=== PATIENT | male | born 1960 | race Caucasian/White ===

== ENCOUNTER 2019-11-24 20:57 | Inpatient (IN) | payer BC, SELFPAY ==
[2019-11-24] VITALS (22 sets, daily range): BP systolic 72–141; BP diastolic 48–93; PULSE 40–114; RESP 13–21; TEMP 36.6; O2SAT 79–97
--- NOTE | 2019-11-24 21:10 | ED.GENADUL_ITS ---
Discharge Plan Discharge Details Chief Complaint: GenMedical Primary Care Provider: Esvin Alan ED Provider: Lexis Finch Home Meds and New Rx's Prescriptions: No Action simvastatin 20 MG tablet 40 mg PO DAILY RF: 0 metformin [Glucophage] 1,000 MG tablet 1,000 mg PO BID RF: 0 gabapentin 300 MG capsule 600 mg PO QHS RF: 0 budesonide-formoterol [Symbicort] 10.2 GM HFA aerosol inhaler 2 puff Inhalation BID RF: 0 Glyburide 2.5 MG Tablet 5 mg PO DAILY RF: 0 metolazone 2.5 mg Tablet 2.5 mg PO DAILY RF: 0 torsemide 20 mg Tablet 20 mg PO DAILY RF: 0 acetaminophen [Tylenol 8 Hour] 650 mg Tablet Extended Release 650 mg PO Q4H PRN PRNRF: 0 levofloxacin [Levaquin] 750 mg Tablet 750 mg PO DAILY RF: 0 potassium chloride 10 mEq Tablet,Er Particles/Crystals 10 meq PO DAILY RF: 0 alfuzosin 10 mg Tablet Extended Release 24 Hr 10 mg PO DAILY RF: 0 metoprolol tartrate 25 mg Tablet 25 mg PO BID RF: 0 duloxetine 60 mg Capsule,Delayed Release(Dr/Ec) 60 mg PO BID RF: 0 Eliquis 5 mg Tablet 5 mg PO BID RF: 0 magnesium oxide 400 mg magnesium Tablet 400 mg PO BID RF: 0 Medical Decision Making Is a 58-year-old patient who presents to the emergency room this evening for 2 falls which occurred today. Patient reports the first fall occurred while he was carrying a laundry basket and his legs buckled underneath him. Patient reports second fall occurred when he was transferring from his chair he stood for approximately 30 seconds and tried to walk in place, which has been recommended to him by his aids prior to transferring, then began walking over towards the kitchen and reports he had a syncopal episode. Patient reports he does not recall the events of the fall. Patient reports he awoke on the floor. Denies striking his head. Patient reports this occurred prior to arrival. Patient denies any headache or dizziness at this time. Patient denies chest pain no difficulty breathing shortness of breath or wheezing. Patient denies any cough or recent fever. Patient denies abdominal complaints. Patient does report he is currently on Levaquin for urinary tract infection previously prescribed at [facility]. Patient reports he was admitted to [facility] for approximately 1 week again after subsequent falls. Patient reports prior to his admission to [facility] he was admitted to [facility] for several weeks after having noted acute kidney injury as well as hypotension. Patient denies any focal complaints at this time. Patient denies biting his tongue this evening. On physical exam patient is obese, somewhat unkempt. Intact neurologic exam. Breath sounds are somewhat diminished likely due to body habitus but otherwise clear. Patient has benign abdominal exam. Patient has distal edema present in his lower legs bilaterally left greater than right with chronic vascular changes noted peripherally. Patient has no obvious evidence of trauma resulting from falls today. Patient does have a bandage in place on his right anterior plascencia. We will plan to recheck patient's labs and obtain his previous discharge reports from both [facility] and [facility]. We will plan to check CT of his head due to fall and syncopal episode. We will recheck urinalysis as patient recently was treated for UTI and is still currently taking Levaquin. EKG this evening reveals a heart rate of 91 possible A. fib and right bundle branch block. This was reviewed with Dr. Mcdowell. No evidence of ST segment changes. She did review previous EKG on November 052019 and she noted no significant change. Patient is discharged report from [facility] reveals active hospital problems including cellulitis, acute kidney injury, acute on chronic systolic heart failure as well as A. fib with RVR, venous insufficiency and type 2 diabetes as well as obstructive sleep apnea. Patient was ultimately initially evaluated at [facility] for concern of cellulitis of his lower legs and did report some shortness of breath only able to do approximately half of his normal activities before needing to sit and rest. Patient was noted to be in A. fib with RVR with a heart rate in the 120s, patient was treated with antibiotics for his lower leg cellulitis. Patient did undergo a DAPHNIE on and had an LVEF of 35%. Per patient's chart they did attempt to shock his heart into a normal rhythm however it was not effective. Patient was discharged on metoprolol 100 mg once daily patient was noted to have acute kidney injury and hypervolemic hyponatremia. Patient ultimately had some changes to his diuretic regimen, Lasix was discontinued and torsemide 40 mg was began once daily. After patient's discharge in the hospital he was home for approximately 1 week he had multiple subsequent falls, was evaluated at [facility] multiple times returned twice in 1 day for complaints of dizziness. On patient's subsequent visit he had labs evaluated and his systolic blood pressure was noted to be in the 80s which was somewhat symptomatic with dizziness and on review of his labs it was noted that his BUN was 96 when his previous BUN was 21 1 month ago. In the light of this acute kidney injury and significant hypotension he was made an acute level of patient and ultimately admitted to the hospital for 1 week. Patient was admitted to the hospital. Patient reports he was also noted to have a urinary tract infection during his admission. Was ultimately to the Levaquin for which he is still compliant but has been released from the hospital was feeling well for few days until today when he had the 2 previously described falls. Patient has no evidence of leukocytosis at this time. Patient's creatinine today is noted to be 1.76 and BUN noted to be 69. Patient's BNP is 2589, these seem somewhat improved compared to the notes from his previous hospital visits. Patient's urinalysis does not exhibit persistent infection and patient is currently taking Levaquin. Patient CT head does not reveal any acute intracranial findings or fracture. Patient's cervical spine has no acute fracture or subluxation. Given patient's subsequent improvement in his labs will attempt trial of ambulation. Patient was able to ambulate to approximately the door and slowly pivot turn he was feeling well with this degree of ambulation then became suddenly dizzy and lightheaded feeling he may syncopized, we seated him in a chair in the place he stood in the doorway ultimately checked his vital signs and was noted to be bradycardic at approximately 40 and have mild associated hypotension. Patient did not lose consciousness and ultimately was safely returned to his bed. After this episode I do not feel comfortable discharging this patient home at this time. Spoke with hospitalist for admission. After discussion with hospitalist suspect orthostatic hypotension. He will accept patient's admission at this time. Patient agrees with this plan of care, he feels much more comfortable being admitted to the hospital at this time given his recent falls. I also spoke with the sister with the patient's permission regarding medical findings tonight and plan of admission to the hospital. HPI General Date/Time Provider Initiated Documentation: 11/24/19 21:08 . HPI Narrative: This is a 4-year-old patient presenting to the emergency room this evening after 2 falls today. Patient lives at home alone and he reports this morning he was doing the laundry and his left leg buckled he fell to the ground but denies striking his head. Patient reports he was alert the entire time. Patient denies any subsequent injuries due to that fall. Patient reports he was eating and drinking without difficulty today. His sister came to visit him this evening after he did not answer the phone and this evening he was sitting in a chair in the living room and plans to transfer into the kitchen for dinner when he stood he stood with his walker for approximately 30 seconds as has been directed to him by his aids to prevent dizziness then he began walking into the kitchen with the use of his walker and he describes a syncopal episode. Patient does not recall the events of this episode. Patient reports his fall was witnessed by the sister. Patient denies obvious injury resulting from the fall. Denies any headache, or neck pain. Denies any vision change, nausea, vomiting. Denies any chest or back pain. No numbness, tingling or weakness in upper or lower extremities since fall. Denies any abdominal pain. Patient denies any obvious abdominal distention. Patient concerned due to frequency of falls and reported weakness when ambulating. Patient does report recent hospital admissions to both [facility] for approximately 1 week in [facility] prior to that for approximately 3 weeks. Patient does report he is currently on Levaquin for urinary tract infection which was noted at [facility]. Related Data Home Medications Medication Instructions Recorded Confirmed Glyburide 5 mg PO DAILY 03/10/18 03/10/18 budesonide-formoterol [Symbicort] 2 puff INHALATION BID 03/10/18 11/24/19 gabapentin 600 mg PO QHS 03/10/18 03/10/18 metformin [Glucophage] 1,000 mg PO BID 03/10/18 03/10/18 simvastatin 40 mg PO DAILY 03/10/18 11/24/19 acetaminophen [Tylenol 8 Hour] 650 mg PO Q4H PRN PRN 11/24/19 11/24/19 alfuzosin 10 mg PO DAILY 11/24/19 11/24/19 apixaban [Eliquis] 5 mg PO BID 11/24/19 11/24/19 duloxetine 60 mg PO BID 11/24/19 11/24/19 levofloxacin [Levaquin] 750 mg PO DAILY 11/24/19 11/24/19 magnesium oxide 400 mg PO BID 11/24/19 11/24/19 metolazone 2.5 mg PO DAILY 11/24/19 11/24/19 metoprolol tartrate 25 mg PO BID 11/24/19 11/24/19 potassium chloride 10 meq PO DAILY 11/24/19 11/24/19 torsemide 20 mg PO DAILY 11/24/19 11/24/19 Allergies Allergy/AdvReac Type Severity Reaction Status Date / Time No Known Allergies Allergy Unverified 11/24/19 21:16 General Stated Complaint: GenMedical ALICJA: 3 Review of Systems All systems reviewed & are unremarkable except as noted in HPI and below Constitutional Constitutional: Denies chills, Denies fever(s), Denies headache(s) and Reports weakness ENT Ears, Nose, Mouth, and Throat: Denies headache(s), Denies nasal congestion and Denies sore throat Cardiovascular Cardiovascular: Denies chest pain, Reports syncope, Denies rapid heart rate, Reports lightheadedness, Denies dyspnea, Denies dyspnea on exertion and Denies orthopnea Respiratory Respiratory: Denies cough, Denies dyspnea and Denies dyspnea on exertion Gastrointestinal Gastrointestinal: Denies abdominal pain, Reports constipation, Denies diarrhea, Denies nausea and Denies vomiting Genitourinary Genitourinary: Reports urinary incontinence (At baseline, wears diaper) Musculoskeletal Musculoskeletal: Denies numbness and Denies tingling Neurologic Neurologic: Reports syncope, Denies headache(s), Denies numbness, Denies tingling and Reports weakness [facility] Social History Smoking/Tobacco Use Status: Never Alcohol Intake: former Drug use: Never Do you feel safe at home: Yes Do you feel safe in your relationship?: Yes Exam Narrative Exam Narrative: CONST: Obese, in no acute distress. Alert and oriented. HENMT: Head nomocephalic, normal to inspection. Atraumatic. Hearing grossly normal. No pharyngeal erythema EYES: General normal appearance. Alignment normal. Eyelids normal. Conjunctiva normal. No nystagmus NECK: Normal visual inspection. FROM. Trachea midline. No Midline tenderness. CHEST: Normal insepection of the chest. RESP: Normal respiratory effort. Speaking full sentences. No cough. No audible wheezing. No retractions. Breath sounds somewhat diminished throughout all breath muniz but otherwise clear. No wheezing, rhonchi or rales. CARDIO: No JVD. Regular rate and rhythm. MUSCULOSKELETAL: Normal Gait. FROM of all extremities. Significant distal edema bilaterally left greater than right. Chronic vascular changes bilaterally, some erythema noted to the left lower leg which patient reports is improved. SKIN: Normal. Dry. No rashes. NEURO: Alert and awake. Speech clear. Alert and oriented x 3. Speech is clear. Cranial nerves intact as tested III - XI. Normal [id number] test. No Nystagmus. Strength intact in all extremities. Sensation intact in all extremities. PSYCH: Normal affect. Cooperative. Course Vital Signs Vital signs: Vital Signs Temperature 36.6 C 11/24/19 21:02 Pulse 80 11/24/19 21:02 Respiratory Rate 15 11/24/19 21:02 Blood Pressure 120/79 11/24/19 21:02 Pulse Oximetry 97 11/24/19 21:02 Temperature 36.6 C 11/24/19 21:02 Temperature Source Oral 11/24/19 21:02 Pulse 80 11/24/19 21:02 Respiratory Rate 15 11/24/19 21:02 Respiratory Effort 11/24/19 21:02 Blood Pressure 120/79 11/24/19 21:02 Pulse Oximetry 97 11/24/19 21:02 Oxygen Delivery Method Room Air 11/24/19 21:02 Oxygen Flow Rate 0 11/24/19 21:02 Pain Level 0 11/24/19 21:02
[2019-11-24 22:08] LABS: Abs Immature Grans 0.02 k/cumm (0.0-0.09); Absolute Basophil Count 0.02 k/cumm (0.0-0.2); Absolute Eosinophil Count 0.12 k/cumm (0.0-0.7); Absolute Lymphocyte Count 1.06 k/cumm (1.2-3.4); Absolute Monocyte Count 0.56 k/cumm (0.11-0.7); Basophils % 0.4; Eosinophils % 2.2; HCT 46.2 % (40.0-50.0); HGB 15.1 g/dL (13.5-17.5); Immature Grans % 0.4 %; Lymphocytes % 19.3; Mean Corp. HGB Concentration 32.7 g/dL (32.0-36.0); Mean Corpuscular Volume 85.7 fL (80-95); Mean Platelet Volume 10.1 fL (8.0-11.0); Monocytes % 10.2; Neutrophils % 67.5; Platelet Count 177 x1000/uL (130-400); RBC 5.39 m/cumm (4.50-6.00); RBC Distribution Width 15.9 % (11.8-14.1); White Blood Cell Count 5.48 k/cumm (4.4-10.8)
[2019-11-24 22:12] LABS: Bilirubin Negative (Negative); Blood Small (Negative); Clarity Clear (Clear); Glucose Negative (Negative); Ketones Negative (Negative); Leukocyte Esterase Negative (Negative); Nitrite Negative (Negative); Specific Gravity 1.015 (1.005-1.025); Urobilinogen 0.2 EU/dL (Up TO 0.2); pH 6.5 (5-8)
[2019-11-24 22:19] LABS: Bacteria Negative HPF (Negative); C & S Indicated? No; Casts Negative LPF (Negative); Crystals Negative HPF (Negative); Epithelial Cells Negative HPF (Negative); Mucus Negative (Negative); Other Cells Rare Renal (Negative); RBC 20-50 HPF (0-2); WBC 0-2 HPF (0-5)
[2019-11-24 22:23] LABS: ALT 30 U/L (16-63); AST 30 U/L (15-37); Albumin 3.6 g/dL (3.4-5.0); Alkaline Phosphatase 98 U/L (46-116); Anion Gap 7.3 mmol/L (3-11); BUN 69 mg/dL (7-18); Bilirubin, Total 1.1 mg/dL (0.2-1.0); CO2 35.7 mmol/L (21.0-32.0); CREATININE 1.76 mg/dL (0.70-1.30); Calcium 9.8 mg/dL (8.5-10.1); Chloride 93 mmol/L (98-107); Glucose 129 mg/dL (74-106); Sodium 136 mmol/L (136-145); Total Protein 8.6 g/dL (6.4-8.2)
[2019-11-24 22:26] LABS: Troponin I < 0.05 ng/Ml (<0.06)
[2019-11-24 22:27] LABS: NT-proBNP 2589 pg/mL (<300)
--- NOTE | 2019-11-24 22:45 | DI.CT_ITS ---
EXAM: CT HEAD CERVICAL SPINE WO CLINICAL HISTORY: fall. TECHNIQUE: Imaging Protocol: Axial computed tomography images with coronal and sagittal reformatted images were created and reviewed COMPARISON: No exams were available for comparison FINDINGS: Head CT Ventricles and Extra axial spaces: Normal in size and morphology for the patient's age. Hemorrhage: None. Cerebral parenchyma: Normal. Midline shift: None. Brainstem/Cerebellum: Normal. Calvarium: Normal. Visualized Paranasal sinuses/Mastoids: Clear. IMPRESSION: No acute abnormality. FINDINGS: Cervical Spine CT BONES: Vertebral body heights are maintained. Degenerative disc changes and facet degenerative change s are seen. Alignment is normal. There is no evidence of acute fracture. SOFT TISSUES: No paraspinal hematoma. The airway appears intact. The thorax is seen at the lung apices. No mass or adenopathy is identified. . IMPRESSION: Degenerative changes, no acute abnormality. RADIATION DOSE DELIVERED: DATA REPOSITORY: All CT scans at this facility are submitted to the National Radiology Data Registry (NRDR) Dose Index Registry (DIR) with the [employer] (A[employer]). RADIATION OPTIMIZATION: All CT scans at this facility use at least one of these dose optimization te chniques: automated exposure control; mA and/or kV adjustment per patient size (includes targeted exa ms where dose is matched to clinical indication); or iterative reconstruction.
--- NOTE | 2019-11-24 23:08 | DI.VRAD_ITS ---
PROCEDURE INFORMATION: Exam: CT Head Without Contrast Exam date and time: 11/24/2019 10:40 PM Age: 58 years old Clinical indication: Injury or trauma; Initial encounter; Sprain or strain, cervical ligaments; Patient HX: S/P fall TECHNIQUE: Imaging protocol: Computed tomography of the head without contrast. COMPARISON: No relevant prior studies available. FINDINGS: Brain: Normal. No hemorrhage. Unremarkable white matter. No mass effect. Ventricles: Normal. No ventriculomegaly. Bones/joints: Unremarkable. No acute fracture. Sinuses: Visualized sinuses are unremarkable. No fluid levels. Mastoid air cells: Visualized mastoid air cells are well aerated. Soft tissues: Unremarkable. IMPRESSION: 1. No acute intracranial findings. 2. No acute fracture. PROCEDURE INFORMATION: Exam: CT Cervical Spine Without Contrast Exam date and time: 11/24/2019 10:40 PM Age: 58 years old Clinical indication: Injury or trauma; Initial encounter; Sprain or strain, cervical ligaments; Patient HX: S/P fall TECHNIQUE: Imaging protocol: Computed tomography images of the cervical spine without contrast. Radiation optimization: All CT scans at this facility use at least one of these dose optimization techniques: automated exposure control; mA and/or kV adjustment per patient size (includes targeted exams where dose is matched to clinical indication); or iterative reconstruction. COMPARISON: No relevant prior studies available. FINDINGS: Vertebrae: No acute fracture. No subluxation. Discs/Spinal canal/Neural foramina: No disc herniations. No spinal canal stenosis. Multilevel mild neural foraminal narrowing. Soft tissues: Unremarkable. Lungs: Lung apices are normal. Vasculature: Carotid artery calcification. IMPRESSION: No acute fracture or subluxation. Dictated and Authenticated by: Edmond Bustos MD. Ordering:ADILSON Pires MD
--- NOTE | 2019-11-24 23:25 | NUR.NOTE ---
Nursing Note:2310 ambulate pt with walker and assist of 2. Pt got from bed 1B to door, c/o feeling dizzy. Was sat in chair until dizziness passed, then was able to ambulate back to bed with walker and assist of 2
--- NOTE | 2019-11-24 23:34 | W.PM.HP.N ---
Date of service: 11/24/19 Time of Service: 23:34 Assessment and Plan Assessment and plan (1) Orthostatic hypotension: Status: Acute Assessment and plan: Orthostatic hypotension, likely due to overdiuresis. Several other meds may be contributing as well, including beta kunal, afluzosin and gabapentin. Will hold diuretics, and consider other med adjustments as needed. Orthostasis: hold diuretics AF: on NOAC, consider replace lopressor wih digoxin if othrostasis persists BPH: consider hold Alfuzosin DM: follow sugars, hold meds for now until we see how he does on diet History of Present Illness History of Present Illness Chief Complaint: falling Narrative: 58 male with multiple problems, including morbid obesity and chronic edema. Here reporting several weeks of falling. In ER findings of note for orthostasis, azotemia and inability to ambulate. Admitted for further management. Review of Systems All systems reviewed & are unremarkable except as noted in HPI and below PFSH Social History Smoking/Tobacco Use Status: Never Alcohol Intake: former Drug use: Never Do you feel safe at home: Yes Do you feel safe in your relationship?: Yes Meds Home Medications and Allergies Home Medications Medication Instructions Recorded Confirmed Type Glyburide 5 mg PO DAILY 03/10/18 03/10/18 History budesonide-formoterol [Symbicort] 2 puff INHALATION BID 03/10/18 11/24/19 History gabapentin 600 mg PO QHS 03/10/18 03/10/18 History metformin [Glucophage] 1,000 mg PO BID 03/10/18 03/10/18 History simvastatin 40 mg PO DAILY 03/10/18 11/24/19 History acetaminophen [Tylenol 8 Hour] 650 mg PO Q4H PRN PRN 11/24/19 11/24/19 History alfuzosin 10 mg PO DAILY 11/24/19 11/24/19 History apixaban [Eliquis] 5 mg PO BID 11/24/19 11/24/19 History duloxetine 60 mg PO BID 11/24/19 11/24/19 History levofloxacin [Levaquin] 750 mg PO DAILY 11/24/19 11/24/19 History magnesium oxide 400 mg PO BID 11/24/19 11/24/19 History metolazone 2.5 mg PO DAILY 11/24/19 11/24/19 History metoprolol tartrate 25 mg PO BID 11/24/19 11/24/19 History potassium chloride 10 meq PO DAILY 11/24/19 11/24/19 History torsemide 20 mg PO DAILY 11/24/19 11/24/19 History Allergies Allergy/AdvReac Type Severity Reaction Status Date / Time No Known Allergies Allergy Unverified 11/24/19 21:16 Exam Narrative Exam Narrative: 123/87, 92 supine// 72/48, 106 standing, 20, 36.6. HEENT atraumatic; neck supple; lungs clear; heart RRR w/o mrg; abdomen soft and NT; extremities chronic lymphedema; neuro ox3 moves all 4s Results Labs Result diagrams: 11/24/19 21:40 11/24/19 21:40 Labs: Laboratory Results - last 24 hr 11/24/19 11/24/19 11/24/19 21:40 21:40 21:40 WBC 5.48 RBC 5.39 Hgb 15.1 Hct 46.2 MCV 85.7 MCH 28.0 MCHC 32.7 RDW 15.9 H Plt Count 177 MPV 10.1 Immature Gran % 0.4 Neutrophils % 67.5 Lymphocytes % 19.3 Monocytes % 10.2 Eosinophils % 2.2 Basophils % 0.4 Absolute Neutrophils 3.70 Absolute Lymphocytes 1.06 L Absolute Monocytes 0.56 Absolute Eosinophils 0.12 Absolute Basophils 0.02 Sodium 136 Potassium 4.0 Chloride 93 L Carbon Dioxide 35.7 H Anion Gap 7.3 BUN 69 H Creatinine 1.76 H Estimated GFR/1.73 m2 39.70 Glucose 129 H Calcium 9.8 Total Bilirubin 1.1 H AST 30 ALT 30 Alkaline Phosphatase 98 Troponin I < 0.05 NT-Pro-B Natriuret Pep Total Protein 8.6 H Albumin 3.6 Urine Color Yellow Urine Clarity Clear Urine pH 6.5 Ur Specific [place] 1.015 Urine Protein Negative Urine Ketones Negative Urine Blood Small H Urine Nitrite Negative Urine Bilirubin Negative Urine Urobilinogen 0.2 Ur Leukocyte Esterase Negative Urine RBC 20-50 H Urine WBC 0-2 Ur Epithelial Cells Negative Urine Crystals Negative Urine Bacteria Negative Urine Casts Negative Urine Mucus Negative Urine Other Rare renal Ur Culture Indicated? No Urine Glucose Negative 11/24/19 21:40 WBC RBC Hgb Hct MCV MCH MCHC RDW Plt Count MPV Immature Gran % Neutrophils % Lymphocytes % Monocytes % Eosinophils % Basophils % Absolute Neutrophils Absolute Lymphocytes Absolute Monocytes Absolute Eosinophils Absolute Basophils Sodium Potassium Chloride Carbon Dioxide Anion Gap BUN Creatinine Estimated GFR/1.73 m2 Glucose Calcium Total Bilirubin AST ALT Alkaline Phosphatase Troponin I NT-Pro-B Natriuret Pep 2589 H Total Protein Albumin Urine Color Urine Clarity Urine pH Ur Specific [place] Urine Protein Urine Ketones Urine Blood Urine Nitrite Urine Bilirubin Urine Urobilinogen Ur Leukocyte Esterase Urine RBC Urine WBC Ur Epithelial Cells Urine Crystals Urine Bacteria Urine Casts Urine Mucus Urine Other Ur Culture Indicated? Urine Glucose Last Vital Signs Temp 36.6 C 11/24/19 21:02 Pulse 40 L 11/24/19 23:15 Resp 20 11/24/19 23:15 BP 110/64 11/24/19 23:15 Pulse Ox 94 L 11/24/19 22:30 COVID-19 Screening Traveled to [place] from one of the affected countries or regions?: No Recent travel in the [place] within the last 8 weeks?: No Recent out of the country travel within the last 8 weeks?: No Exposure or possible exposure to illness during travel?: No Had IN PERSON contact w/suspected or confirmed C-19 person: No Have you had the following symptoms in the past few days?: No Symptoms noted since travel?: No Symptoms
[2019-11-25] VITALS (8 sets, daily range): BP systolic 80–130; BP diastolic 50–90; PULSE 52–102; RESP 17–20; TEMP 36.2–37.5; O2SAT 94–99
--- NOTE | 2019-11-25 | DI.US_ITS ---
EXAM: US EXTREMITY VENOUS BI CLINICAL HISTORY: edema BLE's, concern for DVT. TECHNIQUE: Bilateral lower extremity venous ultrasound performed using grayscale, color-flow, and sp ectral Doppler analysis. COMPARISON: No exams were available for comparison FINDINGS: Right lower extremity: The bilateral common femoral, femoral and popliteal veins demonstrate normal c ompressibility, augmentation, and color Doppler. The posterior tibial veins are patent. Left lower extremity: The common femoral vein and femoral vein are freely compressible. No thrombus is visible. The popliteal vein contains partially occlusive thrombus. The posterior tibial veins ap pear free of thrombus. The small saphenous vein also shows thrombus. The greater saphenous vein is free of thrombus. IMPRESSION: Right: Negative for DVT and superficial thrombophlebitis. Left: Partially occluding thrombosis in the popliteal vein. Superficial thrombophlebitis involving t he small saphenous vein. DATA REPOSITORY:
--- NOTE | 2019-11-25 00:02 | NUR.NOTE ---
Nursing Note: report to Moira Velazco RN
[2019-11-25] MEDS: Gabapentin 300 MG CAP 600 MG PO ×2 (01:41→21:34)
[2019-11-25 07:14] LABS: BUN 66 mg/dL (7-18); CREATININE 1.65 mg/dL (0.70-1.30); Calcium 9.3 mg/dL (8.5-10.1); Chloride 96 mmol/L (98-107); Estimated GFR 42.77 (mL/min/1.73m2); Glucose 103 mg/dL (74-106); Potassium 3.4 mmol/L (3.5-5.1); Sodium 137 mmol/L (136-145)
[2019-11-25] MEDS: Budesonide/Formoterol 80/4.5 6.9 GM 60 PUFF INH IH ×2 (08:57→20:33)
[2019-11-25] MEDS: DULoxetine 30 MG CAP 60 MG PO ×2 (09:02→20:27)
[2019-11-25] MEDS: M 750 MG PO (09:03)
[2019-11-25] MEDS: Apixaban 5 MG TAB PO (09:03)
[2019-11-25] MEDS: Magnesium Oxide 400 MG TAB PO ×2 (09:03→20:30)
[2019-11-25] MEDS: Metoprolol 25 MG TAB PO ×2 (09:03→20:27)
--- NOTE | 2019-11-25 10:51 | PHA.ADMREV ---
Pharmacy Clinical Review - Admission Clinical Review (Last Reviewed 11/24/19 @ 23:56 by AIDA Gilmore) Orthostatic hypotension (Acute) No Known Allergies Allergy (Unverified 11/24/19 21:16) Height 5 ft 8 in Weight 146.8 kg - Renal Dosing Renal Dosing: BUN 66 mg/dL (7-18) H 11/25/19 06:40 Creatinine 1.65 mg/dL (0.70-1.30) H 11/25/19 06:40 Medications needing adjustments: Reviewed (CRCL ~46ML/MIN) - Anticoagulation Anticoagulation: Hgb 15.1 g/dL (13.5-17.5) 11/24/19 21:40 Hct 46.2 % (40.0-50.0) 11/24/19 21:40 Plt Count 177 x1000/uL (130-400) 11/24/19 21:40 Creatinine 1.65 mg/dL (0.70-1.30) H 11/25/19 06:40 DVT Prohphylaxis: Reviewed Medications: Apixaban Therapeutic Anticoagulation: Reviewed Medications: Apixaban - Opiate Usage Evaluate Pain Scale/Pains Meds: N/A - Relevant Labs Sodium 137 mmol/L (136-145) 11/25/19 06:40 Potassium 3.4 mmol/L (3.5-5.1) L 11/25/19 06:40 Chloride 96 mmol/L (98-107) L 11/25/19 06:40 Electrolytes, C-Reactive P, ESR: Reviewed - Antimicrobial Stewardship Antibiotic appropriateness: N/A Surgical Abx d/c within 24 hr: N/A Culture review/Resistance: N/A - DM Control DM Control: Glucose 103 mg/dL (74-106) 11/25/19 06:40 Finger Stick Blood Glucose 102 Insulin Dosing: Reviewed (home meds not ordered yet) - Heart Failure/IN Heart Failure/IN: Troponin I < 0.05 ng/Ml (<0.06) 11/24/19 21:40 NT-Pro-B Natriuret Pep 2589 pg/mL (<300) H 11/24/19 21:40 EF%, KADIE's, B-Blockers, Diuretics: N/A - BP Control BP Control: Blood Pressure [Standing] 73/48 Blood Pressure [Supine] 123/87 Blood Pressure 117/74 Blood Pressure 128/90 Blood Pressure 108/81 Blood Pressure 94/71 Blood Pressure 72/48 Blood Pressure 123/87 Blood Pressure 92/60 Blood Pressure 110/64 Blood Pressure 117/91 Blood Pressure 141/77 If elevated: N/A - QTc Review If Elevated: Reviewed (561 levofloxacin(Known risk), alfuzosin(potential risk, pt own med ,no doses given yet)) - IV to PO Switch IV Medications: N/A (all PO) - Home Meds Home Med List reviewed: Reviewed - Current meds Current Medication Order Review: Reviewed (home meds not ordered: metformin, glyburide, torsemide)
--- NOTE | 2019-11-25 12:24 | W.NUTCONSULT ---
Date of service: 11/25/19 Time of Service: 12:24 Nutritional Consult ASSESSMENT: 58 year old male admitted with orthostatic hypotension. PMH: morbid obesity, chronic edema, HTN, DM2. Meds include glipizide. BMI indicates class 3 obesity. Following Diabetic Diet with 100% meal completion. Not at risk for nutritional decline at this time. MONITORING AND EVALUATION: weight, po intake, labs Time Spent in Nutritional Counseling and Treatment: 0 time spent face to face
--- NOTE | 2019-11-25 13:56 | W.PM.PROGNOT ---
Date of Service Date of service: 11/25/19 Time of Service: 13:56 Assessment and Plan Assessment and plan (1) Orthostatic hypotension: Status: Acute Assessment and plan: Differential diagnosis includes prerenal azotemia secondary to aggressive diuretics to control his CHF, pulmonary embolus, medications i.e. alpha-kunal and beta-kunal combination in addition to diuretics (2) Deep venous thrombosis of left popliteal vein: Status: Acute Assessment and plan: Patient denies prior history of DVT or PE. However he also denies a history of CHF even notes documented in his records from [facility]. He is a poor historian he knows he been on blood thinners for many years but did not know why he first went on the warfarin even though he has a history of atrial fibrillation. From the report is unable to determine whether this is acute or chronic DVT. It would appear that he is failed apixaban. I suspect because of his obesity and the lack of monitoring for its effectiveness that he is failed D.O.A.C.'s. At this point we will put him on Lovenox and then restart his warfarin. Qualifiers: Chronicity: acute Qualified Code(s): I82.432 - Acute embolism and thrombosis of left popliteal vein (3) Diabetic peripheral neuropathy associated with type 2 diabetes mellitus: Status: Acute Assessment and plan: In light of his CHF and acute kidney injury eminent withhold his metformin and his glyburide. Will monitor blood sugars before meals and at bedtime and cover with insulin sensitive sliding scale. (4) Obstructive sleep apnea: Status: Chronic Assessment and plan: Resume nocturnal CPAP. (5) Acute kidney injury (nontraumatic): Status: Acute Assessment and plan: Give him a fluid bolus of 500 cc over the next 2 hours to acutely treat his orthostasis. We will run IV fluids over the next 12 to 24 hours at a slow rate. (6) Prerenal azotemia: Status: Acute Assessment and plan: Withhold diuretics and monitor his BMP and urine output. Subjective Subjective Interval history since last seen: 4-year-old male non-smoker history of asthma hypertension and obstructive sleep apnea for which he wears a CPAP mask at home. He has chronic atrial fibrillation for which she is anticoagulated with apixaban. He denies a history of CHF or [place]. However the ER reports that patient was recently discharged from [facility] where he been treated for cellulitis and reportedly haS a history of chronic systolic heart failure. Was also treated for cellulitis of his legs during that admission. Most recently he was hospitalized at [facility] in [place] after being seen in the emergency room department twice. First 1 they treated him with IV fluids and sent him home but when he had a syncopal spell at home he returned to the emergency department was hospitalized at [facility] where he was diagnosed with an acute UTI. He is currently finishing up a course of Levaquin. Patient presented to the emergency department last night after having had 2 falls at home 1 of which was current with syncope. The other one occurred without dizziness which she said his legs just gave out from under him. He had recurrent orthostatic hypotension emergency department and had a near syncopal event. Of note he has acute prerenal azotemia with elevated BUN of 69 and creatinine 1.76. This is up from his baseline BUN of 21 from a month ago. Of note patient does have a history of heart failure with reduced ejection fraction. As of October 22, 2019 last echocardiogram demonstrated ejection fraction of 35% per DAPHNIE. Patient denies any fever or chills or cough or shortness of breath and denies any chest pain either last night or today. He remains in atrial fibrillation at a controlled ventricular rate with a bundle branch block pattern. As of the admission yesterday he was still on Levaquin for UTI. Repeat urinalysis last night showed some microscopic hematuria but no pyuria no bacteriuria. Urinalysis negative for nitrites or leukocyte Estrace. Patient has chronic bilateral leg edema probably secondary to his CHF and from [facility]. Venous duplex scan done earlier today demonstrated left popliteal vein thrombosis. Patient reports he has been taking his apixaban faithfully twice a day for the past 2 years prior to that he had been on warfarin. He is not sure why they discontinued the warfarin other than he required frequent monitoring. He does not recall he have any problems with the warfarin. I explained to him he is going to need to go on another anticoagulant. Because of his morbid obesity I do not think is a candidate for D.O.A.C. I will start him on Lovenox this afternoon and then convert him to warfarin. Is not clear as to whether or not he had a PE or not he had no symptoms of chest pain or shortness of breath no hypoxemia. Because of his acute renal insufficiency is not a candidate for CTA of his chest. Exam Narrative Exam Narrative: Morbidly obese male lying in bed in semi-an position no acute distress talking on his phone. He is alert and oriented person place time circumstance. Lungs are clear to auscultation anteriorly and posteriorly in upper and lower lung muniz bilaterally. Heart is irregular irregular rate controlled rate. No appreciable murmur rub or gallop. Abdomen obese soft and nontender. Lower extremities with 2+ edema with chronic excoriation secondary to venous stasis dermatitis. Objective Objective Clinical Data: Abnormal lab results 11/24/19 11/24/19 11/24/19 Range/Units 21:40 21:40 21:40 RDW 15.9 H (11.8-14.1) % Absolute Lymphocytes 1.06 L (1.2-3.4) k/cumm Potassium (3.5-5.1) mmol/L Chloride 93 L (98-107) mmol/L Carbon Dioxide 35.7 H (21.0-32.0) mmol/L BUN 69 H (7-18) mg/dL Creatinine 1.76 H (0.70-1.30) mg/dL Glucose 129 H (74-106) mg/dL Total Bilirubin 1.1 H (0.2-1.0) mg/dL NT-Pro-B Natriuret Pep (<300) pg/mL Total Protein 8.6 H (6.4-8.2) g/dL Urine Blood Small H (Negative) Urine RBC 20-50 H (0-2) HPF 11/24/19 11/25/19 Range/Units 21:40 06:40 RDW (11.8-14.1) % Absolute Lymphocytes (1.2-3.4) k/cumm Potassium 3.4 L (3.5-5.1) mmol/L Chloride 96 L (98-107) mmol/L Carbon Dioxide 35.0 H (21.0-32.0) mmol/L BUN 66 H (7-18) mg/dL Creatinine 1.65 H (0.70-1.30) mg/dL Glucose (74-106) mg/dL Total Bilirubin (0.2-1.0) mg/dL NT-Pro-B Natriuret Pep 2589 H (<300) pg/mL Total Protein (6.4-8.2) g/dL Urine Blood (Negative) Urine RBC (0-2) HPF Vital Signs Temperature 37.5 C 11/25/19 11:18 Temperature Source Tympanic 11/25/19 11:18 Pulse 100 H 11/25/19 13:28 Pulse Rhythm Irregular 11/25/19 01:07 Pulse 102 H 11/25/19 00:00 Respiratory Rate 17 11/25/19 11:18 Respiratory Effort Non-Labored 11/25/19 01:07 Respiratory Depth Normal 11/25/19 01:07 Respiratory Pattern Normal 11/25/19 01:07 Blood Pressure 94/68 L 11/25/19 13:28 Blood Pressure Mean 88 11/25/19 00:00 Pulse Oximetry 99 11/25/19 11:18 Oxygen Delivery Method Room Air 11/25/19 11:18 Oxygen Flow Rate 0 11/25/19 11:18 Pain Level 0 11/25/19 11:18 Intake & Output 11/24/19 11/25/19 11/25/19 23:59 11:59 23:59 Intake Total 240 / 490 250 / 490 Balance 240 / 490 250 / 490 Weight 148.325 kg 146.8 kg Intake: Oral 240 / 490 250 / 490 Other: Urine Color Yellow Urine Appearance Clear Comment after incident of incontinence pt was very incontinent Voiding Methods Diaper Incontinent Laboratory Results WBC 5.48 k/cumm (4.4-10.8) 11/24/19 21:40 RBC 5.39 m/cumm (4.50-6.00) 11/24/19 21:40 Hgb 15.1 g/dL (13.5-17.5) 11/24/19 21:40 Hct 46.2 % (40.0-50.0) 11/24/19 21:40 MCV 85.7 fL (80-95) 11/24/19 21:40 MCH 28.0 pg (27.0-33.0) 11/24/19 21:40 MCHC 32.7 g/dL (32.0-36.0) 11/24/19 21:40 RDW 15.9 % (11.8-14.1) H 11/24/19 21:40 Plt Count 177 x1000/uL (130-400) 11/24/19 21:40 MPV 10.1 fL (8.0-11.0) 11/24/19 21:40 Immature Gran % 0.4 % 11/24/19 21:40 Neutrophils % 67.5 11/24/19 21:40 Lymphocytes % 19.3 11/24/19 21:40 Monocytes % 10.2 11/24/19 21:40 Eosinophils % 2.2 11/24/19 21:40 Basophils % 0.4 11/24/19 21:40 Absolute Neutrophils 3.70 k/cumm (1.2-6.7) 11/24/19 21:40 Absolute Lymphocytes 1.06 k/cumm (1.2-3.4) L 11/24/19 21:40 Absolute Monocytes 0.56 k/cumm (0.11-0.7) 11/24/19 21:40 Absolute Eosinophils 0.12 k/cumm (0.0-0.7) 11/24/19 21:40 Absolute Basophils 0.02 k/cumm (0.0-0.2) 11/24/19 21:40 Sodium 137 mmol/L (136-145) 11/25/19 06:40 Potassium 3.4 mmol/L (3.5-5.1) L 11/25/19 06:40 Chloride 96 mmol/L (98-107) L 11/25/19 06:40 Carbon Dioxide 35.0 mmol/L (21.0-32.0) H 11/25/19 06:40 Anion Gap 6.0 mmol/L (3-11) 11/25/19 06:40 BUN 66 mg/dL (7-18) H 11/25/19 06:40 Creatinine 1.65 mg/dL (0.70-1.30) H 11/25/19 06:40 Estimated GFR/1.73 m2 42.77 (mL/min/1.73m2) 11/25/19 06:40 Glucose 103 mg/dL (74-106) 11/25/19 06:40 Calcium 9.3 mg/dL (8.5-10.1) 11/25/19 06:40 Total Bilirubin 1.1 mg/dL (0.2-1.0) H 11/24/19 21:40 AST 30 U/L (15-37) 11/24/19 21:40 ALT 30 U/L (16-63) 11/24/19 21:40 Alkaline Phosphatase 98 U/L (46-116) 11/24/19 21:40 Troponin I < 0.05 ng/Ml (<0.06) 11/24/19 21:40 NT-Pro-B Natriuret Pep 2589 pg/mL (<300) H 11/24/19 21:40 Total Protein 8.6 g/dL (6.4-8.2) H 11/24/19 21:40 Albumin 3.6 g/dL (3.4-5.0) 11/24/19 21:40 Urine Color Yellow (Yellow) 11/24/19 21:40 Urine Clarity Clear (Clear) 11/24/19 21:40 Urine pH 6.5 (5-8) 11/24/19 21:40 Ur Specific [place] 1.015 (1.005-1.025) 11/24/19 21:40 Urine Protein Negative mg/dL (Negative) 11/24/19 21:40 Urine Ketones Negative mg/dL (Negative) 11/24/19 21:40 Urine Blood Small (Negative) H 11/24/19 21:40 Urine Nitrite Negative (Negative) 11/24/19 21:40 Urine Bilirubin Negative (Negative) 11/24/19 21:40 Urine Urobilinogen 0.2 EU/dL (Up TO 0.2) 11/24/19 21:40 Ur Leukocyte Esterase Negative (Negative) 11/24/19 21:40 Urine RBC 20-50 HPF (0-2) H 11/24/19 21:40 Urine WBC 0-2 HPF (0-5) 11/24/19 21:40 Ur Epithelial Cells Negative HPF (Negative) 11/24/19 21:40 Urine Crystals Negative HPF (Negative) 11/24/19 21:40 Urine Bacteria Negative HPF (Negative) 11/24/19 21:40 Urine Casts Negative LPF (Negative) 11/24/19 21:40 Urine Mucus Negative (Negative) 11/24/19 21:40 Urine Other Rare renal (Negative) 11/24/19 21:40 Ur Culture Indicated? No 11/24/19 21:40 Urine Glucose Negative mg/dL (Negative) 11/24/19 21:40 Objective Narrative Objective Narrative: Focused [id number] echocardiogram was performed. Patient has enlarged LV and RV. LV has moderate systolic dysfunction. RV is dilated and moderately impaired as well. There is D-shaped deformity to the interventricular septum. This is consistent with right ventricular pressure overload. The RA is dilated as well.
[2019-11-25 14:21] LABS: Troponin I < 0.05 ng/Ml (<0.06)
--- NOTE | 2019-11-25 14:36 | INITIAL_ITS ---
- If Service Date Differs Date of service: 11/25/19 Time of Service: 14:36 Care Management Initial Assess REASON FOR HOSPITALIZATION:: Orthostatic Hypotension PAST MEDICAL HISTORY/PAST SURGICAL HISTORY:: unknown to [facility] at this time. PREVIOUS FUNCTIONAL STATUS/SOCIAL/FAMILY SUPPORTS:: Barrie lives in [place] alone. His sister, Tiffani, and his brother, Damian live close by. He also has a daughter, Ban, who lives in [place], [place]. 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 He is independent with his ADL's at baseline. CURRENT FUNCTIONAL STATUS:: Barrie was sitting up in bed when CM met with him. He reported that he was feeling better today, so far, but had not been up and walking. He stated that he is hoping to return home, but he would really like to find out why he keeps having syncopal episodes prior to leaving. Per report, medication changes are being considered as a possible cause. CM will continue to follow. ADVANCE DIRECTIVES:: On file at [facility], Ban listed as agent. Has patient been provided with information about the portal?: No Did the patient sign up for the portal?: No CODE STATUS:: Full Code INSURANCE COVERAGE / FINANCIAL ISSUES:: [employer] CURRENT HOME/COMMUNITY SERVICES/EQUIPMENT:: Barrie has a walker at home which he uses to ambulate. PRIMARY CARE PHYSICIAN:: Esvin Alan POTENTIAL DISCHARGE NEEDS:: Evaluations for further needs, follow up appointments PATIENT/FAMILY EDUCATION NEEDS:: Review discharge instructions regarding activity levels and medications, discussion of self care needs including ask me three ANTICIPATED BARRIERS TO DISCHARGE:: None identified at this time. TRANSPORTATION:: Anticipate Barrie will be transported via private vehicle by family vs RCT PLAN:: Anticipate Barrie will return home when medically cleared. Further evaluations needed to determine the need for additional services/support at home upon discharge. CM will continue to follow and support discharge planning considerations.
[2019-11-25] MEDS: Normal Saline 500 ML 250 ML IV (15:46)
[2019-11-25] MEDS: Insulin Aspart 300 UNITS/3 ML PEN SC (17:35)
[2019-11-25] MEDS: Simvastatin 20 MG TAB 40 MG PO (20:28)
[2019-11-26] VITALS (9 sets, daily range): BP systolic 93–134; BP diastolic 59–97; PULSE 44–87; RESP 18–20; TEMP 36.2–36.9; O2SAT 93–97
[2019-11-26 07:12] LABS: BUN 48 mg/dL (7-18); CREATININE 1.33 mg/dL (0.70-1.30); Calcium 9.3 mg/dL (8.5-10.1); Chloride 100 mmol/L (98-107); Estimated GFR 54.85 (mL/min/1.73m2); Glucose 132 mg/dL (74-106); Potassium 3.1 mmol/L (3.5-5.1); Sodium 140 mmol/L (136-145)
[2019-11-26] MEDS: Magnesium Oxide 400 MG TAB PO ×2 (07:42→20:13)
[2019-11-26] MEDS: DULoxetine 30 MG CAP 60 MG PO ×2 (07:42→20:13)
[2019-11-26] MEDS: Metoprolol 25 MG TAB PO (07:42)
[2019-11-26] MEDS: M 750 MG PO (07:42)
[2019-11-26 07:43] LABS: Hemoglobin A1C 8.7 % (3.8-5.6)
[2019-11-26] MEDS: Insulin Aspart 300 UNITS/3 ML PEN SC ×3 (08:20→16:56)
[2019-11-26] MEDS: Budesonide/Formoterol 80/4.5 6.9 GM 60 PUFF INH IH ×2 (08:51→20:11)
[2019-11-26 09:11] LABS: Magnesium 2.1 mg/dL (1.8-2.4)
[2019-11-26] MEDS: Potassium Chloride 20 MEQ TABCR 40 MEQ PO (09:48)
--- NOTE | 2019-11-26 11:29 | PGE_ITS ---
Date of Service Date of service: 11/26/19 Time of Service: 11:29 Assessment and Plan Assessment and plan (1) Orthostatic hypotension: Status: Acute Assessment and plan: blood pressure improved with gentle hydration overnight. continue daily orthostatics, fall precautions, continue to hold diuretics today. (2) Diabetic peripheral neuropathy associated with type 2 diabetes mellitus: Status: Acute Assessment and plan: continue diabetic diet, sliding scale coverage as needed. continue home medications. Hemoglobin A1C 8.7, diabetic consultation (3) Obstructive sleep apnea: Status: Chronic Assessment and plan: will use home cpap unit as directed. respiratory following (4) Acute kidney injury (nontraumatic): Status: Acute Assessment and plan: improved with IV hydration. continue to monitor and avoid nephrotoxic drugs. renal dose medications (5) Atrial fibrillation: Status: Chronic Assessment and plan: rate controlled. failed apixaban as he has a DVT. will continue lovenox and transition to warfarin for INR goal of 2-3. (6) Deep venous thrombosis of left popliteal vein: Status: Acute Assessment and plan: lovenox to bridge to coumadin for INR goal 2-3 Qualifiers: Chronicity: acute Qualified Code(s): I82.432 - Acute embolism and thrombosis of left popliteal vein Subjective Subjective Patient reports: no new complaints, feels better, tolerating a regular diet, flatus and no bowel movement Exam Const General: cooperative, comfortable, no acute distress, disheveled and ill appearing chronically Nutritional Appearance: obese morbidly obese Orientation: alert, awake and oriented x3 HENMT Head: normal to inspection, normocephalic and atraumatic Mouth: oral mucosae normal Resp Effort & Inspection: normal respiratory effort Auscultation: clear to auscultation bilaterally Cardio Rate: regular rate Rhythm: abnormal rhythm irregularly irregular GI Inspection: large pannus and obesity Skin Lesions: lesion noted (bilateral lower, mulitple areas, covered in mepiliex, see nurses notes) Rashes: other (chronic bilateral discoloration consistent with venous stasis changes) Neuro General: patient alert, patient awake and patient oriented x3 Cranial Nerves: CN's II-XI intact bilaterally Cognition: normal cognition Speech: speech normal Gait: gait assisted Extrem General: full ROM and pedal edema (generalized, lymphedema, ) bilaterally Psych Appearance: well kempt Speech and Movement: speech and movement normal Mood: congruent mood Affect: normal affect Attitude: cooperative Thought Process: normal Thought Content: normal Insight: fair Judgment: fair Objective Objective Clinical Data: Abnormal lab results 11/25/19 11/26/19 11/26/19 Range/Units 06:40 06:24 06:24 Potassium 3.4 L 3.1 L (3.5-5.1) mmol/L Chloride 96 L (98-107) mmol/L Carbon Dioxide 35.0 H 33.0 H (21.0-32.0) mmol/L BUN 66 H 48 H D (7-18) mg/dL Creatinine 1.65 H 1.33 H (0.70-1.30) mg/dL Glucose 132 H (74-106) mg/dL Hemoglobin A1c 8.7 H (3.8-5.6) % Vital Signs Temperature 36.2 C L 11/26/19 07:20 Temperature Source Tympanic 11/26/19 07:20 Pulse 55 L 11/26/19 07:20 Pulse Rhythm Irregular 11/26/19 07:40 Pulse 102 H 11/25/19 00:00 Respiratory Rate 19 11/26/19 07:20 Respiratory Effort Non-Labored 11/26/19 07:40 Respiratory Depth Normal 11/26/19 07:40 Respiratory Pattern Normal 11/26/19 07:40 Blood Pressure 102/79 11/26/19 07:20 Blood Pressure Mean 88 11/25/19 00:00 Pulse Oximetry 93 L 11/26/19 08:52 Oxygen Delivery Method Room Air 11/26/19 08:52 Oxygen Flow Rate 0 11/26/19 08:52 Fraction of Inspired Oxygen (FIO2) 12 11/26/19 11:15 Pain Level 0 11/26/19 07:20 Intake & Output 11/25/19 11/25/19 11/26/19 11:59 23:59 11:59 Intake Total 240 / 1030 790 / 1030 120 / 120 Balance 240 / 1030 790 / 1030 120 / 120 Weight 146.8 kg 146.4 kg Intake: Oral 240 / 1030 790 / 1030 120 / 120 Other: Urine Color Yellow Yellow Urine Appearance Clear Clear Clear Urine Odor Normal Comment after incident of incontinence pt was very incontinent incontinent Voiding Methods Diaper Diaper Incontinent Incontinent Laboratory Results WBC 5.48 k/cumm (4.4-10.8) 11/24/19 21:40 RBC 5.39 m/cumm (4.50-6.00) 11/24/19 21:40 Hgb 15.1 g/dL (13.5-17.5) 11/24/19 21:40 Hct 46.2 % (40.0-50.0) 11/24/19 21:40 MCV 85.7 fL (80-95) 11/24/19 21:40 MCH 28.0 pg (27.0-33.0) 11/24/19 21:40 MCHC 32.7 g/dL (32.0-36.0) 11/24/19 21:40 RDW 15.9 % (11.8-14.1) H 11/24/19 21:40 Plt Count 177 x1000/uL (130-400) 11/24/19 21:40 MPV 10.1 fL (8.0-11.0) 11/24/19 21:40 Immature Gran % 0.4 % 11/24/19 21:40 Neutrophils % 67.5 11/24/19 21:40 Lymphocytes % 19.3 11/24/19 21:40 Monocytes % 10.2 11/24/19 21:40 Eosinophils % 2.2 11/24/19 21:40 Basophils % 0.4 11/24/19 21:40 Absolute Neutrophils 3.70 k/cumm (1.2-6.7) 11/24/19 21:40 Absolute Lymphocytes 1.06 k/cumm (1.2-3.4) L 11/24/19 21:40 Absolute Monocytes 0.56 k/cumm (0.11-0.7) 11/24/19 21:40 Absolute Eosinophils 0.12 k/cumm (0.0-0.7) 11/24/19 21:40 Absolute Basophils 0.02 k/cumm (0.0-0.2) 11/24/19 21:40 Sodium 140 mmol/L (136-145) 11/26/19 06:24 Potassium 3.1 mmol/L (3.5-5.1) L 11/26/19 06:24 Chloride 100 mmol/L (98-107) 11/26/19 06:24 Carbon Dioxide 33.0 mmol/L (21.0-32.0) H 11/26/19 06:24 Anion Gap 7.0 mmol/L (3-11) 11/26/19 06:24 BUN 48 mg/dL (7-18) H D 11/26/19 06:24 Creatinine 1.33 mg/dL (0.70-1.30) H 11/26/19 06:24 Estimated GFR/1.73 m2 54.85 (mL/min/1.73m2) 11/26/19 06:24 Glucose 132 mg/dL (74-106) H 11/26/19 06:24 Hemoglobin A1c 8.7 % (3.8-5.6) H 11/26/19 06:24 Calcium 9.3 mg/dL (8.5-10.1) 11/26/19 06:24 Magnesium 2.1 mg/dL (1.8-2.4) 11/26/19 06:24 Total Bilirubin 1.1 mg/dL (0.2-1.0) H 11/24/19 21:40 AST 30 U/L (15-37) 11/24/19 21:40 ALT 30 U/L (16-63) 11/24/19 21:40 Alkaline Phosphatase 98 U/L (46-116) 11/24/19 21:40 Troponin I < 0.05 ng/Ml (<0.06) 11/25/19 06:40 NT-Pro-B Natriuret Pep 2589 pg/mL (<300) H 11/24/19 21:40 Total Protein 8.6 g/dL (6.4-8.2) H 11/24/19 21:40 Albumin 3.6 g/dL (3.4-5.0) 11/24/19 21:40 Urine Color Yellow (Yellow) 11/24/19 21:40 Urine Clarity Clear (Clear) 11/24/19 21:40 Urine pH 6.5 (5-8) 11/24/19 21:40 Ur Specific [place] 1.015 (1.005-1.025) 11/24/19 21:40 Urine Protein Negative mg/dL (Negative) 11/24/19 21:40 Urine Ketones Negative mg/dL (Negative) 11/24/19 21:40 Urine Blood Small (Negative) H 11/24/19 21:40 Urine Nitrite Negative (Negative) 11/24/19 21:40 Urine Bilirubin Negative (Negative) 11/24/19 21:40 Urine Urobilinogen 0.2 EU/dL (Up TO 0.2) 11/24/19 21:40 Ur Leukocyte Esterase Negative (Negative) 11/24/19 21:40 Urine RBC 20-50 HPF (0-2) H 11/24/19 21:40 Urine WBC 0-2 HPF (0-5) 11/24/19 21:40 Ur Epithelial Cells Negative HPF (Negative) 11/24/19 21:40 Urine Crystals Negative HPF (Negative) 11/24/19 21:40 Urine Bacteria Negative HPF (Negative) 11/24/19 21:40 Urine Casts Negative LPF (Negative) 11/24/19 21:40 Urine Mucus Negative (Negative) 11/24/19 21:40 Urine Other Rare renal (Negative) 11/24/19 21:40 Ur Culture Indicated? No 11/24/19 21:40 Urine Glucose Negative mg/dL (Negative) 11/24/19 21:40
[2019-11-26] MEDS: Polyethylene Glycol 3350 17 GM PACKET PO (11:40)
[2019-11-26] MEDS: Docusate Sodium 100 MG CAP PO ×2 (11:40→20:13)
--- NOTE | 2019-11-26 12:27 | PHA.ADMREV ---
Pharmacy Clinical Review - Admission Clinical Review (Last Updated 11/25/19 @ 15:27 by Avelino Lang) Prerenal azotemia (Acute) Acute kidney injury (nontraumatic) (Acute) Diabetic peripheral neuropathy associated with type 2 diabetes mellitus (Acute) Deep venous thrombosis of left popliteal vein (Acute) Orthostatic hypotension (Acute) No Known Allergies Allergy (Unverified 11/24/19 21:16) Height 5 ft 8 in Weight 146.4 kg - Renal Dosing Renal Dosing: BUN 48 mg/dL (7-18) H D 11/26/19 06:24 Creatinine 1.33 mg/dL (0.70-1.30) H 11/26/19 06:24 Medications needing adjustments: Reviewed (Crcl ~83.2 mL/min using adjusted body weight. Current meds okay.) - Anticoagulation Anticoagulation: Hgb 15.1 g/dL (13.5-17.5) 11/24/19 21:40 Hct 46.2 % (40.0-50.0) 11/24/19 21:40 Plt Count 177 x1000/uL (130-400) 11/24/19 21:40 Creatinine 1.33 mg/dL (0.70-1.30) H 11/26/19 06:24 DVT Prohphylaxis: N/A Therapeutic Anticoagulation: Reviewed (has both therapeutic doses of enoxaparin and warfarin ordered.) Medications: Enoxaparin - Relevant Labs Sodium 140 mmol/L (136-145) 11/26/19 06:24 Potassium 3.1 mmol/L (3.5-5.1) L 11/26/19 06:24 Chloride 100 mmol/L (98-107) 11/26/19 06:24 Magnesium 2.1 mg/dL (1.8-2.4) 11/26/19 06:24 - DM Control DM Control: Glucose 132 mg/dL (74-106) H 11/26/19 06:24 Hemoglobin A1c 8.7 % (3.8-5.6) H 11/26/19 06:24 Finger Stick Blood Glucose 200 Finger Stick Blood Glucose 200 Finger Stick Blood Glucose 150 Finger Stick Blood Glucose 150 - Heart Failure/MD Heart Failure/MD: Troponin I < 0.05 ng/Ml (<0.06) 11/25/19 06:40 NT-Pro-B Natriuret Pep 2589 pg/mL (<300) H 11/24/19 21:40 - BP Control BP Control: Blood Pressure 103/79 Blood Pressure 102/79 Blood Pressure 93/59
--- NOTE | 2019-11-26 12:53 | PDOC.CMPRO ---
- If Service Date Differs Date of service: 11/26/19 Time of Service: 12:53 Care Management Progress Note S/O: Barrie was sitting up in his chair when CM met with him. He stated that he would like CM to contact his sister, Jessica, regarding his plan of care. CM spoke with Jessica who requested that Barrie work with PT while at [facility]. CM assured her that a PT consult has been placed, and they should see him tomorrow. Jessica expressed concern regarding Barrie's de conditioning from being in a hospital setting for a long period of time. CM discussed the plan with the provider, who will add an OT consult for Barrie. Jessica also suggested Barrie having a short term rehab stay prior to returning home. Per report, Barrie did have a rehab stay at [facility] and was cleared for discharge. CM will discuss disposition recommendations with PT. CM will continue to follow. A: Barrie is a 58 year old male admitted to [facility] on 11/25/19 for orthostatic hypotension. P: Barrie will be evaluated by PT and OT tomorrow, which will help determine disposition. Once he is medically cleared he will return home vs SNF for short term rehab prior to returning home. CM will continue to follow and support Barrie with discharge planning considerations.
--- NOTE | 2019-11-26 14:12 | CHAPLAIN ---
Barrie was sitting up in a chair when I visited, and he explained that this was good progress for him as he's mostly been in bed lately with a few attempts to stand briefly by the edge of the bed. Barrie told me about his recent falls at home which led to hospitalizations at [facility] and [facility]. He lives in [place] and a sister lives nearby and checks on him. Barrie's cousin, José Lazaro, (who is cardiac rehab patient at [facility] and well known to some staff), calls Barrie almost daily. I will continue to visit.
[2019-11-26] MEDS: Simvastatin 20 MG TAB 40 MG PO (20:13)
[2019-11-26] MEDS: Potassium Chloride 20 MEQ TABCR PO (20:13)
[2019-11-26] MEDS: Warfarin 5 MG TAB 10 MG PO (20:14)
[2019-11-26] MEDS: Gabapentin 300 MG CAP 600 MG PO (21:07)
[2019-11-27] VITALS (10 sets, daily range): BP systolic 93–125; BP diastolic 59–89; PULSE 50–104; RESP 16–20; TEMP 36.1–37.2; O2SAT 93–97
[2019-11-27 06:57] LABS: Platelet Count 176 x1000/uL (130-400)
[2019-11-27 07:11] LABS: Anion Gap 6.4 mmol/L (3-11); BUN 40 mg/dL (7-18); CO2 31.6 mmol/L (21.0-32.0); CREATININE 1.13 mg/dL (0.70-1.30); Chloride 101 mmol/L (98-107); Glucose 130 mg/dL (74-106); INR 1.2 (0.9-1.1); Potassium 3.3 mmol/L (3.5-5.1); Prothrombin Time 12.2 sec (9.3-11.0); Sodium 139 mmol/L (136-145)
--- NOTE | 2019-11-27 07:38 | OTIE_ITS ---
Occupational Therapy Notes Inpatient Occupational Therapy Evaluation Date: 11/27/19 Referring Doctor:Sammi Gan NP OT Orders: Non-Urgent Precautions: Fall, Standard PATIENT PROFILE/ADMITTING DIAGNOSIS: Pt is a 58 year old male who presented to the ER on 11/24/19 after falling twice prior to arrival. The first fall he was carrying laundry up the stair and the second he was transferring from the chair and had an episode of syncope. Per pts EMR he was previous admitted to [facility] 1 week prior for cellulitis in lower legs. Pt was admitted to [facility] with the following dx orthostatic hypertension, deep venous thrombosis (L) popliteal vein, diabetic neuropathy, obstructive sleep apnea, acute kidney injury, prerenal azotemia. Past Medical History: Medical history: AFIB, asthma, diabetes, hyperlipidemia, hypertension Surgical history: non-contributory Social History/Home Situation: Pt lives alone in [place], [place] his brother and s isariel live nearby and he has daughter who lives in [place]. He utilizes a FWW at all times for functional mobility and performs driving/community mobility (I). His home is set up with five stairs to enter with (B) railings. He notes that he has 14 steps into his basement where his heating unit is and he would need to go up and down for that. He sleeps in a recliner chair. His nephew and children stay i n his home with him every other weekend. He is (I) in the kitchen for cooking and meal preparation, he has a tub shower with grab bars, non slip adhesive on bottom, removable shower head. OT does recommend a shower seat that could fit into his shower due to syncope episodes. Pt is able to (I) don and doff shirt at baseline he requires (A) with socks which he states he has a sock aid for but has not been home long enough to utilize it. He states that he does not have issues getting up from the toilet and at nighttime he wears a depends due to being incontinent and does not attempt toileting during the night hours. He goes with his sister grocery shopping and his sister has managed his medications for years. His laundry room is located off his kitchen which he can easily access. Equipment owned/DME: FWW for ambulation. SUBJECTIVE: Pt was sitting in bed when OT arrived. He was agreeable to OT session and notes that he is feeling better. He is nervous about his syncope episodes and states that this limits him in what he can do at home. OBJECTIVE: General Observation: Pleasant, IV (R) UE dorsal hand Mental Status: A&Ox3 Pain: c/o pain in (L) hip as pt notes this is bone on bone ROM: RUE AROM WFL throughout L UE AROM WFL throughout STRENGTH: RUE Shoulder flexion 5/5, bicep 4/5, tricep 4/5, container finishing inspector is strong and symmetrical LUE Shoulder flexion 5/5, bicep 5/5, tricep 4+/5, container finishing inspector is strong and symmetrical SENSATION: Intact (B) UE FUNCTIONAL MOBILITY/ADLS: Transfers with FWW Supine-sit (S) with min vc Sit-supine (S) with mod vc BATHING sitting on side of the bed Bathing UE (I) face, (B) UE, underarms, abdomen with min (A), hair with min (A), back max (A) Bathing LE (I) to (B) knees, requires mod (A) below (B) knees. DRESSING Dressing UE Sitting on side of the bed pt required min (A) don and doffing [facility] gown. Dressing LE Sitting on side of bed with fair technique pt was able to don and doff (R) sock. He is unable to (L) and requires max (A). He reports that he does have a sock aid although has been unable to use this in home setting at this time as he has been in the hospital. GROOMING Sitting on side of the bed (I) with brushing hair. TOILETING NT pt is wearing a depends which he notes he is incontinent with toileting routine at night time. EATING sitting in bed pt had good technique for hand to mouth translation. He was able to demonstrate with ideal technique. Pt was able to open his own containers without good fine motor control. BALANCE: Static sitting Normal Dynamic Sitting Normal Static Standing NT Dynamic Standing NT SPECIAL TESTS: Daily Activity Limitations Standardized Measure [facility] AM -PAC ?6 clicks? Daily Activity Inpatient Short Form: Raw score: 21 Standardized score: 44.27 CMS score: 32.79% INFORMED CONSENT/EDUCATION: Pt instructed in purpose of OT Consult and plan of care. ASSESSMENT: Patient is a 58-year-old male referred to occupational therapy services with diagnosis of orthostatic hypertension, deep venous thrombosis (L) popliteal vein, diabetic neuropathy, obstructive sleep apnea, acute kidney injury, prerenal azotemia. Patient presents with clinical signs and symptoms consistent with dx, as demonstrated by the following impairment level findings: Pain in (R) hip, syncope episodes limiting his functional mobility, decreased functional activity tolerance, decreased bed mobility. Impairments are contributing to the following functional limitations: Pt has difficulty with (L) LE dressing, decreased (B) LE bathing, decreased functional activity tolerance, syncope episodes and multiple falls limiting his functional mobility required for performance of ADLs/IADLs routines. AMPAC score 21, CMS 32.79% Patient is assessed as a Moderate 96597 complexity based on the following: History: See Above Examination: See functional limitations as noted above Presentation: Evolving Decision Making: AMPAC score 21, CMS 32.79% GOALS Goals x1 week 1. Transfers with FWW (I) 2. Dressing in seated position pt will be (I) with don and doffing pants, (I) don and doffing shirt 3. Bathing standing at sink pt will be (I) with washing face and (B) UE, in seated position pt will be (I) (B) LE 4. Toileting on toilet (I) 5. Eating (I) 6. Grooming standing at sink with FWW (I) with brushing teeth. PLAN OF CARE/TREATMENT PLAN: 1x/day, 5 days/ week x 1week Initiate Occupational Therapy Services for bathing, dressing, grooming, toileting, eating, transfer training. DISCHARGE RECOMMENDATIONS: OT recommends that pt return home with HHOT for assessment of functional (I) in home setting when medically cleared per MD and when able to demonstrate (I) in standing ADLs/IADLs. OT recommends an in shower seat to increase pts safety during his bathing routine. Concern for pt's safety due to multiple falls and syncope episodes increases his risk to fall during his bathing routine. TREATMENT TIME/MINUTES/CODES 15712, [id number], 48 minutes (07:40) Serina Pradhan OTR/[facility]
[2019-11-27] MEDS: Budesonide/Formoterol 80/4.5 6.9 GM 60 PUFF INH IH ×2 (07:57→20:01)
[2019-11-27] MEDS: Magnesium Oxide 400 MG TAB PO ×2 (08:05→20:01)
[2019-11-27] MEDS: Metoprolol 25 MG TAB PO ×2 (08:06→20:00)
[2019-11-27] MEDS: Docusate Sodium 100 MG CAP PO ×2 (08:06→20:01)
[2019-11-27] MEDS: Potassium Chloride 20 MEQ TABCR PO (08:06)
[2019-11-27] MEDS: DULoxetine 30 MG CAP 60 MG PO ×2 (08:06→20:00)
--- NOTE | 2019-11-27 08:42 | PDOC.CMPRO ---
- If Service Date Differs Date of service: 11/27/19 Time of Service: 08:42 Care Management Progress Note S/O: Barrie was sitting up in a chair when CM met with him. He was pleasant and receptive to conversation. Barrie stated that he is feeling better but had had another episode this morning when he stood by the side of the bed and became a bit light headed. He stated that he believes that this is due to medication. The plan is for Barrie to go to short term rehab for wound care, PT for strengthening and ambulation and for medication stabilization. A referral has been sent by CM to [facility]. A: Barrie is a 58 year old male admitted to [facility] on 11/25/19 for orthostatic hypotension. P: Barrie has been evaluated by PT and OT . Both have recommended home health for PT and OT, however home services are extremely limited. The provider feels Barrie requires rehab for PT and OT as well as wound care and close medication monitoring until his orthostasis is controlled. Once he is medically cleared he will go to a SNF for short term rehab prior to returning home. CM will continue to follow and support Barrie with discharge planning considerations.
--- NOTE | 2019-11-27 08:50 | PT.INIE ---
Date of service: 11/27/19 Time of Service: 08:50 PT Notes Visit Reasons: ORTHOSTATIC HYPOTENSION Physical Therapy Inpatient Initial Evaluation Date: 11/27/2019 Referring Doctor: Sammi Gan NP PT Orders: PT CONSULT: Limited ability Precautions: Fall. Syncopal episode. Standard. Patient Profile/Admitting Diagnosis: Patient is a 58-year-old male who presented to the ED on 11/24/2019 with report of falls x 2 for the past week. Patient is diagnosed with orthostatic hypotension suspected to be a result of overdiuresis and beta-kunal/afluzosin/gabapentin use. Patient was recently hospitalized at [facility] due to cellulitis and was discharged home on 11/21/2019 but was readmitted to [facility] on 11/24/2019 due to complaints of dizziness resulting to frequent falling. PMHX: Diabetic peripheral neuropathy Type 2 diabetes mellitus Obstructive sleep apnea Chronic venous insufficiency Cellulitis Acute on chronic CHF Atrial fibrillation with RVR LAURENCE Social History/Home Situation: Patient lives alone in a private home with 5 steps to enter, rails on both sides. He has another set of 14 steps to the basement but patient reports that his brother will be able to manage the heating for him while he is recovering. Patient also has a sister who lives a mile from him who may be able to help as needed. Patient states that he has about 60 feet to 80 feet distance from his bedroom to the kitchen and the bathroom. He managed his own meals. He was independent with self-care tasks. He is independent with all mobility ADL performance using a front wheeled walker. Equipment Owned/DME: Front wheeled walker, recliner Subjective: Patient is agreeable to PT consult. He denies any dizziness, chest pain, and headache throughout PT session today. He did report some visual disturbance complaining that the floor 'became glossy' while standing up at bedside using a walker. He did say that he does not like it if he has visual changes while upright as it usually precedes a fainting episode. He also stated that the nurse had a difficult time yesterday taking his blood pressure in the standing position as this PT did for this consult. Objective: General Observation: Telemetry monitoring in place. Hemosiderin staining to bilateral lower extremities from CVI. IV access to the R UE open. Mental Status: Alert and oriented x4 Pain: No complaints of pain in the back and of the left lower extremity but did report 3/10 pain on the left hip at rest and with weightbearing. Vital Signs: Supine?107/77 mmHg, 88 bpm. Sitting?97/70 2 mmHg, 82 bpm. Standing?machine unable to take blood pressure measurement, 55 bpm. Will coordinate with charge nurse for for doing manual blood pressure measurement in the afternoon session. ROM: Right Upper Extremity: Shoulder Flexion WFL. Shoulder abduction WFL. Elbow flexion WFL. Wrist flexion WFL. Opening and closing of hand WFL. Left Upper Extremity: Shoulder Flexion WFL. Shoulder abduction WFL. Elbow flexion WFL. Wrist flexion WFL. Opening and closing of hand WFL. Right Lower Extremity: Hip flexion allows only up to 10 degrees beyond 90 while seated at edge of bed due to abdominal panniculus/morbid obesity. Hip abduction WFL. Knee flexion WFL. Ankle dorsiflexion WFL. Ankle plantarflexion WFL. Left Lower Extremity: Hip flexion only up to 10 degrees beyond 90 while seated at edge of bed due to abdominal panniculus/morbid obesity. Hip abduction WFL. Knee flexion WFL. Ankle dorsiflexion WFL. Ankle plantarflexion WFL. Strength: Right Upper Extremity: Shoulder flexors 4/5. Shoulder abductors 4/5. Elbow flexors 4/5. Elbow extensors 4/5. Vinyl Welder And Fabricator strong. Left Upper Extremity: Shoulder flexors 4/5. Shoulder abductors 4/5. Elbow flexors 4/5. Elbow extensors 4/5. Vinyl Welder And Fabricator strong. Right Lower Extremity: Hip flexors 3-/5. Hip abductors 4-/5. Knee flexors 4-/5. Knee extensors 4-/5. Ankle dorsiflexors 4-/5. Ankle plantarflexors 4/5. Left Lower Extremity:Hip flexors 3-/5. Hip abductors 3+/5. Knee flexors 3+/5. Knee extensors 3+/5. Ankle dorsiflexors 4-/5. Ankle plantarflexors 4/5. Sensation: Intact as to pain and pressure on bilateral lower extremities. Bed Mobility/Transfers: Rolling minimal assist Supine to sit minimal assist with HOB elevated to 30 degrees Sit to supine minimal assist with HOB elevated to 30 degrees Sit to stand CGA with BUE for support using FWW Stand to sit CGA with BUE for support using FWW Bed to chair CGA with BUE for support using FWW Chair to bed CGA with BUE for support using FWW Gait: Patient was able to tolerate 8 feet of short distance ambulation from bedside to bedside recliner using front wheeled walker with CGA of this PT without any report of dizziness or increase in pain on the left hip. Bedside recliner was placed close to the foot of the bed so that patient's right lower extremity leads during the transfer. Patient did not reiterate complaints of the floor getting glossy or any visual changes during the transfer activity. No SOB noted. Balance: Static Sitting: Normal Dynamic Sitting: Normal Static Standing: Fair Dynamic Standing: Fair Special Tests: Mobility Limitations Standardized Measure [facility] AM-PAC 6 clicks Basic Mobility Inpatient Short Form: Raw Score: 17 CMS Score: 51% deficit Informed Consent/Education: Patient instructed in purpose of PT consult and plan of care. Assessment: Decreased activity tolerance, unsteadiness on feet, difficulty with walking, high fall risk, due to orthostatic hypotension, and impaired ADL performance. Patient is a 58-year-old male who presented to the ED on 11/24/2019 with report of falls x 2 for the past week. Patient is diagnosed with orthostatic hypotension suspected to be a result of overdiuresis and beta-kunal/Afluzosin/Gabapentin use. Patient was recently hospitalized at [facility] due to cellulitis and was discharged home on 11/21/2019 but was readmitted to [facility] on 11/24/2019 due to complaints of dizziness resulting to frequent falling. Patient presents with clinical signs and symptoms consistent with current/admitting diagnoses that have resulted to mobility limitations, gait instability, generalized weakness, and impairment of motor control as demonstrated by the following impairment level findings: 1. Decreased strength to B LE major muscle groups 2. Impaired standing balance 3. Impaired activity tolerance Impairments are contributing to the following functional limitations: 1. Dependent bed mobility skills 2. Increased dependence with transfers 3. Inability to safely ambulate without assistive device and physical assistance 4. Increase completion time for mobility ADL performance 5. Increased fall risk 6. Inability to negotiate steps alone safely Patient is assessed as a 67179 moderate complexity based on the following: History: 58-year-old male with impairment level findings, functional limitations, and past medical history as indicated above Examination: Demonstrable impairment in strength, balance, and activity tolerance with underlying impairments and functional limitations as documented above Presentation: Evolving Decision Makin moderate complexity Goals: Goals X1 week 1. Supine-Sit independent 2. Sit-Supine independent 3. Sit-Stand independent 4. Stand-Sit independent 5. Bed-Chair independent 6. Chair-Bed independent 7. Independent gait on level surface with use of least restrictive device for at least 100 feet without report of pain nor dyspnea 8. Independent stair negotiation while holding onto bilateral rails for at least 15 steps without report of pain nor dyspnea 9. Independent with home exercise program 10. Good static and dynamic standing balance/tolerance Plan of Care/Treatment Plan: 1-2x/day, 7 days/week x 1 week. Plan of care has been reviewed with the SOLAR ELECTRIC PRACTITIONER providing the service under Physical Therapy direction. Initiate Physical Therapy intervention for strengthening, bed mobility, transfers, gait, stairs, balance training, use of assistive device. Intervention: PT session today consisted of performing initial evaluation followed by seated range of motion exercises consisting of ankle pumps, quadriceps setting, neutral setting and long arc quads with deep breathing exercises encouraged in between each activity. Patient was also assisted with bed mobility as well as transfer and ambulation task performance for this session with good response. DISCHARGE RECOMMENDATIONS: Patient may benefit from the use continued use of front wheeled walker for all indoor ambulation. The attachment of a walker tray may facilitate conducive performance of all meal preparation tasks at home while reducing fall risk. Patient will also benefit from the use of shower chair or a tub bench in order to reduce fall risk. Patient will benefit from home health PT services in order to progress mobility level using least restrictive assistive ambulatory device, assess home safety, identify additional equipment needs, and establish a functional maintenance program that will increase ability of patient to remain at home. TREATMENT CODE/TIME: 9716 2 x 30 minutes, 13244 x 15 minutes, and 15501 x 10 minutes beginning at 8:50 AM Thank you very much for this referral. Corinna Durán PT, DPT, CLT [facility] [place], [place]
[2019-11-27] MEDS: Potassium Chloride 20 MEQ TABCR 40 MEQ PO (10:33)
[2019-11-27 10:45] LABS: Magnesium 2.1 mg/dL (1.8-2.4)
[2019-11-27] MEDS: Insulin Aspart 300 UNITS/3 ML PEN SC ×3 (12:10→22:20)
--- NOTE | 2019-11-27 13:40 | PTTR_ITS ---
Date of service: 11/27/19 Time of Service: 13:40 PT Notes Visit Reasons: ORTHOSTATIC HYPOTENSION Inpatient Physical Therapy Treatment Note [facility] Date: 11/27/2019 PRECAUTIONS: Fall. Syncopal episode. Standard. Subjective: Patient is agreeable to a second PT session. He denies any dizziness, chest pain, and headache throughout PT session today. He did not report any visual changes in the afternoon session. He did complain of left leg pain after ambulation activity and bed level exercises. Objective: General Observation: Telemetry monitoring in place. Hemosiderin staining to bilateral lower extremities from CVI. IV access to the R UE open. Mental Status: Alert and oriented x4 Pain: 3-4 over 10 on left leg after ambulation activity in bed level exercises Bed Mobility/Transfers: Sit to supine minimal assist with HOB elevated to 30 degrees Sit to stand SBA using B UE. Right hand holding onto walker left hand pulling from horizontal grab bar adjacent to toilet seat Stand to sit SBA using BUE for support Bed to chair SBA using BUE for support Chair to bed SBA using BUE for support Gait: Patient was able to tolerate 80 feet of level surface ambulation with wheelchair follow of ICE [employer]AM SCOOPER and CGA of PT. Moderate S OB noted and report of 3-4 over 10 pain on left leg received. THERA EX: Patient was able to tolerate bed level exercises consisting of supine alternate [id number] x10, ankle ankle DF and PF x20 with deep breathing exercises done in between each activities. Assessment: Decreased activity tolerance, unsteadiness on feet, difficulty with walking, high fall risk, due to orthostatic hypotension, and impaired ADL performance. Patient is a 58-year-old male who presented to the ED on 11/24/2019 with report of falls x 2 for the past week. Patient is diagnosed with orthost atic hypotension suspected to be a result of overdiuresis and beta- kunal/Afluzosin/Gabapentin use. Patient was recently hospitalized at [facility] due to cellulitis and was discharged home on 11/21/2019 but was readmitted to [facility] on 11/24/2019 due to complaints of dizziness resulting to frequent falling. Plan of Care/Treatment Plan: 1-2x/day, 7 days/week x 1 week. Plan of care has been established. Initiate Physical Therapy intervention for strengthening, bed mobility, transfers, gait, stairs, balance training, use of assistive device. DISCHARGE RECOMMENDATIONS: Patient may benefit from the use continued use of front wheeled walker for all indoor ambulation. The attachment of a walker tray may facilitate conducive performance of all meal preparation tasks at home while reducing fall risk. Patient will also benefit from the use of shower chair or a tub bench in order to reduce fall risk. Patient will benefit from home health PT services in order to progress mobility level using least restrictive assistive ambulatory device, assess home safety, identify additional equipment needs, and establish a functional maintenance program that will increase ability of patient to remain at home. TREATMENT CODE/TIME: 40600 x 17 minutes and 16327 x 15 minutes beginning at 13:40 p.m..
--- NOTE | 2019-11-27 16:08 | W.PM.PROGNOT ---
Date of Service Date of service: 11/27/19 Time of Service: 16:08 Assessment and Plan Assessment and plan (1) Orthostatic hypotension: Status: Acute Assessment and plan: blood pressure remains improved off IV hydration. still holding diuretics, will need to resume a lower dose in a day or 2. continue to closely monitor vitals, fall precautions (2) Diabetic peripheral neuropathy associated with type 2 diabetes mellitus: Status: Acute Assessment and plan: continue diabetic diet, sliding scale coverage as needed. continue home medications. Hemoglobin A1C 8.7, diabetic consultation (3) Obstructive sleep apnea: Status: Chronic Assessment and plan: stable on home cpap unit as directed. respiratory following (4) Acute kidney injury (nontraumatic): Status: Acute Assessment and plan: improved with IV hydration. continue to monitor and avoid nephrotoxic drugs. renal dose medications (5) Atrial fibrillation: Status: Chronic Assessment and plan: rate controlled. failed apixaban as he has a DVT. will continue lovenox and transition to warfarin for INR goal of 2-3. (6) Deep venous thrombosis of left popliteal vein: Status: Acute Assessment and plan: lovenox to bridge to coumadin for INR goal 2-3 Qualifiers: Chronicity: acute Qualified Code(s): I82.432 - Acute embolism and thrombosis of left popliteal vein Subjective Subjective Patient reports: no new complaints Interval history since last seen: had some minimal dizziness when first standing this morning but overall feeling better, he moved his bowels after receiving prn medication after having constipation. he reports voiding well. he is getting up out of bed, he is eating and drinking without difficulty. Exam Narrative Exam Narrative: General: cooperative, comfortable, no acute distress, disheveled and ill appearing chronically Nutritional Appearance: obese morbidly obese Orientation: alert, awake and oriented x3 [facility] Head: normal to inspection, normocephalic and atraumatic Mouth: oral mucosae normal Resp Effort & Inspection: normal respiratory effort Auscultation: clear to auscultation bilaterally Cardio Rate: regular rate Rhythm: abnormal rhythm irregularly irregular GI Inspection: large pannus and obesity Skin Lesions: lesion noted (bilateral lower, mulitple areas, covered in mepiliex, see nurses notes) Rashes: other (chronic bilateral discoloration consistent with venous stasis changes) Neuro General: patient alert, patient awake and patient oriented x3 Cranial Nerves: CN's II-XI intact bilaterally Cognition: normal cognition Speech: speech normal Gait: gait assisted Extrem General: full ROM and pedal edema (generalized, lymphedema, ) bilaterally Psych Appearance: well kempt Speech and Movement: speech and movement normal Mood: congruent mood Affect: normal affect Attitude: cooperative Thought Process: normal Thought Content: normal Insight: fair Judgment: fair Objective Objective Clinical Data: Abnormal lab results 11/27/19 11/27/19 Range/Units 06:35 06:35 PT 12.2 H (9.3-11.0) sec INR 1.2 H (0.9-1.1) Potassium 3.3 L (3.5-5.1) mmol/L BUN 40 H (7-18) mg/dL Glucose 130 H (74-106) mg/dL Vital Signs Temperature 37.2 C 11/27/19 15:20 Temperature Source Tympanic 11/27/19 15:20 Pulse 104 H 11/27/19 15:20 Pulse Rhythm Irregular 11/27/19 08:10 Pulse 102 H 11/25/19 00:00 Respiratory Rate 20 11/27/19 15:20 Respiratory Effort Non-Labored 11/27/19 08:10 Respiratory Depth Normal 11/27/19 08:10 Respiratory Pattern Normal 11/27/19 08:10 Blood Pressure 114/89 11/27/19 15:20 Blood Pressure Mean 88 11/25/19 00:00 Pulse Oximetry 96 11/27/19 15:20 Oxygen Delivery Method Room Air 11/27/19 15:20 Oxygen Flow Rate 0 11/27/19 15:20 Fraction of Inspired Oxygen (FIO2) 21 11/27/19 07:57 Pain Level 3 11/27/19 15:20 Comment 11/26/19 20:30 Intake & Output 11/26/19 11/27/19 11/27/19 23:59 11:59 23:59 Intake Total 1080 / 1200 240 / 480 240 / 480 Balance 1080 / 1200 240 / 480 240 / 480 Weight 146.5 kg Intake: Oral 1080 / 1200 240 / 480 240 / 480 Other: Urine Color Yellow Yellow Urine Appearance Clear Clear Urine Odor None Comment incontinent , wears brief. Stool Size Large Moderate Stool Characteristics Brown Hard Brown Bloody Voiding Methods Diaper Diaper Toilet Incontinent Laboratory Results WBC 5.48 k/cumm (4.4-10.8) 11/24/19 21:40 RBC 5.39 m/cumm (4.50-6.00) 11/24/19 21:40 Hgb 15.1 g/dL (13.5-17.5) 11/24/19 21:40 Hct 46.2 % (40.0-50.0) 11/24/19 21:40 MCV 85.7 fL (80-95) 11/24/19 21:40 MCH 28.0 pg (27.0-33.0) 11/24/19 21:40 MCHC 32.7 g/dL (32.0-36.0) 11/24/19 21:40 RDW 15.9 % (11.8-14.1) H 11/24/19 21:40 Plt Count 176 x1000/uL (130-400) 11/27/19 06:35 MPV 10.1 fL (8.0-11.0) 11/24/19 21:40 Immature Gran % 0.4 % 11/24/19 21:40 Neutrophils % 67.5 11/24/19 21:40 Lymphocytes % 19.3 11/24/19 21:40 Monocytes % 10.2 11/24/19 21:40 Eosinophils % 2.2 11/24/19 21:40 Basophils % 0.4 11/24/19 21:40 Absolute Neutrophils 3.70 k/cumm (1.2-6.7) 11/24/19 21:40 Absolute Lymphocytes 1.06 k/cumm (1.2-3.4) L 11/24/19 21:40 Absolute Monocytes 0.56 k/cumm (0.11-0.7) 11/24/19 21:40 Absolute Eosinophils 0.12 k/cumm (0.0-0.7) 11/24/19 21:40 Absolute Basophils 0.02 k/cumm (0.0-0.2) 11/24/19 21:40 PT 12.2 sec (9.3-11.0) H 11/27/19 06:35 INR 1.2 (0.9-1.1) H 11/27/19 06:35 Sodium 139 mmol/L (136-145) 11/27/19 06:35 Potassium 3.3 mmol/L (3.5-5.1) L 11/27/19 06:35 Chloride 101 mmol/L (98-107) 11/27/19 06:35 Carbon Dioxide 31.6 mmol/L (21.0-32.0) 11/27/19 06:35 Anion Gap 6.4 mmol/L (3-11) 11/27/19 06:35 BUN 40 mg/dL (7-18) H 11/27/19 06:35 Creatinine 1.13 mg/dL (0.70-1.30) 11/27/19 06:35 Estimated GFR/1.73 m2 >= 60.00 (mL/min/1.73m2) 11/27/19 06:35 Glucose 130 mg/dL (74-106) H 11/27/19 06:35 Hemoglobin A1c 8.7 % (3.8-5.6) H 11/26/19 06:24 Calcium 9.0 mg/dL (8.5-10.1) 11/27/19 06:35 Magnesium 2.1 mg/dL (1.8-2.4) 11/27/19 06:35 Total Bilirubin 1.1 mg/dL (0.2-1.0) H 11/24/19 21:40 AST 30 U/L (15-37) 11/24/19 21:40 ALT 30 U/L (16-63) 11/24/19 21:40 Alkaline Phosphatase 98 U/L (46-116) 11/24/19 21:40 Troponin I < 0.05 ng/Ml (<0.06) 11/25/19 06:40 NT-Pro-B Natriuret Pep 2589 pg/mL (<300) H 11/24/19 21:40 Total Protein 8.6 g/dL (6.4-8.2) H 11/24/19 21:40 Albumin 3.6 g/dL (3.4-5.0) 11/24/19 21:40 Urine Color Yellow (Yellow) 11/24/19 21:40 Urine Clarity Clear (Clear) 11/24/19 21:40 Urine pH 6.5 (5-8) 11/24/19 21:40 Ur Specific [place] 1.015 (1.005-1.025) 11/24/19 21:40 Urine Protein Negative mg/dL (Negative) 11/24/19 21:40 Urine Ketones Negative mg/dL (Negative) 11/24/19 21:40 Urine Blood Small (Negative) H 11/24/19 21:40 Urine Nitrite Negative (Negative) 11/24/19 21:40 Urine Bilirubin Negative (Negative) 11/24/19 21:40 Urine Urobilinogen 0.2 EU/dL (Up TO 0.2) 11/24/19 21:40 Ur Leukocyte Esterase Negative (Negative) 11/24/19 21:40 Urine RBC 20-50 HPF (0-2) H 11/24/19 21:40 Urine WBC 0-2 HPF (0-5) 11/24/19 21:40 Ur Epithelial Cells Negative HPF (Negative) 11/24/19 21:40 Urine Crystals Negative HPF (Negative) 11/24/19 21:40 Urine Bacteria Negative HPF (Negative) 11/24/19 21:40 Urine Casts Negative LPF (Negative) 11/24/19 21:40 Urine Mucus Negative (Negative) 11/24/19 21:40 Urine Other Rare renal (Negative) 11/24/19 21:40 Ur Culture Indicated? No 11/24/19 21:40 Urine Glucose Negative mg/dL (Negative) 11/24/19 21:40
--- NOTE | 2019-11-27 16:45 | CHAPLAIN ---
I had a short visit with Barrie today. He was up and walking around today, but not as far as he would have liked, he said. I will visit again tomorrow.
[2019-11-27] MEDS: Simvastatin 20 MG TAB 40 MG PO (20:00)
[2019-11-27] MEDS: Warfarin 5 MG TAB 10 MG PO (20:00)
[2019-11-27] MEDS: Gabapentin 300 MG CAP 600 MG PO (22:20)
[2019-11-28] VITALS (8 sets, daily range): BP systolic 98–132; BP diastolic 64–85; PULSE 52–97; RESP 17–20; TEMP 36–36.8; O2SAT 95–97
[2019-11-28 06:58] LABS: INR 1.3 (0.9-1.1); Prothrombin Time 12.9 sec (9.3-11.0)
[2019-11-28 07:01] LABS: Anion Gap 6.3 mmol/L (3-11); BUN 36 mg/dL (7-18); CO2 29.7 mmol/L (21.0-32.0); CREATININE 1.08 mg/dL (0.70-1.30); Calcium 9.1 mg/dL (8.5-10.1); Chloride 102 mmol/L (98-107); Glucose 134 mg/dL (74-106); Potassium 3.9 mmol/L (3.5-5.1); Sodium 138 mmol/L (136-145)
[2019-11-28] MEDS: Budesonide/Formoterol 80/4.5 6.9 GM 60 PUFF INH IH ×2 (07:47→20:58)
[2019-11-28] MEDS: Docusate Sodium 100 MG CAP PO ×2 (08:20→20:24)
[2019-11-28] MEDS: DULoxetine 30 MG CAP 60 MG PO ×2 (08:20→20:24)
[2019-11-28] MEDS: Magnesium Oxide 400 MG TAB PO ×2 (08:20→20:24)
--- NOTE | 2019-11-28 08:20 | OTTR_ITS ---
Date of service: 11/28/19 Time of Service: 07:45 Occupational Therapy Notes Occupational Therapy Inpatient Treatment Note Date: 11/28/19 PRECAUTIONS: Fall, Standard SUBJECTIVE: Pt was sitting in bed when OT arrived. He was agreeable to OT session and notes that he would like to get washed up and ready for his day. Pt states that he thinks that he will be going to SNF today but is still waiting to hear. OBJECTIVE: PAIN: no c/o pain FUNCTIONAL MOBILITY Rolling L/R: (S) Supine-sit: (S) Sit-stand: SBA Stand-sit: SBA Bed-Chair: SBA, FWw Chair-bed: SBA, FWW BATHING: Standing at sink with FWW with min vc Upper Body: Pt was (I) with face, (B) UE, abdomen Lower Body: (I) with biju area, (B) LE to knees, Max (A) below (B) knees DRESSING: Upper Extremity: Min (A) don and doffing hospital gown Lower Extremity: Mod (A) don and doffing underwear. GROOMING: Sitting in chair (I) with brushing hair TOILETING: NT ASSESSMENT/PLAN: Pt was able to demonstrate fair-good standing bathing routine with min vc and use of FWW for functional mobility and static balance. Pt was able to demonstrate good standing tolerance with no LOB or dizziness. Pt was an active participant in todays session. He reported multiple times throughout session that he felt well. He required (A) with LE dressing including don and doffing disposable underwear. OT will continue progress pt towards goals established at initial evaluation. TREATMENT CODES/TIME: [id number], 32 minutes (07:45) Serina Pradhan OTR/[facility]
[2019-11-28] MEDS: Metoprolol 25 MG TAB PO ×2 (08:50→20:24)
[2019-11-28] MEDS: Insulin Aspart 300 UNITS/3 ML PEN SC ×2 (12:03→22:04)
--- NOTE | 2019-11-28 14:20 | PT.INTREAT ---
Date of service: 11/28/19 Time of Service: 14:20 PT Notes Visit Reasons: ORTHOSTATIC HYPOTENSION Inpatient Physical Therapy Treatment Note [facility] Date: 11/28/2019 PRECAUTIONS: Fall. Syncopal episode. Standard. Activity as tolerated. Subjective: Patient is agreeable to a PT session for both morning and afternoon. He denies any dizziness, chest pain, and headache throughout PT sessions today. He did not report any visual changes in the for both sessions. No complaints of left leg pain after ambulation after exercises are received. Patient feels good about discovering how much better he has been doing compared to when he first came in. Objective: General Observation: Telemetry monitoring in place. Hemosiderin staining to bilateral lower extremities from CVI. IV access to the R UE open. Mental Status: Alert and oriented x4 Pain: None reported Bed Mobility/Transfers: Sit to stand supervision with B UE pushing from armrests Stand to sit supervision with B UE controlling descent onto chair Bed to chair supervision, FWW needed Chair to bed supervision, FWW needed Gait: Patient was able to tolerate 100 feet +80 feet in the morning with wheelchair follow of [employer] Pam and 200 feet of level surface ambulation with wheelchair follow and CGA of PT in the afternoon. No SOB observed. No complaints of dizziness nor pain throughout activity. Increased susi noted. THERA EX: Patient was able to tolerate bed level exercises consisting of seated [id number] x10, LAQs x10 with deep breathing exercises done in between each activities with good response. Assessment: Patient is gradually demonstrating increasing activity tolerance, improving mobility level, and increasing ambulation distance with no complaints of dizziness nor pain in the left LE. Will plan on initiating stair negotiation in the next session in order to facilitate safe discharge. DISCHARGE RECOMMENDATIONS: Patient may benefit from the continued use of front-wheeled walker for all indoor ambulation. The attachment of a walker tray may facilitate conducive performance of all meal preparation tasks at home while reducing fall risk. Patient will also benefit from the use of shower chair or a tub bench in order to reduce fall risk. Patient will benefit from home health PT services in order to progress mobility level using least restrictive assistive ambulatory device, assess home safety, identify additional equipment needs, and establish a functional maintenance program that will increase ability of patient to remain at home. TREATMENT CODE/TIME: Session 1?9 [id number] x 30 minutes, [id number] x 10 minutes beginning at 9 AM. Session 2?[id number] x 15 minutes, 54930 x 12 minutes beginning at 14:20 p.m..
--- NOTE | 2019-11-28 15:11 | CMPROGNOTE_ITS ---
- If Service Date Differs Date of service: 11/28/19 Time of Service: 15:11 Care Management Progress Note S/O: Barrie was sitting up in his chair when CM met with him. He reported that he was agreeable to going to a short term rehab prior to returning home, and CM discussed options, providing a list of post acute rehab facilities in [place]. CM sent a referral to [facility] yesterday, and followed up today several times. Due to extra screening and Covid-19 precautions, the referral process has slowed down considerably. CM spoke to Johanna from [facility] ([phone]) who stated that if a bed offer is made, [facility] would streamline the prior auth process to ensure placement in a timely manner. CM will continue to follow. A: Barrie is a 58 year old male admitted to [facility] on 11/25/19 for orthostatic hypotension. P: Barrie has been evaluated by PT and OT . Both have recommended home health for PT and OT, however home services are extremely limited. The provider feels Barrie requires rehab for PT and OT as well as wound care and close medication monitoring until his orthostasis is controlled. Once he is medically cleared he will go to a SNF for short term rehab prior to returning home. CM will continue to follow and support Brarie with discharge planning considerations.
--- NOTE | 2019-11-28 15:29 | CHAPLAIN ---
Barrie was sitting in his chair when I visited. He said he's been up walking but didn't go as far as he would have liked to, but he said he is trusting the physical therapist. Barrie said he is likely being discharged soon and waiting to hear if he has been accepted at [facility] or [facility]. Barrie told some stories about his life on the [employer] and growing up in [id number]. 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 Barrie said he went to a shrink recently and the conversation was helpful in giving him some ideas about interacting with his brother. Barrie's cousin is José Bernstein and he calls Barrie frequently to keep in touch. Barrie said he continues to be optimistic, because there is no sense in being mad. I know that doctors are trying to do what's best for me.
--- NOTE | 2019-11-28 16:31 | PGE_ITS ---
Date of Service Date of service: 11/28/19 Time of Service: 16:31 Assessment and Plan Assessment and plan (1) Orthostatic hypotension: Status: Acute Assessment and plan: resolved with IV fluids and off diuretics (2) Acute kidney injury (nontraumatic): Status: Acute Assessment and plan: resolved with creatinine at baseline. avoid nephrotoxic drugs and monitor periodically, especially when diuretics started back up (3) Atrial fibrillation: Status: Chronic Assessment and plan: rate controlled. will continue closely monitor vitals. adjust as needed. apixaban discontinued and will continue with warfarin, bridging with lovenox until INR 2-3. (4) Obstructive sleep apnea: Status: Chronic Assessment and plan: continue home cpap (5) Diabetic peripheral neuropathy associated with type 2 diabetes mellitus: Status: Acute Assessment and plan: blood sugars have been well controlled. diabetes meds have been on hold since admission. continue diabetic diet, sliding scale if needed. will need to restart on discharge. (6) Deep venous thrombosis of left popliteal vein: Status: Acute Assessment and plan: lovenox to bridge coumadin for INR goal of 2-3, taking 10 mg, today 3 rd dose, continue daily INR, no adjustment today, consider increasing dose tomorrow if not responding. Qualifiers: Chronicity: acute Qualified Code(s): I82.432 - Acute embolism and thrombosis of left popliteal vein (7) Congestive heart failure: Status: Chronic Assessment and plan: recent admission to [facility] for exacerbation, was discharged home on torsemide 40 mg daily and metalozone 5 mg daily, [place] [facility] [place], hypotension and falls. he was given IV fluids and improved, discharged on torsemide 20 mg daily and metalozone 2.5 mg daily and has presented here in [place] and hypotension again. will need to further decrease diuretics at discharge again. no signs of fluid overload at this time. consider discontinue metalozone and decreased torsemide to 10 mg daily, Subjective Subjective Patient reports: no new complaints and feels better Interval history since last seen: no further dizziness or hypotension. bowels moving well now, no issues voiding, eating and drinking well. working with physical therapy. Exam Narrative Exam Narrative: General: cooperative, comfortable, no acute distress, disheveled and ill appearing chronically Nutritional Appearance: obese morbidly obese Orientation: alert, awake and oriented x3 [facility] Head: normal to inspection, normocephalic and atraumatic Mouth: oral mucosae normal Resp Effort & Inspection: normal respiratory effort Auscultation: clear to auscultation bilaterally Cardio Rate: regular rate Rhythm: abnormal rhythm irregularly irregular GI Inspection: large pannus and obesity Skin Lesions: lesion noted (bilateral lower, mulitple areas, covered in mepiliex, see nurses notes) Rashes: other (chronic bilateral discoloration consistent with venous stasis changes) Neuro General: patient alert, patient awake and patient oriented x3 Cranial Nerves: CN's II-XI intact bilaterally Cognition: normal cognition Speech: speech normal Gait: gait assisted Extrem General: full ROM and pedal edema (generalized, lymphedema, ) bilaterally Psych Appearance: well kempt Speech and Movement: speech and movement normal Mood: congruent mood Affect: normal affect Attitude: cooperative Thought Process: normal Thought Content: normal Insight: fair Objective Objective Clinical Data: Abnormal lab results 11/28/19 11/28/19 Range/Units 06:30 06:30 PT 12.9 H (9.3-11.0) sec INR 1.3 H (0.9-1.1) BUN 36 H (7-18) mg/dL Glucose 134 H (74-106) mg/dL Vital Signs Temperature 36.8 C 11/28/19 15:29 Temperature Source Tympanic 11/28/19 15:29 Pulse 78 11/28/19 15:29 Pulse Rhythm Irregular 11/28/19 08:15 Pulse 102 H 11/25/19 00:00 Respiratory Rate 20 11/28/19 15:29 Respiratory Effort Non-Labored 11/28/19 08:15 Respiratory Depth Normal 11/28/19 08:15 Respiratory Pattern Normal 11/28/19 08:15 Blood Pressure 132/85 11/28/19 15:29 Blood Pressure Mean 88 11/25/19 00:00 Pulse Oximetry 97 11/28/19 15:29 Oxygen Delivery Method Room Air 11/28/19 15:29 Oxygen Flow Rate 0 11/28/19 15:29 Fraction of Inspired Oxygen (FIO2) 21 11/28/19 02:07 Pain Level 0 11/28/19 15:29 Comment 11/27/19 09:30 Intake & Output 11/27/19 11/28/19 11/28/19 23:59 11:59 23:59 Intake Total 480 / 720 240 / 480 240 / 480 Balance 480 / 720 240 / 480 240 / 480 Weight 147.8 kg Intake: Oral 480 / 720 240 / 480 240 / 480 Other: Urine Color Yellow Yellow Urine Appearance Clear Clear Urine Odor Normal None Comment grossily incontinent Stool Occult Blood Negative Stool Size Moderate Moderate Stool Characteristics Formed Formed Hard Voiding Methods Incontinent Toilet Diaper Laboratory Results WBC 5.48 k/cumm (4.4-10.8) 11/24/19 21:40 RBC 5.39 m/cumm (4.50-6.00) 11/24/19 21:40 Hgb 15.1 g/dL (13.5-17.5) 11/24/19 21:40 Hct 46.2 % (40.0-50.0) 11/24/19 21:40 MCV 85.7 fL (80-95) 11/24/19 21:40 MCH 28.0 pg (27.0-33.0) 11/24/19 21:40 MCHC 32.7 g/dL (32.0-36.0) 11/24/19 21:40 RDW 15.9 % (11.8-14.1) H 11/24/19 21:40 Plt Count 176 x1000/uL (130-400) 11/27/19 06:35 MPV 10.1 fL (8.0-11.0) 11/24/19 21:40 Immature Gran % 0.4 % 11/24/19 21:40 Neutrophils % 67.5 11/24/19 21:40 Lymphocytes % 19.3 11/24/19 21:40 Monocytes % 10.2 11/24/19 21:40 Eosinophils % 2.2 11/24/19 21:40 Basophils % 0.4 11/24/19 21:40 Absolute Neutrophils 3.70 k/cumm (1.2-6.7) 11/24/19 21:40 Absolute Lymphocytes 1.06 k/cumm (1.2-3.4) L 11/24/19 21:40 Absolute Monocytes 0.56 k/cumm (0.11-0.7) 11/24/19 21:40 Absolute Eosinophils 0.12 k/cumm (0.0-0.7) 11/24/19 21:40 Absolute Basophils 0.02 k/cumm (0.0-0.2) 11/24/19 21:40 PT 12.9 sec (9.3-11.0) H 11/28/19 06:30 INR 1.3 (0.9-1.1) H 11/28/19 06:30 Sodium 138 mmol/L (136-145) 11/28/19 06:30 Potassium 3.9 mmol/L (3.5-5.1) 11/28/19 06:30 Chloride 102 mmol/L (98-107) 11/28/19 06:30 Carbon Dioxide 29.7 mmol/L (21.0-32.0) 11/28/19 06:30 Anion Gap 6.3 mmol/L (3-11) 11/28/19 06:30 BUN 36 mg/dL (7-18) H 11/28/19 06:30 Creatinine 1.08 mg/dL (0.70-1.30) 11/28/19 06:30 Estimated GFR/1.73 m2 >= 60.00 (mL/min/1.73m2) 11/28/19 06:30 Glucose 134 mg/dL (74-106) H 11/28/19 06:30 Hemoglobin A1c 8.7 % (3.8-5.6) H 11/26/19 06:24 Calcium 9.1 mg/dL (8.5-10.1) 11/28/19 06:30 Magnesium 2.1 mg/dL (1.8-2.4) 11/27/19 06:35 Total Bilirubin 1.1 mg/dL (0.2-1.0) H 11/24/19 21:40 AST 30 U/L (15-37) 11/24/19 21:40 ALT 30 U/L (16-63) 11/24/19 21:40 Alkaline Phosphatase 98 U/L (46-116) 11/24/19 21:40 Troponin I < 0.05 ng/Ml (<0.06) 11/25/19 06:40 NT-Pro-B Natriuret Pep 2589 pg/mL (<300) H 11/24/19 21:40 Total Protein 8.6 g/dL (6.4-8.2) H 11/24/19 21:40 Albumin 3.6 g/dL (3.4-5.0) 11/24/19 21:40 Urine Color Yellow (Yellow) 11/24/19 21:40 Urine Clarity Clear (Clear) 11/24/19 21:40 Urine pH 6.5 (5-8) 11/24/19 21:40 Ur Specific [place] 1.015 (1.005-1.025) 11/24/19 21:40 Urine Protein Negative mg/dL (Negative) 11/24/19 21:40 Urine Ketones Negative mg/dL (Negative) 11/24/19 21:40 Urine Blood Small (Negative) H 11/24/19 21:40 Urine Nitrite Negative (Negative) 11/24/19 21:40 Urine Bilirubin Negative (Negative) 11/24/19 21:40 Urine Urobilinogen 0.2 EU/dL (Up TO 0.2) 11/24/19 21:40 Ur Leukocyte Esterase Negative (Negative) 11/24/19 21:40 Urine RBC 20-50 HPF (0-2) H 11/24/19 21:40 Urine WBC 0-2 HPF (0-5) 11/24/19 21:40 Ur Epithelial Cells Negative HPF (Negative) 11/24/19 21:40 Urine Crystals Negative HPF (Negative) 11/24/19 21:40 Urine Bacteria Negative HPF (Negative) 11/24/19 21:40 Urine Casts Negative LPF (Negative) 11/24/19 21:40 Urine Mucus Negative (Negative) 11/24/19 21:40 Urine Other Rare renal (Negative) 11/24/19 21:40 Ur Culture Indicated? No 11/24/19 21:40 Urine Glucose Negative mg/dL (Negative) 11/24/19 21:40
[2019-11-28] MEDS: Warfarin 5 MG TAB 10 MG PO (20:23)
[2019-11-28] MEDS: Simvastatin 20 MG TAB 40 MG PO (20:24)
[2019-11-28] MEDS: Gabapentin 300 MG CAP 600 MG PO (22:04)
[2019-11-28] MEDS: Normal Saline Flush 10 ML SYR (23:15)
[2019-11-29] VITALS (7 sets, daily range): BP systolic 104–115; BP diastolic 68–81; PULSE 56–86; RESP 18–20; TEMP 36.4–36.9; O2SAT 94–97
[2019-11-29 07:26] LABS: INR 1.7 (0.9-1.1); Prothrombin Time 17.3 sec (9.3-11.0)
[2019-11-29 07:28] LABS: Anion Gap 8.7 mmol/L (3-11); BUN 35 mg/dL (7-18); CO2 29.3 mmol/L (21.0-32.0); CREATININE 1.11 mg/dL (0.70-1.30); Chloride 101 mmol/L (98-107); Glucose 133 mg/dL (74-106); Sodium 139 mmol/L (136-145)
[2019-11-29] MEDS: Budesonide/Formoterol 80/4.5 6.9 GM 60 PUFF INH IH ×2 (07:57→19:44)
[2019-11-29] MEDS: DULoxetine 30 MG CAP 60 MG PO ×2 (08:52→19:42)
[2019-11-29] MEDS: Magnesium Oxide 400 MG TAB PO ×2 (08:52→19:42)
[2019-11-29] MEDS: Metoprolol 25 MG TAB PO ×2 (08:52→19:43)
[2019-11-29] MEDS: Docusate Sodium 100 MG CAP PO ×2 (08:52→19:41)
--- NOTE | 2019-11-29 11:55 | PGE_ITS ---
Date of Service Date of service: 11/29/19 Time of Service: 11:55 Assessment and Plan Assessment and plan (1) Orthostatic hypotension: Status: Acute Assessment and plan: Resolved. IV fluids have been discontinued. Appears to be related to aggressive diuretic regimen. Diuretics currently on hold. No signs of fluid overload at this time. Will need resumption of less aggressive diuretic regimen when indicated. (2) Congestive heart failure: Status: Chronic Assessment and plan: Recent admission to [facility] for exacerbation, he was discharged home on torsemide 40 mg daily and metalozone 5 mg daily, was read[place] [facility] [place], hypotension and falls. He was given IV fluids and improved, discharged on torsemide 20 mg daily and metalozone 2.5 mg daily and has presented here in [place] and hypotension again. Will need to further decrease diuretics at discharge again. Diuretics remain on hold. No signs of fluid overload at this time. Consider discontinue metalozone and decreased torsemide to 10 mg daily when indicated. (3) Deep venous thrombosis of left popliteal vein: Status: Acute Assessment and plan: With history of PE and atrial fibrillation on ap ixiban. Likely failed apixiban due to obesity. Currently on coumadin with lovenox bridge. INR 1.7 today. Continue Lovenox with coumadin until INR 2-3. Repeat INR tomorrow. Check CBC tomorrow also. Qualifiers: Chronicity: acute Qualified Code(s): I82.432 - Acute embolism and thrombosis of left popliteal vein (4) Acute kidney injury (nontraumatic): Status: Acute Assessment and plan: Resolved. Creatinine normal at 1.11, BUN improved to 35. Continue to follow renal function. (5) Atrial fibrillation: Status: Chronic Assessment and plan: Failed apixiban as above. Currently on coumadin with lovenox bridge. HR controlled with Metoprolol. Continue current regimen. Con tinue to monitor HR and INR. (6) Obstructive sleep apnea: Status: Chronic Assessment and plan: Continue home CPAP. (7) Diabetic peripheral neuropathy associated with type 2 diabetes mellitus: Status: Acute Assessment and plan: Blood glucose well controlled on diabetic diet with insulin per sliding scale. Oral diabetic regimen on hold while hospitalized, will need to be restarted at time of discharge. (8) Discharge planning issues: Status: Acute Assessment and plan: He is a FULL code. Has bed offer at [facility] for [facility]. Plan for discharge to SNF Sunday. This case was discussed with Dr. Lang who is in agreement. Subjective Subjective Interval history since last seen: Mr. Peacock denies dizziness or feeling lightheaded. No further hypotension. He denies chest pain or edema. He has wounds to his lower extremities that are dressed, no new skin lesions or rashes. He denies SOB, coughing or wheezing. He is eating and drinking and tolerating his diet with no abdominal pain, nausea or vomiting. His bowels are functioning normally. He denies any pain. His only complaint is that he is bored, he would like to ambulate in the halls but cannot due to the coronavirus pandemic. Exam Narrative Exam Narrative: General: very pleasant 58 year old man, appears older than stated age, appears chronically ill and obese. Sitting up in chair with legs dependent. Alert and oriented, answers questions appropriately. HEENT: normocephalic, atraumatic, pupils equal and round, EOMI, mucous membranes moist. Neck: supple, thick with liao. Cardiovascular: irregularly irregular rhythm, nontachycardic, no murmur appreciated. Respiratory: respirations appear even and unlabored, lung sounds clear bilaterally. GI: large pannus, +BS, soft, no tenderness on palpation. Extremities: multiple wounds to lower extremities with mepilex dressings and wrapped, see nursing notes for details on wounds. Bilateral discoloration to knees consistent with venous stasis changes. Pedal edema bilaterally, LLE with wrinkled skin where edema has improved. Moves all 4 extremities freely. Objective Objective Clinical Data: Abnormal lab results 11/29/19 11/29/19 Range/Units 06:35 06:35 PT 17.3 H (9.3-11.0) sec INR 1.7 H (0.9-1.1) BUN 35 H (7-18) mg/dL Glucose 133 H (74-106) mg/dL Vital Signs Temperature 36.4 C L 11/29/19 07:10 Temperature Source Temporal Artery Scan 11/29/19 07:10 Pulse 56 L 11/29/19 07:10 Pulse Rhythm Irregular 11/28/19 20:00 Pulse 102 H 11/25/19 00:00 Respiratory Rate 18 11/29/19 07:10 Respiratory Effort Non-Labored 11/28/19 20:00 Respiratory Depth Normal 11/28/19 20:00 Respiratory Pattern Normal 11/28/19 20:00 Blood Pressure 113/78 11/29/19 07:10 Blood Pressure Mean 88 11/25/19 00:00 Pulse Oximetry 96 11/29/19 07:58 Oxygen Delivery Method Room Air 11/29/19 07:58 Oxygen Flow Rate 0 11/29/19 07:58 Fraction of Inspired Oxygen (FIO2) 21 11/29/19 07:58 Pain Level 0 11/29/19 07:10 Comment 11/27/19 09:30 Intake & Output 11/28/19 11/28/19 11/29/19 11:59 23:59 11:59 Intake Total 240 / 720 480 / 720 Balance 240 / 720 480 / 720 Weight 147.8 kg 147.7 kg Intake: Oral 240 / 720 480 / 720 Other: Urine Color Yellow Yellow Urine Appearance Clear Clear Urine Odor None Comment grossily incontinent Stool Size Moderate Stool Characteristics Formed Voiding Methods Toilet Incontinent Diaper Diaper Incontinent Laboratory Results WBC 5.48 k/cumm (4.4-10.8) 11/24/19 21:40 RBC 5.39 m/cumm (4.50-6.00) 11/24/19 21:40 Hgb 15.1 g/dL (13.5-17.5) 11/24/19 21:40 Hct 46.2 % (40.0-50.0) 11/24/19 21:40 MCV 85.7 fL (80-95) 11/24/19 21:40 MCH 28.0 pg (27.0-33.0) 11/24/19 21:40 MCHC 32.7 g/dL (32.0-36.0) 11/24/19 21:40 RDW 15.9 % (11.8-14.1) H 11/24/19 21:40 Plt Count 176 x1000/uL (130-400) 11/27/19 06:35 MPV 10.1 fL (8.0-11.0) 11/24/19 21:40 Immature Gran % 0.4 % 11/24/19 21:40 Neutrophils % 67.5 11/24/19 21:40 Lymphocytes % 19.3 11/24/19 21:40 Monocytes % 10.2 11/24/19 21:40 Eosinophils % 2.2 11/24/19 21:40 Basophils % 0.4 11/24/19 21:40 Absolute Neutrophils 3.70 k/cumm (1.2-6.7) 11/24/19 21:40 Absolute Lymphocytes 1.06 k/cumm (1.2-3.4) L 11/24/19 21:40 Absolute Monocytes 0.56 k/cumm (0.11-0.7) 11/24/19 21:40 Absolute Eosinophils 0.12 k/cumm (0.0-0.7) 11/24/19 21:40 Absolute Basophils 0.02 k/cumm (0.0-0.2) 11/24/19 21:40 PT 17.3 sec (9.3-11.0) H 11/29/19 06:35 INR 1.7 (0.9-1.1) H 11/29/19 06:35 Sodium 139 mmol/L (136-145) 11/29/19 06:35 Potassium 4.0 mmol/L (3.5-5.1) 11/29/19 06:35 Chloride 101 mmol/L (98-107) 11/29/19 06:35 Carbon Dioxide 29.3 mmol/L (21.0-32.0) 11/29/19 06:35 Anion Gap 8.7 mmol/L (3-11) 11/29/19 06:35 BUN 35 mg/dL (7-18) H 11/29/19 06:35 Creatinine 1.11 mg/dL (0.70-1.30) 11/29/19 06:35 Estimated GFR/1.73 m2 >= 60.00 (mL/min/1.73m2) 11/29/19 06:35 Glucose 133 mg/dL (74-106) H 11/29/19 06:35 Hemoglobin A1c 8.7 % (3.8-5.6) H 11/26/19 06:24 Calcium 9.0 mg/dL (8.5-10.1) 11/29/19 06:35 Magnesium 2.1 mg/dL (1.8-2.4) 11/27/19 06:35 Total Bilirubin 1.1 mg/dL (0.2-1.0) H 11/24/19 21:40 AST 30 U/L (15-37) 11/24/19 21:40 ALT 30 U/L (16-63) 11/24/19 21:40 Alkaline Phosphatase 98 U/L (46-116) 11/24/19 21:40 Troponin I < 0.05 ng/Ml (<0.06) 11/25/19 06:40 NT-Pro-B Natriuret Pep 2589 pg/mL (<300) H 11/24/19 21:40 Total Protein 8.6 g/dL (6.4-8.2) H 11/24/19 21:40 Albumin 3.6 g/dL (3.4-5.0) 11/24/19 21:40 Urine Color Yellow (Yellow) 11/24/19 21:40 Urine Clarity Clear (Clear) 11/24/19 21:40 Urine pH 6.5 (5-8) 11/24/19 21:40 Ur Specific [place] 1.015 (1.005-1.025) 11/24/19 21:40 Urine Protein Negative mg/dL (Negative) 11/24/19 21:40 Urine Ketones Negative mg/dL (Negative) 11/24/19 21:40 Urine Blood Small (Negative) H 11/24/19 21:40 Urine Nitrite Negative (Negative) 11/24/19 21:40 Urine Bilirubin Negative (Negative) 11/24/19 21:40 Urine Urobilinogen 0.2 EU/dL (Up TO 0.2) 11/24/19 21:40 Ur Leukocyte Esterase Negative (Negative) 11/24/19 21:40 Urine RBC 20-50 HPF (0-2) H 11/24/19 21:40 Urine WBC 0-2 HPF (0-5) 11/24/19 21:40 Ur Epithelial Cells Negative HPF (Negative) 11/24/19 21:40 Urine Crystals Negative HPF (Negative) 11/24/19 21:40 Urine Bacteria Negative HPF (Negative) 11/24/19 21:40 Urine Casts Negative LPF (Negative) 11/24/19 21:40 Urine Mucus Negative (Negative) 11/24/19 21:40 Urine Other Rare renal (Negative) 11/24/19 21:40 Ur Culture Indicated? No 11/24/19 21:40 Urine Glucose Negative mg/dL (Negative) 11/24/19 21:40
[2019-11-29] MEDS: Insulin Aspart 300 UNITS/3 ML PEN SC ×3 (12:14→20:57)
--- NOTE | 2019-11-29 12:21 | PDOC.CMPRO ---
- If Service Date Differs Date of service: 11/29/19 Time of Service: 12:21 Care Management Progress Note S/O: Barrie was sitting up in his chair when CM met with him. He reported that he is feeling better today. CM asked if he would like any additional items from the cart for his boredom, which he declined. He is still working on the [address] book that CM gave him earlier in the week. CM discussed the plan for Barrie to go to [facility], as they have offered him a bed for Sunday. He is agreeable with the plan. CM explained that transportation will be arranged, unless his family would prefer to transport him. CM will continue to follow. A: Barrie is a 58 year old male admitted to [facility] on 11/25/19 for orthostatic hypotension. P: Barrie has been evaluated by PT and OT . Both have recommended home health for PT and OT, however home services are extremely limited. The provider feels Barrie requires rehab for PT and OT as well as wound care and close medication monitoring until his orthostasis is controlled. Once he is medically cleared he will go to a SNF for short term rehab prior to returning home. CM will continue to follow and support Barrie with discharge planning considerations.
--- NOTE | 2019-11-29 13:25 | PTTR_ITS ---
Date of service: 11/29/19 Time of Service: 13:56 PT Notes Visit Reasons: ORTHOSTATIC HYPOTENSION Inpatient Physical Therapy Treatment Note [facility] Date: 11/29/2019 PRECAUTIONS: Fall. Syncopal episode. Standard. Activity as tolerated. Subjective: Patient continues to deny dizziness, LE pain, and chest pain for both morning and afternoon sessions today. He states that going to a residential facility will help him regain more strength as he prepares to go home alone. He says that he is planned on transitioning to the health and rehab on Sunday if everything goes well. Objective: General Observation: Telemetry monitoring in place. Hemosiderin staining to bilateral lower extremities from CVI. IV access to the R UE open. Mental Status: Alert and oriented x4 Pain: None reported Bed Mobility/Transfers: Sit to stand supervision with B UE pushing from armrests Stand to sit supervision with B UE controlling descent onto chair Bed to chair supervision, FWW needed Chair to bed supervision, FWW needed Gait: Patient was able to tolerate 100 feet +100 feet in the morning and 200 feet in the afternoon with without wheelchair follow. Standby assist provided. Mild SOB that subsided with rest noted. Yolanda improved. Patient did report some mild discomfort on the right foot with ambulation activity this morning, none in the afternoon. STAIRS: Patient also tolerated up-and-down six 4 inch steps and four 6 inch steps while holding onto bilateral rails with out any difficulty with SBA provided. THERA EX: Patient was able to tolerate standing level exercises consisting of heel raises x10, partial knee bends x10 with deep breathing exercises done in between each activities with good response. In the afternoon patient also tolerated a third exercise pushing from the armrest of the chair x10 without any pain or discomfort. THERA ACT: Training to increase independence with toileting and perineal care, static standing, and safely performing incontinence device donning was also done. Assessment: Patient continues to demonstrate increasing activity tolerance, improving mobility level, and increasing ambulation distance with no complaints of dizziness nor pain in the left LE. He tolerated a stair negotiation technique without much difficulty using step to gait pattern. DISCHARGE RECOMMENDATIONS: Front wheeled walker with tray. SNF for mobility progression to maximize independence as patient home lives home alone. TREATMENT CODE/TIME: Session 1?24496 x 38 minutes beginning at 9:51 AM. Session 2?92600 x 15 minutes, 27154 x 12 minutes beginning at 13:25 PM.
[2019-11-29] MEDS: Warfarin 5 MG TAB 10 MG PO (19:42)
[2019-11-29] MEDS: Simvastatin 20 MG TAB 40 MG PO (19:43)
[2019-11-29] MEDS: Gabapentin 300 MG CAP 600 MG PO (20:57)
[2019-11-30] VITALS (10 sets, daily range): BP systolic 78–113; BP diastolic 58–82; PULSE 52–88; RESP 16–21; TEMP 35.8–36.6; O2SAT 93–97
[2019-11-30 07:29] LABS: HCT 41.4 % (40.0-50.0); HGB 13.2 g/dL (13.5-17.5); Mean Corp. HGB Concentration 31.9 g/dL (32.0-36.0); Mean Corpuscular Hemoglobin 27.9 pg (27.0-33.0); Mean Corpuscular Volume 87.5 fL (80-95); Platelet Count 164 x1000/uL (130-400); RBC 4.73 m/cumm (4.50-6.00); RBC Distribution Width 16.7 % (11.8-14.1); White Blood Cell Count 4.51 k/cumm (4.4-10.8)
[2019-11-30] MEDS: Budesonide/Formoterol 80/4.5 6.9 GM 60 PUFF INH IH ×2 (07:42→21:14)
[2019-11-30 07:44] LABS: Anion Gap 7.3 mmol/L (3-11); BUN 34 mg/dL (7-18); CO2 29.7 mmol/L (21.0-32.0); CREATININE 1.07 mg/dL (0.70-1.30); Calcium 8.9 mg/dL (8.5-10.1); Chloride 102 mmol/L (98-107); Glucose 131 mg/dL (74-106); Potassium 4.1 mmol/L (3.5-5.1); Sodium 139 mmol/L (136-145)
[2019-11-30] MEDS: Metoprolol 25 MG TAB PO (07:58)
[2019-11-30] MEDS: DULoxetine 30 MG CAP 60 MG PO (07:59)
[2019-11-30] MEDS: Magnesium Oxide 400 MG TAB PO ×2 (07:59→21:09)
[2019-11-30] MEDS: Docusate Sodium 100 MG CAP PO ×2 (08:00→21:09)
[2019-11-30 09:07] LABS: INR 2.7 (0.9-1.1); Prothrombin Time 26.8 sec (9.3-11.0)
[2019-11-30] MEDS: Insulin Aspart 300 UNITS/3 ML PEN SC (11:57)
--- NOTE | 2019-11-30 12:42 | PGE_ITS ---
Date of Service Date of service: 11/30/19 Time of Service: 12:42 Assessment and Plan Assessment and plan (1) Orthostatic hypotension: Start date: 11/30/19 Start time: 12:48 Status: Acute Assessment and plan: Am orthostatic vs revealing hypotention. 78/62, 82/58, 88/64. Asymptomatic. Question of cymbalta or Alfuzosin causing hypotension. Diuretics held for five days, cymbalta with serious reaction of hypotension, will hold alfuzosin at this time and cymbalta halved. Will monitor. BP up to 110/93 after 20 mins without intervention. Continue to monitor. (2) Congestive heart failure: Start date: 11/30/19 Start time: 12:53 Status: Chronic Assessment and plan: Not exacerbated at this time. Will need to further decrease diuretics at discharge again. Diuretics remain on hold. No signs of fluid overload at this time. Consider discontinue metalozone and decreased torsemide to 10 mg daily when indicated. (3) Deep venous thrombosis of left popliteal vein: Start date: 11/30/19 Start time: 12:54 Status: Acute Assessment and plan: INR 2.7 today. D/C enoxparin. Coumadin 5 mg tonight, check INR in am. INR 2-3 goal. Qualifiers: Chronicity: acute Qualified Code(s): I82.432 - Acute embolism and thrombosis of left popliteal vein (4) Acute kidney injury (nontraumatic): Start date: 11/30/19 Start time: 12:55 Status: Resolved Assessment and plan: Resolved. Continue to monitor BMP (5) Atrial fibrillation: Start date: 11/30/19 Start time: 12:56 Status: Chronic Assessment and plan: Failed apixiban as above. Currently on coumadin with INR 2.7. HR controlled with Metoprolol. Continue current regimen. Continue to monitor HR and INR. (6) Obstructive sleep apnea: Start date: 11/30/19 Start time: 12:57 Status: Chronic Assessment and plan: Continue home CPAP. (7) Diabetic peripheral neuropathy associated with type 2 diabetes mellitus: Start date: 11/30/19 Start time: 13:00 Status: Acute Assessment and plan: Blood glucose well controlled on diabetic diet with insulin per sliding scale. Oral diabetic regimen on hold while hospitalized, will need to be restarted at time of discharge. (8) Discharge planning issues: Start date: 11/30/19 Start time: 13:00 Status: Acute Assessment and plan: He is a FULL code. Has bed offer at [facility] for 12/01/2019. Plan for discharge to SNF Sunday. This case was discussed with Dr. Lang who is in agreement. Subjective Subjective Patient reports: other Interval history since last seen: BP this am revealing orthostatsis, as ymptomatic. After 20 mins bp was 110/93 with auscultation. After revieing medication, cymbalta has rear side effect of orthostatic hypotension and potentiates bb. Will titrate down cymbalta, also on Alfuzosin which can contribute to OHTN, d/c med. monitor bp, denies CP, SOB, N/V/D. Will monitor. possible d/c to rehab tomorrow. Exam Narrative Exam Narrative: General: very pleasant 58 year old man, appears older than stated age, appears chronically ill and obese. Sitting up in chair with legs de pendent. Alert and oriented, answers questions appropriately. HEENT: normocephalic, atraumatic, pupils equal and round, EOMI, mucous membranes moist. Neck: supple, thick with liao. Cardiovascular: irregularly irregular rhythm, nontachycardic, no murmur appreciated. Respiratory: respirations appear even and unlabored, lung sounds clear bilaterally. GI: large pannus, +BS, soft, no tenderness on palpation. Extremities: multiple wounds to lower extremities with mepilex dressings and wrapped, see nursing notes for details on wounds. Bilateral discoloration to knees consistent with venous stasis changes. Pedal edema bilaterally, LLE with wrinkled skin where edema has improved. Moves all 4 extremities freely. Objective Objective Clinical Data: Abnormal lab results 11/30/19 11/30/19 11/30/19 Range/Units 06:20 06:20 06:20 Hgb 13.2 L (13.5-17.5) g/dL MCHC 31.9 L (32.0-36.0) g/dL RDW 16.7 H (11.8-14.1) % PT 26.8 H D (9.3-11.0) sec INR 2.7 H D (0.9-1.1) BUN 34 H (7-18) mg/dL Glucose 131 H (74-106) mg/dL Vital Signs Temperature 36.1 C L 11/30/19 07:39 Temperature Source Temporal Artery Scan 11/30/19 07:39 Pulse 73 11/30/19 07:39 Pulse Rhythm Irregular 11/30/19 01:19 Pulse 102 H 11/25/19 00:00 Respiratory Rate 18 11/30/19 07:39 Respiratory Effort Non-Labored 11/30/19 01:19 Respiratory Depth Normal 11/30/19 01:19 Respiratory Pattern Normal 11/30/19 01:19 Blood Pressure 78/62 L 11/30/19 10:15 Blood Pressure Mean 88 11/25/19 00:00 Pulse Oximetry 97 11/30/19 08:35 Oxygen Delivery Method Room Air 11/30/19 08:35 Oxygen Flow Rate 0 11/30/19 08:35 Fraction of Inspired Oxygen (FIO2) 21 11/30/19 07:43 Pain Level 0 11/30/19 07:39 Comment 11/27/19 09:30 Intake & Output 11/29/19 11/30/19 11/30/19 23:59 11:59 23:59 Intake Total 960 / 960 240 / 240 Balance 960 / 960 240 / 240 Intake: Oral 960 / 960 240 / 240 Other: Urine Appearance Clear Clear Voiding Methods Diaper Incontinent Laboratory Results WBC 4.51 k/cumm (4.4-10.8) 11/30/19 06:20 RBC 4.73 m/cumm (4.50-6.00) 11/30/19 06:20 Hgb 13.2 g/dL (13.5-17.5) L 11/30/19 06:20 Hct 41.4 % (40.0-50.0) 11/30/19 06:20 MCV 87.5 fL (80-95) 11/30/19 06:20 MCH 27.9 pg (27.0-33.0) 11/30/19 06:20 MCHC 31.9 g/dL (32.0-36.0) L 11/30/19 06:20 RDW 16.7 % (11.8-14.1) H 11/30/19 06:20 Plt Count 164 x1000/uL (130-400) 11/30/19 06:20 MPV 10.0 fL (8.0-11.0) 11/30/19 06:20 Immature Gran % 0.4 % 11/24/19 21:40 Neutrophils % 67.5 11/24/19 21:40 Lymphocytes % 19.3 11/24/19 21:40 Monocytes % 10.2 11/24/19 21:40 Eosinophils % 2.2 11/24/19 21:40 Basophils % 0.4 11/24/19 21:40 Absolute Neutrophils 3.70 k/cumm (1.2-6.7) 11/24/19 21:40 Absolute Lymphocytes 1.06 k/cumm (1.2-3.4) L 11/24/19 21:40 Absolute Monocytes 0.56 k/cumm (0.11-0.7) 11/24/19 21:40 Absolute Eosinophils 0.12 k/cumm (0.0-0.7) 11/24/19 21:40 Absolute Basophils 0.02 k/cumm (0.0-0.2) 11/24/19 21:40 PT 26.8 sec (9.3-11.0) H D 11/30/19 06:20 INR 2.7 (0.9-1.1) H D 11/30/19 06:20 Sodium 139 mmol/L (136-145) 11/30/19 06:20 Potassium 4.1 mmol/L (3.5-5.1) 11/30/19 06:20 Chloride 102 mmol/L (98-107) 11/30/19 06:20 Carbon Dioxide 29.7 mmol/L (21.0-32.0) 11/30/19 06:20 Anion Gap 7.3 mmol/L (3-11) 11/30/19 06:20 BUN 34 mg/dL (7-18) H 11/30/19 06:20 Creatinine 1.07 mg/dL (0.70-1.30) 11/30/19 06:20 Estimated GFR/1.73 m2 >= 60.00 (mL/min/1.73m2) 11/30/19 06:20 Glucose 131 mg/dL (74-106) H 11/30/19 06:20 Hemoglobin A1c 8.7 % (3.8-5.6) H 11/26/19 06:24 Calcium 8.9 mg/dL (8.5-10.1) 11/30/19 06:20 Magnesium 2.1 mg/dL (1.8-2.4) 11/27/19 06:35 Total Bilirubin 1.1 mg/dL (0.2-1.0) H 11/24/19 21:40 AST 30 U/L (15-37) 11/24/19 21:40 ALT 30 U/L (16-63) 11/24/19 21:40 Alkaline Phosphatase 98 U/L (46-116) 11/24/19 21:40 Troponin I < 0.05 ng/Ml (<0.06) 11/25/19 06:40 NT-Pro-B Natriuret Pep 2589 pg/mL (<300) H 11/24/19 21:40 Total Protein 8.6 g/dL (6.4-8.2) H 11/24/19 21:40 Albumin 3.6 g/dL (3.4-5.0) 11/24/19 21:40 Urine Color Yellow (Yellow) 11/24/19 21:40 Urine Clarity Clear (Clear) 11/24/19 21:40 Urine pH 6.5 (5-8) 11/24/19 21:40 Ur Specific [place] 1.015 (1.005-1.025) 11/24/19 21:40 Urine Protein Negative mg/dL (Negative) 11/24/19 21:40 Urine Ketones Negative mg/dL (Negative) 11/24/19 21:40 Urine Blood Small (Negative) H 11/24/19 21:40 Urine Nitrite Negative (Negative) 11/24/19 21:40 Urine Bilirubin Negative (Negative) 11/24/19 21:40 Urine Urobilinogen 0.2 EU/dL (Up TO 0.2) 11/24/19 21:40 Ur Leukocyte Esterase Negative (Negative) 11/24/19 21:40 Urine RBC 20-50 HPF (0-2) H 11/24/19 21:40 Urine WBC 0-2 HPF (0-5) 11/24/19 21:40 Ur Epithelial Cells Negative HPF (Negative) 11/24/19 21:40 Urine Crystals Negative HPF (Negative) 11/24/19 21:40 Urine Bacteria Negative HPF (Negative) 11/24/19 21:40 Urine Casts Negative LPF (Negative) 11/24/19 21:40 Urine Mucus Negative (Negative) 11/24/19 21:40 Urine Other Rare renal (Negative) 11/24/19 21:40 Ur Culture Indicated? No 11/24/19 21:40 Urine Glucose Negative mg/dL (Negative) 11/24/19 21:40
--- NOTE | 2019-11-30 13:32 | PDOC.CMPRO ---
- If Service Date Differs Date of service: 11/30/19 Time of Service: 13:32 Care Management Progress Note S/O: Barrie was sitting up in his chair when CM met with him. He reported that he worked with PT, which is going well. He stated that he is agreeable to the plan, which has not changed. [facility] will be [facility], as he has a bed offer for 12/01/19. CM will continue to follow. A: Barrie is a 58 year old male admitted to [facility] on 11/25/19 for orthostatic hypotension. P: Barrie has been evaluated by PT and OT . Both have recommended home health for PT and OT, however home services are extremely limited. The provider feels Barrie requires rehab for PT and OT as well as wound care and close medication monitoring until his orthostasis is controlled. Once he is medically cleared he will go to a SNF for short term rehab prior to returning home. He has been [facility]. CM will continue to follow and support Barrie with discharge planning considerations.
--- NOTE | 2019-11-30 13:35 | PTTR_ITS ---
Date of service: 11/30/19 Time of Service: 13:35 PT Notes Visit Reasons: ORTHOSTATIC HYPOTENSION Inpatient Physical Therapy Treatment Note [facility] Date: 11/30/2019 PRECAUTIONS: Fall. Syncopal episode due to orthostatic hypotension, take all BP manually. Standard. Activity as tolerated. Subjective: Although his morning blood pressure measurements showed to be below normal limits, patient continues to deny dizziness and headache throughout both morning and afternoon sessions today. Patient also denies LE pain, headache, and and chest pain. Objective: General Observation: Telemetry monitoring in place. Hemosiderin staining to b ilateral lower extremities from CVI. IV access to the R UE open. Mental Status: Alert and oriented x4 Pain: None reported Bed Mobility/Transfers: Supine to sit: Supervision Sit to stand supervision with B UE pushing from armrests Stand to sit supervision with B UE controlling descent onto chair Bed to chair supervision, FWW needed Chair to bed supervision, FWW needed Gait: Patient was able to tolerate 100 feet + 25 feet +100 feet +25 feet in the morning and 110 feet +25 feet +110 feet +25 feet in the afternoon with wheelchair follow only in the afternoon due to persistent low blood pressure measurements per nurse Jazlyn. Standby assist provided. Yolanda improved. In the afternoon session, blood pressure taken at rest (manually) was 96/72 mmHg. After ambulation activity, patient's blood pressure was 112/86 mmHg. THERA EX: Patient was able to tolerate resistance exercises using 3 pound ankle weights consisting of long arc quads x20, seated hip flexion x10, and hip abduction/ abduction x10 with good response. Patient also managed to perform shoulder flexion and extension x10 and shoulder flexion extension in the scapular plane x10, and shoulder horizontal abduction adduction. In the afternoon patient also tolerated standing level balance exercises consisting of hip abduction x10 and standing marching in place x10 with good response. Assessment: Increasing independence with bed mobility, transfer, and ambulation task performance. Was planning on making patient independent in the room today but recommendation was held off due to blood pressure fluctuations. Will await for blood pressure stabilization prior to reconsidering upgrading patient to modified independent inside the room with front-wheeled walker. DISCHARGE RECOMMENDATIONS: Front wheeled walker with tray. SNF for mobility progression to maximize independence as patient home lives home alone. TREATMENT CODE/TIME: Session 1?38091 x 30 minutes, 33029 x17 minutes beginning at 9:49 AM. Session 2?43013 x 24 minutes beginning at 13:35 PM.
[2019-11-30] MEDS: Normal Saline 500 ML IV (14:30)
[2019-11-30] MEDS: Simvastatin 20 MG TAB 40 MG PO (21:09)
[2019-11-30] MEDS: Metoprolol 12.5 MG TAB PO (21:09)
[2019-11-30] MEDS: DULoxetine 30 MG CAP PO (21:10)
[2019-11-30] MEDS: Warfarin 5 MG TAB PO (21:11)
[2019-11-30] MEDS: Gabapentin 300 MG CAP 600 MG PO (21:11)
[2019-12-01] VITALS (7 sets, daily range): BP systolic 109–121; BP diastolic 60–82; PULSE 57–90; RESP 18–21; TEMP 35.6–37.5; O2SAT 95–100
[2019-12-01 06:41] LABS: INR 2.8 (0.9-1.1); Prothrombin Time 27.6 sec (9.3-11.0)
--- NOTE | 2019-12-01 07:00 | HOME_ITS ---
Home Ventilator Equipment Home care company [employer] Reason: Obstructive Sleep Apnea Make: Respironics Model: Dreamstation Mask type: Face mask Mask size: Medium Mode: CPAP Settings: Auto min 12/ max 16 on RA Oxygen bleed in (lpm): Condition: Good Date last checked: 12/01/19 Year of last sleep study: Compliance Daily Comments:
[2019-12-01 08:12] LABS: Anion Gap 8.4 mmol/L (3-11); BUN 30 mg/dL (7-18); CO2 26.6 mmol/L (21.0-32.0); CREATININE 0.97 mg/dL (0.70-1.30); Calcium 8.4 mg/dL (8.5-10.1); Chloride 103 mmol/L (98-107); Glucose 131 mg/dL (74-106); Potassium 4.3 mmol/L (3.5-5.1); Sodium 138 mmol/L (136-145)
[2019-12-01] MEDS: Budesonide/Formoterol 80/4.5 6.9 GM 60 PUFF INH IH ×2 (08:35→19:53)
--- NOTE | 2019-12-01 08:42 | W.PM.DS.N ---
Date of service: 12/01/19 Time of Service: 08:42 DS: Diagnosis Discharge Diagnosis (1) Orthostatic hypotension: Start date: 12/01/19 Start time: 08:43 Status: Resolved Asessment and Plan: Thought to be due to overdiuresis, also consider medications such as cymbalta and BB. On admission diuretics held, will resume on discharge, d/c metolazone and decrease torsemide to 10 mg daily. Third hospitalization in weeks due to hypotension. Cymbalta decreased to 30 mg BID and BB decreased to 12.5 BID. Several episodes of bradycardia as well. Cymbalta can potentiate the effect of BB which could be contributing to hypotension. Follow up by PCP in 1 week as patient does have afib, rate controlled by BB. (2) Congestive heart failure: Start date: 12/01/19 Start time: 09:10 Status: Chronic Asessment and Plan: see plan above. continue low dose torsemide and increase dose as needed. (3) Deep venous thrombosis of left popliteal vein: Start date: 12/01/19 Start time: 09:11 Status: Acute Asessment and Plan: Unable to determine if chronic or acute. Was on apixaban on admission, however it appears he has failed apixaban likely due to his weight. Started on enoxaparin with bridge to coumadin which is wt appropriate, with INR goal 2-3. INR on coumadin 2.7 today 2.8 yesterday will continue on 5 mg dose, avoiding green leafy diet. Continue to check INR and adjust as needed. (4) Acute kidney injury (nontraumatic): Start date: 12/01/19 Start time: 09:13 Status: Resolved Asessment and Plan: Likely from overdiuresis on admission. All nephrotoxic medications held and patient given IVF, resolved. Will resume diuretic upon discharge. (5) Atrial fibrillation: Start date: 12/01/19 Start time: 09:14 Status: Chronic Asessment and Plan: Controlled. Started on coumadin, see above. (6) Obstructive sleep apnea: Start date: 12/01/19 Start time: 09:14 Status: Chronic Asessment and Plan: continue using cpap for laurence (7) Diabetic peripheral neuropathy associated with type 2 diabetes mellitus: Start date: 12/01/19 Start time: 09:19 Status: Acute Asessment and Plan: on gabapentin, continue medication. Discharge Plan Disposition Patient Disposition: SNF (LEVEL 1) [facility] Condition: Improving Discharge Details Chief Complaint: GenMedical Reason For Visit: ORTHOSTATIC HYPOTENSION Admit Date/Time: 11/25/19 15:24 Admit Provider: Hugh Ward Attending Provider: Hugh Ward Primary Care Provider: Esvin Alan ED Provider: Lexis Finch Hospital Course Hospital Course: 58 y.o male with PMH afib, CHF, LAURENCE, DM, presenting to [facility] ed with orthostatic hypotension and prerenal azotemia. On admission patient presented with falls at home. However the ER reports that patient was recently discharged from [facility] where he been treated for cellulitis and reportedly has a history of chronic systolic heart failure last echo Oct 22 with EF 35%. Was also treated for cellulitis of his legs during that admission. Most recently he was hospitalized at [facility] after being seen in the emergency department twice. First they treated him with IV fluids and sent him home but when he had a syncopal spell at home he returned to the emergency department was hospitalized at [facility] where he was diagnosed with an acute UTI. In the emergency room here he was found to have KELLY with BUN 69 and creatinine 1.76, EKG revealing afib with controlled rate and bbb. He was also found to have orthostatic hypotension, likely contributing to syncopal episode. He was admitted to /s for further management. Hospital course: Orthostatic hypotension: Assessment and Plan: Thought to be due to overdiuresis, also consider medications such as cymbalta and BB. On admission diuretics held, will resume on discharge, d/c metolazone and decrease torsemide to 10 mg daily. Third hospitalization in weeks due to hypotension. Cymbalta decreased to 30 mg BID and BB decreased to 12.5 BID. Several episodes of bradycardia as well. Cymbalta can potentiate the effect of BB which could be contributing to hypotension. Follow up by PCP in 1 week as patient does have afib, rate controlled by BB. (2) Congestive heart failure: Status: Chronic Asessment and Plan: see plan above. continue low dose torsemide and increase dose as needed. (3) Deep venous thrombosis of left popliteal vein: Status: Acute Asessment and Plan: Unable to determine if chronic or acute. Was on apixaban on admission, however it appears he has failed apixaban likely due to his weight. Started on enoxaparin with bridge to coumadin which is wt appropriate, with INR goal 2-3. INR on coumadin 2.7 today 2.8 yesterday will continue on 5 mg dose, avoiding green leafy diet. Continue to check INR and adjust as needed. (4) Acute kidney injury (nontraumatic): Status: Resolved Asessment and Plan: Likely from overdiuresis on admission. All nephrotoxic medications held and patient given IVF, resolved. Will resume diuretic upon discharge. (5) Atrial fibrillation: Status: Chronic Asessment and Plan: Controlled. Started on coumadin, see above. (6) Obstructive sleep apnea: Status: Chronic Asessment and Plan: continue using cpap for laurence (7) Diabetic peripheral neuropathy associated with type 2 diabetes mellitus: Status: Acute Asessment and Plan: on gabapentin, continue medication. Home Meds and New Rx's Prescriptions: New warfarin [Coumadin] 5 mg Tablet 5 mg PO QPM Qty: 10 RF: 0 metoprolol tartrate 25 mg Tablet 12.5 mg PO BID Qty: 28 RF: 0 torsemide 10 mg tablet 10 mg PO DAILY Qty: 14 RF: 0 Continued simvastatin 20 MG tablet 40 mg PO DAILY RF: 0 metformin [Glucophage] 1,000 MG tablet 1,000 mg PO BID RF: 0 gabapentin 300 MG capsule 600 mg PO QHS RF: 0 budesonide-formoterol [Symbicort] 10.2 GM HFA aerosol inhaler 2 puff Inhalation BID RF: 0 Glyburide 2.5 MG Tablet 5 mg PO DAILY RF: 0 acetaminophen [Tylenol 8 Hour] 650 mg Tablet Extended Release 650 mg PO Q4H PRN PRNRF: 0 potassium chloride 10 mEq Tablet,Er Particles/Crystals 10 meq PO DAILY RF: 0 magnesium oxide 400 mg magnesium Tablet 400 mg PO BID RF: 0 Discontinued metolazone 2.5 mg Tablet 2.5 mg PO DAILY RF: 0 torsemide 20 mg Tablet 20 mg PO DAILY RF: 0 levofloxacin [Levaquin] 750 mg Tablet 750 mg PO DAILY RF: 0 alfuzosin 10 mg Tablet Extended Release 24 Hr 10 mg PO DAILY RF: 0 metoprolol tartrate 25 mg Tablet 25 mg PO BID RF: 0 duloxetine 60 mg Capsule,Delayed Release(Dr/Ec) 60 mg PO BID RF: 0 Eliquis 5 mg Tablet 5 mg PO BID RF: 0 Discharge Instructions Instructions: Warfarin (By mouth), Atrial Fibrillation (DC), Acute Kidney Injury (DC), Syncope (DC), Deep Venous Thrombosis (DC), Hypotension (DC) Additional Instructions: Follow up with your PCP in 1 week Following medications have been changed: Alfuszosin discontinued. Torsemide only take 10 mg. Stop taking metolazone. Coumadin 5 mg which can change according to your INR, which will need to be checked every couple of days stop taking apixaban. Lopressor is now 12. 5 twice a day cymbalta is now only 30 mg twice a day. Do NOT eat green leafy vegetables. Wear thigh high stockings. Wear CPAP at night Activity:: Activity as Tolerated Equipment/Supplies:: No Equipment Needed Diet:: Carb Counting Discharge Orders Discharge Orders: Discharge Order (Routine); Ordered 12/01/19 Ordered By: Wendy Allison DS: Summary Status at Discharge Functional status at discharge: uses cane/walker Overall status at discharge: patient is progressing back to baseline Mental Status: mental status grossly normal Speech and Movement: speech and movement normal Mood: congruent mood Affect: normal affect Exam Narrative Exam Narrative: General: very pleasant 58 year old man, appears older than stated age, appears chronically ill and obese. Sitting up in bed. Alert and oriented, answers questions appropriately. HEENT: normocephalic, atraumatic, pupils equal and round, EOMI, mucous membranes moist. Neck: supple, thick with liao. Cardiovascular: irregularly irregular rhythm, nontachycardic, no murmur appreciated. Respiratory: respirations appear even and unlabored, lung sounds clear bilaterally. GI: large pannus, +BS, soft, no tenderness on palpation. Extremities: multiple wounds to lower extremities with mepilex dressings and wrapped, see nursing notes for details on wounds. Bilateral discoloration to knees consistent with venous stasis changes. Pedal edema bilaterally, LLE with wrinkled skin where edema has improved. Moves all 4 extremities freely. Psych Mental Status: mental status grossly normal Speech and Movement: speech and movement normal Mood: congruent mood Affect: normal affect DS: Data Vitals/I&O Vitals and I&O: Vital Signs Temperature 35.6 C L 12/01/19 07:40 Temperature Source Tympanic 12/01/19 07:40 Pulse 90 12/01/19 07:40 Pulse Rhythm Irregular 11/30/19 23:30 Pulse 102 H 11/25/19 00:00 Respiratory Rate 20 12/01/19 07:40 Respiratory Effort 11/30/19 23:30 Respiratory Depth Normal 11/30/19 23:30 Respiratory Pattern Normal 11/30/19 23:30 Blood Pressure 120/60 12/01/19 07:40 Blood Pressure Mean 88 11/25/19 00:00 Pulse Oximetry 95 12/01/19 07:40 Oxygen Delivery Method Room Air 12/01/19 07:40 Oxygen Flow Rate 0 12/01/19 07:40 Fraction of Inspired Oxygen (FIO2) 21 12/01/19 08:39 Pain Level 0 12/01/19 07:40 Comment 11/27/19 09:30 Intake & Output 11/30/19 11/30/19 12/01/19 11:59 23:59 11:59 Intake Total 240 / 980 740 / 980 Balance 240 / 980 740 / 980 Weight 148.3 kg Intake: IV 500 / 500 Oral 240 / 480 240 / 480 Other: Urine Appearance Clear Clear Comment INCONTINENT CARE. PT CLEANSED AND MOISTURE BARRIER CREAM APPLIED. incontinent care provided. Voiding Methods Incontinent Incontinent Data Completed and Pending Completed studies during hospitalization [Text1]: Exam(s) a CT:CT head & cervical spine wo EXAM: CT HEAD CERVICAL SPINE WO CLINICAL HISTORY: fall. TECHNIQUE: Imaging Protocol: Axial computed tomography images with coronal and sagittal reformatted images were created and reviewed COMPARISON: No exams were available for comparison FINDINGS: Head CT Ventricles and Extra axial spaces: Normal in size and morphology for the patient's age. Hemorrhage: None. Cerebral parenchyma: Normal. Midline shift: None. Brainstem/Cerebellum: Normal. Calvarium: Normal. Visualized Paranasal sinuses/Mastoids: Clear. IMPRESSION: No acute abnormality. Exam(s) PROCEDURE INFORMATION: Exam: CT Head Without Contrast Exam date and time: 11/24/2019 10:40 PM Age: 58 years old Clinical indication: Injury or trauma; Initial encounter; Sprain or strain, cervical ligaments; Patient HX: S/P fall TECHNIQUE: Imaging protocol: Computed tomography of the head without contrast. COMPARISON: No relevant prior studies available. FINDINGS: Brain: Normal. No hemorrhage. Unremarkable white matter. No mass effect. Ventricles: Normal. No ventriculomegaly. Bones/joints: Unremarkable. No acute fracture. Sinuses: Visualized sinuses are unremarkable. No fluid levels. Mastoid air cells: Visualized mastoid air cells are well aerated. Soft tissues: Unremarkable. IMPRESSION: 1. No acute intracranial findings. 2. No acute fracture. Exam(s) a US:US extremity venous BI EXAM: US EXTREMITY VENOUS BI CLINICAL HISTORY: edema BLE's, concern for DVT. TECHNIQUE: Bilateral lower extremity venous ultrasound performed using grayscale, color-flow, and spectral Doppler analysis. COMPARISON: No exams were available for comparison FINDINGS: Right lower extremity: The bilateral common femoral, femoral and popliteal veins demonstrate normal compressibility, augmentation, and color Doppler. The posterior tibial veins are patent. Left lower extremity: The common femoral vein and femoral vein are freely compressible. No thrombus is visible. The popliteal vein contains partially occlusive thrombus. The posterior tibial veins appear free of thrombus. The small saphenous vein also shows thrombus. The greater saphenous vein is free of thrombus. IMPRESSION: Right: Negative for DVT and superficial thrombophlebitis. Left: Partially occluding thrombosis in the popliteal vein. Superficial thrombophlebitis involving the small saphenous vein. Labs on day of discharge: Labs from last 24 hours 12/01/19 12/01/19 11/30/19 06:15 06:15 06:20 PT 27.6 H 26.8 H D INR 2.8 H 2.7 H D Sodium 138 Potassium 4.3 Chloride 103 Carbon Dioxide 26.6 Anion Gap 8.4 BUN 30 H Creatinine 0.97 Estimated GFR/1.73 m2 >= 60.00 Glucose 131 H Calcium 8.4 L [facility] Medical History Atrial fibrillation (Chronic) Diabetic peripheral neuropathy associated with type 2 diabetes mellitus (Acute) Obstructive sleep apnea (Chronic) Social History Smoking/Tobacco Use Status: Never Alcohol Intake: former Drug use: Never Do you feel safe at home: Yes Do you feel safe in your relationship?: Yes
[2019-12-01] MEDS: Docusate Sodium 100 MG CAP PO ×2 (08:46→19:53)
[2019-12-01] MEDS: Magnesium Oxide 400 MG TAB PO ×2 (08:46→19:53)
[2019-12-01] MEDS: Metoprolol 12.5 MG TAB PO ×2 (08:46→19:53)
[2019-12-01] MEDS: DULoxetine 30 MG CAP PO ×2 (08:47→19:53)
[2019-12-01] MEDS: Insulin Aspart 300 UNITS/3 ML PEN SC ×3 (08:47→17:18)
--- NOTE | 2019-12-01 09:13 | INDS_ITS ---
Date of service: 12/01/19 Time of Service: 09:13 PT Notes Visit Reasons: ORTHOSTATIC HYPOTENSION Physical Therapy Inpatient Discharge Summary Date: 12/01/2019 Dates of service: 11/27/2019 through 12/01/2019 Referring Doctor: Sammi Gan NP PT Orders: PT CONSULT: Limited ability Precautions: Fall. Syncopal episode. Standard. Patient Profile/Admitting Diagnosis: Patient is a 58-year-old male who presented to the ED on 11/24/2019 with report of falls x 2 for the past week. Patient is diagnosed with orthostatic hypotension suspected to be a result of overdiuresis and beta-kunal/afluzosin/gabapentin use. Patient was recently hospitalized at [facility] due to cellulitis and was discharged home on 11/21/2019 but was readmitted to [facility] on 11/24/2019 due to complaints of dizziness resulting to frequent falling. PMHX: Diabetic peripheral neuropathy Type 2 diabetes mellitus Obstructive sleep apnea Chronic venous insufficiency Cellulitis Acute on chronic CHF Atrial fibrillation with RVR LAURENCE Social History/Home Situation: Patient lives alone in a private home with 5 steps to enter, rails on both sides. He has another set of 14 steps to the basement but patient reports that his brother will be able to manage the heating for him while he is recovering. Patient also has a sister who lives a mile from him who may be able to help as needed. Patient states that he has about 60 feet to 80 feet distance from his bedroom to the kitchen and the bathroom. He managed his own meals. He was independent with self-care tasks. He is independent with all mobility ADL performance using a front wheeled walker. Equipment Owned/DME: Front wheeled walker, recliner Subjective: Patient is having therapy services his his stay here. He is looking forward to transferring to the [facility] across the street in the afternoon today. He denies headache, dizziness, chest pain, throughout PT session. Objective: General Observation: Telemetry monitoring in place. Hemosiderin staining to bilateral lower extremities from CVI. IV access to the R UE open. Mental Status: Alert and oriented x4 Pain: 0/10 ROM: Right Upper Extremity: Shoulder Flexion WFL. Shoulder abduction WFL. Elbow flexion WFL. Wrist flexion WFL. Opening and closing of hand WFL. Left Upper Extremity: Shoulder Flexion WFL. Shoulder abduction WFL. Elbow flexion WFL. Wrist flexion WFL. Opening and closing of hand WFL. Right Lower Extremity: Hip flexion allows only up to 20 degrees beyond 90 while seated at edge of bed due to abdominal panniculus/morbid obesity. Hip abduction WFL. Knee flexion WFL. Ankle dorsiflexion WFL. Ankle plantarflexion WFL. Left Lower Extremity: Hip flexion only up to 20 degrees beyond 90 while seated at edge of bed due to abdominal panniculus/morbid obesity. Hip abduction WFL. Knee flexion WFL. Ankle dorsiflexion WFL. Ankle plantarflexion WFL. Strength: Right Upper Extremity: Shoulder flexors 4/5. Shoulder abductors 4/5. Elbow flexors 4/5. Elbow extensors 4/5. Diabetologist strong. Left Upper Extremity: Shoulder flexors 4/5. Shoulder abductors 4/5. Elbow flexors 4/5. Elbow extensors 4/5. Diabetologist strong. Right Lower Extremity: Hip flexors 3-/5. Hip abductors 4/5. Knee flexors 4/5. Knee extensors 4-/5. Ankle dorsiflexors 4-/5. Ankle plantarflexors 4/5. Left Lower Extremity:Hip flexors 3-/5. Hip abductors 4-/5. Knee flexors 4-/5. Knee extensors 4-/5. Ankle dorsiflexors 4-/5. Ankle plantarflexors 4/5. Sensation: Intact as to pain and pressure on bilateral lower extremities. Bed Mobility/Transfers: Rolling independent Supine to sit independent Sit to supine independent Sit to stand independent with BUE for support using FWW Stand to sit independent with BUE for support using FWW Bed to chair independent with BUE for support using FWW Chair to bed independent with BUE for support using FWW Gait: Patient was able to tolerate 300 feet +25 feet +100 feet +25 feet of level surface ambulation using front wheeled walker with supervision. No pain reported. No complaints of dizziness. No SOB noted. Yolanda improved. Balance: Static Sitting: Normal Dynamic Sitting: Normal Static Standing: Fair Dynamic Standing: Fair Special Tests: Mobility Limitations Standardized Measure [facility]-PAC 6 clicks Basic Mobility Inpatient Short Form: Raw Score: 23 CMS Score: 11% deficit Assessment: Patient has demonstrated significant improvement in terms of strength, activity tolerance, mobility level, and balance skills during this episode of care. He will continue to benefit from senior care facility placement in order to achieve independence with all aspects of ADLs and achieve goals indicated below in anticipation of return home alone with recommended assistive ambulatory device. Patient on initial evaluation demonstrated decreased activity tolerance, unsteadiness on feet, difficulty with walking, high fall risk, due to orthostatic hypotension, and impaired ADL performance requiring skilled physical therapy services. Patient is a 58-year-old male who presented to the ED on 11/24/2019 with report of falls x 2 for the past week. Patient is diagnosed with orthostatic hypotension suspected to be a result of overdiuresis and beta-kunal/Afluzosin/Gabapentin use. Patient was recently hospitalized at [facility] due to cellulitis and was discharged home on 11/21/2019 but was readmitted to [facility] on 11/24/2019 due to complaints of dizziness resulting to frequent falling. Patient continues to present with clinical signs and symptoms consistent with current/admitting diagnoses that have resulted to mobility limitations, gait instability, generalized weakness, and impairment of motor control as demonstrated by the following impairment level findings: 1. Decreased strength to B LE major muscle groups 2. Impaired standing balance Impairments continue to contribute to the following functional limitations: 1. Inability to safely ambulate without assistive device and physical assistance 2. Increase completion time for mobility ADL performance 3. Increased fall risk 4. Inability to negotiate steps alone safely Goals: Goals X1 week 1. Supine-Sit independent MET 2. Sit-Supine independent MET 3. Sit-Stand independent MET 4. Stand-Sit independent MET 5. Bed-Chair independent MET 6. Chair-Bed independent MET 7. Independent gait on level surface with use of least restrictive device for at least 100 feet without report of pain nor dyspnea NOT MET 8. Independent stair negotiation while holding onto bilateral rails for at least 15 steps without report of pain nor dyspnea NOT MET 9. Independent with home exercise program PARTIALLY MET 10. Good static and dynamic standing balance/tolerance NOT MET DISCHARGE RECOMMENDATIONS: SNF placement. Patient will benefit from the use of a walker tray at home to maximize independence and reduce fall risk. TREATMENT CODE/TIME: 50919 x 23 minutes beginning at 9:13 AM. Thank you very much for this referral. Corinna Durán PT, DPT, CLT [facility] [place], [place]
--- NOTE | 2019-12-01 10:04 | OT.INTREAT ---
Date of service: 12/01/19 Time of Service: 09:35 Occupational Therapy Notes Occupational Therapy Inpatient Treatment Note Date: 12/01/19 PRECAUTIONS: Fall, Standard SUBJECTIVE: Pt states that he is leaving to go to [facility] today. He notes that he is unsure of the time but feels that it will be early afternoon. OBJECTIVE: PAIN: no c/o pain FUNCTIONAL MOBILITY Sit-stand: (S) FWW Stand-sit: (S) FWW Chair-sink: (S) FWW BATHING: Standing at sink with FWW Upper Body: Pt was (I) with face, (B) UE, abdomen, (I) washing hair Lower Body: (I) with biju area, (B) LE to knees DRESSING: Upper Extremity: (I) [facility] gown GROOMING: Sitting in chair (I) with brushing hair PLAN: Pt is being discharged to [facility] later this afternoon. TREATMENT CODES/TIME: 45667u7, 30 minutes (09:35) Serina Pradhan OTR/[facility]
--- NOTE | 2019-12-01 15:38 | CMPROGNOTE_ITS ---
- If Service Date Differs Date of service: 12/01/19 Time of Service: 15:38 Care Management Progress Note S/O: Barrie was sitting up in his chair when CM met with him. His plan changed today as [facility] cannot accept him at this time, although he has a bed offer. They are ruling out a patient for COVID 19, and are closed to admissions until they have a negative test result. CM discussed this with Barrie, and offered to send referrals to other facilities. Barrie asked for a referral to be sent to [facility] in [place], [place] ([phone]), which CM sent and is currently awaiting a response. CM will continue to follow. A: Barrie is a 58 year old male admitted to [facility] on 11/25/19 for orthostatic hypotension. P: Barrie has been evaluated by PT and OT . Both have recommended home health for PT and OT, however home services are extremely limited. The provider feels Barrie requires rehab for PT and OT as well as wound care and close medication monitoring until his orthostasis is controlled. Once he is medically cleared he will go to a SNF for short term rehab prior to returning home. He has been accepted at [facility] for admission, but they are currently closed for admissions. ANTOINE sent a referral to [facility] and is awaiting a response. CM will continue to follow and support Barrie with discharge planning considerations.
--- NOTE | 2019-12-01 15:59 | CHAPLAIN ---
This morning when I visited with Barrie, he was waiting to be discharged to [facility], sometime between 11 a.m. and 1 p.m. Those plans changed later in the afternoon, as H & R became closed to new patients. Barrie was looking forward to the move so he could concentrate on walking more, and making progress to getting home.
--- NOTE | 2019-12-01 18:20 | PGE_ITS ---
Date of Service Date of service: 12/01/19 Time of Service: 18:20 Subjective Subjective Patient reports: other Interval history since last seen: H/R not accepting patient at this time due to COVID, CM has looked in to other facilities awaiting results. If patient has not had bed acceptance by tomorrow, consider SB [facility] for rehab. Objective Objective Clinical Data: Abnormal lab results 12/01/19 12/01/19 Range/Units 06:15 06:15 PT 27.6 H (9.3-11.0) sec INR 2.8 H (0.9-1.1) BUN 30 H (7-18) mg/dL Glucose 131 H (74-106) mg/dL Calcium 8.4 L (8.5-10.1) mg/dL Vital Signs Temperature 37.1 C 12/01/19 15:15 Temperature Source Tympanic 12/01/19 15:15 Pulse 73 12/01/19 15:15 Pulse Rhythm Irregular 12/01/19 15:00 Pulse 102 H 11/25/19 00:00 Respiratory Rate 19 12/01/19 15:15 Respiratory Effort 12/01/19 15:00 Respiratory Depth Normal 12/01/19 15:00 Respiratory Pattern Normal 12/01/19 15:00 Blood Pressure 109/66 12/01/19 15:15 Blood Pressure Mean 88 11/25/19 00:00 Pulse Oximetry 97 12/01/19 15:15 Oxygen Delivery Method Room Air 12/01/19 15:15 Oxygen Flow Rate 0 12/01/19 15:15 Fraction of Inspired Oxygen (FIO2) 21 12/01/19 08:39 Pain Level 0 12/01/19 15:15 Comment 11/27/19 09:30 Intake & Output 11/30/19 12/01/19 12/01/19 23:59 11:59 23:59 Intake Total 740 / 980 240 / 360 120 / 360 Balance 740 / 980 240 / 360 120 / 360 Weight 148.3 kg Intake: IV 500 / 500 Oral 240 / 480 240 / 360 120 / 360 Other: Urine Appearance Clear Comment INCONTINENT CARE. PT CLEANSED AND MOISTURE BARRIER CREAM APPLIED. incontinent care provided. Stool Size Moderate Stool Characteristics Formed Brown Voiding Methods Incontinent Incontinent Laboratory Results WBC 4.51 k/cumm (4.4-10.8) 11/30/19 06:20 RBC 4.73 m/cumm (4.50-6.00) 11/30/19 06:20 Hgb 13.2 g/dL (13.5-17.5) L 11/30/19 06:20 Hct 41.4 % (40.0-50.0) 11/30/19 06:20 MCV 87.5 fL (80-95) 11/30/19 06:20 MCH 27.9 pg (27.0-33.0) 11/30/19 06:20 MCHC 31.9 g/dL (32.0-36.0) L 11/30/19 06:20 RDW 16.7 % (11.8-14.1) H 11/30/19 06:20 Plt Count 164 x1000/uL (130-400) 11/30/19 06:20 MPV 10.0 fL (8.0-11.0) 11/30/19 06:20 Immature Gran % 0.4 % 11/24/19 21:40 Neutrophils % 67.5 11/24/19 21:40 Lymphocytes % 19.3 11/24/19 21:40 Monocytes % 10.2 11/24/19 21:40 Eosinophils % 2.2 11/24/19 21:40 Basophils % 0.4 11/24/19 21:40 Absolute Neutrophils 3.70 k/cumm (1.2-6.7) 11/24/19 21:40 Absolute Lymphocytes 1.06 k/cumm (1.2-3.4) L 11/24/19 21:40 Absolute Monocytes 0.56 k/cumm (0.11-0.7) 11/24/19 21:40 Absolute Eosinophils 0.12 k/cumm (0.0-0.7) 11/24/19 21:40 Absolute Basophils 0.02 k/cumm (0.0-0.2) 11/24/19 21:40 PT 27.6 sec (9.3-11.0) H 12/01/19 06:15 INR 2.8 (0.9-1.1) H 12/01/19 06:15 Sodium 138 mmol/L (136-145) 12/01/19 06:15 Potassium 4.3 mmol/L (3.5-5.1) 12/01/19 06:15 Chloride 103 mmol/L (98-107) 12/01/19 06:15 Carbon Dioxide 26.6 mmol/L (21.0-32.0) 12/01/19 06:15 Anion Gap 8.4 mmol/L (3-11) 12/01/19 06:15 BUN 30 mg/dL (7-18) H 12/01/19 06:15 Creatinine 0.97 mg/dL (0.70-1.30) 12/01/19 06:15 Estimated GFR/1.73 m2 >= 60.00 (mL/min/1.73m2) 12/01/19 06:15 Glucose 131 mg/dL (74-106) H 12/01/19 06:15 Hemoglobin A1c 8.7 % (3.8-5.6) H 11/26/19 06:24 Calcium 8.4 mg/dL (8.5-10.1) L 12/01/19 06:15 Magnesium 2.1 mg/dL (1.8-2.4) 11/27/19 06:35 Total Bilirubin 1.1 mg/dL (0.2-1.0) H 11/24/19 21:40 AST 30 U/L (15-37) 11/24/19 21:40 ALT 30 U/L (16-63) 11/24/19 21:40 Alkaline Phosphatase 98 U/L (46-116) 11/24/19 21:40 Troponin I < 0.05 ng/Ml (<0.06) 11/25/19 06:40 NT-Pro-B Natriuret Pep 2589 pg/mL (<300) H 11/24/19 21:40 Total Protein 8.6 g/dL (6.4-8.2) H 11/24/19 21:40 Albumin 3.6 g/dL (3.4-5.0) 11/24/19 21:40 Urine Color Yellow (Yellow) 11/24/19 21:40 Urine Clarity Clear (Clear) 11/24/19 21:40 Urine pH 6.5 (5-8) 11/24/19 21:40 Ur Specific [place] 1.015 (1.005-1.025) 11/24/19 21:40 Urine Protein Negative mg/dL (Negative) 11/24/19 21:40 Urine Ketones Negative mg/dL (Negative) 11/24/19 21:40 Urine Blood Small (Negative) H 11/24/19 21:40 Urine Nitrite Negative (Negative) 11/24/19 21:40 Urine Bilirubin Negative (Negative) 11/24/19 21:40 Urine Urobilinogen 0.2 EU/dL (Up TO 0.2) 11/24/19 21:40 Ur Leukocyte Esterase Negative (Negative) 11/24/19 21:40 Urine RBC 20-50 HPF (0-2) H 11/24/19 21:40 Urine WBC 0-2 HPF (0-5) 11/24/19 21:40 Ur Epithelial Cells Negative HPF (Negative) 11/24/19 21:40 Urine Crystals Negative HPF (Negative) 11/24/19 21:40 Urine Bacteria Negative HPF (Negative) 11/24/19 21:40 Urine Casts Negative LPF (Negative) 11/24/19 21:40 Urine Mucus Negative (Negative) 11/24/19 21:40 Urine Other Rare renal (Negative) 11/24/19 21:40 Ur Culture Indicated? No 11/24/19 21:40 Urine Glucose Negative mg/dL (Negative) 11/24/19 21:40
[2019-12-01] MEDS: Warfarin 5 MG TAB PO (19:53)
[2019-12-01] MEDS: Simvastatin 20 MG TAB 40 MG PO (19:53)
[2019-12-01] MEDS: Gabapentin 300 MG CAP 600 MG PO (22:15)
[2019-12-02 04:29] VITALS: BP 130/77; PULSE 74; RESP 18; TEMP 36.3; O2SAT 97
[2019-12-02 07:18] LABS: INR 2.1 (0.9-1.1); Prothrombin Time 20.9 sec (9.3-11.0)
--- NOTE | 2019-12-02 07:31 | OT.INDS ---
Date of service: 12/02/19 Time of Service: 07:31 Occupational Therapy Notes Occupational Therapy Inpatient Discharge Summary Date: 12/02/19 Dates of Service: 11/27/19-12/02/19 Referring Doctor:Sammi Gan NP OT Orders: Non-Urgent Precautions: Fall, Standard PATIENT PROFILE/ADMITTING DIAGNOSIS: Pt is a 58 year old male who presented to the ER on 11/24/19 after falling twice prior to arrival. The first fall he was carrying laundry up the stair and the second he was transferring from the chair and had an episode of syncope. Per pts EMR he was previous admitted to [facility] 1 week prior for cellulitis in lower legs. Pt was admitted to [facility] with the following dx orthostatic hypertension, deep venous thrombosis (L) popliteal vein, diabetic neuropathy, obstructive sleep apnea, acute kidney injury, prerenal azotemia. Past Medical History: Medical history: AFIB, asthma, diabetes, hyperlipidemia, hypertension Surgical history: non-contributory Social History/Home Situation: Pt lives alone in [place], [place] his brother and sister live nearby and he has daughter who lives in [place]. He utilizes a FWW at all times for functional mobility and performs driving/community mobility (I). His home is set up with five stairs to enter with (B) railings. He notes that he has 14 steps into his basement where his heating unit is and he would need to go up and down for that. He sleeps in a recliner chair. His nephew and children stay in his home with him every other weekend. He is (I) in the kitchen for cooking and meal preparation, he has a tub shower with grab bars, non slip adhesive on bottom, removable shower head. OT does recommend a shower seat that could fit into his shower due to syncope episodes. Pt is able to (I) don and doff shirt at baseline he requires (A) with socks which he states he has a sock aid for but has not been home long enough to utilize it. He states that he does not have issues getting up from the toilet and at nighttime he wears a depends due to being incontinent and does not attempt toileting during the night hours. He goes with his sister grocery shopping and his sister has managed his medications for years. His laundry room is located off his kitchen which he can easily access. Equipment owned/DME: FWW for ambulation. SUBJECTIVE: NT OBJECTIVE: *This document serves as a summary of care, no skilled OT services was provided for this documentation. Mental Status: A&Ox3 Pain: No daily c/o pain, with occasional c/o pain in (L) hip as pt notes this is bone on bone ROM: RUE AROM WFL throughout L UE AROM WFL throughout STRENGTH: RUE Shoulder flexion 5/5, bicep 4/5, tricep 4/5, gamer is strong and symmetrical LUE Shoulder flexion 5/5, bicep 5/5, tricep 4+/5, gamer is strong and symmetrical SENSATION: Intact (B) UE FUNCTIONAL MOBILITY/ADLS: Transfers with FWW Supine-sit (S) Sit-supine (S) Chair-sink (S) Sink-chair (S) BATHING: Standing at sink with FWW Upper Body: Pt was (I) with face, (B) UE, abdomen, (I) washing hair Lower Body: (I) with biju area, (B) LE to knees, in sitting is able to wash (B) LE and uses a long handled sponge at home/baseline for this. DRESSING: Upper Extremity: (I) [facility] gown Lower Extremity: Pt has a sock aid at home. GROOMING: Sitting in chair (I) with brushing hair, standing at sink with FWW (I) with brushing teeth with ideal technique. Toileting: N/A with OT however pt reports that he is (I) with this and does not require (A) at this time. BALANCE: Static sitting Normal Dynamic Sitting Normal Static Standing Normal Dynamic Standing Normal SPECIAL TESTS: Daily Activity Limitations Standardized Measure [facility] AM -PAC ?6 clicks? Daily Activity Inpatient Short Form: Raw score: 23 Standardized score: 51.12 CMS score: 15.86% INFORMED CONSENT/EDUCATION: Pt instructed in purpose of OT Consult and plan of care. ASSESSMENT: Patient is a 58-year-old male referred to occupational therapy services with diagnosis of orthostatic hypertension, deep venous thrombosis (L) popliteal vein, diabetic neuropathy, obstructive sleep apnea, acute kidney injury, prerenal azotemia. Patient has made significant gains in terms of his ADLs/IADLs. He has been seen for 3 skilled OT sessions and is able to perform his ADLs in the standing/sitting position with good technique. He does require some (A) with his LE dressing and bathing due to his hip. This is pt's baseline level of function. OT provided pt with adaptive equipment as needed which he reports that he has most of this at home. For pt to return home OT would only recommend HHOT for assessment of pts ADLs/IADLs in the home setting due to pts home set up described by pt to see if there is any modifications that could be made to increase pt's safety during ADLs/IADLs. is limited in offering services at this time due to Covid-19 and pt is planned to go to SNF. Pt has met all of the OT goals established at initial evaluation. He is able to perform his ADLs/IADLs at this time at his baseline level of function. OT will formally discharge pt from skilled OT services at this time. GOALS 1. Transfers with FWW (I)- Met, he requires (S) only for syncope episodes, but does not require (A). 2. Dressing in seated position pt will be (I) with don and doffing pants, (I) don and doffing shirt- Met with increased performance time due to pain in hip which is pt's baseline. 3. Bathing standing at sink pt will be (I) with washing face and (B) UE, in seated position pt will be (I) (B) LE- Met 4. Toileting on toilet (I)-Met per pt report. 5. Eating (I)-Met 6. Grooming standing at sink with FWW (I) with brushing teeth.- Met PLAN OF CARE/TREATMENT PLAN: Discharge from skilled OT services. DISCHARGE RECOMMENDATIONS: OT recommends that pt return home with HHOT for assessment of functional (I) in home setting when medically cleared per MD. Plan per care management notes in pt's EMR is for pt to go to SNF when medically cleared per MD. OT recommends an in shower seat to increase pts safety during his bathing routine. Concern for pt's safety due to multiple falls and syncope episodes increases his risk to fall during his bathing routine. TREATMENT TIME/MINUTES/CODES N/A Serina Pradhan OTR/L [facility]
[2019-12-02 07:36] VITALS: BP 130/85; PULSE 90; RESP 18; TEMP 36.5; O2SAT 95
[2019-12-02] MEDS: DULoxetine 30 MG CAP PO ×2 (08:05→20:14)
[2019-12-02] MEDS: Magnesium Oxide 400 MG TAB PO ×2 (08:05→20:14)
[2019-12-02] MEDS: Metoprolol 12.5 MG TAB PO ×2 (08:05→20:14)
[2019-12-02] MEDS: Docusate Sodium 100 MG CAP PO ×2 (08:05→20:14)
[2019-12-02] MEDS: Budesonide/Formoterol 80/4.5 6.9 GM 60 PUFF INH IH ×2 (08:47→20:15)
--- NOTE | 2019-12-02 08:51 | CMPROGNOTE_ITS ---
Care Management Progress Note S/O: Barrie was sitting up in his chair, he was pleasant in interaction and reported being content with his care and pleased with the [facility] staff thus far. Barrie has been [facility] at [facility] though the facility remains closed to admissions at this time. [facility] in [place], [place] ([phone]) reports due to staffing shortage they are unable to admit at this time. [facility] reports no male bed availability before possibly 12/08/19. CM left messages at [facility] and [facility] inquiring about bed availability. Linh of [facility] called and reported being hopeful that Barrie could be accepted tomorrow. ANTOINE spoke with Barrie's sister, Jessica who reported her and Barrie were agreeable to SNF referrals being sent to facilities in a more extended area. CM continues to follow. A: Barrie is a 58 year old male admitted to [facility] on 11/25/19 for orthostatic hypotension. P: Provider recommending SNF for PT, OT, wound care and medication monitoring orthostasis controlled, therefore, once medically cleared anticipate he will transfer to SNF for short term rehab prior to returning home. He has been accepted at [facility] for admission, but they are currently closed to admissions. Awaiting response from [facility] SNF. CM will continue to follow and support Barrie with discharge planning considerations. [facility]: awaiting admission clearance. [facility]: no male bed availability currently. [facility]: staff shortage [facility]: pending review [facility]: pending review ( left 12/02/19@1020) [facility]: pending review
--- NOTE | 2019-12-02 08:51 | PDOC.CMPRO ---
Care Management Progress Note S/O: Barrie was sitting up in his chair, he was pleasant in interaction and reported being content with his care and pleased with the [facility] staff thus far. Barrie has been [facility] though the facility remains closed to admissions at this time. [facility] in [place], [place] ([phone]) reports due to staffing shortage they are unable to admit at this time. [facility] reports no male bed availability before possibly 12/08/19. CM left messages at [facility] and [facility] inquiring about bed availability. Linh of [facility] called and reported being hopeful that Barrie could be accepted tomorrow. ANTOINE spoke with Barrie's sister, Jessica who reported her and Barrie were agreeable to SNF referrals being sent to facilities in a more extended area. CM continues to follow. A: Barrie is a 58 year old male admitted to [facility] on 11/25/19 for orthostatic hypotension. P: Provider recommending SNF for PT, OT, wound care and medication monitoring orthostasis controlled, therefore, once medically cleared anticipate he will transfer to SNF for short term rehab prior to returning home. He has been accepted at [facility] for admission, but they are currently closed to admissions. Awaiting response from [facility] SNF. CM will continue to follow and support Barrie with discharge planning considerations. [facility]: awaiting admission clearance. [facility]: no male bed availability currently. [facility]: staff shortage [facility]: pending review [facility]: pending review ( left 12/02/19@1020) [facility]: pending review
--- NOTE | 2019-12-02 11:01 | PGE_ITS ---
Date of Service Date of service: 12/02/19 Time of Service: 11:03 Assessment and Plan Assessment and plan (1) Diabetic peripheral neuropathy associated with type 2 diabetes mellitus: Status: Acute (2) Obstructive sleep apnea: Status: Chronic Assessment and plan: stable on home cpap unit. (3) Atrial fibrillation: Status: Chronic Assessment and plan: rate controlled, continue coumadin for INR goal of 2- 3 (4) Congestive heart failure: Status: Chronic Assessment and plan: has had a weight gain of 5 pounds. will restart toresmide at 10 mg daily, which is 1/2 previous dose. monitor kidney functions closely (5) Discharge planning issues: Status: Acute Assessment and plan: case management following, referrals placed. awaiting bed acceptance anticipate for tomorrow. (6) Deep venous thrombosis of left popliteal vein: Status: Acute Assessment and plan: on coumadin Qualifiers: Chronicity: acute Qualified Code(s): I82.432 - Acute embolism and thrombosis of left popliteal vein Subjective Subjective Patient reports: no new complaints, feels better, tolerating a regular diet, voiding w/o difficulty and bowel movement Exam Narrative Exam Narrative: pink warm dry and in no acute distress. appears older than stated age, appears chronically ill and obese. Sitting up in chair with legs dependent. Alert and oriented, answers questions appropriately. HEENT: normocephalic, atraumatic, pupils equal and round, EOMI, mucous membranes moist. Neck: supple, thick with liao. Cardiovascular: irregularly irregular rhythm, nontachycardic, no murmur appreciated. Respiratory: respirations appear even and unlabored, lung sounds clear bilaterally. GI: large pannus, +BS, soft, no tenderness on palpation. Extremities: multiple wounds to lower extremities with mepilex dressings and wrapped, see nursing notes for details on wounds. Bilateral discoloration to knees consistent with venous stasis changes. Pedal edema bilaterally, LLE with wrinkled skin where edema has improved. Moves all 4 extremities Objective Objective Clinical Data: Abnormal lab results 12/02/19 Range/Units 06:34 PT 20.9 H D (9.3-11.0) sec INR 2.1 H D (0.9-1.1) Vital Signs Temperature 36.5 C 12/02/19 07:36 Temperature Source Temporal Artery Scan 12/02/19 07:36 Pulse 90 12/02/19 07:36 Pulse Rhythm Irregular 12/02/19 08:26 Pulse 102 H 11/25/19 00:00 Respiratory Rate 18 12/02/19 07:36 Respiratory Effort Non-Labored 12/02/19 08:26 Respiratory Depth Normal 12/02/19 08:26 Respiratory Pattern Normal 12/02/19 08:26 Blood Pressure 130/85 12/02/19 07:36 Blood Pressure Mean 88 11/25/19 00:00 Pulse Oximetry 95 12/02/19 07:36 Oxygen Delivery Method Room Air 12/02/19 07:36 Oxygen Flow Rate 0 12/02/19 07:36 Fraction of Inspired Oxygen (FIO2) 21 12/02/19 09:10 Pain Level 0 12/02/19 07:36 Comment 11/27/19 09:30 Intake & Output 12/01/19 12/01/19 12/02/19 11:59 23:59 11:59 Intake Total 240 / 600 360 / 600 240 / 240 Output Total 0 / 0 Balance 240 / 600 360 / 600 240 / 240 Weight 148.3 kg 149.1 kg Intake: Oral 240 / 600 360 / 600 240 / 240 Output: Urine 0 / 0 Other: Urine Color Yellow Urine Appearance Clear Urine Odor None Comment incontinent care provided. incontinent moderately incontinent Stool Size Moderate Moderate Stool Characteristics Formed Soft Brown Formed Voiding Methods Incontinent Diaper Incontinent Incontinent Laboratory Results WBC 4.51 k/cumm (4.4-10.8) 11/30/19 06:20 RBC 4.73 m/cumm (4.50-6.00) 11/30/19 06:20 Hgb 13.2 g/dL (13.5-17.5) L 11/30/19 06:20 Hct 41.4 % (40.0-50.0) 11/30/19 06:20 MCV 87.5 fL (80-95) 11/30/19 06:20 MCH 27.9 pg (27.0-33.0) 11/30/19 06:20 MCHC 31.9 g/dL (32.0-36.0) L 11/30/19 06:20 RDW 16.7 % (11.8-14.1) H 11/30/19 06:20 Plt Count 164 x1000/uL (130-400) 11/30/19 06:20 MPV 10.0 fL (8.0-11.0) 11/30/19 06:20 Immature Gran % 0.4 % 11/24/19 21:40 Neutrophils % 67.5 11/24/19 21:40 Lymphocytes % 19.3 11/24/19 21:40 Monocytes % 10.2 11/24/19 21:40 Eosinophils % 2.2 11/24/19 21:40 Basophils % 0.4 11/24/19 21:40 Absolute Neutrophils 3.70 k/cumm (1.2-6.7) 11/24/19 21:40 Absolute Lymphocytes 1.06 k/cumm (1.2-3.4) L 11/24/19 21:40 Absolute Monocytes 0.56 k/cumm (0.11-0.7) 11/24/19 21:40 Absolute Eosinophils 0.12 k/cumm (0.0-0.7) 11/24/19 21:40 Absolute Basophils 0.02 k/cumm (0.0-0.2) 11/24/19 21:40 PT 20.9 sec (9.3-11.0) H D 12/02/19 06:34 INR 2.1 (0.9-1.1) H D 12/02/19 06:34 Sodium 138 mmol/L (136-145) 12/01/19 06:15 Potassium 4.3 mmol/L (3.5-5.1) 12/01/19 06:15 Chloride 103 mmol/L (98-107) 12/01/19 06:15 Carbon Dioxide 26.6 mmol/L (21.0-32.0) 12/01/19 06:15 Anion Gap 8.4 mmol/L (3-11) 12/01/19 06:15 BUN 30 mg/dL (7-18) H 12/01/19 06:15 Creatinine 0.97 mg/dL (0.70-1.30) 12/01/19 06:15 Estimated GFR/1.73 m2 >= 60.00 (mL/min/1.73m2) 12/01/19 06:15 Glucose 131 mg/dL (74-106) H 12/01/19 06:15 Hemoglobin A1c 8.7 % (3.8-5.6) H 11/26/19 06:24 Calcium 8.4 mg/dL (8.5-10.1) L 12/01/19 06:15 Magnesium 2.1 mg/dL (1.8-2.4) 11/27/19 06:35 Total Bilirubin 1.1 mg/dL (0.2-1.0) H 11/24/19 21:40 AST 30 U/L (15-37) 11/24/19 21:40 ALT 30 U/L (16-63) 11/24/19 21:40 Alkaline Phosphatase 98 U/L (46-116) 11/24/19 21:40 Troponin I < 0.05 ng/Ml (<0.06) 11/25/19 06:40 NT-Pro-B Natriuret Pep 2589 pg/mL (<300) H 11/24/19 21:40 Total Protein 8.6 g/dL (6.4-8.2) H 11/24/19 21:40 Albumin 3.6 g/dL (3.4-5.0) 11/24/19 21:40 Urine Color Yellow (Yellow) 11/24/19 21:40 Urine Clarity Clear (Clear) 11/24/19 21:40 Urine pH 6.5 (5-8) 11/24/19 21:40 Ur Specific [place] 1.015 (1.005-1.025) 11/24/19 21:40 Urine Protein Negative mg/dL (Negative) 11/24/19 21:40 Urine Ketones Negative mg/dL (Negative) 11/24/19 21:40 Urine Blood Small (Negative) H 11/24/19 21:40 Urine Nitrite Negative (Negative) 11/24/19 21:40 Urine Bilirubin Negative (Negative) 11/24/19 21:40 Urine Urobilinogen 0.2 EU/dL (Up TO 0.2) 11/24/19 21:40 Ur Leukocyte Esterase Negative (Negative) 11/24/19 21:40 Urine RBC 20-50 HPF (0-2) H 11/24/19 21:40 Urine WBC 0-2 HPF (0-5) 11/24/19 21:40 Ur Epithelial Cells Negative HPF (Negative) 11/24/19 21:40 Urine Crystals Negative HPF (Negative) 11/24/19 21:40 Urine Bacteria Negative HPF (Negative) 11/24/19 21:40 Urine Casts Negative LPF (Negative) 11/24/19 21:40 Urine Mucus Negative (Negative) 11/24/19 21:40 Urine Other Rare renal (Negative) 11/24/19 21:40 Ur Culture Indicated? No 11/24/19 21:40 Urine Glucose Negative mg/dL (Negative) 11/24/19 21:40
--- NOTE | 2019-12-02 11:23 | W.NUTRFU ---
Date of service: 12/02/19 Time of Service: 11:24 Nutritional Follow up NOTE: Met with Barrie today to discuss blood sugar managment, salt intake and weight management. He declined education and stated he likes to eat what he eats. Reviewed with him the risks of obesity and poorly controlled diabetes in view of existing comorbidities. Provided written education- Type 2 Diabetes Nutrition Therapy from the Nutrition Care Manual. Will continue to follow and encourage optimal meal selections. Time Spent in Nutritional Counseling and Treatment: 15 min spent face to face
[2019-12-02 11:40] VITALS: BP 121/83; PULSE 82; RESP 18; TEMP 36.5; O2SAT 97
[2019-12-02] MEDS: Insulin Aspart 300 UNITS/3 ML PEN SC ×2 (11:44→21:49)
[2019-12-02] MEDS: Torsemide 20 MG TAB 10 MG PO (12:35)
[2019-12-02 16:00] VITALS: BP 126/78; PULSE 78; RESP 17; TEMP 36.6; O2SAT 96
[2019-12-02 19:35] VITALS: BP 118/87; PULSE 59; RESP 20; TEMP 37; O2SAT 97
[2019-12-02] MEDS: Simvastatin 20 MG TAB 40 MG PO (20:13)
[2019-12-02] MEDS: Warfarin 5 MG TAB PO (20:14)
[2019-12-02] MEDS: Gabapentin 300 MG CAP 600 MG PO (21:49)
[2019-12-02 23:10] VITALS: BP 109/84; PULSE 84; RESP 20; TEMP 37; O2SAT 95
[2019-12-03 03:30] VITALS: BP 133/90; PULSE 77; RESP 18; TEMP 36.6; O2SAT 94
[2019-12-03 07:04] LABS: Prothrombin Time 19.9 sec (9.3-11.0)
[2019-12-03 07:30] VITALS: BP 125/78; PULSE 62; RESP 22; TEMP 35.8; O2SAT 96
[2019-12-03] MEDS: Magnesium Oxide 400 MG TAB PO ×2 (07:58→20:17)
[2019-12-03] MEDS: DULoxetine 30 MG CAP PO ×2 (07:59→20:17)
[2019-12-03] MEDS: Metoprolol 12.5 MG TAB PO ×2 (07:59→20:17)
[2019-12-03] MEDS: Torsemide 20 MG TAB 10 MG PO (07:59)
[2019-12-03] MEDS: Normal Saline Flush 10 ML SYR (08:00)
[2019-12-03] MEDS: Docusate Sodium 100 MG CAP PO ×2 (08:00→20:17)
[2019-12-03] MEDS: Insulin Aspart 300 UNITS/3 ML PEN SC ×3 (08:00→20:24)
[2019-12-03] MEDS: Budesonide/Formoterol 80/4.5 6.9 GM 60 PUFF INH IH ×2 (08:22→20:22)
[2019-12-03 11:15] VITALS: BP 104/74; PULSE 91; RESP 20; TEMP 36.5; O2SAT 96
[2019-12-03 15:30] VITALS: BP 106/74; BP 122/96; BP 130/94
--- NOTE | 2019-12-03 16:10 | PDOC.CMPRO ---
Care Management Progress Note S/O: Holding pattern remains, awaiting admission clearance from [facility]. CM requested resumption of PT (discharged from PT due to anticipated discharge from [facility]), TARAN Chapa reported order would be continued. CM spoke to Linh at [facility] who reported she would be in touch as soon as possible. CM continues to follow. A: Barrie is a 58 year old male admitted to [facility] on 11/25/19 for orthostatic hypotension. P: Provider recommending SNF for PT, OT, wound care and medication monitoring orthostasis controlled, therefore, once medically cleared anticipate he will transfer to SNF for short term rehab prior to returning home. He has been accepted at [facility] for admission, but they are currently closed to admissions. CM will continue to follow and support Barrie with discharge planning considerations. [facility]: awaiting admission clearance. [facility]: no male bed availability currently. [place]: staff shortage [facility]: pending review [place]: no bed availability [facility]: pending review [place]: pending review
--- NOTE | 2019-12-03 16:22 | W.PM.PROGNOT ---
Date of Service Date of service: 12/03/19 Time of Service: 16:22 Assessment and Plan Assessment and plan (1) Congestive heart failure: Status: Chronic Assessment and plan: was started back up on toresmide at 10 mg daily yesterday, weight down 1 pound today. respiratory status stable. continue daily weights. monitor kidney functions and electrolytes weekly to avoid overdiuresis again. (2) Atrial fibrillation: Status: Chronic Assessment and plan: rate has been controlled. INR drifting down on 5 mg coumadin. will increase to 7.5mg daily and follow INR, adjust coumadin as needed for goal of 2-3 (3) Obstructive sleep apnea: Status: Chronic Assessment and plan: stable, continue home cpap unit at night (4) Diabetic peripheral neuropathy associated with type 2 diabetes mellitus: Status: Acute Assessment and plan: continue diabetic diet, sliding scale coverage as needed. (5) Deep venous thrombosis of left popliteal vein: Status: Acute Assessment and plan: anticoagulated on coumadin. Qualifiers: Chronicity: acute Qualified Code(s): I82.432 - Acute embolism and thrombosis of left popliteal vein (6) Discharge planning issues: Status: Acute Assessment and plan: plan to discharge to SNF bed tomorrow. Subjective Subjective Patient reports: no new complaints, feels better, tolerating a regular diet and afebrile; denies shortness of breath Interval history since last seen: reports diuresing well with torsemide. weight is down 1 pound overnight (had been up 5 pounds since admission), no cough or shortness of breath. Exam Narrative Exam Narrative: pink warm dry and in no acute distress. appears older than stated age, appears chronically ill and obese. Sitting up in chair with legs dependent. Alert and oriented, answers questions appropriately. HEENT: normocephalic, atraumatic, pupils equal and round, EOMI, mucous membranes moist. Neck: supple, thick with liao. Cardiovascular: irregularly irregular rhythm, nontachycardic, no murmur appreciated. Respiratory: respirations appear even and unlabored, lung sounds clear bilaterally. GI: large pannus, +BS, soft, no tenderness on palpation. Extremities: multiple wounds to lower extremities with mepilex dressings and wrapped, see nursing notes for details on wounds. Bilateral discoloration to knees consistent with venous stasis changes. Pedal edema bilaterally, LLE with wrinkled skin where edema has improved. Moves all 4 extremities Objective Objective Clinical Data: Abnormal lab results 12/03/19 Range/Units 06: PT 19.9 H (9.3-11.0) sec INR 2.0 H (0.9-1.1) Vital Signs Temperature 36.5 C 12/03/19 11:15 Temperature Source Tympanic 12/03/19 11:15 Pulse 91 H 12/03/19 11:15 Pulse Rhythm Irregular 12/03/19 08:40 Pulse 102 H 11/25/19 00:00 Respiratory Rate 20 12/03/19 11:15 Respiratory Effort 12/03/19 08:40 Respiratory Depth Normal 12/03/19 08:40 Respiratory Pattern Normal 12/03/19 08:40 Blood Pressure 104/74 12/03/19 11:15 Blood Pressure Mean 88 11/25/19 00:00 Pulse Oximetry 96 12/03/19 11:15 Oxygen Delivery Method Room Air 12/03/19 11:15 Oxygen Flow Rate 0 12/03/19 11:15 Fraction of Inspired Oxygen (FIO2) 21 12/02/19 23:45 Pain Level 0 12/03/19 11:15 Comment 11/27/19 09:30 Intake & Output 12/02/19 12/03/19 12/03/19 23:59 11:59 23:59 Intake Total 980 / 1220 240 / 250 10 / 250 Balance 980 / 1220 240 / 250 10 250 Weight 149.8 kg Intake: IV Oral 980 / 1220 240 / 240 Other: Urine Color Yellow Yellow Urine Appearance Clear Urine Odor Normal Voiding Methods Diaper Diaper Incontinent Incontinent Laboratory Results WBC 4.51 k/cumm (4.4-10.8) 11/30/19 06:20 RBC 4.73 m/cumm (4.50-6.00) 11/30/19 06:20 Hgb 13.2 g/dL (13.5-17.5) L 11/30/19 06:20 Hct 41.4 % (40.0-50.0) 11/30/19 06:20 MCV 87.5 fL (80-95) 11/30/19 06:20 MCH 27.9 pg (27.0-33.0) 11/30/19 06:20 MCHC 31.9 g/dL (32.0-36.0) L 11/30/19 06:20 RDW 16.7 % (11.8-14.1) H 11/30/19 06:20 Plt Count 164 x1000/uL (130-400) 11/30/19 06:20 MPV 10.0 fL (8.0-11.0) 11/30/19 06:20 Immature Gran % 0.4 % 11/24/19 21:40 Neutrophils % 67.5 11/24/19 21:40 Lymphocytes % 19.3 11/24/19 21:40 Monocytes % 10.2 11/24/19 21:40 Eosinophils % 2.2 11/24/19 21:40 Basophils % 0.4 11/24/19 21:40 Absolute Neutrophils 3.70 k/cumm (1.2-6.7) 11/24/19 21:40 Absolute Lymphocytes 1.06 k/cumm (1.2-3.4) L 11/24/19 21:40 Absolute Monocytes 0.56 k/cumm (0.11-0.7) 11/24/19 21:40 Absolute Eosinophils 0.12 k/cumm (0.0-0.7) 11/24/19 21:40 Absolute Basophils 0.02 k/cumm (0.0-0.2) 11/24/19 21:40 PT 19.9 sec (9.3-11.0) H 12/03/19 06:20 INR 2.0 (0.9-1.1) H 12/03/19 06:20 Sodium 138 mmol/L (136-145) 12/01/19 06:15 Potassium 4.3 mmol/L (3.5-5.1) 12/01/19 06:15 Chloride 103 mmol/L (98-107) 12/01/19 06:15 Carbon Dioxide 26.6 mmol/L (21.0-32.0) 12/01/19 06:15 Anion Gap 8.4 mmol/L (3-11) 12/01/19 06:15 BUN 30 mg/dL (7-18) H 12/01/19 06:15 Creatinine 0.97 mg/dL (0.70-1.30) 12/01/19 06:15 Estimated GFR/1.73 m2 >= 60.00 (mL/min/1.73m2) 12/01/19 06:15 Glucose 131 mg/dL (74-106) H 12/01/19 06:15 Hemoglobin A1c 8.7 % (3.8-5.6) H 11/26/19 06:24 Calcium 8.4 mg/dL (8.5-10.1) L 12/01/19 06:15 Magnesium 2.1 mg/dL (1.8-2.4) 11/27/19 06:35 Total Bilirubin 1.1 mg/dL (0.2-1.0) H 11/24/19 21:40 AST 30 U/L (15-37) 11/24/19 21:40 ALT 30 U/L (16-63) 11/24/19 21:40 Alkaline Phosphatase 98 U/L (46-116) 11/24/19 21:40 Troponin I < 0.05 ng/Ml (<0.06) 11/25/19 06:40 NT-Pro-B Natriuret Pep 2589 pg/mL (<300) H 11/24/19 21:40 Total Protein 8.6 g/dL (6.4-8.2) H 11/24/19 21:40 Albumin 3.6 g/dL (3.4-5.0) 11/24/19 21:40 Urine Color Yellow (Yellow) 11/24/19 21:40 Urine Clarity Clear (Clear) 11/24/19 21:40 Urine pH 6.5 (5-8) 11/24/19 21:40 Ur Specific [place] 1.015 (1.005-1.025) 11/24/19 21:40 Urine Protein Negative mg/dL (Negative) 11/24/19 21:40 Urine Ketones Negative mg/dL (Negative) 11/24/19 21:40 Urine Blood Small (Negative) H 11/24/19 21:40 Urine Nitrite Negative (Negative) 11/24/19 21:40 Urine Bilirubin Negative (Negative) 11/24/19 21:40 Urine Urobilinogen 0.2 EU/dL (Up TO 0.2) 11/24/19 21:40 Ur Leukocyte Esterase Negative (Negative) 11/24/19 21:40 Urine RBC 20-50 HPF (0-2) H 11/24/19 21:40 Urine WBC 0-2 HPF (0-5) 11/24/19 21:40 Ur Epithelial Cells Negative HPF (Negative) 11/24/19 21:40 Urine Crystals Negative HPF (Negative) 11/24/19 21:40 Urine Bacteria Negative HPF (Negative) 11/24/19 21:40 Urine Casts Negative LPF (Negative) 11/24/19 21:40 Urine Mucus Negative (Negative) 11/24/19 21:40 Urine Other Rare renal (Negative) 11/24/19 21:40 Ur Culture Indicated? No 11/24/19 21:40 Urine Glucose Negative mg/dL (Negative) 11/24/19 21:40
[2019-12-03] MEDS: Simvastatin 20 MG TAB 40 MG PO (20:15)
[2019-12-03] MEDS: Gabapentin 300 MG CAP 600 MG PO (20:16)
[2019-12-03] MEDS: Warfarin 5 MG TAB 7.5 MG PO (20:18)
[2019-12-04 07:16] LABS: INR 2.3 (0.9-1.1); Prothrombin Time 22.5 sec (9.3-11.0)
[2019-12-04 07:56] VITALS: BP 117/83; PULSE 62; RESP 18; TEMP 36.6; O2SAT 95
[2019-12-04] MEDS: Budesonide/Formoterol 80/4.5 6.9 GM 60 PUFF INH IH (09:10)
[2019-12-04] MEDS: Magnesium Oxide 400 MG TAB PO (09:14)
[2019-12-04] MEDS: Metoprolol 12.5 MG TAB PO (09:14)
[2019-12-04] MEDS: Docusate Sodium 100 MG CAP PO (09:15)
[2019-12-04] MEDS: Torsemide 20 MG TAB 10 MG PO (09:15)
[2019-12-04] MEDS: DULoxetine 30 MG CAP PO (09:16)
--- NOTE | 2019-12-04 10:45 | PT.INIE ---
Date of service: 12/04/19 Time of Service: 10:45 PT Notes Visit Reasons: ORTHOSTATIC HYPOTENSION Physical Therapy Inpatient Initial Evaluation Date: 12/04/2019 Referring Doctor: Sammi Gan NP PT Orders: PT CONSULT: Limited ability Precautions: Fall. Syncopal episode. Standard. Patient Profile/Admitting Diagnosis: Patient was discharged on 12/01/2019 as he was scheduled to be transferred to [facility] that afternoon. However, due to stricter admission requirements, patient's discharge got delayed unitl today. This PT consulted with care manger regarding contuing PT services while awaiting SNF placement. TARAN Chapa sent in another referral for PT re-evalaution today. Patient is a 58-year-old male who presented to the ED on 11/24/2019 with report of falls x 2 for the past week. Patient is diagnosed with orthostatic hypotension suspected to be a result of overdiuresis and beta-kunal/afluzosin/gabapentin use. Patient was recently hospitalized at [facility] due to cellulitis and was discharged home on 11/21/2019 but was readmitted to [facility] on 11/24/2019 due to complaints of dizziness resulting to frequent falling. PMHX: Diabetic peripheral neuropathy Type 2 diabetes mellitus Obstructive sleep apnea Chronic venous insufficiency Cellulitis Acute on chronic CHF Atrial fibrillation with RVR LAURENCE Social History/Home Situation: Patient lives alone in a private home with 5 steps to enter, rails on both sides. He has another set of 14 steps to the basement but patient reports that his brother will be able to manage the heating for him while he is recovering. Patient also has a sister who lives a mile from him who may be able to help as needed. Patient states that he has about 60 feet to 80 feet distance from his bedroom to the kitchen and the bathroom. He managed his own meals. He was independent with self-care tasks. He is independent with all mobility ADL performance using a front wheeled walker. Equipment Owned/DME: Front wheeled walker, SPC, recliner Subjective: Patient is agreeable to PT consult. He denies any dizziness, visual disturbance, chest pain, and headache throughout PT consult. He stated that he has not had any issues with his blood pressure since Sunday. Objective: General Observation: TEDS on L leg. KADIE wraps over Mepilex dressings to R leg. Hematoma on left lower abdominal area seen. Hemosiderin staining to bilateral lower extremities from CVI. Mental Status: Alert and oriented x4 Pain: Mikhail reported ROM: Right Upper Extremity: Shoulder Flexion WFL. Shoulder abduction WFL. Elbow flexion WFL. Wrist flexion WFL. Opening and closing of hand WFL. Left Upper Extremity: Shoulder Flexion WFL. Shoulder abduction WFL. Elbow flexion WFL. Wrist flexion WFL. Opening and closing of hand WFL. Right Lower Extremity: Hip flexion allows only up to 10 degrees beyond 90 while seated at edge of bed due to abdominal panniculus/morbid obesity. Hip abduction WFL. Knee flexion WFL. Ankle dorsiflexion WFL. Ankle plantarflexion WFL. Left Lower Extremity: Hip flexion only up to 10 degrees beyond 90 while seated at edge of bed due to abdominal panniculus/morbid obesity. Hip abduction WFL. Knee flexion WFL. Ankle dorsiflexion WFL. Ankle plantarflexion WFL. Strength: Right Upper Extremity: Shoulder flexors 4/5. Shoulder abductors 4/5. Elbow flexors 4/5. Elbow extensors 4/5. [employer] Monitor strong. Left Upper Extremity: Shoulder flexors 4/5. Shoulder abductors 4/5. Elbow flexors 4/5. Elbow extensors 4/5. [employer]ellite Project Site Monitor strong. Right Lower Extremity: Hip flexors 3+/5. Hip abductors 4/5. Knee flexors 4/5. Knee extensors 4/5. Ankle dorsiflexors 4/5. Ankle plantarflexors 4/5. Left Lower Extremity:Hip flexors 3+/5. Hip abductors 4/5. Knee flexors 4/5. Knee extensors 4/5. Ankle dorsiflexors 4/5. Ankle plantarflexors 4/5. Sensation: Intact as to pain and pressure on bilateral lower extremities. Bed Mobility/Transfers: Rolling independent Supine to sit independent Sit to supine independent Sit to stand independent with BUE for support using FWW Stand to sit independent with BUE for support using FWW Bed to chair independent with BUE for support using FWW Chair to bed independent with BUE for support using FWW Gait: Patient was able to tolerate 400 of level surface ambulation using front wheeled walker with supervision without any report of dizziness, chest pain, headache, and BLE pain. Reciprocal gait pattern. Yolanda improved. Balance: Static Sitting: Normal Dynamic Sitting: Normal Static Standing: Fair Dynamic Standing: Fair Special Tests: Mobility Limitations Standardized Measure [facility] AM-PAC 6 clicks Basic Mobility Inpatient Short Form: Raw Score: 23 CMS Score: 11% deficit 4 stage balance test: Patient was able to maintain feet together, semi-tandem, and full tandem positions for 10 seconds without any difficulty. He was however unable to tolerate 1 legged stance due to body habitus and fear of falling. Informed Consent/Education: Patient instructed in purpose of PT consult and plan of care. Assessment: On initial evaluation last week, patient demonstrated decreased activity tolerance, unsteadiness on feet, difficulty with walking, high fall risk, due to orthostatic hypotension, and impaired ADL performance. Patient is a 58-year-old male who presented to the ED on 11/24/2019 with report of falls x 2 for the past week. Patient is diagnosed with orthostatic hypotension suspected to be a result of overdiuresis and beta-kunal/Afluzosin/Gabapentin use. Hypotensive episodes were resolved with cessation of diuretic use. Prior to [facility] admission, patient was recently hospitalized at [facility] due to cellulitis and was discharged home on 11/21/2019 but was admitted to [facility] on 11/24/2019 due to complaints of dizziness resulting to frequent falling. Patient is re-evaluated today as there was no definite discharge date yet to the SNF. He will continue to require skilled for physical therapy services in order to achieve modified independence with all mobility ADL performance using a single-point cane as per prior level of function. He will also require same services for progression of strength, balance, and activity tolerance in anticipation of discharge to home alone once safe to do so. Patient presented with clinical signs and symptoms consistent with current/admitting diagnoses that have resulted to mobility limitations, gait instability, generalized weakness, and impairment of motor control as demonstrated by the following impairment level findings: 1. Decreased strength to B LE major muscle groups 2. Impaired standing balance 3. Impaired activity tolerance Impairments continue to contribute to the following functional limitations: 1. Inability to safely ambulate without assistive device and physical assistance 2. Increase completion time for mobility ADL performance 3. Increased fall risk 4. Inability to negotiate steps alone safely Patient is assessed as a [id number] moderate complexity based on the following: History: 58-year-old male with impairment level findings, functional limitations, and past medical history as indicated above Examination: Demonstrable impairment in strength, balance, and activity tolerance with underlying impairments and functional limitations as documented above Presentation: Stable Decision Makin moderate complexity Goals: Patient is evaluation only today with plan to transfer to the SNF this afternoon. He will continue to benefit from skilled PT services for recommended goals listed below: 1. Supine-Sit independent MET 2. Sit-Supine independent MET 3. Sit-Stand independent MET 4. Stand-Sit independent MET 5. Bed-Chair independent MET 6. Chair-Bed independent MET 7. Independent gait on level surface with use of single-point cane 100 feet without report of pain nor dyspnea NOT MET. Continue with goal at SNF. 8. Independent stair negotiation while holding onto bilateral rails for at least 15 steps without report of pain nor dyspnea NOT MET. Continue with goal at SNF. 9. Independent with home exercise program MET. Needs to be progressed at the SNF. 10. Good static and dynamic standing balance/tolerance NOT MET. Continue with goal at [facility]. DISCHARGE RECOMMENDATIONS: Patient transfers to the [facility] this afternoon. TREATMENT CODE/TIME: 26059 x 25 minutes beginning at 10:45 AM. Thank you very much for this referral. Corinna Durán PT, DPT, CLT [facility] [place], [place]
--- NOTE | 2019-12-04 10:47 | W.PM.DS.N ---
Date of service: 12/04/19 Time of Service: 10:47 DS: Diagnosis Discharge Diagnosis (1) Congestive heart failure: Status: Chronic (2) Atrial fibrillation: Status: Chronic (3) Obstructive sleep apnea: Status: Chronic (4) Diabetic peripheral neuropathy associated with type 2 diabetes mellitus: Status: Acute (5) Deep venous thrombosis of left popliteal vein: Status: Acute Discharge Plan Disposition Patient Disposition: SNF (LEVEL 1) [facility] Condition: Improving Discharge Details Chief Complaint: GenMedical Reason For Visit: ORTHOSTATIC HYPOTENSION Admit Date/Time: 11/25/19 15:24 Admit Provider: Hugh Ward Attending Provider: Hugh Ward Primary Care Provider: Esvin Alan ED Provider: Lexis Finch Hospital Course Hospital Course: 58 y.o male with PMH afib, CHF, LAURENCE, DM, presenting to [facility] ed with orthostatic hypotension and prerenal azotemia. On admission patient presented with falls at home. However the ER reports that patient was recently discharged from [facility] where he been treated for cellulitis and reportedly has a history of chronic systolic heart failure last echo Oct 22 with EF 35%. Was also treated for cellulitis of his legs during that admission. Most recently he was hospitalized at [facility] in [facility] after being seen in the emergency department twice. First they treated him with IV fluids and sent him home but when he had a syncopal spell at home he returned to the emergency department was hospitalized at [facility] where he was diagnosed with an acute UTI. In the emergency room here he was found to have KELLY with BUN 69 and creatinine 1.76, EKG revealing afib with controlled rate and bbb. He was also found to have orthostatic hypotension, likely contributing to syncopal episode. He was admitted to /s for further management. Hospital course: Orthostatic hypotension: Assessment and Plan: Thought to be due to overdiuresis, also consider medications such as cymbalta and BB. On admission diuretics held, will resume on discharge, d/c metolazone and decrease torsemide to 10 mg daily. Third hospitalization in weeks due to hypotension. Cymbalta decreased to 30 mg BID and BB decreased to 12.5 BID. Several episodes of bradycardia as well. Cymbalta can potentiate the effect of BB which could be contributing to hypotension. Follow up by PCP in 1 week as patient does have afib, rate controlled by BB. (2) Congestive heart failure: Status: Chronic Asessment and Plan: see plan above. continue low dose torsemide and increase dose as needed. (3) Deep venous thrombosis of left popliteal vein: Status: Acute Assessment and Plan: Unable to determine if chronic or acute. Was on apixaban on admission, however it appears he has failed apixaban likely due to his weight. Started on enoxaparin with bridge to coumadin which is wt appropriate, with INR goal 2-3. INR on coumadin 2.7 today 2.8 yesterday will continue on 7.5 mg dose. Continue to check INR and adjust as needed. (4) Acute kidney injury (nontraumatic): Status: Resolved Assessment and Plan: Likely from overdiuresis on admission. All nephrotoxic medications held and patient given IVF, resolved. Will resume diuretic upon discharge. (5) Atrial fibrillation: Status: Chronic Assessment and Plan: Controlled. Started on coumadin, see above. (6) Obstructive sleep apnea: Status: Chronic Assessment and Plan: continue using cpap for laurence (7) Diabetic peripheral neuropathy associated with type 2 diabetes mellitus: Status: Acute Assessment and Plan: on gabapentin, continue medication. Home Meds and New Rx's Prescriptions: New warfarin [Coumadin] 5 mg Tablet 5 mg PO QPM Qty: 10 RF: 0 metoprolol tartrate 25 mg Tablet 12.5 mg PO BID Qty: 28 RF: 0 torsemide 10 mg tablet 10 mg PO DAILY Qty: 14 RF: 0 warfarin [Coumadin] 5 mg Tablet 7.5 mg PO QPM Qty: 30 RF: 0 Continued simvastatin 20 MG tablet 40 mg PO DAILY RF: 0 metformin [Glucophage] 1,000 MG tablet 1,000 mg PO BID RF: 0 gabapentin 300 MG capsule 600 mg PO QHS RF: 0 budesonide-formoterol [Symbicort] 10.2 GM HFA aerosol inhaler 2 puff Inhalation BID RF: 0 Glyburide 2.5 MG Tablet 5 mg PO DAILY RF: 0 acetaminophen [Tylenol 8 Hour] 650 mg Tablet Extended Release 650 mg PO Q4H PRN PRNRF: 0 potassium chloride 10 mEq Tablet,Er Particles/Crystals 10 meq PO DAILY RF: 0 magnesium oxide 400 mg magnesium Tablet 400 mg PO BID RF: 0 Discontinued metolazone 2.5 mg Tablet 2.5 mg PO DAILY RF: 0 torsemide 20 mg Tablet 20 mg PO DAILY RF: 0 levofloxacin [Levaquin] 750 mg Tablet 750 mg PO DAILY RF: 0 alfuzosin 10 mg Tablet Extended Release 24 Hr 10 mg PO DAILY RF: 0 metoprolol tartrate 25 mg Tablet 25 mg PO BID RF: 0 duloxetine 60 mg Capsule,Delayed Release(Dr/Ec) 60 mg PO BID RF: 0 Eliquis 5 mg Tablet 5 mg PO BID RF: 0 Discharge Instructions Instructions: Warfarin (By mouth), Atrial Fibrillation (DC), Acute Kidney Injury (DC), Syncope (DC), Deep Venous Thrombosis (DC), Hypotension (DC) Additional Instructions: Follow up with your PCP in 1 week Following medications have been changed: Alfuszosin discontinued. Torsemide only take 10 mg. Stop taking metolazone. Coumadin 7.5 mg which can change according to your INR, which will need to be checked every couple of days. stop taking apixaban. Lopressor is now 12. 5 twice a day cymbalta is now only 30 mg twice a day. Wear thigh high stockings. Wear CPAP at night Stand Alone Forms: Nursing Discharge Form Activity:: Activity as Tolerated Equipment/Supplies:: No Equipment Needed Diet:: Carb Counting Discharge Orders Discharge Orders: Discharge Order (Routine); Ordered 12/04/19 Ordered By: Sammi Gan DS: Summary Status at Discharge Functional status at discharge: uses cane/walker Overall status at discharge: patient is progressing back to baseline Mental Status: mental status grossly normal Speech and Movement: speech and movement normal Mood: congruent mood Affect: normal affect Exam Narrative Exam Narrative: pink warm dry and in no acute distress. appears older than stated age, appears chronically ill and obese. Sitting up in chair with legs dependent. Alert and oriented, answers questions appropriately. HEENT: normocephalic, atraumatic, pupils equal and round, EOMI, mucous membranes moist. Neck: supple, thick with liao. Cardiovascular: irregularly irregular rhythm, nontachycardic, no murmur appreciated. Respiratory: respirations appear even and unlabored, lung sounds clear bilaterally. GI: large pannus, +BS, soft, no tenderness on palpation. Extremities: multiple wounds to lower extremities with mepilex dressings and wrapped, see nursing notes for details on wounds. Bilateral discoloration to knees consistent with venous stasis changes. Pedal edema bilaterally, LLE with wrinkled skin where edema has improved. Moves all 4 extremities Psych Mental Status: mental status grossly normal Speech and Movement: speech and movement normal Mood: congruent mood Affect: normal affect DS: Data Vitals/I&O Vitals and I&O: Vital Signs Temperature 36.6 C 12/04/19 07:56 Temperature Source Tympanic 12/04/19 07:56 Pulse 62 12/04/19 07:56 Pulse Rhythm Irregular 12/04/19 00:05 Pulse 102 H 11/25/19 00:00 Respiratory Rate 18 12/04/19 07:56 Respiratory Effort 12/04/19 00:05 Respiratory Depth Normal 12/04/19 00:05 Respiratory Pattern Normal 12/04/19 00:05 Blood Pressure 117/83 12/04/19 07:56 Blood Pressure Mean 88 11/25/19 00:00 Pulse Oximetry 95 12/04/19 07:56 Oxygen Delivery Method Room Air 12/04/19 07:56 Oxygen Flow Rate 0 12/04/19 07:56 Fraction of Inspired Oxygen (FIO2) 21 12/02/19 23:45 Pain Level 0 12/04/19 07:56 Comment 11/27/19 09:30 Intake & Output 12/03/19 12/03/19 12/04/19 11:59 23:59 11:59 Intake Total 240 / 490 250 / 490 150 / 150 Balance 240 / 490 250 / 490 150 / 150 Weight 149.8 kg 150.4 kg Intake: IV 10 / 10 Oral 240 / 480 240 / 480 150 / 150 Other: Urine Color Yellow Yellow Urine Appearance Clear Clear Urine Odor Normal Comment INCONTINENT VOID. Lg inct Voiding Methods Diaper Incontinent Incontinent Incontinent Data Completed and Pending Labs on day of discharge: Labs from last 24 hours 12/04/19 06:30 PT 22.5 H INR 2.3 H PFS Medical History (Updated 12/02/19 @ 11:11 by Sammi Gan NP) Acute kidney injury (nontraumatic) (Resolved) Atrial fibrillation (Chronic) Diabetic peripheral neuropathy associated with type 2 diabetes mellitus (Acute) Obstructive sleep apnea (Chronic) Orthostatic hypotension (Resolved) Social History Smoking/Tobacco Use Status: Never Alcohol Intake: former Drug use: Never Do you feel safe at home: Yes Do you feel safe in your relationship?: Yes
[2019-12-04] MEDS: Insulin Aspart 300 UNITS/3 ML PEN SC (12:03)
--- NOTE | 2019-12-04 15:22 | CHAPLAIN ---
When I visited Barrie this morning, he wasn't sure if he'd [facility] or not, but he left later in the afternoon. Yesterday, his cousin José Lazaro, was out in the parking lot called Barrie so they could wave to each other through the window. Barrie shared some stories of adventures to [place] [place] and other trips he's taken, and working at [employer]. He said it's not likely he'll be able to do those kind of things again because of his difficulty walking. His goal is to get home after getting stronger and doing more walking at [facility].
--- NOTE | 2019-12-04 16:06 | PDOC.CMDIS ---
LACE Index Scoring Tool - Questions: Length of Stay (in days): 7 - 13 Acuity (Admit via E.D.?): Yes Comorbidities: Diabetes w/o Complication E.D. Visits: 1 - Answers: Total Score: 10 Risk of Readmission: High Risk Care Management Discharge Reason for Hospitalization: Orthostatic Hypotension Discharge Plan: Barrie will discharge to [facility] for S/T rehab prior to returning home. He will transport via W/C van, provided by the facility. Patient/Family Education Needs: Review discharge instructions, discuss Ask Me Three. Services Needed at Discharge: Nursing Home Facility ([facility] ), Transportation (W/C Van )
== END 2019-12-04 14:21 | disposition skilled nursing facility (03) | DRG 312 ==
LOC: ER 11-25 00:51 → MS 11-25 00:56
PROVIDERS: Internal Medicine; Nurse Practitioner; Nurse Practitioner Acute Care; Admitting Provider General Practice; Emergency Provider Physician Assistant; PCP Family Medicine; Visit Provider Family Medicine
DX: I95.1 Orthostatic hypotension (principal); I82.432 Acute embolism and thrombosis of left popliteal vein; N17.9 Acute kidney failure, unspecified; I50.22 Chronic systolic (congestive) heart failure; I48.20 Chronic atrial fibrillation, unspecified; Z68.43 Body mass index [BMI] 50.0-59.9, adult; T50.2X5A Adverse effect of carbonic-anhydrase inhibitors, benzothiadiazides and other diuretics, initial encounter; R39.2 Extrarenal uremia; G47.33 Obstructive sleep apnea (adult) (pediatric); E11.42 Type 2 diabetes mellitus with diabetic polyneuropathy; Z91.81 History of falling; Z79.84 Long term (current) use of oral hypoglycemic drugs; Z79.01 Long term (current) use of anticoagulants; E66.01 Morbid (severe) obesity due to excess calories; Z86.711 Personal history of pulmonary embolism
CPT/HCPCS: 36415; 80048; 80053; 85027; 93005; 94640; 97110; 97162; 97166; 97530; 99222; 99232; 99233; 99239; 99285; NC; 70450; 72125; 81003; 81015; 83036; 83735; 83880; 84484; 85025; 85049; 85610; 93010; 93970; 99218; G0378; J1650; J3490

== ENCOUNTER 2019-12-08 16:38 | Outpatient (REF) | payer BC, SELFPAY ==
[2019-12-08 18:54] LABS: Anion Gap 11.6 mmol/L (3-11); BUN 27 mg/dL (7-18); CO2 26.4 mmol/L (21.0-32.0); CREATININE 1.13 mg/dL (0.70-1.30); Calcium 8.6 mg/dL (8.5-10.1); Chloride 101 mmol/L (98-107); Glucose 91 mg/dL (74-106); Potassium 4.2 mmol/L (3.5-5.1); Sodium 139 mmol/L (136-145)
[2019-12-08 18:55] LABS: Abs Immature Grans 0.01 k/cumm (0.0-0.09); Absolute Basophil Count 0.01 k/cumm (0.0-0.2); Absolute Eosinophil Count 0.22 k/cumm (0.0-0.7); Absolute Lymphocyte Count 1.64 k/cumm (1.2-3.4); Absolute Monocyte Count 0.47 k/cumm (0.11-0.7); Absolute Neutrophil Count 3.84 k/cumm (1.2-6.7); Basophils % 0.2; Eosinophils % 3.6; HCT 44.7 % (40.0-50.0); Immature Grans % 0.2 %; Lymphocytes % 26.5; Mean Corp. HGB Concentration 31.3 g/dL (32.0-36.0); Mean Corpuscular Hemoglobin 27.8 pg (27.0-33.0); Mean Corpuscular Volume 88.7 fL (80-95); Mean Platelet Volume 9.7 fL (8.0-11.0); Monocytes % 7.6; Neutrophils % 61.9; Platelet Count 277 x1000/uL (130-400); RBC 5.04 m/cumm (4.50-6.00); RBC Distribution Width 18.3 % (11.8-14.1); White Blood Cell Count 6.19 k/cumm (4.4-10.8)
== END 2019-12-08 16:58 ==
LOC: LBN 16:38
PROVIDERS: PCP Family Medicine; Visit Provider Nurse Practitioner Adult Health
DX: I82.432 Acute embolism and thrombosis of left popliteal vein (principal); I95.1 Orthostatic hypotension; E11.40 Type 2 diabetes mellitus with diabetic neuropathy, unspecified
CPT/HCPCS: 80048; 85025

== ENCOUNTER 2019-12-22 08:48 | Outpatient (REF) | payer BC, SELFPAY ==
[2019-12-22 09:23] LABS: INR 1.7 (0.9-1.1); Prothrombin Time 16.6 sec (9.3-11.0)
[2019-12-22 15:25] LABS: Anion Gap 9.7 mmol/L (3-11); BUN 29 mg/dL (7-18); CO2 28.3 mmol/L (21.0-32.0); CREATININE 1.08 mg/dL (0.70-1.30); Calcium 8.9 mg/dL (8.5-10.1); Chloride 102 mmol/L (98-107); Glucose 124 mg/dL (74-106); Sodium 140 mmol/L (136-145)
== END 2019-12-22 09:08 ==
LOC: LBN 08:48
PROVIDERS: PCP Family Medicine; Visit Provider Family Medicine
DX: I50.22 Chronic systolic (congestive) heart failure (principal); E11.40 Type 2 diabetes mellitus with diabetic neuropathy, unspecified; I48.91 Unspecified atrial fibrillation; Z79.01 Long term (current) use of anticoagulants; R60.0 Localized edema
CPT/HCPCS: 80048; 85610

== ENCOUNTER 2020-02-11 15:08 | Outpatient (REF) | payer BC, SELFPAY ==
[2020-02-11 15:36] LABS: INR 1.8 (0.9-1.1)
[2020-02-11 15:48] LABS: Prothrombin Time 17.9 sec (9.3-11.0)
== END 2020-02-11 15:28 ==
LOC: LBN 15:08
PROVIDERS: PCP Family Medicine; Referring Provider Nurse Practitioner Family; Visit Provider Nurse Practitioner Family
DX: I48.91 Unspecified atrial fibrillation (principal); Z79.01 Long term (current) use of anticoagulants
CPT/HCPCS: 85610

== ENCOUNTER 2020-02-16 18:14 | Outpatient (REF) | payer BC, SELFPAY ==
[2020-02-16 19:14] LABS: Anion Gap 9.6 mmol/L (3-11); BUN 26 mg/dL (7-18); CO2 29.4 mmol/L (21.0-32.0); Calcium 8.5 mg/dL (8.5-10.1); Chloride 99 mmol/L (98-107); Glucose 103 mg/dL (74-106); Sodium 138 mmol/L (136-145)
== END 2020-02-16 18:34 ==
LOC: LBN 18:14
PROVIDERS: PCP Family Medicine; Visit Provider Nurse Practitioner Family
DX: I11.0 Hypertensive heart disease with heart failure (principal); I50.21 Acute systolic (congestive) heart failure
CPT/HCPCS: 80048

== ENCOUNTER 2020-04-02 12:29 | Outpatient (REF) | payer BC, SELFPAY ==
[2020-04-02 13:29] LABS: Anion Gap 11.2 mmol/L (3-11); BUN 49 mg/dL (7-18); CO2 30.8 mmol/L (21.0-32.0); CREATININE 1.71 mg/dL (0.70-1.30); Calcium 8.7 mg/dL (8.5-10.1); Chloride 97 mmol/L (98-107); Glucose 122 mg/dL (74-106); Potassium 3.5 mmol/L (3.5-5.1); Sodium 139 mmol/L (136-145)
== END 2020-04-02 12:49 ==
LOC: LBN 12:29
PROVIDERS: PCP Family Medicine; Visit Provider Nurse Practitioner Adult Health
DX: I50.21 Acute systolic (congestive) heart failure (principal)
CPT/HCPCS: 80048

== ENCOUNTER 2020-04-16 14:18 | Inpatient (IN) | payer BC, SELFPAY ==
[2020-04-16] VITALS (58 sets, daily range): BP systolic 95–127; BP diastolic 65–97; PULSE 58–130; RESP 18–30; TEMP 36.3–36.6; O2SAT 94–97
--- NOTE | 2020-04-16 15:00 | RT.EKG_ITS ---
APPROVED REPORT Exam: Resting ECG Patient Location: E HR:97 bpm ECG Measurements Heart Rate 97 AXIS SD [id number] P [id number] QRSd 188 QRS -92 QT 455 T 27 QTc 579 Conclusion Atrial fibrillation...? atrial activity Ventricular premature complex...V complex w/ short R-R interval Right bundle branch block...QRSd>120, terminal axis(90,270) Inferior infarct, old...Q >35mS, II III aVF
--- NOTE | 2020-04-16 15:52 | ED.GENADUL_ITS ---
Discharge Plan Disposition Patient Disposition: [facility] INPATIENT Condition: Serious Discharge Details Chief Complaint: GenMedical Clinical Impression: Acute kidney injury, Supratherapeutic INR Primary Care Provider: Laura Martinez ED Provider: Haider Rosen Home Meds and New Rx's Prescriptions: No Action simvastatin 20 MG tablet 40 mg PO DAILY RF: 0 metformin [Glucophage] 1,000 MG tablet 1,000 mg PO BID RF: 0 gabapentin 300 MG capsule 600 mg PO QHS RF: 0 budesonide-formoterol [Symbicort] 10.2 GM HFA aerosol inhaler 2 puff Inhalation BID RF: 0 Glyburide 2.5 MG Tablet 5 mg PO DAILY RF: 0 acetaminophen [Tylenol 8 Hour] 650 mg Tablet Extended Release 650 mg PO Q4H PRN PRNRF: 0 potassium chloride 10 mEq Tablet,Er Particles/Crystals 10 meq PO DAILY RF: 0 magnesium oxide 400 mg magnesium Tablet 400 mg PO BID RF: 0 warfarin [Coumadin] 5 mg Tablet 5 mg PO QPM Qty: 10 RF: 0 metoprolol tartrate 25 mg Tablet 12.5 mg PO BID Qty: 28 RF: 0 torsemide 20 mg tablet 100 mg PO BID RF: 0 metolazone 5 mg tablet 5 mg PO Q OTHER DAY RF: 0 cephalexin 500 mg capsule 500 mg PO TID RF: 0 Medical Decision Making -- 59-year-old male with history of diabetes, CHF, A. fib, here with elevated creatinine after recent increase torsemide about 2 weeks ago. Torsemide was increased from 40 mg daily to 100 mg twice daily for persistent swelling per the patient. He had outpatient labs that show elevated creatinine and was told to come to the emergency department for evaluation. Patient is tachycardic with low normal blood pressure with systolic of around 100. Patient is saturating well on room air with no respiratory distress. He does have trace wheeze. Patient has generalized weakness and difficulty ambulating. Patient also with cellulitis of left lower extremity that is improving with cephalexin treatment. --I called and spoke with the patient's PCP who noted that patient's creatinine was significant elevated from baseline 1-1.3 at now 2.12 and concern for overdiuresis. She notes patient has been generally weak and having difficulty ambulating. 18:00 -- Labs reviewed: elevated Cr and BUN. I suspect patient has been over diuresed. BNP is elevated. I will give him a gentle bolus of 250 at this time. I have called [facility] cardiology for consultation and awaiting callback. Plan to admit patient for further care. I do not see a echocardiogram in his record. Will attempt to obtain outside hospital records. -- Additional labs reviewed and PT is significantly elevated at 5.4. Hospitalist to be notified. 0??outside hospital records were obtained and reviewed: Echocardiogram from October 2019 interpreted by cardiology: Left ventricular systolic function is severely reduced. Right ventricular global systolic function is severely reduced. -- I spoke with storeroom clerk at [facility] who recommend hold toresmide and monitor dry weight, call back with additional concerns. Notes EF 35%. HPI General Mode of arrival: ambulatory . Date/Time Provider Initiated Documentation: 04/16/20 15:16 . Limitations to Documentation: no limitations . Information obtained by: patient . HPI Narrative: 59-year-old male with history of CHF, A. fib,, here with concern for increased creatinine. Patient notes that he recently had his torsemide dose increased. He had labs performed outpatient and creatinine is elevated. He was instructed to come to the hospital for evaluation and treatment. Patient notes that he has chronic leg swelling. Patient denies chest pain or shortness of breath. He does state that he has an ongoing cellulitis of left lower extremity is been treated with Keflex now day 4 and is improving. Patient denies fever. Patient notes no known [place] exposure, no fever, no cough. No recent travel. Patient notes associated generalized weakness. Related Data Home Medications Medication Instructions Recorded Confirmed Glyburide 5 mg PO DAILY 03/10/18 04/16/20 budesonide-formoterol [Symbicort] 2 puff INHALATION BID 03/10/18 04/16/20 gabapentin 600 mg PO QHS 03/10/18 04/16/20 metformin [Glucophage] 1,000 mg PO BID 03/10/18 04/16/20 simvastatin 40 mg PO DAILY 03/10/18 04/16/20 acetaminophen [Tylenol 8 Hour] 650 mg PO Q4H PRN PRN 11/24/19 04/16/20 magnesium oxide 400 mg PO BID 11/24/19 04/16/20 potassium chloride 10 meq PO DAILY 11/24/19 04/16/20 metoprolol tartrate 12.5 mg PO BID #28 tab 12/01/19 04/16/20 warfarin [Coumadin] 5 mg PO QPM #10 tab 12/01/19 04/16/20 cephalexin 500 mg PO TID 04/16/20 04/16/20 metolazone 5 mg PO Q OTHER DAY 04/16/20 04/16/20 torsemide 100 mg PO BID 04/16/20 04/16/20 Previous Rx's Medication Instructions Recorded metoprolol tartrate 12.5 mg PO BID #28 tab 12/01/19 warfarin [Coumadin] 5 mg PO QPM #10 tab 12/01/19 Allergies Allergy/AdvReac Type Severity Reaction Status Date / Time diltiazem Allergy Anaphylaxsi Unverified 04/16/20 18:28 s shellfish derived Allergy Other (See Unverified 04/16/20 18:28 Comment) sulfamethoxazole Allergy Other (See Unverified 04/16/20 18:28 [From Bactrim] Comment) trimethoprim [From Bactrim] Allergy Other (See Unverified 04/16/20 18:28 Comment) adhesive tape AdvReac Skin Rash Unverified 04/16/20 18:28 General Stated Complaint: GenMedical ALICJA: 2 Review of Systems All systems reviewed & are unremarkable except as noted in HPI and below Constitutional Constitutional: Denies fever(s) and Reports weakness (Generalized) Cardiovascular Cardiovascular: Denies chest pain and Denies dyspnea Respiratory Respiratory: Denies dyspnea Neurologic Neurologic: Reports weakness (Generalized) [facility] Medical History Acute kidney injury (nontraumatic) (Resolved) Atrial fibrillation (Chronic) Diabetic peripheral neuropathy associated with type 2 diabetes mellitus (Acute) Obstructive sleep apnea (Chronic) Orthostatic hypotension (Resolved) Social History Smoking/Tobacco Use Status: Never Alcohol Intake: former Drug use: Never Details: no alcohol for 10 yrs Do you feel safe at home: Yes Do you feel safe in your relationship?: Yes Exam Const General: cooperative and no acute distress HENMT Mouth: moist mucous membranes Eyes Conjunctivae: normal conjunctivae Sclera: normal sclerae Neck Neck: trachea midline and supple Resp Auscultation: no rales, no rhonchi and wheezes (Trace basis bilateral) Cardio Jugular venous pressure: no JVD Rhythm: regular rhythm GI Palpation: soft, not firm, no guarding, no masses, not rigid and nontender Skin General skin exam: no rashes or lesions noted Neuro General: patient alert, patient awake and tone normal Extrem General: edema Laterality: bilateral (Pitting edema) and other Right lower extremity: lower leg Details: pitting edema Left lower extremity: lower leg Details: erythema and pitting edema Psych Appearance: grossly normal Mental Status: mental status grossly normal Course Vital Signs Vital signs: Vital Signs Temperature 36.6 C 04/16/20 14:24 Pulse 104 H 04/16/20 14:24 Respiratory Rate 04/16/20 14:24 Blood Pressure 98/84 L 04/16/20 14:24 Pulse Oximetry 96 04/16/20 14:24 Temperature 36.6 C 04/16/20 14:24 Temperature Source Skin 04/16/20 14:24 Pulse 104 H 04/16/20 14:24 Respiratory Rate 20 04/16/20 14:24 Respiratory Effort 04/16/20 15:12 Blood Pressure 98/84 L 04/16/20 14:24 Pulse Oximetry 96 04/16/20 14:24 Oxygen Delivery Method Room Air 04/16/20 14:24 Oxygen Flow Rate 0 04/16/20 14:24 Pain Level 3 04/16/20 14:24 Comment 04/16/20 14:24
[2020-04-16 17:16] LABS: Abs Immature Grans 0.01 10^3/uL (0.0-0.06); Absolute Basophil Count 0.02 10^3/uL (0.0-0.2); Absolute Eosinophil Count 0.09 10^3/uL (0.0-0.7); Absolute Lymphocyte Count 0.86 10^3/uL (1.2-3.4); Absolute Monocyte Count 0.46 10^3/uL (0.1-0.8); Absolute Neutrophil Count 4.45 10^3/uL (1.2-6.7); Basophils % 0.3; Eosinophils % 1.5; HCT 38.7 % (40.0-50.0); HGB 12.1 g/dL (13.5-17.5); Immature Grans % 0.2; Lymphocytes % 14.6; MCH 27.6 pg (27.0-33.0); MCHC 31.3 % (32.0-36.0); MCV 88.2 fL (80-95); MPV 9.3 fL (8.0-11.0); Monocytes % 7.8; Neutrophils % 75.6; Nucleated RBC 0 %; Platelet Count 219 10^3/uL (130-400); RBC 4.39 10^6/uL (4.36-5.78); RDW 15.9 % (11.8-14.1); RDW-SD 51.6 fL; WBC 5.89 10^3/uL (4.4-10.8)
[2020-04-16 17:36] LABS: ALT 13 U/L (16-63); AST 25 U/L (15-37); Albumin 3.2 g/dL (3.4-5.0); Alkaline Phosphatase 85 U/L (46-116); Anion Gap 9.6 mmol/L (3-11); CO2 33.4 mmol/L (21.0-32.0); CREATININE 2.14 mg/dL (0.70-1.30); Chloride 93 mmol/L (98-107); Estimated GFR 31.57 (mL/min/1.73m2); Glucose 69 mg/dL (74-106); Magnesium 1.8 mg/dL (1.8-2.4); NT-proBNP 7306 pg/mL (<300); Potassium 3.7 mmol/L (3.5-5.1); Sodium 136 mmol/L (136-145); Total Protein 7.4 g/dL (6.4-8.2)
[2020-04-16 17:37] LABS: Troponin I < 0.05 ng/mL (<0.06)
[2020-04-16 17:38] LABS: BUN 112 mg/dL (7-18)
[2020-04-16] MEDS: Lactated Ringers 250 ML 1000 ML IV (18:18)
[2020-04-16] MEDS: Normal Saline Flush 10 ML SYR IVP (18:19)
[2020-04-16 18:21] LABS: Prothrombin Time 52.3 sec (9.3-11.0)
--- NOTE | 2020-04-16 18:30 | NUR.NOTE ---
pt provided with meal tray Nursing Note:
[2020-04-16 18:40] LABS: INR 5.4 (0.9-1.1)
--- NOTE | 2020-04-16 20:58 | W.PM.HP.N ---
Date of service: 04/16/20 Time of Service: 20:58 Assessment and Plan Assessment and plan (1) Acute kidney injury: Status: Acute Assessment and plan: Prerenal azotemia secondary to overdiuresis. For tonight we will withhold his diuretics. Patient was given a fluid bolus of 250 mL's of saline. (2) Dehydration: Status: Acute (3) Cellulitis and abscess of lower extremity: Status: Acute Assessment and plan: Patient was started on a seven-day course of Keflex beginning April 13, 2020. We will continue current regimen. Will request wound care nurse consult in the morning to address his venous ulcers. Copy of his wound care office visit from April 13, 2020 will be made available for the wound care nurse to review current treatment regimen (4) Nonischemic cardiomyopathy: Status: Acute Assessment and plan: Continue his metoprolol however will withhold his metolazone as torsemide for tonight. If his blood pressure could tolerate he would benefit from a vasodilator such as hydralazine however given his orthostatic hypotension now would not be the time to titrate his anti-CHF meds. (5) Obstructive sleep apnea: Status: Chronic Assessment and plan: Continue CPAP and monitor oxygen saturation overnight. (6) Supratherapeutic INR: Status: Acute Assessment and plan: Withhold his Coumadin and recheck his INR in the morning. (7) Venous stasis ulcers of both lower extremities: Status: Acute Assessment and plan: consult wound care nurse to evaluate and treat his wounds. Per [facility] wound care clinic they instructed him to wash his wounds daily w/ dermal wound cleanser and to apply mepilex transfer and optilock over broken skin areas, extending the dressing onto intact periwound skin by approx. 1 cm. He was to apply protective skin ointment over intact skin. Profore wraps were to be applied in spiral fashion starting at the base of the toes and continuing in a spiral fashion up the legs to the knees w/ 50% overlap. See [facility] wound care clinic notes from 04/13/2020. (8) Diabetic peripheral neuropathy associated with type 2 diabetes mellitus: Status: Acute Assessment and plan: in light of his KELLY, I am witholding his metformin and glyburide and will treat w/ insulin sensitive sliding scale w/ adjustments daily based upon his response. He may need CHO coverage w/ additional Novolog and/or basal insulin however he is not usually on insulin and in light of his KELLY I will start on the lower corrective novolog scale. (9) DVT prophylaxis: Status: Acute Assessment and plan: He is currently supratherapeutic on his INR and therefore does not require coverage at this time and with his cellulitis and venous stasis ulcers, I am not ordering SCD or TEDS. History of Present Illness History of Present Illness Chief Complaint: Sent in by PCP d/t abnormal labs, generalized weakness Narrative: 59-year-old male with history of severe nonischemic cardiomyopathy (LVEF 35% per transthoracic echocardiogram October 2019), chronic atrial fibrillation on anticoagulation with warfarin, obstructive sleep apnea for which he wears CPAP mask, diabetes mellitus with peripheral neuropathy, left popliteal vein DVT diagnosed 11/24/2019, chronic venous stasis with chronic bilateral lower extremity venous ulcers which had a history of hospitalization at [facility] from November 25, 2019 through December 04, 2019 because of orthostatic hypotension and prerenal azotemia associated with overdiuresis. He has had previous hospitalizations for dehydration and acute UTI for which he has been hospitalized at [facility] with [facility] back in September and hospitalized at [facility] from October 21 through November 07, 2023 atrial fibrillation with rapid ventricular response. Most recently he was seen in the wound care center at [facility] on April 13, 2020 and was noted to have had a 10 pound weight gain since his discharge from [facility] on November 06. He was also noted to have worsening bilateral lower extremity venous skin ulcerations and have a cellulitis of his left lower leg for which she was placed on a 7-day course of Keflex. They washed and debrided his skin ulcerations and placed a Mepilex and OPTi lock over the broken areas and applied a protective ointment to intact skin and applied Profore wraps over his legs. Since that time he had follow-up lab work that was performed through his PCP office and he was called today and told to present to the emergency department because he had acute kidney injury. 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 His PCP sent him into the emergency department because of complaints of dizziness and lightheadedness as well as evidence of prerenal azotemia. Upon evaluation emergency department today was found to have a BUN of 112 and a creatinine of 2.14 but surprisingly normal potassium level of 3.7 and normal magnesium of 1.8. LFTs were within normal limits and troponin I level was less than 0.05. His proBNP is elevated at 7300. (Last proBNP here at [facility] was 2500 on November 24, 2019). EKG taken today demonstrates atrial fibrillation at a rate 97 bpm with right bundle branch block pattern. He has evidence of an old inferior wall infarct. No acute ST segment elevation or depression although there is concordant ST-T wave changes in the right-sided precordial leads secondary to his right bundle branch block. Patient has no chest pain and no dyspnea but does complain of dizziness and lightheadedness and generalized weakness. There is been no vomiting and no diarrhea. In the emergency department patient was given a saline bolus of 250 mL of normal saline which brought his systolic blood pressure from 98 up to 122. His pulse had been 104 bpm on arrival to the emergency department but peaked at 130 and after the fluid boluses back down to 103 bpm patient is being admitted to the hospital for gentle IV fluid hydration and withholding of his diuretics while we monitor his blood pressure and heart rate. He will be admitted as an observation on medical/surgical floor on telemetry. Serial troponins will be obtained repeat BMP will be obtained in the morning. Because of his severe cardiomyopathy IV fluids will be used judiciously if at all. Review of Systems Constitutional Constitutional: Reports as per HPI Cardiovascular Cardiovascular: Denies chest pain, Denies chest pain at rest, Reports leg edema, Denies lightheadedness, Denies radiating jaw, neck or arm pain, Denies palpitations and Denies dyspnea Respiratory Respiratory: Denies chest congestion and Denies dyspnea Gastrointestinal Gastrointestinal: Reports system reviewed and no additional complaints, except as documented Genitourinary Genitourinary: Reports system reviewed and no additional complaints, except as documented Integumentary/Breasts Skin/Breast: Reports erythema, Reports skin ulcer and Reports sores Neurologic Neurologic: Reports paresthesias Endocrine Endocrine: Denies palpitations [facility] Medical History (Updated 04/16/20 @ 21:42 by Avelino Lang) Acute kidney injury (nontraumatic) (Resolved) Associated with dehydration secondary to overdiuresis for treatment of his CHF Atrial fibrillation (Chronic) Cellulitis and abscess of lower extremity (Acute) Chronic venous insufficiency of lower extremity (Acute) Coronary artery disease (Chronic) Non-hemodynamic diffuse disease per cardiac catheterization from [facility] October 28, [address] Heladio Harkins Diabetic peripheral neuropathy associated with type 2 diabetes mellitus (Acute) Morbid obesity with BMI of 50.0-59.9, adult (Acute) Nonischemic cardiomyopathy (Acute) LVEF 35% with diffuse hypokinesis and septal wall motion abnormality due to bundle branch block, moderately dilated and moderately reduced RV systolic function, mild mitral regurgitation, mild tricuspid regurgitation, mild dilatation aortic root and moderate dilatation of ascending aorta per transthoracic echocardiogram from [facility] October 22, 2019. Obstructive sleep apnea (Chronic) Wear CPAP mask Orthostatic hypotension (Resolved) Venous stasis ulcers of both lower extremities (Acute) Surgical History (Updated 04/16/20 @ 21:40 by Avelino Lang) H/O cardiac catheterization (Chronic 10/28/19) Cardiac catheterization per Dr. Heladio Harkins at [facility], 10/28/2019, mild diffuse nonobstructive coronary artery disease with right coronary dominance and elevated left ventricular end-diastolic pressures, less than 25% narrowing of the left main coronary artery, less than 25% stenosis of the LAD, less than 25% stenosis of left circumflex, less than 25% stenosis of RCA. Family History (Updated 04/17/20 @ 11:53 by Avelino Lang) Other Diabetes Heart disease Hyperlipidemia Hypertension Social History Smoking/Tobacco Use Status: Never Alcohol Intake: former Drug use: Never Details: no alcohol for 10 yrs Do you feel safe at home: Yes Do you feel safe in your relationship?: Yes Meds Home Medications and Allergies Home Medications Medication Instructions Recorded Confirmed Type Glyburide 5 mg PO DAILY 03/10/18 04/16/20 History budesonide-formoterol [Symbicort] 2 puff INHALATION BID 03/10/18 04/16/20 History gabapentin 600 mg PO QHS 03/10/18 04/16/20 History metformin [Glucophage] 1,000 mg PO BID 03/10/18 04/16/20 History simvastatin 40 mg PO DAILY 03/10/18 04/16/20 History acetaminophen [Tylenol 8 Hour] 650 mg PO Q4H PRN PRN 11/24/19 04/16/20 History magnesium oxide 400 mg PO BID 11/24/19 04/16/20 History potassium chloride 10 meq PO DAILY 11/24/19 04/16/20 History metoprolol tartrate 12.5 mg PO BID #28 tab 12/01/19 04/16/20 Rx warfarin [Coumadin] 5 mg PO QPM #10 tab 12/01/19 04/16/20 Rx cephalexin 500 mg PO TID 04/16/20 04/16/20 History metolazone 5 mg PO Q OTHER DAY 04/16/20 04/16/20 History torsemide 100 mg PO BID 04/16/20 04/16/20 History Allergies Allergy/AdvReac Type Severity Reaction Status Date / Time diltiazem Allergy Anaphylaxsi Unverified 04/16/20 18:28 s shellfish derived Allergy Other (See Unverified 04/16/20 18:28 Comment) sulfamethoxazole Allergy Other (See Unverified 04/16/20 18:28 [From Bactrim] Comment) trimethoprim [From Bactrim] Allergy Other (See Unverified 04/16/20 18:28 Comment) adhesive tape AdvReac Skin Rash Unverified 04/16/20 18:28 Exam Narrative Exam Narrative: Morbidly obese male lying in bed supine in no respiratory distress. He is alert and oriented person place time circumstance. Neck is supple nontender difficult to discern JVD due to his severe obesity. Chest is barrel chested with clear lung sounds anteriorly posteriorly has some fine bibasilar rales no rhonchi or wheezes. Heart is irregular regular at a controlled rate unable to appreciate murmur Abdomen is obese soft and nontender. Lower extremities 1-2+ pitting bilateral edema with erythema and induration of the left pretibial surface with erythema down to his ankle but according the patient this is improved. He has a chronic granular pebble-like surface to his skin from chronic venous stasis. Right leg and left leg have a superficial venous stasis ulcers. Results Imaging EKG: image reviewed Labs Result diagrams: 04/16/20 17:10 04/17/20 07:10 Labs: Laboratory Results - last 24 hr 04/16/20 04/16/20 04/16/20 17:10 17:10 18:07 WBC 5.89 RBC 4.39 Hgb 12.1 L Hct 38.7 L MCV 88.2 MCH 27.6 MCHC 31.3 L RDW 15.9 H Plt Count 219 MPV 9.3 Immature Gran % 0.2 Neutrophils % 75.6 Lymphocytes % 14.6 Monocytes % 7.8 Eosinophils % 1.5 Basophils % 0.3 Nucleated RBC % 0 Absolute Neutrophils 4.45 Absolute Lymphocytes 0.86 L Absolute Monocytes 0.46 Absolute Eosinophils 0.09 Absolute Basophils 0.02 PT 52.3 H INR 5.4 H* Sodium 136 Potassium 3.7 Chloride 93 L Carbon Dioxide 33.4 H Anion Gap 9.6 BUN 112 H* Creatinine 2.14 H Estimated GFR/1.73 m2 31.57 Glucose 69 L Calcium 9.0 Magnesium 1.8 Total Bilirubin 1.0 AST 25 ALT 13 L Alkaline Phosphatase 85 Troponin I < 0.05 NT-Pro-B Natriuret Pep 7306 H Total Protein 7.4 Albumin 3.2 L Last Vital Signs Temp 36.3 C L 04/16/20 20:47 Pulse 103 H 04/16/20 20:47 Resp 24 04/16/20 20:47 BP 108/82 04/16/20 20:47 Pulse Ox 96 04/16/20 20:47 COVID-19 Screening Have you,or household,traveled outside [place] in last 14 days?: Yes Had IN PERSON contact w/suspected or confirmed C-19 person: No
[2020-04-16 21:33] LABS: Troponin I < 0.05 ng/mL (<0.06)
[2020-04-16] MEDS: Metoprolol 25 MG TAB 12.5 MG PO (23:17)
[2020-04-16] MEDS: Gabapentin 300 MG CAP 600 MG PO (23:17)
[2020-04-16] MEDS: Cephalexin 500 MG CAP PO (23:17)
[2020-04-16] MEDS: Insulin Aspart 300 UNITS/3 ML PEN SC (23:18)
[2020-04-17 01:58] VITALS: BP 113/88; PULSE 58; RESP 18; TEMP 36.2; O2SAT 93
[2020-04-17 03:34] VITALS: BP 106/76; PULSE 96; RESP 19; TEMP 36.7; O2SAT 94
[2020-04-17] MEDS: Normal Saline 250 ML 50 ML IV (03:52)
[2020-04-17] MEDS: Normal Saline Flush 10 ML SYR IVP (03:53)
[2020-04-17 07:30] VITALS: BP 113/82; PULSE 74; RESP 18; TEMP 36.5; O2SAT 96
[2020-04-17 08:10] LABS: Prothrombin Time 43.2 sec (9.3-11.0)
[2020-04-17 08:13] LABS: Anion Gap 10.7 mmol/L (3-11); CO2 31.3 mmol/L (21.0-32.0); CREATININE 1.97 mg/dL (0.70-1.30); Calcium 8.8 mg/dL (8.5-10.1); Chloride 92 mmol/L (98-107); Estimated GFR 34.74 (mL/min/1.73m2); Glucose 143 mg/dL (74-106); Potassium 3.4 mmol/L (3.5-5.1); Sodium 134 mmol/L (136-145)
[2020-04-17 08:32] LABS: BUN 111 mg/dL (7-18)
[2020-04-17 08:34] LABS: INR 4.5 (0.9-1.1)
[2020-04-17] MEDS: Metoprolol 25 MG TAB 12.5 MG PO ×2 (08:36→19:45)
[2020-04-17] MEDS: Simvastatin 20 MG TAB 40 MG PO (08:38)
[2020-04-17] MEDS: Cephalexin 500 MG CAP PO ×3 (08:38→19:41)
[2020-04-17 11:09] VITALS: BP 120/83; PULSE 103; RESP 19; TEMP 36.4; O2SAT 96
[2020-04-17] MEDS: Insulin Aspart 300 UNITS/3 ML PEN SC ×3 (11:56→21:20)
[2020-04-17] MEDS: Potassium Chloride 20 MEQ TABCR PO (11:56)
--- NOTE | 2020-04-17 12:02 | W.PM.PROGNOT ---
Date of Service Date of service: 04/17/20 Time of Service: 12:02 Assessment and Plan Assessment and plan (1) Acute kidney injury: Status: Acute Assessment and plan: Prerenal azotemia secondary to over diuretic use. Continue to withhold his diuretics. No further IV fluids are indicated at this time. We will allow his renal function to stabilized with oral hydration alone. (2) Dehydration: Status: Acute Assessment and plan: Improving. At this point no further IV fluids will be given however his oral diuretics will be kept on hold. (3) Cellulitis and abscess of lower extremity: Status: Acute Assessment and plan: Currently on day 5 of a 7-day course of Keflex. We will treat him for a full 10 days. Continue local wound care per wound care nurse. (4) Nonischemic cardiomyopathy: Status: Acute Assessment and plan: Continue his metoprolol. Continue to hold his metolazone and his torsemide. Consideration should be given towards use of a vasodilator such as hydralazine or combination hydralazine and Imdur to treat his cardiomyopathy. (5) Obstructive sleep apnea: Status: Chronic Assessment and plan: Continue CPAP and monitor oxygen saturation overnight. (6) Supratherapeutic INR: Status: Acute Assessment and plan: Withhold his Coumadin and recheck his INR in the morning. (7) Venous stasis ulcers of both lower extremities: Status: Acute Assessment and plan: consult wound care nurse to evaluate and treat his wounds. Per [facility] [place] care [place] they instructed him to wash his wounds daily w/ dermal wound cleanser and to apply mepilex transfer and optilock over broken skin areas, extending the dressing onto intact periwound skin by approx. 1 cm. He was to apply protective skin ointment over intact skin. Profore wraps were to be applied in spiral fashion starting at the base of the toes and continuing in a spiral fashion up the legs to the knees w/ 50% overlap. See [facility] wound care clinic notes from 04/13/2020. (8) Diabetic peripheral neuropathy associated with type 2 diabetes mellitus: Status: Acute Assessment and plan: in light of his KELLY, I am witholding his metformin and glyburide and will treat w/ insulin sensitive sliding scale w/ adjustments daily based upon his response. He may need CHO coverage w/ additional Novolog and/or basal insulin however he is not usually on insulin and in light of his KELLY I will start on the lower corrective novolog scale. (9) DVT prophylaxis: Status: Acute Assessment and plan: He is currently supratherapeutic on his INR and therefore does not require coverage at this time and with his cellulitis and venous stasis ulcers, I am not ordering SCD or TEDS. Subjective Subjective Interval history since last seen: Patient has no new complaints. He denies any further dizziness or lightheadedness. No nausea or vomiting no abdominal pain. No dyspnea or chest pain. BUN/creatinine remain elevated at 111 and 1.97 respectively but are slightly improving. At this point I think he has had enough IV fluids and we will continue to withhold his diuretics while his renal function normalizes. His blood pressure is stabilized. He remains mildly tachycardic and in atrial fibrillation. His INR remains elevated at 4.5 and his warfarin remains on hold until his INR comes below 3. I told him that we can keep him overnight and encourage him to drink plenty of fluids. He will continue his Keflex for his cellulitis. Exam Narrative Exam Narrative: Morbidly obese male sitting up in his chair in no respiratory distress. He is alert and oriented person place time circumstance. Able to talk in complete paragraphs without any dyspnea. Neck is obese difficult to discern a JVD but no obvious distention. Lungs are clear to auscultation anteriorly and posteriorly. Heart irregular irregular with no appreciable murmur rub. Abdomen is obese soft and nontender. Skin reveals excoriation in the inguinal folds with what appears to be yeast and red rash. Lower extremities with 1+ bilateral pitting edema. His venous stasis skin ulcers have been dressed with bandages and I did not take them down to look at them today. Objective Objective Clinical Data: Abnormal lab results 04/16/20 04/16/20 04/16/20 Range/Units 17:10 17:10 18:07 Hgb 12.1 L (13.5-17.5) g/dL Hct 38.7 L (40.0-50.0) % MCHC 31.3 L (32.0-36.0) % RDW 15.9 H (11.8-14.1) % Absolute Lymphocytes 0.86 L (1.2-3.4) 10^3/uL PT 52.3 H (9.3-11.0) sec INR 5.4 H* (0.9-1.1) Sodium (136-145) mmol/L Potassium (3.5-5.1) mmol/L Chloride 93 L (98-107) mmol/L Carbon Dioxide 33.4 H (21.0-32.0) mmol/L BUN 112 H* (7-18) mg/dL Creatinine 2.14 H (0.70-1.30) mg/dL Glucose 69 L (74-106) mg/dL ALT 13 L (16-63) U/L NT-Pro-B Natriuret Pep 7306 H (<300) pg/mL Albumin 3.2 L (3.4-5.0) g/dL 04/17/20 04/17/20 Range/Units 07:10 07:10 Hgb (13.5-17.5) g/dL Hct (40.0-50.0) % MCHC (32.0-36.0) % RDW (11.8-14.1) % Absolute Lymphocytes (1.2-3.4) 10^3/uL PT 43.2 H (9.3-11.0) sec INR 4.5 H* D (0.9-1.1) Sodium 134 L (136-145) mmol/L Potassium 3.4 L (3.5-5.1) mmol/L Chloride 92 L (98-107) mmol/L Carbon Dioxide (21.0-32.0) mmol/L BUN 111 H* (7-18) mg/dL Creatinine 1.97 H (0.70-1.30) mg/dL Glucose 143 H (74-106) mg/dL ALT (16-63) U/L NT-Pro-B Natriuret Pep (<300) pg/mL Albumin (3.4-5.0) g/dL Vital Signs Temperature 36.4 C L 04/17/20 11:09 Temperature Source Temporal Artery Scan 04/17/20 11:09 Pulse 103 H 04/17/20 11:09 Pulse Rhythm Regular 04/16/20 23:25 Pulse 106 H 04/16/20 20:40 Respiratory Rate 19 04/17/20 11:09 Respiratory Effort 04/16/20 23:25 Respiratory Depth Normal 04/16/20 23:25 Respiratory Pattern Normal 04/16/20 23:25 Blood Pressure 120/83 04/17/20 11:09 Blood Pressure Mean 72 04/16/20 20:31 Pulse Oximetry 96 04/17/20 11:09 Oxygen Delivery Method Room Air 04/17/20 11:09 Oxygen Flow Rate 0 04/17/20 11:09 Pain Level 2 04/17/20 11:09 Comment 04/16/20 14:24 Intake & Output 04/16/20 04/17/20 04/17/20 23:59 11:59 23:59 Weight 157.759 kg Other: Urine Color Yellow Urine Appearance Clear Stool Size Moderate Stool Characteristics Formed Voiding Methods Toilet Laboratory Results WBC 5.89 10^3/uL (4.4-10.8) 04/16/20 17:10 RBC 4.39 10^6/uL (4.36-5.78) 04/16/20 17:10 Hgb 12.1 g/dL (13.5-17.5) L 04/16/20 17:10 Hct 38.7 % (40.0-50.0) L 04/16/20 17:10 MCV 88.2 fL (80-95) 04/16/20 17:10 MCH 27.6 pg (27.0-33.0) 04/16/20 17:10 MCHC 31.3 % (32.0-36.0) L 04/16/20 17:10 RDW 15.9 % (11.8-14.1) H 04/16/20 17:10 Plt Count 219 10^3/uL (130-400) 04/16/20 17:10 MPV 9.3 fL (8.0-11.0) 04/16/20 17:10 Immature Gran % 0.2 04/16/20 17:10 Neutrophils % 75.6 04/16/20 17:10 Lymphocytes % 14.6 04/16/20 17:10 Monocytes % 7.8 04/16/20 17:10 Eosinophils % 1.5 04/16/20 17:10 Basophils % 0.3 04/16/20 17:10 Nucleated RBC % 0 % 04/16/20 17:10 Absolute Neutrophils 4.45 10^3/uL (1.2-6.7) 04/16/20 17:10 Absolute Lymphocytes 0.86 10^3/uL (1.2-3.4) L 04/16/20 17:10 Absolute Monocytes 0.46 10^3/uL (0.1-0.8) 04/16/20 17:10 Absolute Eosinophils 0.09 10^3/uL (0.0-0.7) 04/16/20 17:10 Absolute Basophils 0.02 10^3/uL (0.0-0.2) 04/16/20 17:10 PT 43.2 sec (9.3-11.0) H 04/17/20 07:10 INR 4.5 (0.9-1.1) H* D 04/17/20 07:10 Sodium 134 mmol/L (136-145) L 04/17/20 07:10 Potassium 3.4 mmol/L (3.5-5.1) L 04/17/20 07:10 Chloride 92 mmol/L (98-107) L 04/17/20 07:10 Carbon Dioxide 31.3 mmol/L (21.0-32.0) 04/17/20 07:10 Anion Gap 10.7 mmol/L (3-11) 04/17/20 07:10 BUN 111 mg/dL (7-18) H* 04/17/20 07:10 Creatinine 1.97 mg/dL (0.70-1.30) H 04/17/20 07:10 Estimated GFR/1.73 m2 34.74 (mL/min/1.73m2) 04/17/20 07:10 Glucose 143 mg/dL (74-106) H 04/17/20 07:10 Calcium 8.8 mg/dL (8.5-10.1) 04/17/20 07:10 Magnesium 1.8 mg/dL (1.8-2.4) 04/16/20 17:10 Total Bilirubin 1.0 mg/dL (0.2-1.0) 04/16/20 17:10 AST 25 U/L (15-37) 04/16/20 17:10 ALT 13 U/L (16-63) L 04/16/20 17:10 Alkaline Phosphatase 85 U/L (46-116) 04/16/20 17:10 Troponin I < 0.05 ng/mL (<0.06) 04/16/20 21:06 NT-Pro-B Natriuret Pep 7306 pg/mL (<300) H 04/16/20 17:10 Total Protein 7.4 g/dL (6.4-8.2) 04/16/20 17:10 Albumin 3.2 g/dL (3.4-5.0) L 04/16/20 17:10
[2020-04-17 15:32] VITALS: BP 108/94; PULSE 102; RESP 18; TEMP 36.8; O2SAT 94
[2020-04-17 19:47] VITALS: BP 110/86; PULSE 117; RESP 16; TEMP 37.4; O2SAT 95
--- NOTE | 2020-04-17 19:58 | WOUNDCONS ---
- If Service Date Differs Date of service: 04/17/20 Time of Service: 18:00 Wound Initial Evaluation Narrative: Patient is a 59 yom who is being seen here fro prerenal azotemia and dehydration, Patient is being followed by [facility] wound clinic on Tuesdays weekly, and is seen at home by home health nursing on and Sunday. Patients H&P, Allergies, labs and other pertinent clinical data were reviewed. - Wound Left Anterior Tib/Fib(lower leg) Wound Type: Statis Ulcer Wound General Appearance: Draining, Denuded Wound Bed Greatest Portion: Dusky Red Wound Bed Lesser Portion: Blanched/Dull Wound Surrounding Tissue Appearance: Dark Red, Edematous, Edematous-pitting Percent of Wound Bed Granulated/Red: 0 Percent of Wound Bed Slough/Yellow: 0 Percent of Wound Bed Eschar/Black: 0 Wound Length: 5 cm Wound Width: 0.9 cm Wound Depth: 0.6 cm Wound Drainage Amount: Large Wound Drainage Odor: Strong Wound Drainage Description: Serous Wound Topical Solution/Irrigant: Antibiotic Irrigant Wound Debridement Method: Mechanical Wound Debridement Result: Healthy Tissue Revealed ( dark red tissue remained throughout) Wound Debridement Amount of Tissue Removed: Minimal Left Posterior Tib/Fib(lower leg) Wound Type: Statis Ulcer Wound General Appearance: Reddened, Draining, Denuded Wound Bed Greatest Portion: Dusky Red Wound Bed Lesser Portion: Blanched/Dull Wound Surrounding Tissue Appearance: Dark Red, Edematous, Edematous-pitting Percent of Wound Bed Granulated/Red: 0 Percent of Wound Bed Slough/Yellow: 0 Percent of Wound Bed Eschar/Black: 0 Wound Length: 5 cm Wound Width: 8 cm Wound Depth: 0.1 cm Wound Drainage Amount: Large Wound Drainage Odor: Strong Wound Drainage Description: Serous Wound Topical Solution/Irrigant: Antibiotic Irrigant Wound Debridement Method: Mechanical Wound Debridement Result: Healthy Tissue Revealed Wound Debridement Amount of Tissue Removed: Minimal Right Posterior Tib/Fib(lower leg) Wound Type: Statis Ulcer Wound General Appearance: Reddened, Draining, Denuded Wound Bed Greatest Portion: Dusky Red Wound Bed Lesser Portion: Blanched/Dull Wound Surrounding Tissue Appearance: Dark Red, Blanched/Dull, Edematous, Edematous-pitting Percent of Wound Bed Granulated/Red: 0 Percent of Wound Bed Slough/Yellow: 0 Percent of Wound Bed Eschar/Black: 0 Wound Length: 7 cm Wound Width: 13 cm Wound Depth: 0.1 cm Wound Drainage Amount: Large Wound Drainage Odor: Strong Wound Drainage Description: Serous Wound Topical Solution/Irrigant: Antibiotic Irrigant Wound Debridement Method: Mechanical Wound Debridement Result: Healthy Tissue Revealed Wound Debridement Amount of Tissue Removed: Minimal (minimal tissue removed) - Circulation, Sensation, Motion Edema Degree: 3+ Peripheral Pulse Strength: Weak Capillary Refill: Greater than 3 seconds Sensation Description: Pain Skin Temperature: Cool Skin Color: Dusky - Pain Pain Level: 5 Pain Scale Used: Adult Pain Description: Sharp Pain Duration/Frequency: With Movement (with the dressing change) Patient with draining statis ulcers on both legs, followed by [facility] wound clinic and with additional wound dressings changed by home health nursing. Will attempt to follow their treatment plan as close as we are able as per home health nursing treatment has been helping. No compression to the left leg secondary to the cellulitis - Treatment/Dressing Change Topicals/Ointments: None Cleanse With: Anasept Dressing Types: Foam, Pressure Dressing, Opti-Lock - Recomendation Recomendation:: anterior and posterior left leg. Cleanse with Anasept spray and Debrisoft sponge, pat dry. Apply Optiloc, cover with Mepilex foam dressing, wrap with conform, and secure with tubigrip. Change every 3 days or prn if soiled and dislodged. Posterior Right leg Cleanse with Anasept spray, and Debrisoft sponge, pat dry. Apply Optiloc dressing, cover with Mepilex foam Dressing and secure with Coflex 2 layer compression system. Change every 3 days or prn if soiled or dislodged. Physcian/Nurse Practioner Notified: Yes (Dr. Lang) Treatment Time - Time Total Time Spent with Patient: 40 minutes - Patient Will be Seen Weekly Treatment: 3x/wk - For: For:: 2 weeks (or until he can follow up with [facility] wound clinic)
--- NOTE | 2020-04-17 20:56 | INITIAL_ITS ---
- If Service Date Differs Date of service: 04/17/20 Time of Service: 20:56 Care Management Initial Assess REASON FOR HOSPITALIZATION:: Dehydrated, LINSEY PAST MEDICAL HISTORY/PAST SURGICAL HISTORY:: Medical History (Updated 04/16/20 @ 21:42 by Avelino Lang). Acute kidney injury (nontraumatic) (Resolved). Associated with dehydration secondary to overdiuresis for treatment of his CHF. Atrial fibrillation (Chronic). Cellulitis and abscess of lower extremity (Acute). Chronic venous insufficiency of lower extremity (Acute). Coronary artery disease (Chronic). Non-hemodynamic diffuse disease per cardiac catheterization from [facility] October 28, [address] Heladio Harkins. Diabetic peripheral neuropathy associated with type 2 diabetes mellitus (Acute). Morbid obesity with BMI of 50.0-59.9, adult (Acute). Nonischemic cardiomyopathy (Acute). LVEF 35% with diffuse hypokinesis and septal wall motion abnormality due to bundle branch block, moderately dilated and moderately reduced RV systolic function, mild mitral regurgitation, mild tricuspid regurgitation, mild dilatation aortic root and moderate dilatation of ascending aorta per transthoracic echocardiogram from [facility] October 22, 2019. Obstructive sleep apnea (Chronic). Wear CPAP mask. Orthostatic hypotension (Resolved). Venous stasis ulcers of both lower extremities (Acute). Surgical History (Updated 04/16/20 @ 21:40 by Avelino Lang). H/O cardiac ca theterization (Chronic 10/28/19). Cardiac catheterization per Dr. Heladio Harkins at [facility], 10/28/2019, mild diffuse nonobstructive coronary artery disease with right coronary dominance and elevated left ventricular end-diastolic pressures, less than 25% narrowing of the left main coronary artery, less than 25% stenosis of the LAD, less than 25% stenosis of left circumflex, less than 25% stenosis of RCA. PREVIOUS FUNCTIONAL STATUS/SOCIAL/FAMILY SUPPORTS:: Barrie lives in [place], alone. He has friends and family that live closeby and check in on him regularly. He is disabled, but independent with his ADL's. CURRENT FUNCTIONAL STATUS:: Barrie was lying in bed when CM met with him. He stated that CM could speak with him, but he was very tired and would remain lying on his side. He stated that he may be ready to discharge tomorrow, per provider. CM will continue to follow. ADVANCE DIRECTIVES:: On file, Ban Peacock (daughter) listed as agent. Has patient been provided with info about the portal/API?: No Did the patient sign up for the portal?: No CODE STATUS:: Full Code INSURANCE COVERAGE / FINANCIAL ISSUES:: JESSICA LIZARRAGA CURRENT HOME/COMMUNITY SERVICES/EQUIPMENT:: Barrie is currently receiving HH Rn. PRIMARY CARE PHYSICIAN:: Laura Martinez POTENTIAL DISCHARGE NEEDS:: Evaluations for further needs, follow up appointme nts PATIENT/FAMILY EDUCATION NEEDS:: Review discharge instructions, discuss ask me three ANTICIPATED BARRIERS TO DISCHARGE:: None identified at this time. TRANSPORTATION:: Via private vehicle by family. PLAN:: Anticipate Barrie will return home with a resumption of HH RN when medically cleared. He will be driven home via private vehicle when ready. He will follow up with his PCP and discharge plan of care. CM will continue to follow.
[2020-04-17 21:01] LABS: COVID-19 RT-PCR UVMMC Result Negative (Negative)
[2020-04-17] MEDS: Gabapentin 300 MG CAP 600 MG PO (21:20)
[2020-04-18 04:10] VITALS: BP 113/71; PULSE 52; RESP 19; TEMP 36.6; O2SAT 95
[2020-04-18 07:51] LABS: INR 2.6 (0.9-1.1); Prothrombin Time 25.5 sec (9.3-11.0)
[2020-04-18 07:53] LABS: Anion Gap 10.6 mmol/L (3-11); CO2 30.4 mmol/L (21.0-32.0); CREATININE 1.92 mg/dL (0.70-1.30); Chloride 92 mmol/L (98-107); Estimated GFR 35.78 (mL/min/1.73m2); Glucose 131 mg/dL (74-106); Sodium 133 mmol/L (136-145)
[2020-04-18 08:02] LABS: BUN 115 mg/dL (7-18)
[2020-04-18] MEDS: Cephalexin 500 MG CAP PO ×3 (08:11→20:09)
[2020-04-18] MEDS: Metoprolol 25 MG TAB 12.5 MG PO ×2 (08:11→20:08)
[2020-04-18] MEDS: Simvastatin 20 MG TAB 40 MG PO (08:11)
[2020-04-18 08:34] VITALS: BP 115/85; PULSE 81; RESP 18; TEMP 36; O2SAT 97
[2020-04-18] MEDS: Potassium Chloride 20 MEQ TABCR 40 MEQ PO (11:30)
[2020-04-18] MEDS: Normal Saline 250 ML 50 ML IV (11:31)
[2020-04-18 11:57] VITALS: BP 132/65; PULSE 60; RESP 19; TEMP 36; O2SAT 99
[2020-04-18] MEDS: Insulin Aspart 300 UNITS/3 ML PEN SC ×3 (12:10→21:39)
[2020-04-18 12:21] LABS: Magnesium 1.9 mg/dL (1.8-2.4)
--- NOTE | 2020-04-18 13:28 | W.PM.PROGNOT ---
Date of Service Date of service: 04/18/20 Time of Service: 13:28 Assessment and Plan Assessment and plan (1) Acute kidney injury: Status: Acute Assessment and plan: Prerenal azotemia secondary to over diuretic use. Continue to withhold his diuretics. Renal function is not returning as quickly as at home. May give another fluid challenge of 250 mL over 5 hours. (2) Dehydration: Status: Acute Assessment and plan: Improving. Continue holding his diuretics. (3) Cellulitis and abscess of lower extremity: Status: Acute Assessment and plan: Currently on day 6 of a 7-day course of Keflex originally prescribed by his wound care nurse at [facility]. We will treat him for a full 10 days. Continue local wound care per wound care nurse. (4) Nonischemic cardiomyopathy: Status: Acute Assessment and plan: Continue his metoprolol. Continue to hold his metolazone and his torsemide. Consideration should be given towards use of a vasodilator such as hydralazine or combination hydralazine and Imdur to treat his cardiomyopathy. (5) Obstructive sleep apnea: Status: Chronic Assessment and plan: Continue CPAP and monitor oxygen saturation overnight. (6) Supratherapeutic INR: Status: Acute Assessment and plan: Resume warfarin 5 mg nightly. Continue daily monitoring of his INR. (7) Venous stasis ulcers of both lower extremities: Status: Acute Assessment and plan: Patient had a wound care consult yesterday. See nurses recommendations for wound care. (8) Diabetic peripheral neuropathy associated with type 2 diabetes mellitus: Status: Acute Assessment and plan: in light of his KELLY, I am witholding his metformin and glyburide and will treat w/ insulin sensitive sliding scale w/ adjustments daily based upon his response. He may need CHO coverage w/ additional Novolog and/or basal insulin however he is not usually on insulin and in light of his KELLY I will start on the lower corrective novolog scale. (9) DVT prophylaxis: Status: Acute Assessment and plan: Resume warfarin 5 mg nightly with daily monitoring INR. (10) Right knee pain: Status: Acute Assessment and plan: Patient has known osteoarthritis is not a candidate for NSAIDs. We will check an x-ray of the right knee and consider orthopedic consult while he is here at the hospital for possible corticosteroid injection or injection hyaluronic acid derivative. Subjective Subjective Interval history since last seen: Patient's renal function and hyperkalemia still have not resolved despite continued withholding of his diuretics. BUN remains elevated at 115 and his creatinine remains elevated at 1.92 and his potassium is down to 3.0. Magnesium is now normal at 1.9. As far as a cellulitis of his left leg that seems to be improving there is no burning or tingling. His nurse had redressed the wound and I did not take down the dressing today to examine it. I will asked nursing to notify me during the dressing changes tomorrow so I can review how his cellulitis and his venous stasis ulcers are doing. New complaint involves right knee pain. I examined it appears to be swollen and is tender and feels slightly warm compared to the left knee. He normally sees an orthopedic surgeon down in [place] Dr. Alford who is done hip injections. Patient is not a candidate for any surgical procedure because of his severe cardiomyopathy however I will get an x-ray of the right knee will consult with orthopedic surgery to see if he might benefit from an injection of the knee with hyaluronic acid derivative. Patient denies any nausea or vomiting. No chest pain and no dyspnea. His INR is back down to therapeutic range at 2.6. I will resume his warfarin tonight. Exam Narrative Exam Narrative: Obese male alert and oriented person place time circumstance. Lungs are clear to auscultation. Heart is irregularly irregular Abdomen is obese soft and nontender. Lower extremities both lower legs are bandaged and I could not examine the venous stasis ulcers or cellulitis of his left leg. Examination of his knees reveals osteoarthritic changes and there is some swelling and tenderness of the right knee which feels slightly warmer compared to the left. Objective Objective Clinical Data: Abnormal lab results 04/18/20 04/18/20 Range/Units 07:09 07:09 PT 25.5 H D (9.3-11.0) sec INR 2.6 H D (0.9-1.1) Sodium 133 L (136-145) mmol/L Potassium 3.0 L (3.5-5.1) mmol/L Chloride 92 L (98-107) mmol/L BUN 115 H* (7-18) mg/dL Creatinine 1.92 H (0.70-1.30) mg/dL Glucose 131 H (74-106) mg/dL Vital Signs Temperature 36 C L 04/18/20 11:57 Temperature Source Tympanic 04/18/20 11:57 Pulse 60 04/18/20 11:57 Pulse Rhythm Irregular 04/18/20 10:52 Pulse 106 H 04/16/20 20:40 Respiratory Rate 19 04/18/20 11:57 Respiratory Effort 04/18/20 10:52 Respiratory Depth Normal 04/18/20 10:52 Respiratory Pattern Normal 04/18/20 10:52 Blood Pressure 132/65 04/18/20 11:57 Blood Pressure Mean 72 04/16/20 20:31 Pulse Oximetry 99 04/18/20 11:57 Oxygen Delivery Method Room Air 04/18/20 11:57 Oxygen Flow Rate 0 04/18/20 11:57 Pain Level 1 04/18/20 11:57 Comment 04/16/20 14:24 Intake & Output 04/17/20 04/18/20 04/18/20 23:59 11:59 23:59 Intake Total 740 / 980 Balance 740 / 980 Intake: IV 250 / 250 Oral 490 / 730 Other: Urine Color Yellow Urine Appearance Clear Clear Urine Odor Foul Comment amount unknown pT urinated in toilet. pt was very incontinet Stool Size Smear Stool Characteristics Brown Voiding Methods Toilet Laboratory Results WBC 5.89 10^3/uL (4.4-10.8) 04/16/20 17:10 RBC 4.39 10^6/uL (4.36-5.78) 04/16/20 17:10 Hgb 12.1 g/dL (13.5-17.5) L 04/16/20 17:10 Hct 38.7 % (40.0-50.0) L 04/16/20 17:10 MCV 88.2 fL (80-95) 04/16/20 17:10 MCH 27.6 pg (27.0-33.0) 04/16/20 17:10 MCHC 31.3 % (32.0-36.0) L 04/16/20 17:10 RDW 15.9 % (11.8-14.1) H 04/16/20 17:10 Plt Count 219 10^3/uL (130-400) 04/16/20 17:10 MPV 9.3 fL (8.0-11.0) 04/16/20 17:10 Immature Gran % 0.2 04/16/20 17:10 Neutrophils % 75.6 04/16/20 17:10 Lymphocytes % 14.6 04/16/20 17:10 Monocytes % 7.8 04/16/20 17:10 Eosinophils % 1.5 04/16/20 17:10 Basophils % 0.3 04/16/20 17:10 Nucleated RBC % 0 % 04/16/20 17:10 Absolute Neutrophils 4.45 10^3/uL (1.2-6.7) 04/16/20 17:10 Absolute Lymphocytes 0.86 10^3/uL (1.2-3.4) L 04/16/20 17:10 Absolute Monocytes 0.46 10^3/uL (0.1-0.8) 04/16/20 17:10 Absolute Eosinophils 0.09 10^3/uL (0.0-0.7) 04/16/20 17:10 Absolute Basophils 0.02 10^3/uL (0.0-0.2) 04/16/20 17:10 PT 25.5 sec (9.3-11.0) H D 04/18/20 07:09 INR 2.6 (0.9-1.1) H D 04/18/20 07:09 Sodium 133 mmol/L (136-145) L 04/18/20 07:09 Potassium 3.0 mmol/L (3.5-5.1) L 04/18/20 07:09 Chloride 92 mmol/L (98-107) L 04/18/20 07:09 Carbon Dioxide 30.4 mmol/L (21.0-32.0) 04/18/20 07:09 Anion Gap 10.6 mmol/L (3-11) 04/18/20 07:09 BUN 115 mg/dL (7-18) H* 04/18/20 07:09 Creatinine 1.92 mg/dL (0.70-1.30) H 04/18/20 07:09 Estimated GFR/1.73 m2 35.78 (mL/min/1.73m2) 04/18/20 07:09 Glucose 131 mg/dL (74-106) H 04/18/20 07:09 Calcium 9.0 mg/dL (8.5-10.1) 04/18/20 07:09 Magnesium 1.9 mg/dL (1.8-2.4) 04/18/20 07:09 Total Bilirubin 1.0 mg/dL (0.2-1.0) 04/16/20 17:10 AST 25 U/L (15-37) 04/16/20 17:10 ALT 13 U/L (16-63) L 04/16/20 17:10 Alkaline Phosphatase 85 U/L (46-116) 04/16/20 17:10 Troponin I < 0.05 ng/mL (<0.06) 04/16/20 21:06 NT-Pro-B Natriuret Pep 7306 pg/mL (<300) H 04/16/20 17:10 Total Protein 7.4 g/dL (6.4-8.2) 04/16/20 17:10 Albumin 3.2 g/dL (3.4-5.0) L 04/16/20 17:10 COVID-19 PCR Negative (Negative) 04/16/20 21:16 Nasopharyn COVID-19 PCR Not Applicable 04/16/20 21:16 Ref Test [facility]form [facility] 04/16/20 21:16
[2020-04-18] MEDS: Acetaminophen 325 MG TAB PO (13:46)
[2020-04-18] MEDS: Potassium Chloride 20 MEQ TABCR PO ×2 (13:47→20:09)
--- NOTE | 2020-04-18 14:25 | DI.RAD_ITS ---
EXAM: XR KNEE RT 2V AP,LAT CLINICAL HISTORY: Right knee pain and swelling TECHNIQUE: COMPARISON: No exams were available for comparison FINDINGS: Two views were obtained. There appear to be mild degenerative changes of the joints of the knee. No other bony or soft tissue abnormality seen. IMPRESSION: RADIATION DOSE DELIVERED: Total DLP
[2020-04-18 15:50] VITALS: BP 115/83; PULSE 79; RESP 21; TEMP 36.8; O2SAT 95
--- NOTE | 2020-04-18 17:48 | CMPROGNOTE_ITS ---
- If Service Date Differs Date of service: 04/18/20 Time of Service: 17:48 Care Management Progress Note S/O: Per report, Barrie's renal function and hyperkalemia still have not resolved. He is now complaining of knee pain, which the provider ordered an xray for. Provider may consult Ortho regarding the management of this pain. CM will continue to follow. A: Barrie is a 59 year old male admitted to [facility] on 04/16/20 for KELLY. P: Anticipate Barrie will return home with a resumption of RN when medically cleared. He will be driven home via private vehicle when ready. He will follow up with his PCP and discharge plan of care. CM will continue to follow.
[2020-04-18] MEDS: Warfarin 5 MG TAB PO (20:09)
[2020-04-18] MEDS: Normal Saline Flush 10 ML SYR IVP (20:09)
[2020-04-18 20:11] VITALS: BP 118/78; PULSE 105; RESP 20; TEMP 36.6; O2SAT 97
[2020-04-18] MEDS: Gabapentin 300 MG CAP 600 MG PO (21:40)
[2020-04-19 00:18] VITALS: BP 113/81; PULSE 68; RESP 22; TEMP 36.8; O2SAT 97
[2020-04-19] MEDS: Acetaminophen 325 MG TAB PO (01:04)
[2020-04-19 07:10] VITALS: BP 129/87; PULSE 80; RESP 19; TEMP 36.6; O2SAT 95
[2020-04-19 08:10] LABS: Anion Gap 9.3 mmol/L (3-11); C-Reactive Protein 5.44 mg/dL (0.0-0.3); CO2 28.7 mmol/L (21.0-32.0); CREATININE 1.77 mg/dL (0.70-1.30); Calcium 9.2 mg/dL (8.5-10.1); Chloride 93 mmol/L (98-107); Estimated GFR 39.31 (mL/min/1.73m2); Glucose 144 mg/dL (74-106); Sodium 131 mmol/L (136-145)
[2020-04-19 08:11] LABS: INR 1.8 (0.9-1.1); Prothrombin Time 18.2 sec (9.3-11.0)
[2020-04-19 08:15] LABS: BUN 112 mg/dL (7-18)
[2020-04-19] MEDS: Cephalexin 500 MG CAP PO ×2 (10:04→15:07)
[2020-04-19] MEDS: Metoprolol 25 MG TAB 12.5 MG PO (10:04)
[2020-04-19] MEDS: Simvastatin 20 MG TAB 40 MG PO (10:04)
[2020-04-19] MEDS: Potassium Chloride 20 MEQ TABCR PO ×2 (10:05→15:06)
--- NOTE | 2020-04-19 11:13 | PDOC.CMPRO ---
Care Management Progress Note S/O: Barrie continues to be closely monitored. Wound care continues to be followed per recommendations by wound care nurse at [facility] for 10 days total; per MD. CM continues to follow. A: Barrie is a 59 year old male admitted to [facility] on 04/16/20 for KELLY. P: Anticipate Barrie will return home with a resumption of RN when medically cleared. He will be driven home via private vehicle when ready. He will follow up with his PCP and discharge plan of care. CM will continue to follow.
[2020-04-19 11:18] VITALS: BP 125/86; PULSE 90; RESP 18; TEMP 36.6; O2SAT 97
[2020-04-19] MEDS: Insulin Aspart 300 UNITS/3 ML PEN SC (12:11)
--- NOTE | 2020-04-19 14:12 | PDOC.CMDIS ---
LACE Index Scoring Tool - Questions: Length of Stay (in days): 3 Acuity (Admit via E.D.?): Yes Comorbidities: Diabetes w/o Complication, Liver or Renal Disease E.D. Visits: 3 - Answers: Total Score: 14 Risk of Readmission: High Risk Care Management Discharge Reason for Hospitalization: Dehydrated, LINSEY Discharge Plan: Barrie will return home with a resumption of HH RN when medically cleared. He will be driven home via private vehicle when ready. He will follow up with his PCP and discharge plan of care. CM will continue to follow. Patient/Family Education Needs: Review discharge instructions, discuss Ask Me Three. Services Needed at Discharge: Home Health Care Services (Resume RN )
--- NOTE | 2020-04-19 14:26 | W.PM.DS.N ---
Date of service: 04/19/20 Time of Service: 14:26 DS: Diagnosis Discharge Diagnosis (1) Acute kidney injury: Status: Acute Asessment and Plan: Patient's acute renal dysfunction improved with gentle IV fluid hydration and cessation of his diuretics. His admission BUN was 112 and his creatinine was 2.14 and at the time of discharge his BUN remained elevated at 112 but his creatinine is down to 1.77. He has hypokalemia resolved with supplementation with a final potassium level 4.0. Patient's metolazone was discontinued and his torsemide dose was reduced to 40 mg once a day. Diuretics were withheld throughout his hospital stay but he should resume his torsemide starting tomorrow with a follow-up BMP in 3 days. He should continue to monitor his daily weight and report any weight gain of 3 pounds or more. (2) Dehydration: Status: Resolved Asessment and Plan: As above (3) Cellulitis and abscess of lower extremity: Status: Acute Asessment and Plan: Patient has a left lower extremity cellulitis which appear to be improving. He had no fevers throughout his hospital stay and his admission CBC demonstrated normal white cell count of 5800. Wound care nurse saw the patient and dressed his wounds. Patient is to continue his current dose of Keflex 5 mg p.o. 3 times daily until finished. He is to follow-up with the wound care clinic at [facility] tomorrow. (4) Nonischemic cardiomyopathy: Status: Chronic Asessment and Plan: Patient had serial troponins checked and they came back negative at less than 0.05. proBNP was elevated on admission at 7300 however clinically he did not appear to be in acute congestive failure although he has chronic bilateral leg edema. He had no dyspnea and no chest pain. Patient was kept on his home dose of Lopressor 12.5 mg p.o. twice daily however his torsemide and his metolazone were withheld while he received IV fluid hydration. His electrolytes were corrected with supplemental potassium. His warfarin had to be withheld because of a high INR of 5.4 on admission. On the day prior to discharge his warfarin was resumed at 5 mg every afternoon with a resulting INR of 1.8 on the day of discharge. His warfarin dose has been decreased to 5 mg every Sunday and Sunday and 2.5 mg all other evenings. Follow-up INR is to be checked in 3 days. (5) Obstructive sleep apnea: Status: Chronic Asessment and Plan: Patient was kept on CPAP at night he is to continue his home CPAP unit upon discharge. (6) Supratherapeutic INR: Status: Acute Asessment and Plan: Patient presented with a high INR 5.4 and by withholding his warfarin for couple of days it came down to 2.6 at which point warfarin was resumed at 5 mg every afternoon. Final INR was 1.8 on day of discharge. He is instructed to decrease his daily dose to 5 mg every Sunday and Sunday and 2.5 mg every Sunday and Sunday. Repeat INR to be done in 3 days. (7) Venous stasis ulcers of both lower extremities: Status: Acute Asessment and Plan: Patient received wound care treatment by the in the hospital wound care nurse specialist. Patient is to follow-up as an outpatient with [facility] tomorrow in their wound care clinic. (8) Diabetic peripheral neuropathy associated with type 2 diabetes mellitus: Status: Chronic Asessment and Plan: Patient was treated with sliding scale NovoLog insulin throughout his hospital stay. Upon discharge he is to resume his home dose of glimepiride however because of his severe congestive heart failure as well as chronic kidney disease his metformin should be discontinued on a permanent basis. I would recommend close follow-up with his PCP to discuss basal bolus insulin therapy. (9) Right knee pain: Status: Chronic Asessment and Plan: Patient had complained of right knee pain. Apparently has longstanding osteoarthritis. An x-ray was obtained during his hospital stay and this demonstrated osteoarthritis of the right knee with no other bony or soft tissue abnormality seen. Patient is advised not to use nonsteroidal anti-inflammatory drugs however he may use Tylenol 325-650 mg p.o. 4 times daily as needed pain with a limit of 3 g/day. He is also allowed to use icy hot or capsaicin cream to sore joints as needed. He could also try using an ice pack. (10) Osteoarthritis, knee: Status: Chronic Asessment and Plan: Patient is to avoid use of nonsteroidal anti-inflammatory drugs in treatment of his osteoarthritis. He may use Tylenol to exceed 3 g/day. Recommend use IcyHot or other similar ointments to be applied to his joints as needed. Discharge Plan Disposition Patient Disposition: HOME W/HOME HEALTH SERVICE Condition: Improving Discharge Details Chief Complaint: GenMedical Clinical Impression: Acute kidney injury, Supratherapeutic INR Reason For Visit: DEHYDRATED, LINSEY Admit Date/Time: 04/18/20 09:55 Admit Provider: Avelino Lang Attending Provider: Avelino Lang Primary Care Provider: Laura Martinez ED Provider: Haider Rosen Hospital Course Hospital Course: 59-year-old male with a history of severe nonischemic cardiomyopathy with left ventricular ejection fraction 35% per his last DAPHNIE from October 2019, chronic atrial fibrillation on anticoagulation with warfarin, LAURENCE for which he wears CPAP mask, diabetes mellitus with peripheral neuropathy, history of left popliteal vein DVT diagnosed in November 24, 2019, chronic venous stasis ulcers chronic bilateral leg edema and recently diagnosed with cellulitis of his left leg by his wound care nurse. He comes into the hospital acutely dehydrated with acute kidney injury with a BUN of 112 and a creatinine of 2.14. Apparently because of his recent weight gain his care transition mgr has been adjusting his diuretic dose and increase his torsemide from 40 mg daily to 40 mg twice a day and then up to 80 mg twice a day and most recently 100 mg twice a day. He also takes metolazone every other day. He had a similar episode for which she was hospitalized at [facility] on November 24, 2019. 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 Troponin levels were checked and were negative. His proBNP was elevated at 7300 in spite of his prerenal azotemia. He was not short of breath not having any chest pain and no syncope or near syncope. His INR was also found to be elevated at 5.4. In the emergency room he was given normal saline 250 mL IV bolus and admitted to the hospital for rehydration and cessation of his diuretics. Upon admission he was given another 250 mL saline infusion slowly over a 5-hour. On the following morning his BUN had still been elevated at 111 but his creatinine is now down to 1.97. However his potassium dropped down to 3.4. Over the next couple days his diuretics were continued to be put on hold while we monitor his renal function. On April 18, 2020 his BUN was still elevated at 115 and creatinine 1.92 at which point another fluid challenge of 250 mL was given over a 5-hour period. His potassium continued to be low at 3.0 despite being given oral supplementation. Over the next 24 hours his potassium was corrected on the day of discharge his potassium was up to 4.0 and his creatinine was now down to 1.77. This appears to be about his baseline creatinine from earlier this summer we was checked in April 02 was 1.71. However of note his creatinine had been even better yet back in January when it was 1.0. At this point since the patient is eating and drinking adequately with no symptoms of dyspnea or nausea or vomiting and no evidence of diarrhea or other ongoing fluid losses it is felt he can be discharged home. We will hold his diuretics for another day and then tomorrow he will resume his torsemide at a reduced dose of 40 mg daily. As for his warfarin it was kept on hold until the day prior to discharge with his INR had finally come down to 2.6 as warfarin has been resumed at 5 mg nightly. On the day of discharge his INR was 1.8 and he should have a follow-up INR and BMP in 3 days. Patient has home health services which will be resumed including home visiting nurse which can draw his pro time and BMP this 3 days from now. Patient is advised to weigh himself daily and report to his PCP or visiting nurse any weight gain of 3 pounds or more. Patient is to keep his follow-up with wound care clinic at [facility] for tomorrow. Until then he is to continue following their directions regarding wound care and to finish out his current course of Keflex. Patient was kept on Keflex 500 mg p.o. 3 times daily throughout his hospital stay and wound care nurse did see the patient and provide dressing changes. Home Meds and New Rx's Prescriptions: New warfarin 5 mg tablet See Rx Instructions .ROUTE .COMPLEX Qty: 1 RF: 0 Continued simvastatin 20 MG tablet 40 mg PO DAILY RF: 0 gabapentin 300 MG capsule 600 mg PO QHS RF: 0 budesonide-formoterol [Symbicort] 10.2 GM HFA aerosol inhaler 2 puff Inhalation BID RF: 0 Glyburide 2.5 MG Tablet 5 mg PO DAILY RF: 0 acetaminophen [Tylenol 8 Hour] 650 mg Tablet Extended Release 650 mg PO Q4H PRN PRNRF: 0 magnesium oxide 400 mg magnesium Tablet 400 mg PO BID RF: 0 metoprolol tartrate 25 mg Tablet 12.5 mg PO BID Qty: 28 RF: 0 cephalexin 500 mg capsule 500 mg PO TID RF: 0 Changed torsemide 20 mg tablet 40 mg PO DAILY Qty: 0 RF: 0 potassium chloride 10 mEq Tablet,Er Particles/Crystals 20 meq PO DAILY Qty: 0 RF: 0 Discontinued metformin [Glucophage] 1,000 MG tablet 1,000 mg PO BID RF: 0 warfarin [Coumadin] 5 mg Tablet 5 mg PO QPM Qty: 10 RF: 0 metolazone 5 mg tablet 5 mg PO Q OTHER DAY RF: 0 Discharge Instructions Instructions: Heart Failure (DC), Dehydration (DC), Acute Kidney Injury (DC), Cellulitis (DC) Additional Instructions: Keep your appointment with the wound care clinic at [facility] for tomorrow. Try to keep your legs elevated higher than the level of your chest and to continue current wound care dressings as prescribed by the wound care clinic. Finish out your current course of Keflex. Make a follow-up with your primary care provider within the next week. Be sure the visiting nurse sees you for lab draw this to include a BMP and a prothrombin time the results which should go to your primary care provider. Stand Alone Forms: Nursing Discharge Form Referrals: Laura Martinez [Primary Care Provider] - 04/23/20 11:30 am Activity:: Activity as Tolerated Equipment/Supplies:: No Equipment Needed Diet:: Carb Counting Discharge Orders Discharge Orders: Discharge Order (Routine); Ordered 04/19/20 Ordered By: Avelino Fitzpatrick Ambulatory Orders: Basic Metabolic Panel (Routine) Timeframe: 3 Days Location: None Selected Ordered By: Avelino Lang Prothrombin Time (Routine) Timeframe: 3 Days Location: None Selected Ordered By: Avelino Lang DS: Summary Status at Discharge Functional status at discharge: uses cane/walker Overall status at discharge: patient is progressing back to baseline Mental Status: mental status grossly normal Speech and Movement: speech and movement normal Mood: congruent mood Affect: normal affect Time Spent with Patient providing and/or coordinating discharge services: Greater than 30 minutes Exam Narrative Exam Narrative: Obese male sitting up in his chair alert and oriented person place time circumstance. Lungs are clear to auscultation Heart is irregularly irregular at a controlled rate Abdomen is obese soft and nontender. Legs with 2+ edema, both lower legs were dressed with fresh dressings and an Boyd wrap which I did not take down to examine today Psych Mental Status: mental status grossly normal Speech and Movement: speech and movement normal Mood: congruent mood Affect: normal affect DS: Data Vitals/I&O Vitals and I&O: Vital Signs Temperature 36.6 C 04/19/20 11:18 Temperature Source Temporal Artery Scan 04/19/20 11:18 Pulse 90 04/19/20 11:18 Pulse Rhythm Irregular 04/19/20 01:05 Pulse 106 H 04/16/20 20:40 Respiratory Rate 18 04/19/20 11:18 Respiratory Effort 04/19/20 01:05 Respiratory Depth Normal 04/19/20 01:05 Respiratory Pattern Normal 04/19/20 01:05 Blood Pressure 125/86 04/19/20 11:18 Blood Pressure Mean 72 04/16/20 20:31 Pulse Oximetry 97 04/19/20 11:18 Oxygen Delivery Method Room Air 04/19/20 11:18 Oxygen Flow Rate 0 04/19/20 11:18 Pain Level 0 04/19/20 11:18 Comment 04/16/20 14:24 Intake & Output 04/18/20 04/19/20 04/19/20 23:59 11:59 23:59 Intake Total 750 / 750 390 / 630 240 / 630 Balance 750 / 750 390 / 630 240 / 630 Weight 159.8 kg Intake: IV 260 / 260 Oral 490 / 490 390 / 630 240 / 630 Other: Urine Color Yellow Pale Yellow Urine Appearance Clear Urine Odor Normal Normal Comment Pt is incontinent of urine today. His brief was full of urine. Stool Size Large Stool Characteristics Formed Voiding Methods Incontinent Incontinent Data Completed and Pending Labs on day of discharge: Labs from last 24 hours 04/19/20 04/19/20 07:25 07:25 PT 18.2 H D INR 1.8 H D Sodium 131 L Potassium 4.0 D Chloride 93 L Carbon Dioxide 28.7 Anion Gap 9.3 BUN 112 H* Creatinine 1.77 H Estimated GFR/1.73 m2 39.31 Glucose 144 H Calcium 9.2 C-Reactive Protein 5.44 H PFSH Medical History (Updated 04/19/20 @ 14:29 by Avelino Lang) Acute kidney injury (nontraumatic) (Resolved) Associated with dehydration secondary to overdiuresis for treatment of his CHF Atrial fibrillation (Chronic) Cellulitis and abscess of lower extremity (Acute) Chronic venous insufficiency of lower extremity (Acute) Coronary artery disease (Chronic) Non-hemodynamic diffuse disease per cardiac catheterization from [facility] October 28, [address] Heladio Harkins Diabetic peripheral neuropathy associated with type 2 diabetes mellitus (Chronic) Morbid obesity with BMI of 50.0-59.9, adult (Acute) Nonischemic cardiomyopathy (Chronic) LVEF 35% with diffuse hypokinesis and septal wall motion abnormality due to bundle branch block, moderately dilated and moderately reduced RV systolic function, mild mitral regurgitation, mild tricuspid regurgitation, mild dilatation aortic root and moderate dilatation of ascending aorta per transthoracic echocardiogram from [facility] October 22, 2019. Obstructive sleep apnea (Chronic) Wear CPAP mask Orthostatic hypotension (Resolved) Osteoarthritis, knee (Chronic) Venous stasis ulcers of both lower extremities (Acute) Surgical History (Updated 04/16/20 @ 21:40 by Avelino Lang) H/O cardiac catheterization (Chronic 10/28/19) Cardiac catheterization per Dr. Heladio Harkins at [facility], 10/28/2019, mild diffuse nonobstructive coronary artery disease with right coronary dominance and elevated left ventricular end-diastolic pressures, less than 25% narrowing of the left main coronary artery, less than 25% stenosis of the LAD, less than 25% stenosis of left circumflex, less than 25% stenosis of RCA. Family History (Updated 04/17/20 @ 11:53 by Avelino Lang) Other Diabetes Heart disease Hyperlipidemia Hypertension Social History Smoking/Tobacco Use Status: Never Alcohol Intake: former Drug use: Never Details: no alcohol for 10 yrs Do you feel safe at home: Yes Do you feel safe in your relationship?: Yes
== END 2020-04-19 15:55 | disposition home health service (06) | DRG 683 ==
LOC: ER 18:45 → MS 21:45
PROVIDERS: Admitting Provider Internal Medicine; Emergency Provider Student in an Organized Health Care Education/Training Program; PCP Nurse Practitioner Family; Visit Provider Internal Medicine
DX: N17.9 Acute kidney failure, unspecified (principal); L03.116 Cellulitis of left lower limb; I48.20 Chronic atrial fibrillation, unspecified; I42.8 Other cardiomyopathies; Z68.43 Body mass index [BMI] 50.0-59.9, adult; L97.821 Non-pressure chronic ulcer of other part of left lower leg limited to breakdown of skin; L97.811 Non-pressure chronic ulcer of other part of right lower leg limited to breakdown of skin; Z79.01 Long term (current) use of anticoagulants; Z79.84 Long term (current) use of oral hypoglycemic drugs; I50.9 Heart failure, unspecified; R00.0 Tachycardia, unspecified; R79.1 Abnormal coagulation profile; E11.42 Type 2 diabetes mellitus with diabetic polyneuropathy; G47.33 Obstructive sleep apnea (adult) (pediatric); E86.0 Dehydration; I87.2 Venous insufficiency (chronic) (peripheral); I45.10 Unspecified right bundle-branch block; I25.2 Old myocardial infarction; I25.10 Atherosclerotic heart disease of native coronary artery without angina pectoris; E66.01 Morbid (severe) obesity due to excess calories; M17.11 Unilateral primary osteoarthritis, right knee; E87.5 Hyperkalemia; E87.6 Hypokalemia
CPT/HCPCS: 36415; 80048; 80053; 93005; 94640; 96360; 96361; 99220; 99225; 99232; 99239; 99285; U0003; 73560; 83735; 83880; 84484; 85025; 85610; 86140; 93010; G0378

== ENCOUNTER 2020-04-22 16:07 | Outpatient (REF) | payer BC, SELFPAY ==
[2020-04-22 17:21] LABS: Anion Gap 9.6 mmol/L (3-11); CO2 32.4 mmol/L (21.0-32.0); CREATININE 1.38 mg/dL (0.70-1.30); Calcium 9.2 mg/dL (8.5-10.1); Chloride 93 mmol/L (98-107); Estimated GFR 52.38 (mL/min/1.73m2); Glucose 134 mg/dL (74-106); Potassium 3.8 mmol/L (3.5-5.1); Sodium 135 mmol/L (136-145)
[2020-04-22 17:30] LABS: BUN 98 mg/dL (7-18)
== END 2020-04-22 16:27 ==
LOC: LBN 16:07
PROVIDERS: PCP Nurse Practitioner Family; Visit Provider Internal Medicine
DX: N17.9 Acute kidney failure, unspecified (principal); E86.0 Dehydration; E11.622 Type 2 diabetes mellitus with other skin ulcer
CPT/HCPCS: 80048

== ENCOUNTER 2020-05-17 11:15 | Outpatient (REF) | payer BC, SELFPAY | END 2020-05-17 11:35 | LOC: LBN 11:15 | PROVIDERS: PCP Nurse Practitioner Family; Visit Provider Nurse Practitioner Family | DX: I50.9 Heart failure, unspecified (principal); N17.9 Acute kidney failure, unspecified; Z53.8 Procedure and treatment not carried out for other reasons | CPT/HCPCS: 80048 ==

== ENCOUNTER 2020-05-18 06:49 | Inpatient (IN) | payer BC, SELFPAY ==
[2020-05-18] VITALS (84 sets, daily range): BP systolic 77–129; BP diastolic 19–99; PULSE 52–201; RESP 10–38; TEMP 35.7–36.4; O2SAT 90–100
--- NOTE | 2020-05-18 | DI.US_ITS ---
APPROVED REPORT EXAM: Comprehensive 2D, Doppler, and color-flow Echocardiogram Patient Location: In-Patient Room/Bed: [id number] Maternal Fetal Physician: Betty Montes RDCS (AE) Indications: Cardiomegaly Other Information Technically limited study due to body habitus and inability to position patient.. Conclusion Normal ventricular wall thickness and chamber size. Estimated ejection fraction is 35 to 40% with gl obal hypokinesis Both atria are moderately dilated The right ventricle is moderately enlarged and moderately hypocontractile The aortic valve is sclerotic with trace regurgitation. No aortic stenosis Mitral annular calcification, thickened mitral leaflets, mild mitral regurgitation Moderate tricuspid regurgitation. Estimated right ventricular systolic pressure is approximately 32 mmHg Trace physiologic pulmonic regurgitation Study overall was technically difficult, due in part to the fact that the patient was in atrial fibri llation with a moderately rapid ventricular response of 1 20-1 30 throughout Wall motion Left Ventricle The left ventricle is normal size. Left ventricular systolic function is moderately decreased. There is normal left ventricular wall thickness. There is global hypokinesis of the left ventricle. There i s no ventricular septal defect visualized. LVEF is 35-40%. Right Ventricle Right ventricle is moderately dilated. Right ventricle is moderately hypokinetic. Atria Left atrium is moderately dilated. Right atrium is moderately dilated. The interatrial septum is inta ct with no evidence for an atrial septal defect. Aortic Valve Moderate aortic valve sclerosis. Number of aortic valve leaflets could not be assessed. No hemodynami iggy significant valvular aortic stenosis. Trace aortic regurgitation. Mitral Valve Moderate mitral annular calcification. No evidence of mitral valve stenosis. Mild mitral regurgitatio n. Tricuspid Valve The tricuspid valve is normal in structure. There is no tricuspid valve stenosis. Moderate tricuspid regurgitation. Pulmonic Valve The pulmonary valve is normal in structure. There is no pulmonic valvular stenosis. Trace pulmonic re gurgitation. Great Vessels The aortic root is normal in size. The ascending aorta is mildly dilated. Aortic arch is normal in ca liber. IVC is normal in size and collapses >50% with inspiration. Pericardium There is no pericardial effusion. 2D Dimensions IVSD d PLAX 1.16 cm M: 0.6-1.2 LVPW d PLAX 1.19 cm M: 0.6 - 1.2 LVID d PLAX 5.52 cm M: 4.2 - 5.8 LVDs 4.30 cm M: 2.5 - 4.0 Ao Root d 3.19 cm M: 3.1 - 3.7 Ao Asc Diam d 3.83 cm M: 2.6 - 3.4 LV EF Anamika 43.6 % FS 21.75 % M-Mode TAPSE 1.58 cm (M/F) >1.7 LV Diastology MV E' lateral 0.113 (>0.1 m/s) MV E Vmax 1.05 (0.4-1.3 m/s) LV E/e LAT 9.20 (<14) MV E/E' lateral 9.24 Aortic Valve LVOT Area 4.44 cm2 AoV Area Vmax 3.41 cm2 LVOT Vmax 1.12 m/s AoV Area/ BSA (Vmax) 1.32 cm2/m2 LVOT Mean Aravind. 0.75 m/s SHERI Mean Aravind. 2.94 cm2 LVOT Peak Grad 5.0 mmHg SHERI Mean Aravind. Index 1.13 cm2/m2 LVOT Mean Grad 2.6 mmHg AR DT 2005 msec LVOT VTI 0.131 m AR PHT 582 msec LVOT Diam s 2.35 cm AoV Vmax 1.46 m/s Velocity Ratio 0.76 AoV Mean Aravind. 1.13 m/s AoV Peak Grad 8.5 mmHg LVOT SV 58.32 mL AoV Mean Grad 5.5 mmHg AoV VTI 0.175 m AoV Area VTI 3.32 cm2 AoV Area/ BSA (VTI) 1.28 cm/m2 Mitral Valve MV DT 122 (160-240 msec) MR Vmax 3.89 m/s MV PHT 35 msec MR VTI 0.957 m MV Area PHT 6.22 cm2 MR Peak Grad 60.5 mmHg MV VTI 0.239 m MR Mean Grad 43.0 mmHg MV VTI Annulus 0.229 m MR PISA Radius 0.54 cm MV Area VTI 2.36 (4.0-6.0 cm2) MR EROA 0.15 cm2 MR Aliasing Velocity 0.33 m/s MR PISA 1.81 cm2 Pulmonary Valve PV Vmax 0.58 (0.5-1.5 m/s) RVOT Peak Gr. 0.84 mmHg PV Peak Grad 1.4 mmHg RVOT Mean Gr. 0.40 mmHg PV Mean Grad 0.7 mmHg RVOT VTI 0.048 m PV VTI 0.064 m RVOT Vmax 0.46 m/s Tricuspid Valve TR Peak Grad 19.8 mmHg TR Vmax 2.23 m/s RA Pressure 3.00 mmHg RVSP (TR) 22.8 mmHg
--- NOTE | 2020-05-18 06:45 | RT.EKG_ITS ---
APPROVED REPORT Exam: Resting ECG Patient Location: E HR:104 bpm ECG Measurements Heart Rate 104 AXIS MN 152 P -37 QRSd 170 QRS -89 QT 449 T 81 QTc 592 Conclusion Sinus tachycardia with irregular rate...V-rate 63-124, variation>10% Left atrial enlargement...P, P'>60mS, <-0.15mV V1 Inferior infarct, old...Q >35mS, II III aVF Abnrm T, probable ischemia, anterolateral lds...T <-0.50mV, I aVL V2-V6
--- NOTE | 2020-05-18 07:00 | DI.US_ITS ---
EXAM: US EXTREMITY VENOUS BI CLINICAL HISTORY: leg swelling, pain. TECHNIQUE: Bilateral lower extremity venous ultrasound performed using grayscale, color-flow, and sp ectral Doppler analysis. COMPARISON: US US EXTREMITY VENOUS BI from 11/25/2019 FINDINGS: The bilateral common femoral, femoral and popliteal veins demonstrate normal compressibility, augment ation, and color Doppler. The posterior tibial veins are patent. The saphenofemoral junctions are unr emarkable. There is no evidence of a Doan's cyst. Edema is seen in the soft tissues of both lower ex tremities. IMPRESSION: Right: Negative for DVT Left: Negative for DVT DATA REPOSITORY:
--- NOTE | 2020-05-18 07:02 | ED.GENADUL_ITS ---
Discharge Plan Disposition Patient Disposition: [facility] INPATIENT Condition: Serious Discharge Details Clinical Impression: Acute leg pain, Bilateral leg weakness, Chronic ulcer of left leg, Hyperkalemia, Dizziness, Supratherapeutic INR, Lactic acidosis Primary Care Provider: Laura Martinez ED Provider: Roseanna Mcdowell Home Meds and New Rx's Prescriptions: No Action simvastatin 20 MG tablet 40 mg PO DAILY RF: 0 gabapentin 300 MG capsule 600 mg PO QHS RF: 0 budesonide-formoterol [Symbicort] 10.2 GM HFA aerosol inhaler 2 puff Inhalation BID RF: 0 Glyburide 2.5 MG Tablet 5 mg PO DAILY RF: 0 acetaminophen [Tylenol 8 Hour] 650 mg Tablet Extended Release 650 mg PO Q4H PRN PRNRF: 0 magnesium oxide 400 mg magnesium Tablet 400 mg PO BID RF: 0 metoprolol tartrate 25 mg Tablet 12.5 mg PO BID Qty: 28 RF: 0 cephalexin 500 mg capsule 500 mg PO TID RF: 0 warfarin 5 mg tablet See Rx Instructions .ROUTE .COMPLEX Qty: 1 RF: 0 torsemide 20 mg tablet 40 mg PO DAILY Qty: 0 RF: 0 potassium chloride 10 mEq Tablet,Er Particles/Crystals 20 meq PO DAILY Qty: 0 RF: 0 Medical Decision Making <Marty Ramirez MD - Last Filed: 05/18/20 07:09> 59 yo male with multiple medical problems including dvt on coumadin, chronic venous stasis ulcers, afib, who was admitted at the end of march in setting of eugenio due to over diuresis and also cellulitis of the lower extremity who comes in feeling weak in both legs this morning and increased pain in both calves. He denies any fevers, chills, headache, neck pain, chest pain, dyspnea, cough, abdominal pain. Both legs are edematous and have multiple ulcers of the legs in both extremities and does have pain and tenderness of both legs. He is able to lift both legs off the bed but can only hold them off the bed for a few seconds before they hit the bed again. I suspect his weakness could be due to his chronic edema and venous stasis but given increased this morning will evaluate for eugenio, anemia, electrolyte disorders and also obtain u/s to evaluate for new dvt vs abscess in the calves where he has his pain. He has no significant warmth to either leg so unlikely new cellulitis but will reasess the legs after labs and u/s for any changes pt will be signed out to oncoming provider pending lab results and imaging results. Differential Diagnosis Differential Diagnosis: dvt, abscess, ECG Data Attestation: I personally reviewed and interpreted this ECG (s) as follows: Prior ECG tracings: available for review Interpretation: afib, rate of 104, pr 152, qtc 592, no significant changes from baseline <Roseanna Mcdowell DO - Last Filed: 05/18/20 10:17> 0800 --please see Dr. Ramirez's note for initial presentation, exam and plan. Case endorsed to follow-up on labs and imaging. Labs and imaging reviewed. INR supratherapeutic at 3.7. Sodium 119. Potassium 6.5. BMP at baseline at 7224. TSH high at 10.85, no previous to compare. Normal free T4. Doppler ultrasounds negative for DVT or obvious abscess. Chest x-ray negative. We will treat hyperkalemia with calcium, bicarb, insulin and albuterol. Patient was admitted here last month for acute kidney injury and treated for hypokalemia. Patient complaining of shortness of breath but oxygen saturation within normal limits and lungs clear. He appears nontoxic but is morbidly obese with acute on chronic leg weakness and pain with weeping ulcers noted to his left lower extremity. He is neurovascularly intact. Will admit patient for treatment of hyperkalemia and continued monitoring of electrolytes, and for physical therapy evaluation. Patient may ultimately need placement as he is morbidly obese and has multiple chronic comorbidities. 0945 -- Case discussed with hospitalist accepts patient for admission. Medical Records Medical records reviewed: Yes I reviewed the patient's medical records. Imaging Data Radiologic Study: Radiologist's impression: XR CHEST 2V PA LATERAL CLINICAL HISTORY: weakness, ?chf vs pna TECHNIQUE: 2D digital imaging was performed. COMPARISON: No exams were available for comparison FINDINGS: MEDIASTINUM: Normal. HEART: Mild cardiomegaly. PULMONARY VASCULATURE: Normal. LUNGS: Clear. PLEURAL SPACE: No pleural effusion or pneumothorax. BONE:Degenerative changes in the spine and shoulders bilaterally. OTHER FINDINGS:Normal. IMPRESSION: 1. Mild cardiomegaly. 2. No acute pulmonary process. US EXTREMITY VENOUS BI CLINICAL HISTORY: leg swelling, pain. TECHNIQUE: Bilateral lower extremity venous ultrasound performed using grayscale, color-flow, and spectral Doppler analysis. COMPARISON: US US EXTREMITY VENOUS BI from 11/25/2019 FINDINGS: The bilateral common femoral, femoral and popliteal veins demonstrate normal compressibility, augmentation, and color Doppler. The posterior tibial veins are patent. The saphenofemoral junctions are unremarkable. There is no evidence of a Doan's cyst. Edema is seen in the soft tissues of both lower extremities. IMPRESSION: Right: Negative for DVT Left: Negative for DVT Lab Data Lab results reviewed: Yes I reviewed the patient's lab results. Labs: 05/18/20 07:37 Blood Blood Culture - Pending 05/18/20 07:00 Blood Blood Culture - Pending Laboratory Tests Range/Units 05/18/20 05/18/20 05/18/20 07:00 07:00 07:00 WBC (4.4-10.8) 10^3/uL 7.53 RBC (4.36-5.78) 10^6/uL 4.30 L Hgb (13.5-17.5) g/dL 11.2 L Hct (40.0-50.0) % 35.9 L MCV (80-95) fL 83.5 MCH (27.0-33.0) pg 26.0 L MCHC (32.0-36.0) % 31.2 L RDW (11.8-14.1) % 17.6 H Plt Count (130-400) 10^3/uL 347 MPV (8.0-11.0) fL 9.1 Immature Gran % 1.2 Neutrophils % 74.6 Lymphocytes % 15.1 Monocytes % 7.7 Eosinophils % 0.9 Basophils % 0.5 Nucleated RBC % % 2 Absolute Neutrophils (1.2-6.7) 10^3/uL 5.61 Absolute Lymphocytes (1.2-3.4) 10^3/uL 1.14 L Absolute Monocytes (0.1-0.8) 10^3/uL 0.58 Absolute Eosinophils (0.0-0.7) 10^3/uL 0.07 Absolute Basophils (0.0-0.2) 10^3/uL 0.04 PT (9.3-11.0) sec 35.8 H D INR (0.9-1.1) 3.7 H D APTT (21.0-31.4) sec 35.6 H VBG pH (7.31-7.41) VBG pCO2 (41-51) mmHg VBG pO2 mmHg VBG HCO3 (23-28) mmol/L VBG Total CO2 (24-29) mmol/L VBG O2 Saturation % VBG Base Excess (-2-3) mmol/L VBG Lactate (0.6-1.4) mmol/L Sodium (136-145) mmol/L 119 L* Potassium (3.5-5.1) mmol/L 6.5 H* Chloride (98-107) mmol/L 87 L Carbon Dioxide (21.0-32.0) mmol/L 21.4 Anion Gap (3-11) mmol/L 10.6 BUN (7-18) mg/dL 70 H Creatinine (0.70-1.30) mg/dL 1.64 H Estimated GFR/1.73 m2 (mL/min/1.73m2) 42.92 Glucose (74-106) mg/dL 157 H Calcium (8.5-10.1) mg/dL 8.8 Magnesium (1.8-2.4) mg/dL 2.4 Total Bilirubin (0.2-1.0) mg/dL 1.7 H AST (15-37) U/L 39 H ALT (16-63) U/L 16 Alkaline Phosphatase (46-116) U/L 157 H Creatine Kinase (39-308) U/L 56 NT-Pro-B Natriuret Pep (<300) pg/mL 7224 H Total Protein (6.4-8.2) g/dL 7.8 Albumin (3.4-5.0) g/dL 3.0 L Procalcitonin ng/mL TSH (0.36-3.74) uIU/mL 10.85 H Free T4 (0.76-1.46) ng/dL 1.13 Patient ABO/Rh Range/Units 05/18/20 05/18/20 05/18/20 07:00 07:00 07:00 WBC (4.4-10.8) 10^3/uL RBC (4.36-5.78) 10^6/uL Hgb (13.5-17.5) g/dL Hct (40.0-50.0) % MCV (80-95) fL MCH (27.0-33.0) pg MCHC (32.0-36.0) % RDW (11.8-14.1) % Plt Count (130-400) 10^3/uL MPV (8.0-11.0) fL Immature Gran % Neutrophils % Lymphocytes % Monocytes % Eosinophils % Basophils % Nucleated RBC % % Absolute Neutrophils (1.2-6.7) 10^3/uL Absolute Lymphocytes (1.2-3.4) 10^3/uL Absolute Monocytes (0.1-0.8) 10^3/uL Absolute Eosinophils (0.0-0.7) 10^3/uL Absolute Basophils (0.0-0.2) 10^3/uL PT (9.3-11.0) sec INR (0.9-1.1) APTT (21.0-31.4) sec VBG pH (7.31-7.41) 7.31 VBG pCO2 (41-51) mmHg 41 VBG pO2 mmHg 23 VBG HCO3 (23-28) mmol/L 21 L VBG Total CO2 (24-29) mmol/L 20 L VBG O2 Saturation % 30 VBG Base Excess (-2-3) mmol/L -5 L VBG Lactate (0.6-1.4) mmol/L 4.4 H* Sodium (136-145) mmol/L Potassium (3.5-5.1) mmol/L Chloride (98-107) mmol/L Carbon Dioxide (21.0-32.0) mmol/L Anion Gap (3-11) mmol/L BUN (7-18) mg/dL Creatinine (0.70-1.30) mg/dL Estimated GFR/1.73 m2 (mL/min/1.73m2) Glucose (74-106) mg/dL Calcium (8.5-10.1) mg/dL Magnesium (1.8-2.4) mg/dL Total Bilirubin (0.2-1.0) mg/dL AST (15-37) U/L ALT (16-63) U/L Alkaline Phosphatase (46-116) U/L Creatine Kinase (39-308) U/L NT-Pro-B Natriuret Pep (<300) pg/mL Total Protein (6.4-8.2) g/dL Albumin (3.4-5.0) g/dL Procalcitonin ng/mL 0.6 TSH (0.36-3.74) uIU/mL Free T4 (0.76-1.46) ng/dL Patient ABO/Rh Cancelled ECG Data Attestation: I personally reviewed and interpreted this ECG (s) as follows: Interpretation: Rate of 104, A. fib. QRS 170. QTc 592. [place] 152. HPI <Marty Ramirez MD - Last Filed: 05/18/20 07:09> General Date/Time Provider Initiated Documentation: 05/18/20 06:51 . Related Data Home Medications Medication Instructions Recorded Confirmed Glyburide 5 mg PO DAILY 03/10/18 04/16/20 budesonide-formoterol [Symbicort] 2 puff INHALATION BID 03/10/18 04/16/20 gabapentin 600 mg PO QHS 03/10/18 04/16/20 simvastatin 40 mg PO DAILY 03/10/18 04/16/20 acetaminophen [Tylenol 8 Hour] 650 mg PO Q4H PRN PRN 11/24/19 04/16/20 magnesium oxide 400 mg PO BID 11/24/19 04/16/20 metoprolol tartrate 12.5 mg PO BID #28 tab 12/01/19 04/16/20 cephalexin 500 mg PO TID 04/16/20 04/16/20 potassium chloride 20 meq PO DAILY #0 tab 04/19/20 04/16/20 torsemide 40 mg PO DAILY #0 tab 04/19/20 04/16/20 warfarin See Rx Instructions .ROUTE 04/19/20 .COMPLEX #1 tab Previous Rx's Medication Instructions Recorded metoprolol tartrate 12.5 mg PO BID #28 tab 12/01/19 potassium chloride 20 meq PO DAILY #0 tab 04/19/20 torsemide 40 mg PO DAILY #0 tab 04/19/20 warfarin See Rx Instructions .ROUTE 04/19/20 .COMPLEX #1 tab Allergies Allergy/AdvReac Type Severity Reaction Status Date / Time diltiazem Allergy Anaphylaxsi Unverified 05/18/20 06:51 s shellfish derived Allergy Other (See Unverified 05/18/20 06:51 Comment) sulfamethoxazole Allergy Other (See Unverified 05/18/20 06:51 [From Bactrim] Comment) trimethoprim [From Bactrim] Allergy Other (See Unverified 05/18/20 06:51 Comment) adhesive tape AdvReac Skin Rash Unverified 05/18/20 06:51 General Stated Complaint: Dizzy/Sync ALICJA: 3 PFSH <Marty Ramirez MD - Last Filed: 05/18/20 07:09> Medical History (Updated 05/18/20 @ 10:13 by Roseanna Mcdowell DO) Acute kidney injury (nontraumatic) Associated with dehydration secondary to overdiuresis for treatment of his CHF Atrial fibrillation Cellulitis and abscess of lower extremity Chronic venous insufficiency of lower extremity Coronary artery disease Non-hemodynamic diffuse disease per cardiac catheterization from [facility] October 28, [address] Heladio Harkins Diabetic peripheral neuropathy associated with type 2 diabetes mellitus Morbid obesity with BMI of 50.0-59.9, adult Nonischemic cardiomyopathy LVEF 35% with diffuse hypokinesis and septal wall motion abnormality due to bundle branch block, moderately dilated and moderately reduced RV systolic function, mild mitral regurgitation, mild tricuspid regurgitation, mild dila tation aortic root and moderate dilatation of ascending aorta per transthoracic echocardiogram from [facility] October 22, 2019. Obstructive sleep apnea Wear CPAP mask Orthostatic hypotension Osteoarthritis, knee Venous stasis ulcers of both lower extremities Surgical History (Updated 04/16/20 @ 21:40 by Avelino Lang) H/O cardiac catheterization (10/28/19) Cardiac catheterization per Dr. Heladio Harkins at [facility], 10/28/2019, mild diffuse nonobstructive coronary artery disease with right coronary dominance and elevated left ventricular end-diastolic pressures, less than 25% narrowing of the left main coronary artery, less than 25% stenosis of the LAD, less than 25% stenosis of left circumflex, less than 25% stenosis of RCA. Family History (Updated 04/17/20 @ 11:53 by Avelino Lang) Other Diabetes Heart disease Hyperlipidemia Hypertension Social History Smoking/Tobacco Use Status: Never Alcohol Intake: former Drug use: Never Details: no alcohol for 10 yrs Do you feel safe at home: Yes Do you feel safe in your relationship?: Yes Course <Marty Ramirez MD - Last Filed: 05/18/20 07:09> Vital Signs Vital signs: Vital Signs Temperature 36.4 C L 05/18/20 06:46 Pulse 52 L 05/18/20 06:46 Respiratory Rate 18 05/18/20 06:46 Blood Pressure 126/69 05/18/20 06:46 Pulse Oximetry 100 05/18/20 06:46 Temperature 36.4 C L 05/18/20 06:46 Temperature Source Skin 05/18/20 06:46 Pulse 52 L 05/18/20 06:46 Respiratory Rate 18 05/18/20 06:46 Respiratory Effort Non-Labored 05/18/20 06:51 Blood Pressure 126/69 05/18/20 06:46 Pulse Oximetry 100 05/18/20 06:46 Oxygen Delivery Method Room Air 05/18/20 06:46 Oxygen Flow Rate 0 05/18/20 06:46 Lab/Test Results Lab/Test Results: 05/18/20 07:00 Blood Blood Culture - Pending 05/18/20 07:00 Blood Blood Culture - Pending Sign Out <Marty Ramirez MD - Last Filed: 05/18/20 07:09> Sign Out Data: Sign Out Comment: chronic venous stasis ulcers, recent admission end of march for cellulitis of lower extremities and overdiuresis causing eugenoi here today with increased weakness and pain in calves, labs and u/s, dispo Last updated by Marty Ramirez MD at 05/18/20 07:31
[2020-05-18 07:14] LABS: TCO2 (Venous) 20 mmol/L (24-29); pCO2 (Venous) 41 mmHg (41-51); pH (Venous) 7.31 (7.31-7.41); pO2 (Venous) 23 mmHg
[2020-05-18 07:15] LABS: BE (Venous) -5 mmol/L (-2-3); HCO3 (Venous) 21 mmol/L (23-28); O2 Sat (Venous) 30 %
[2020-05-18 07:16] LABS: Abs Immature Grans 0.09 10^3/uL (0.0-0.06); Absolute Basophil Count 0.04 10^3/uL (0.0-0.2); Absolute Eosinophil Count 0.07 10^3/uL (0.0-0.7); Absolute Lymphocyte Count 1.14 10^3/uL (1.2-3.4); Absolute Monocyte Count 0.58 10^3/uL (0.1-0.8); Absolute Neutrophil Count 5.61 10^3/uL (1.2-6.7); Basophils % 0.5; Eosinophils % 0.9; HCT 35.9 % (40.0-50.0); HGB 11.2 g/dL (13.5-17.5); Immature Grans % 1.2; Lymphocytes % 15.1; MCHC 31.2 % (32.0-36.0); MCV 83.5 fL (80-95); MPV 9.1 fL (8.0-11.0); Monocytes % 7.7; Neutrophils % 74.6; Nucleated RBC 2 %; Platelet Count 347 10^3/uL (130-400); RDW 17.6 % (11.8-14.1); RDW-SD 52.7 fL; WBC 7.53 10^3/uL (4.4-10.8)
[2020-05-18 07:19] LABS: Lactate 4.4 mmol/L (0.6-1.4)
[2020-05-18 07:44] LABS: INR 3.7 (0.9-1.1); PTT Activated 35.6 sec (21.0-31.4); Prothrombin Time 35.8 sec (9.3-11.0)
[2020-05-18 07:56] LABS: Procalcitonin 0.6 ng/mL
[2020-05-18] MEDS: Normal Saline 250 ML 500 ML IV (08:00)
[2020-05-18 08:07] LABS: ALT 16 U/L (16-63); AST 39 U/L (15-37); Alkaline Phosphatase 157 U/L (46-116); Anion Gap 10.6 mmol/L (3-11); BUN 70 mg/dL (7-18); Bilirubin, Total 1.7 mg/dL (0.2-1.0); CO2 21.4 mmol/L (21.0-32.0); CREATININE 1.64 mg/dL (0.70-1.30); Calcium 8.8 mg/dL (8.5-10.1); Chloride 87 mmol/L (98-107); Creatine Kinase 56 U/L (39-308); Estimated GFR 42.92 (mL/min/1.73m2); Glucose 157 mg/dL (74-106); Magnesium 2.4 mg/dL (1.8-2.4); NT-proBNP 7224 pg/mL (<300); TSH (W/Ref FT4) 10.85 uIU/mL (0.36-3.74); Total Protein 7.8 g/dL (6.4-8.2)
[2020-05-18 08:09] LABS: Potassium 6.5 mmol/L (3.5-5.1); Sodium 119 mmol/L (136-145)
[2020-05-18] MEDS: Normal Saline Flush 10 ML SYR IVP ×4 (08:16→17:01)
[2020-05-18 08:26] LABS: FREE T4 1.13 ng/dL (0.76-1.46)
--- NOTE | 2020-05-18 09:12 | DI.RAD_ITS ---
EXAM: XR CHEST 2V PA LATERAL CLINICAL HISTORY: weakness, ?chf vs pna TECHNIQUE: 2D digital imaging was performed. COMPARISON: No exams were available for comparison FINDINGS: MEDIASTINUM: Normal. HEART: Mild cardiomegaly. PULMONARY VASCULATURE: Normal. LUNGS: Clear. PLEURAL SPACE: No pleural effusion or pneumothorax. BONE:Degenerative changes in the spine and shoulders bilaterally. OTHER FINDINGS:Normal. IMPRESSION: 1. Mild cardiomegaly. 2. No acute pulmonary process. DATA REPOSITORY: RADIATION DOSE DELIVERED:
[2020-05-18] MEDS: Calcium Chloride 1000 MG/10 ML SYR IVP ×2 (09:18→19:59)
[2020-05-18] MEDS: Insulin REGULAR-Human 100 UNITS/ML UNIT IV (09:25)
[2020-05-18] MEDS: Normal Saline 50 ML 200 ML (09:26)
[2020-05-18] MEDS: Albuterol 2.5 MG/3 ML INH SOLN VIAL 5 MG UPD (09:29)
[2020-05-18] MEDS: Sodium Bicarbonate 50 MEQ/50 ML SYR IVP (09:41)
[2020-05-18 10:35] LABS: C-Reactive Protein 5.09 mg/dL (0.0-0.3)
[2020-05-18 10:42] LABS: Lactate 4.5 mmol/L (0.6-1.4)
[2020-05-18] MEDS: CEFEPIME 2 GM in Normal Saline 100 ML IVPB ×2 (11:06→18:30)
--- NOTE | 2020-05-18 12:12 | HPE_ITS ---
Date of service: 05/18/20 Time of Service: 12:17 Assessment and Plan Assessment and plan (1) Sepsis: Start date: 05/18/20 Start time: 13:11 Status: Acute Assessment and plan: Tachypneic at 31, HR tachy in 120's, lactate 4.5 after receiving IVF. Hypotensive, appears acutely ill, Blood cultures drawn pending. Likely source is cellulitis. Ct lower extremity r/o osteo. Received 500 cc in ED will give another 1000 cc with IVF 100 given CHF. Cefepime and vanco initiated. Repeat lactate and cmp at 1600 Monitor VS CRP 5 Procal 0.6 EKG with sinus tach, old inferior infarct, no acute ischemia, peaked Twaves. Critical time spent with patient 120 mins including, orders, evaluation and assessment. Qualifiers: Sepsis type: sepsis due to unspecified organism Sepsis acute organ dysfunction status: with acute organ dysfunction Severe sepsis acute organ dysfunction type: unspecified Severe sepsis shock status: with septic shock Qualified Code(s): A41.9 - Sepsis, unspecified organism; R65.21 - Severe sepsis with septic shock (2) Sepsis associated hypotension: Start date: 05/18/20 Start time: 13:16 Status: Acute Assessment and plan: Hypotension in setting of sepsis (3) Hyperkalemia: Start date: 05/18/20 Start time: 13:19 Status: Acute Assessment and plan: 6.5 on admission, given albuterol, calcium, sodium bicarb, insulin and veltassa, repeat potassium 6.1, dosed with veltassa again and awaiting repeat potassium (4) Cellulitis and abscess of lower extremity: Start date: 05/18/20 Start time: 13:18 Status: Acute Assessment and plan: Wound culture pending. Weeping, oozing as above (5) Chronic ulcer of left leg: Start date: 05/18/20 Start time: 13:18 Status: Chronic Assessment and plan: Goes to wound clinic at [facility] [place]. Chronic wounds and venious stasis, Consult wound care nurse for further wound care (6) Supratherapeutic INR: Start date: 05/18/20 Start time: 13:22 Status: Acute Assessment and plan: INR 3.7, takes coumadin for DVT, u/s in ED negative bilaterally for DVT. Hold coumadin, dose with po vitamin k. Repeat level in am. restart when therapu tic (7) Hyponatremia: Start date: 05/18/20 Start time: 13:24 Status: Acute Assessment and plan: Sodium level 119 in setting of sepsis. Will IVF recheck cmp this afternoon. (8) Lactic acidosis: Start date: 05/18/20 Start time: 13:23 Status: Acute Assessment and plan: In setting of sepsis. as above (9) Venous stasis ulcers of both lower extremities: Start date: 05/18/20 Start time: 13:23 Status: Chronic Assessment and plan: wound care to ulcers. (10) Nonischemic cardiomyopathy: Start date: 05/18/20 Start time: 13:24 Status: Chronic Assessment and plan: Last echo in feburary with EF 35%, will repeat echo Gentle IVF given EF in setting of sepsis, monitor for over diuresis. (11) Morbid obesity with BMI of 50.0-59.9, adult: Start date: 05/18/20 Start time: 13:26 Status: Acute Assessment and plan: Nutrition consult. Will also consult palliative in setting of chronic illness, poor nutrition. above case discussed with Dr. Avilez who is in agreement. History of Present Illness History of Present Illness Chief Complaint: Sepsis, cellulitis, hyperkalemia Narrative: This is a 59 y.o male with PMH of DVT on coumadin, chronic venous stasis ulcer, afib, who was admitted in March for KELLY in setting of over diuresis and cellulitis of lower extremity who comes in feeling weak onset this morning with c/o pain to bilateral calfs. Both legs edetamous, with multiple oozing ulcers. Pain and tenderness to both legs. Bilateral u/s in emergency department negative for DVT. CXR with mild cardiomegaly. Labs showed hyponatremia 119, hyperkalemia, Lactate of 4.4 with a respiratory rate of 31, soft bps as low as 77/36, appearing to be in sepsis. CRP 5.5, procal 0.6, his INR was also elevated at 3.7. In the ED he received sodium bicarb, glucose, albuterol, calcium to lower his potassium. He was also given a 500 cc bolus. he was asked to be admitted to ICU for further management. Upon arrival to the floor he is tachypenic, tachycardiac. Vanco and cefepime initiated, bc pending. Repeat lactate 4.5, will give another bolus of ns, and start gentle IVF. Echo ordered, last echo at [facility] [place] in Sep. CT of lower extremity ordered to r/o osteo, wound culture pending. Wound to left lower extremity weeping and oozing yellowish drainage. He is not febrile at this time, though he does look acutely ill on top of chronically ill. Veltessa given for potassium will recheck level with repeat EKG. His BNP is elevated, however in setting of sepsis, patient requiring fluids, will diuresis if necessary. Oral vitamin k for INR of 3.7. He states he is not SOB though he appears to be. He denies CP, n/v/d. Review of Systems All systems reviewed & are unremarkable except as noted in HPI and below PFSH Medical History Acute kidney injury (nontraumatic) Associated with dehydration secondary to overdiuresis for treatment of his CHF Atrial fibrillation Cellulitis and abscess of lower extremity Chronic venous insufficiency of lower extremity Coronary artery disease Non-hemodynamic diffuse disease per cardiac catheterization from [facility] October 28, [address] Heladio Harkins Diabetic peripheral neuropathy associated with type 2 diabetes mellitus Morbid obesity with BMI of 50.0-59.9, adult Nonischemic cardiomyopathy LVEF 35% with diffuse hypokinesis and septal wall motion abnormality due to bundle branch block, moderately dilated and moderately reduced RV systolic function, mild mitral regurgitation, mild tricuspid regurgitation, mild dilatation aortic root and moderate dilatation of ascending aorta per transthoracic echocardiogram from [facility] [place] October 22, 2019. Obstructive sleep apnea Wear CPAP mask Orthostatic hypotension Osteoarthritis, knee Venous stasis ulcers of both lower extremities Surgical History H/O cardiac catheterization (10/28/19) Cardiac catheterization per Dr. Heladio Harkins at [facility], 10/28/2019, mild diffuse nonobstructive coronary artery disease with right coronary dominance and elevated left ventricular end-diastolic pressures, less than 25% narrowing of the left main coronary artery, less than 25% stenosis of the LAD, less than 25% stenosis of left circumflex, less than 25% stenosis of RCA. Family History Other Diabetes Heart disease Hyperlipidemia Hypertension Social History Smoking/Tobacco Use Status: Never Alcohol Intake: former Drug use: Never Details: no alcohol for 10 yrs Do you feel safe at home: Yes Do you feel safe in your relationship?: Yes Meds Home Medications and Allergies Home Medications Medication Instructions Recorded Confirmed Type Glyburide 5 mg PO DAILY 03/10/18 05/18/20 History budesonide-formoterol [Symbicort] 2 puff INHALATION BID 03/10/18 05/18/20 History simvastatin 40 mg PO DAILY 03/10/18 05/18/20 History acetaminophen [Tylenol 8 Hour] 650 mg PO Q4H PRN PRN 11/24/19 05/18/20 History magnesium oxide 400 mg PO BID 11/24/19 05/18/20 History metoprolol tartrate 12.5 mg PO BID #28 tab 12/01/19 05/18/20 Rx potassium chloride 20 meq PO DAILY #0 tab 04/19/20 05/18/20 Rx torsemide 40 mg PO DAILY #0 tab 04/19/20 05/18/20 Rx warfarin See Rx Instructions .ROUTE 04/19/20 05/18/20 Rx .COMPLEX #1 tab duloxetine 30 mg PO BID 05/18/20 05/18/20 History gabapentin 1,200 mg PO QHS 05/18/20 05/18/20 History Allergies Allergy/AdvReac Type Severity Reaction Status Date / Time diltiazem Allergy Anaphylaxsi Unverified 05/18/20 10:21 s shellfish derived Allergy Other (See Unverified 05/18/20 10:21 Comment) sulfamethoxazole Allergy Other (See Unverified 05/18/20 10:21 [From Bactrim] Comment) trimethoprim [From Bactrim] Allergy Other (See Unverified 05/18/20 10:21 Comment) adhesive tape AdvReac Skin Rash Unverified 05/18/20 10:21 Exam Narrative Exam Narrative: This is an acutely ill on top of chronically ill appearing gentlemen who is morbidly obese. Lying in bed with HOB elevated, AAOx3 , cooperative, carrying conversation but does have to stop and catch his breath. He does not have any JVD, he does appear SOB though he states he is not, oxygen level 100 on RA with resp rate of 31, HR is tachy regular, with peaked t waves on ekg, no ectopic beats. Abdomen obese with large pannus, with hard skin at end of pannus. Lower extremities with bilateral edema +2, left with multiple ulcers at different stages on various parts with chronic venous stasis changes, plascencia ulcer draining yellowish colored fluid. Right leg with ulcers not oozing. Extremities cool to touch, pedals with dopples, LLE is cool to touch up to knee, right is warm. No clubbing, erythema to left foot. Results Labs Result diagrams: 05/18/20 07:00 05/18/20 07:00 Labs: Laboratory Results - last 24 hr 05/18/20 05/18/20 05/18/20 07:00 07:00 07:00 WBC 7.53 RBC 4.30 L Hgb 11.2 L Hct 35.9 L MCV 83.5 MCH 26.0 L MCHC 31.2 L RDW 17.6 H Plt Count 347 MPV 9.1 Immature Gran % 1.2 Neutrophils % 74.6 Lymphocytes % 15.1 Monocytes % 7.7 Eosinophils % 0.9 Basophils % 0.5 Nucleated RBC % 2 Absolute Neutrophils 5.61 Absolute Lymphocytes 1.14 L Absolute Monocytes 0.58 Absolute Eosinophils 0.07 Absolute Basophils 0.04 PT 35.8 H D INR 3.7 H D APTT 35.6 H VBG pH VBG pCO2 VBG pO2 VBG HCO3 VBG Total CO2 VBG O2 Saturation VBG Base Excess VBG Lactate Sodium 119 L* Potassium 6.5 H* Chloride 87 L Carbon Dioxide 21.4 Anion Gap 10.6 BUN 70 H Creatinine 1.64 H Estimated GFR/1.73 m2 42.92 Glucose 157 H Calcium 8.8 Magnesium 2.4 Total Bilirubin 1.7 H AST 39 H ALT 16 Alkaline Phosphatase 157 H Creatine Kinase 56 C-Reactive Protein NT-Pro-B Natriuret Pep 7224 H Total Protein 7.8 Albumin 3.0 L Procalcitonin TSH 10.85 H Free T4 1.13 Patient ABO/Rh 05/18/20 05/18/20 05/18/20 07:00 07:00 07:00 WBC RBC Hgb Hct MCV MCH MCHC RDW Plt Count MPV Immature Gran % Neutrophils % Lymphocytes % Monocytes % Eosinophils % Basophils % Nucleated RBC % Absolute Neutrophils Absolute Lymphocytes Absolute Monocytes Absolute Eosinophils Absolute Basophils PT INR APTT VBG pH 7.31 VBG pCO2 41 VBG pO2 23 VBG HCO3 21 L VBG Total CO2 20 L VBG O2 Saturation 30 VBG Base Excess -5 L VBG Lactate 4.4 H* Sodium Potassium Chloride Carbon Dioxide Anion Gap BUN Creatinine Estimated GFR/1.73 m2 Glucose Calcium Magnesium Total Bilirubin AST ALT Alkaline Phosphatase Creatine Kinase C-Reactive Protein NT-Pro-B Natriuret Pep Total Protein Albumin Procalcitonin 0.6 TSH Free T4 Patient ABO/Rh Cancelled 05/18/20 05/18/20 07:00 10:34 WBC RBC Hgb Hct MCV MCH MCHC RDW Plt Count MPV Immature Gran % Neutrophils % Lymphocytes % Monocytes % Eosinophils % Basophils % Nucleated RBC % Absolute Neutrophils Absolute Lymphocytes Absolute Monocytes Absolute Eosinophils Absolute Basophils PT INR APTT VBG pH VBG pCO2 VBG pO2 VBG HCO3 VBG Total CO2 VBG O2 Saturation VBG Base Excess VBG Lactate 4.5 H* Sodium Potassium Chloride Carbon Dioxide Anion Gap BUN Creatinine Estimated GFR/1.73 m2 Glucose Calcium Magnesium Total Bilirubin AST ALT Alkaline Phosphatase Creatine Kinase C-Reactive Protein 5.09 H NT-Pro-B Natriuret Pep Total Protein Albumin Procalcitonin TSH Free T4 Patient ABO/Rh Last Vital Signs Temp 36.4 C L 05/18/20 06:46 Pulse 117 H 05/18/20 10:25 Resp 31 H 05/18/20 10:26 BP 97/80 L 05/18/20 10:25 Pulse Ox 100 05/18/20 10:20 COVID-19 Screening Have you,or household,traveled outside [place] in last 14 days?: Yes Had IN PERSON contact w/suspected or confirmed C-19 person: No
--- NOTE | 2020-05-18 12:15 | RT.EKG_ITS ---
APPROVED REPORT Exam: Resting ECG Patient Location: I HR:113 bpm ECG Measurements Heart Rate 113 AXIS CO [id number] P [id number] QRSd 209 QRS -93 QT 424 T 71 QTc 582 Conclusion Atrial fibrillation...? atrial activity Right bundle branch block...QRSd>120, terminal axis(90,270) ST elevation secondary to IVCD...Multiple VCG criteria
[2020-05-18] MEDS: Normal Saline 1,000 ML 750 ML IV (12:30)
[2020-05-18] MEDS: VANCOMYCIN 2,000 MG in Normal Saline 500 ML 250 MG IV (12:33)
[2020-05-18 12:50] LABS: Potassium 6.1 mmol/L (3.5-5.1)
[2020-05-18] MEDS: Phytonadione 5 MG TABLET 10 MG PO (13:24)
[2020-05-18] MEDS: Insulin Aspart 300 UNITS/3 ML PEN SC ×3 (13:24→18:30)
[2020-05-18] MEDS: Nystatin POWDER 15 GM JAR TP ×2 (14:02→19:00)
[2020-05-18] MEDS: Normal Saline 1,000 ML 100 ML IV (14:13)
--- NOTE | 2020-05-18 15:33 | RESPIRATORY ---
RT spoke with [facility] and [facility]. They informed me that [facility] has a current order for a nocturnal oximetry study to be done while wearing his CPAP machine. This was ordered on 05/06/20 by Tia Carson. Currently, pt has no home O2 and pt's settings on his CPAP are Auto-titrate Min 12 cmH2O - Max 16 cmH2O on Room Air. Tia Carson believes he will need up to 2L O2 bled into his CPAP at night.
[2020-05-18 16:35] LABS: Lactate 5.2 mmol/L (0.6-1.4)
[2020-05-18 16:47] LABS: ALT 16 U/L (16-63); AST 36 U/L (15-37); Albumin 2.6 g/dL (3.4-5.0); Alkaline Phosphatase 137 U/L (46-116); Anion Gap 9.8 mmol/L (3-11); BUN 66 mg/dL (7-18); CO2 23.2 mmol/L (21.0-32.0); CREATININE 1.63 mg/dL (0.70-1.30); Calcium 9.1 mg/dL (8.5-10.1); Chloride 89 mmol/L (98-107); Estimated GFR 43.23 (mL/min/1.73m2); Glucose 184 mg/dL (74-106)
[2020-05-18] MEDS: Metoprolol 5 MG/5 ML VIAL 2.5 MG IVP (17:01)
[2020-05-18 17:06] LABS: Potassium 6.5 mmol/L (3.5-5.1); Sodium 122 mmol/L (136-145)
[2020-05-18] MEDS: Docusate Sodium 100 MG CAP PO (17:07)
[2020-05-18] MEDS: Albuterol 2.5 MG/3 ML INH SOLN VIAL UPD (18:31)
[2020-05-18] MEDS: Dextrose 50%-Water 25 GM/50 ML SYR IVP (18:32)
[2020-05-18] MEDS: Budesonide/Formoterol 80/4.5 10.2 GM 120 PUFF INH IH (18:51)
[2020-05-18] MEDS: Gabapentin 600 MG TAB 1200 MG PO (18:52)
[2020-05-18] MEDS: Metoprolol 25 MG TAB 12.5 MG PO (18:53)
[2020-05-18] MEDS: Lidocaine 2% Jelly 6 ML SYR (19:27)
[2020-05-18] MEDS: Insulin REGULAR-Human 100 UNITS/ML UNIT 10 UNITS IV (19:48)
--- NOTE | 2020-05-18 20:00 | PGE_ITS ---
Date of Service Date of service: 05/18/20 Time of Service: 20:00 Assessment and Plan Assessment and plan (1) Hyperkalemia: Status: Acute Assessment and plan: Potassium persistently elevated. At this point the etiology appears to be related to moderate renal dysfunction and associated cellular breakdown due to the severe cellulitis and skin breakdown in his lower extremities. He has not responded to 2 doses of Aravind Patricia and calcium chloride. Will give IV regular insulin 10 units and D50. Will give another dose of calcium chloride. We will recheck the potassium at 9 PM. The overall situation is concerning given the wide-complex rhythm, conduction abnormalities, and his overall condition. I did update his Sister Tiffani. (2) Sepsis associated hypotension: Status: Acute Assessment and plan: Blood pressures have been soft but seem to be responding to IV fluids. Placed a Shepherd catheter to monitor his urine output which has been minimal to this point. I am concerned that he could be going into anuric renal failure. Recheck BMP at 9 PM. (3) Hyponatremia: Status: Acute Assessment and plan: Sodium is low at 122. He is getting IV normal saline . Recheck his sodium at 9 PM. (4) Cellulitis and abscess of lower extremity: Status: Acute Assessment and plan: He is on both cefepime and vancomycin for presumed cellulitis of the lower extremities. Possible gram-negative. Possible staph species. Appears to be quite extensive and advanced lower extremity venous stasis disease with secondary infection. (5) Discharge planning issues: Status: Acute Assessment and plan: Patient is a full code. He has multiple comorbidities. He is quite severely ill. I updated his sister on his condition and will do so as needed throughout the evening. Subjective Subjective Interval history since last seen: Patient admitted earlier today through the emergency room because of likely sepsis related to left leg cellulitis/abscess. His potassium on admission was elevated at 6.5. He received oral Veltassa x2 doses. His potassium remains elevated this evening at 6.5. His EKG shows a wide complex atrial fibrillation. The patient is largely asymptomatic. He feels weak but is conversant and coherent. He is not having any respiratory difficulties. No chest pain. Exam Narrative Exam Narrative: Patient's blood pressure was low, 83/45. He has since responded to an IV fluid bolus. Current blood pressure 88/65 with an MEP of 71. The tracing shows a wide-complex atrial fibrillation. Sat is 99% on room air. He does not appear in any significant distress. Objective Last Vital Signs Temp 36.2 C L 05/18/20 15:03 Pulse 201 H 05/18/20 19:23 Resp 23 05/18/20 19:23 BP 93/75 L 05/18/20 19:23 Pulse Ox 95 05/18/20 19:23 Laboratory Results - last 24 hr 05/18/20 05/18/20 05/18/20 07:00 07:00 07:00 WBC 7.53 RBC 4.30 L Hgb 11.2 L Hct 35.9 L MCV 83.5 MCH 26.0 L MCHC 31.2 L RDW 17.6 H Plt Count 347 MPV 9.1 Immature Gran % 1.2 Neutrophils % 74.6 Lymphocytes % 15.1 Monocytes % 7.7 Eosinophils % 0.9 Basophils % 0.5 Nucleated RBC % 2 Absolute Neutrophils 5.61 Absolute Lymphocytes 1.14 L Absolute Monocytes 0.58 Absolute Eosinophils 0.07 Absolute Basophils 0.04 PT 35.8 H D INR 3.7 H D APTT 35.6 H VBG pH VBG pCO2 VBG pO2 VBG HCO3 VBG Total CO2 VBG O2 Saturation VBG Base Excess VBG Lactate Sodium 119 L* Potassium 6.5 H* Chloride 87 L Carbon Dioxide 21.4 Anion Gap 10.6 BUN 70 H Creatinine 1.64 H Estimated GFR/1.73 m2 42.92 Glucose 157 H Calcium 8.8 Magnesium 2.4 Total Bilirubin 1.7 H AST 39 H ALT 16 Alkaline Phosphatase 157 H Creatine Kinase 56 C-Reactive Protein NT-Pro-B Natriuret Pep 7224 H Total Protein 7.8 Albumin 3.0 L Procalcitonin TSH 10.85 H Free T4 1.13 Patient ABO/Rh 05/18/20 05/18/20 05/18/20 07:00 07:00 07:00 WBC RBC Hgb Hct MCV MCH MCHC RDW Plt Count MPV Immature Gran % Neutrophils % Lymphocytes % Monocytes % Eosinophils % Basophils % Nucleated RBC % Absolute Neutrophils Absolute Lymphocytes Absolute Monocytes Absolute Eosinophils Absolute Basophils PT INR APTT VBG pH 7.31 VBG pCO2 41 VBG pO2 23 VBG HCO3 21 L VBG Total CO2 20 L VBG O2 Saturation 30 VBG Base Excess -5 L VBG Lactate 4.4 H* Sodium Potassium Chloride Carbon Dioxide Anion Gap BUN Creatinine Estimated GFR/1.73 m2 Glucose Calcium Magnesium Total Bilirubin AST ALT Alkaline Phosphatase Creatine Kinase C-Reactive Protein NT-Pro-B Natriuret Pep Total Protein Albumin Procalcitonin 0.6 TSH Free T4 Patient ABO/Rh Cancelled 05/18/20 05/18/20 05/18/20 07:00 10:34 12:15 WBC RBC Hgb Hct MCV MCH MCHC RDW Plt Count MPV Immature Gran % Neutrophils % Lymphocytes % Monocytes % Eosinophils % Basophils % Nucleated RBC % Absolute Neutrophils Absolute Lymphocytes Absolute Monocytes Absolute Eosinophils Absolute Basophils PT INR APTT VBG pH VBG pCO2 VBG pO2 VBG HCO3 VBG Total CO2 VBG O2 Saturation VBG Base Excess VBG Lactate 4.5 H* Sodium Potassium 6.1 H* Chloride Carbon Dioxide Anion Gap BUN Creatinine Estimated GFR/1.73 m2 Glucose Calcium Magnesium Total Bilirubin AST ALT Alkaline Phosphatase Creatine Kinase C-Reactive Protein 5.09 H NT-Pro-B Natriuret Pep Total Protein Albumin Procalcitonin TSH Free T4 Patient ABO/Rh 05/18/20 05/18/20 05/18/20 16:05 16:05 20:00 WBC RBC Hgb Hct MCV MCH MCHC RDW Plt Count MPV Immature Gran % Neutrophils % Lymphocytes % Monocytes % Eosinophils % Basophils % Nucleated RBC % Absolute Neutrophils Absolute Lymphocytes Absolute Monocytes Absolute Eosinophils Absolute Basophils PT INR APTT VBG pH VBG pCO2 VBG pO2 VBG HCO3 VBG Total CO2 VBG O2 Saturation VBG Base Excess VBG Lactate 5.2 H* Sodium 122 L* Potassium 6.5 H* Cancelled Chloride 89 L Carbon Dioxide 23.2 Anion Gap 9.8 BUN 66 H Creatinine 1.63 H Estimated GFR/1.73 m2 43.23 Glucose 184 H Calcium 9.1 Magnesium Total Bilirubin 2.0 H AST 36 ALT 16 Alkaline Phosphatase 137 H Creatine Kinase C-Reactive Protein NT-Pro-B Natriuret Pep Total Protein 7.0 Albumin 2.6 L Procalcitonin TSH Free T4 Patient ABO/Rh
[2020-05-18 21:50] LABS: Anion Gap 10.6 mmol/L (3-11); BUN 67 mg/dL (7-18); CO2 19.4 mmol/L (21.0-32.0); CREATININE 1.64 mg/dL (0.70-1.30); Calcium 9.5 mg/dL (8.5-10.1); Chloride 90 mmol/L (98-107); Estimated GFR 42.92 (mL/min/1.73m2); Glucose 149 mg/dL (74-106)
[2020-05-18 21:54] LABS: Sodium 120 mmol/L (136-145)
[2020-05-18 21:55] LABS: Potassium 6.4 mmol/L (3.5-5.1)
[2020-05-18 22:30] LABS: COVID-19 RT-PCR UVMMC Result Negative (Negative)
[2020-05-18] MEDS: Normal Saline 1,000 ML 150 ML IV (23:20)
[2020-05-19] VITALS (115 sets, daily range): BP systolic 74–113; BP diastolic 26–87; PULSE 44–111; RESP 12–33; TEMP 35.7–37; O2SAT 91–98
[2020-05-19] MEDS: CEFEPIME 2 GM in Normal Saline 100 ML IVPB ×3 (04:08→19:24)
[2020-05-19 07:19] LABS: Abs Immature Grans 0.08 10^3/uL (0.0-0.06); Absolute Basophil Count 0.03 10^3/uL (0.0-0.2); Absolute Eosinophil Count 0.03 10^3/uL (0.0-0.7); Absolute Lymphocyte Count 1.07 10^3/uL (1.2-3.4); Absolute Monocyte Count 0.62 10^3/uL (0.1-0.8); Absolute Neutrophil Count 5.77 10^3/uL (1.2-6.7); Basophils % 0.4; Eosinophils % 0.4; HCT 33.7 % (40.0-50.0); HGB 10.5 g/dL (13.5-17.5); Immature Grans % 1.1; Lymphocytes % 14.1; MCH 25.6 pg (27.0-33.0); MCHC 31.2 % (32.0-36.0); MCV 82.2 fL (80-95); MPV 9.2 fL (8.0-11.0); Monocytes % 8.2; Neutrophils % 75.8; Nucleated RBC 1 %; Platelet Count 322 10^3/uL (130-400); RDW 17.7 % (11.8-14.1); RDW-SD 51.8 fL
[2020-05-19 07:31] LABS: Anion Gap 10.4 mmol/L (3-11); BUN 66 mg/dL (7-18); CO2 19.6 mmol/L (21.0-32.0); CREATININE 1.57 mg/dL (0.70-1.30); Calcium 9.5 mg/dL (8.5-10.1); Chloride 90 mmol/L (98-107); Estimated GFR 45.14 (mL/min/1.73m2); Glucose 95 mg/dL (74-106)
[2020-05-19 07:34] LABS: INR 3.5 (0.9-1.1); Prothrombin Time 34.1 sec (9.3-11.0)
[2020-05-19 07:41] LABS: Potassium 6.2 mmol/L (3.5-5.1)
[2020-05-19] MEDS: Budesonide/Formoterol 80/4.5 10.2 GM 120 PUFF INH IH ×2 (07:43→19:24)
[2020-05-19 07:44] LABS: Sodium 120 mmol/L (136-145)
[2020-05-19 08:01] LABS: Magnesium 2.1 mg/dL (1.8-2.4)
--- NOTE | 2020-05-19 08:10 | OT.INIE ---
Occupational Therapy Notes Inpatient Occupational Therapy Evaluation Date: 05/19/20 Referring Doctor:Wendy Allison NP OT Orders: Non-Urgent Precautions: Fall, Standard, Full PATIENT PROFILE/ADMITTING DIAGNOSIS: Pt is a 59 year old male who presented to the ER on 05/18/20 and admitted for a dx of hyponatremia, sepsis, (B) leg weakness, acute leg pain, chronic leg ulcer, hyperkalemia, dizziness, supratherapeutic INR, lactic acidosis, cellulitis/abscess LE, venous stasis ulcers (B) LE, chronic venous insufficiency. Past Medical History: Medical History (Updated 05/18/20 @ 10:13 by Roseanna Mcdowell DO) Acute kidney injury (nontraumatic) Associated with dehydration secondary to overdiuresis for treatment of his CHF Atrial fibrillation Cellulitis and abscess of lower extremity Chronic venous insufficiency of lower extremity Coronary artery disease Non-hemodynamic diffuse disease per cardiac catheterization from [facility] October 28, [address] Heladio Harkins Diabetic peripheral neuropathy associated with type 2 diabetes mellitus Morbid obesity with BMI of 50.0-59.9, adult Nonischemic cardiomyopathy LVEF 35% with diffuse hypokinesis and septal wall motion abnormality due to bundle branch block, moderately dilated and moderately reduced RV systolic function, mild mitral regurgitation, mild tricuspid regurgitation, mild dilatation aortic root and moderate dilatation of ascending aorta [place] [facility] [place]. Obstructive sleep apnea Wear CPAP mask Orthostatic hypotension Osteoarthritis, knee Venous stasis ulcers of both lower extremities Surgical History (Updated 04/16/20 @ 21:40 by Avelino Lang) H/O cardiac catheterization (10/28/19) Cardiac catheterization per Dr. Heladio Harkins at [facility], 10/28/2019, mild diffuse nonobstructive coronary artery disease with right coronary dominance and elevated left ventricular end-diastolic pressures, less than 25% narrowing of the left main coronary artery, less than 25% stenosis of the LAD, less than 25% stenosis of left circumflex, less than 25% stenosis of RCA. Social History/Home Situation: Pt lives alone in [place], [place] his brother and sister live nearby and he has daughter who lives in [place]. He utilizes a FWW at all times for functional mobility and performs driving/community mobility (I) which he states that he has stopped performing at this time. His home is set up with five stairs to enter with (B) railings. He notes that he has 14 steps into his basement where his heating unit is and he would need to go up and down for that but his brother is going to (A) with this at this time. He sleeps in a recliner chair. His nephew and children stay in his home with him every other weekend. He is (I) in the kitchen for cooking and meal preparation, he has a tub shower with grab bars and is getting remodeled, non slip adhesive on bottom, removable shower head. OT does recommend a shower seat that could fit into his shower due to syncope episodes. Pt is able to (I) don and doff shirt at baseline he requires (A) with socks which he states he has a sock aid but does not feel that it is helpful. He states that he does not have issues getting up from the toilet and at nighttime he wears a depends due to being incontinent and does not attempt toileting during the night hours. He goes with his sister grocery shopping and his sister has managed his medications for years. His laundry room is located off his kitchen which he can easily access. Equipment owned/DME: FWW, raised toilet seat, shower seat SUBJECTIVE: Pt was lying in bed when OT arrived. He was agreeable to OT session and states that he feels so weak and tired. OBJECTIVE: General Observation: Pleasant, IV (R) UE, boateng Mental Status: A&Ox4 Pain: c/o pain in (B) LE ROM: RUE AROM WFL throughout L UE AROM WFL throughout STRENGTH: RUE Shoulder flexion 5/5, bicep 5/5, tricep 5/5, methods engineer is strong and symmetrical LUE Shoulder flexion 5/5, bicep 5/5, tricep 4+/5, methods engineer is strong and symmetrical SENSATION: Intact (B) UE FUNCTIONAL MOBILITY/ADLS: Transfers with FWW BATHING pt denies that he is too tired at todays session. Willing to perform and assess this at next session. He does have functional ROM required for performance of bathing for (B) UE. DRESSING Dressing UE Sitting on side of the bed pt required min (A) don and doffing [facility] gown. Dressing LE Sitting on side of bed with fair technique pt is able to don and doff (R) sock with increased performance time. He is unable to (L) and requires max (A). He reports that he does have a sock aid he does not feel that this is useful at this time. GROOMING Sitting on side of the bed he demonstrates increased functional movements and ROM required for ADL performance. TOILETING NT pt is wearing a depends which he notes he is incontinent with toileting routine at night time. EATING sitting in bed pt reports that he was (I), he was awaiting breakfast. SPECIAL TESTS: Daily Activity Limitations Standardized Measure [facility] AM -PAC ?6 clicks? Daily Activity Inpatient Short Form: Raw score: 18 Standardized score: 38.66 CMS score: 46.65% INFORMED CONSENT/EDUCATION: Pt instructed in purpose of OT Consult and plan of care. ASSESSMENT: Patient is a 59-year-old male referred to occupational therapy services with diagnosis of hyponatremia, sepsis, (B) leg weakness, acute leg pain, chronic leg ulcer, hyperkalemia, dizziness, supratherapeutic INR, lactic acidosis, cellulitis/abscess LE, venous stasis ulcers (B) LE, chronic venous insufficiency. Patient presents with clinical signs and symptoms consistent with dx, as demonstrated by the following impairment level findings: Pain in (B) LE, decreased functional mobility, decreased functional activity tolerance, decreased bed mobility, decreased ability to perform his ADLs in the sitting position, weakness in (B) LE, infected wounds significantly related to pain. Impairments are contributing to the following functional limitations: Pt has difficulty with (L) LE dressing, decreased (B) LE bathing, decreased functional activity tolerance, multiple falls limiting his functional mobility required for performance of ADLs/IADLs routines, decreased functional performance of LE gross motor control required for ADL routines. AMPAC score 18, CMS 46.65% Patient is assessed as a Moderate 30402 complexity based on the following: History: See Above Examination: See functional limitations as noted above Presentation: Evolving Decision Making: AMPAC score 18, CMS 46.65% GOALS Goals x1 week 1. Transfers with FWW (I) 2. Dressing in seated position pt will be mod (I) with don and doffing pants, (I) don and doffing shirt 3. Bathing sitting on side of the bed pt will be (I) with washing face and (B) UE, in seated position pt will be (I) (B) LE 4. Toileting on toilet (I) 5. Eating (I) 6. Grooming standing at sink with FWW (I) with brushing teeth. PLAN OF CARE/TREATMENT PLAN: 1x/day, 5 days/ week x 1week Initiate Occupational Therapy Services for bathing, dressing, grooming, toileting, eating, transfer training. DISCHARGE RECOMMENDATIONS: OT recommends that pt go to SNF vs. return home with HHOT for assessment of functional (I) in home setting when medically cleared per MD and when able to demonstrate (I) in standing ADLs/IADLs. TREATMENT TIME/MINUTES/CODES 63039, 20 minutes (07:45) [facility]
--- NOTE | 2020-05-19 08:15 | RT.EKG_ITS ---
APPROVED REPORT Exam: Resting ECG Patient Location: I HR:103 bpm ECG Measurements Heart Rate 103 AXIS NH [id number] P [id number] QRSd 201 QRS -93 QT 442 T 72 QTc 579 Conclusion Atrial fibrillation..Right bundle branch block...QRSd>120, terminal axis(90,270) ST elevation secondary to IVCD...Multiple VCG criteria
[2020-05-19] MEDS: Metoprolol 25 MG TAB 12.5 MG PO ×2 (08:35→19:25)
[2020-05-19] MEDS: Polyethylene Glycol 3350 17 GM PACKET PO (08:36)
[2020-05-19] MEDS: Normal Saline Flush 10 ML SYR IVP (08:36)
[2020-05-19] MEDS: Docusate Sodium 100 MG CAP PO ×2 (08:36→16:11)
[2020-05-19] MEDS: Normal Saline 1,000 ML 150 ML IV ×2 (08:37→14:42)
[2020-05-19] MEDS: Nystatin POWDER 15 GM JAR TP ×2 (08:43→19:25)
--- NOTE | 2020-05-19 08:57 | IN_ITS ---
Date of service: 05/19/20 Time of Service: 08:57 PT Notes Visit Reasons: HYPERKALEMIA, CELLU Physical Therapy Inpatient Initial Evaluation Date: 05/19/2020 Referring Doctor: Wendy Allison NP PT Orders: PT CONSULT: Eval/treat Precautions: Fall. Standard. Activity as tolerated. Patient Profile/Admitting Diagnosis: Barrie is a 59-year-old male patient who presented to the Ed on 05/19/2020 with chief presentation of weak in B legs and increased pain in B calves. He is diagnosed with sepsis, hypotension related to sepsis, hyperkalemia, cellulitis and abscess of B LE, therapeutic INR, chronic ulcer of left leg, hyponatremia, lactic acidosis, and morbid obesity. PMHX: Medical History Acute kidney injury (nontraumatic) Associated with dehydration secondary to overdiuresis for treatment of his CHF Atrial fibrillation Cellulitis and abscess of lower extremity Chronic venous insufficiency of lower extremity Coronary artery disease Non-hemodynamic diffuse disease per cardiac catheterization from [facility] October 28, [address] Heladio Harkins Diabetic peripheral neuropathy associated with type 2 diabetes mellitus Morbid obesity with BMI of 50.0-59.9, adult Nonischemic cardiomyopathy LVEF 35% with diffuse hypokinesis and septal wall motion abnormality due to bundle branch block, moderately dilated and moderately reduced RV systolic function, mild mitral regurgitation, mild tricuspid regurgitation, mild dilatation aortic root and moderate dilatation of ascending aorta per transthoracic echocardiogram from [facility] [place], [place]. Obstructive sleep apnea Wear CPAP mask Orthostatic hypotension Osteoarthritis, knee Venous stasis ulcers of both lower extremities Surgical History H/O cardiac catheterization (10/28/19) Cardiac catheterization per Dr. Heladio Harkins at [facility], 10/28/2019, mild diffuse nonobstructive coronary artery disease with right coronary dominance and elevated left ventricular end-diastolic pressures, less than 25% narrowing of the left main coronary artery, less than 25% stenosis of the LAD, less than 25% stenosis of left circumflex, less than 25% stenosis of RCA. Social History/Home Situation: Patient lives alone in a private home with 5 steps to enter, rails on both sides. He has another set of 14 steps to the basement but patient reports that his brother will be able to manage the heating for him while he is recovering. Patient also has a sister who lives a mile from him who may be able to help as needed. Patient states that he has about 60 feet to 80 feet distance from his bedroom to the kitchen and the bathroom. He managed his own meals. He was independent with self-care tasks. He is independent with all mobility ADL performance using a front wheeled walker. Equipment Owned/DME: Front wheeled walker, SPC, recliner Subjective: Patient is agreeable to PT consult. He denies any dizziness, visual disturbance, chest pain, and headache throughout PT consult. Objective: General Observation: Kerlix gauze to bilateral legs. Mental Status: Alert and oriented x4 Pain: 3/10 in bilateral legs ROM: Right Upper Extremity: Shoulder Flexion WFL. Shoulder abduction WFL. Elbow flexion WFL. Wrist flexion WFL. Opening and closing of hand WFL. Left Upper Extremity: Shoulder Flexion WFL. Shoulder abduction WFL. Elbow flexion WFL. Wrist flexion WFL. Opening and closing of hand WFL. Right Lower Extremity: Hip flexion allows only up to 10 degrees beyond 90 while seated at edge of bed due to abdominal panniculus/morbid obesity. Hip abduction WFL. Knee flexion WFL. Ankle dorsiflexion WFL. Ankle plantarflexion WFL. Left Lower Extremity: Hip flexion only up to 10 degrees beyond 90 while seated at edge of bed due to abdominal panniculus/morbid obesity. Hip abduction WFL. Knee flexion WFL. Ankle dorsiflexion WFL. Ankle plantarflexion WFL. Strength: Right Upper Extremity: Shoulder flexors 4/5. Shoulder abductors 4/5. Elbow flexors 4/5. Elbow extensors 4/5. Repairer Recreational Vehicle strong. Left Upper Extremity: Shoulder flexors 4/5. Shoulder abductors 4/5. Elbow flexors 4/5. Elbow extensors 4/5. Repairer Recreational Vehicle strong. Right Lower Extremity: Hip flexors 3+/5. Hip abductors 4/5. Knee flexors 4/5. Knee extensors 4/5. Ankle dorsiflexors 4/5. Ankle plantarflexors 4/5. Left Lower Extremity:Hip flexors 3+/5. Hip abductors 4/5. Knee flexors 4/5. Knee extensors 4/5. Ankle dorsiflexors 4/5. Ankle plantarflexors 4/5. Sensation: Intact as to pain and pressure on bilateral lower extremities. Bed Mobility/Transfers: Supine to sit moderate assist with HOB at 30 degrees Sit to supine independent contact-guard assist Sit to stand contact-guard assist Stand to sit standby assist Bed to chair contact-guard assist Chair to bed standby assist Gait: Patient was able to tolerate 10 feet +10 feet of level surface ambulation using front wheeled walker with standby assist without any report of dizziness, chest pain, and headache. Reported some pain on bilateral calves. Reciprocal gait pattern. Yolanda decreased due to pain complaint. Balance: Static Sitting: Normal Dynamic Sitting: Normal Static Standing: Fair Dynamic Standing: Fair Special Tests: Mobility Limitations Standardized Measure [facility]-PAC 6 clicks Basic Mobility Inpatient Short Form: Raw Score: 19 CMS Score: 42% deficit Informed Consent/Education: Patient instructed in purpose of PT consult and plan of care. Assessment: All demonstrates functional mobility decline requiring the use of front wheel walker for all mobility ADL performance, impairment with balance, unsteadiness with gait, pain on bilateral legs, and generalized weakness resulting from admitting diagnoses. Patient presented with clinical signs and symptoms consistent with current/admitting diagnoses that have resulted to mobility limitations, gait instability, generalized weakness, and impairment of motor control as demonstrated by the following impairment level findings: 1. Decreased strength to B LE major muscle groups 2. Impaired standing balance 3. Impaired activity tolerance Impairments continue to contribute to the following functional limitations: 1. Inability to safely ambulate without assistive device and physical assistance 2. Increase completion time for mobility ADL performance 3. Increased fall risk 4. Inability to negotiate steps alone safely Patient is assessed as a 59229 moderate complexity based on the following: History: 58-year-old male with impairment level findings, functional limitations, and past medical history as indicated above Examination: Demonstrable impairment in strength, balance, and activity tolerance with underlying impairments and functional limitations as documented above Presentation: Evolving Decision Makin moderate complexity Goals: Goal x 3 days 1. Supine-Sit independent 2. Sit-Supine independent 3. Sit-Stand independent 4. Stand-Sit independent 5. Bed-Chair independent 6. Chair-Bed independent 7. Independent gait on level surface with use of single-point cane 100 feet without report of pain nor dyspnea 8. Independent stair negotiation while holding onto bilateral rails for at least 15 steps without report of pain nor dyspnea 9. Independent with home exercise program 10. Good static and dynamic standing balance/tolerance DISCHARGE RECOMMENDATIONS: PT services in order to maximize mobility gains using most appropriate assistive device. TREATMENT CODE/TIME: 91106 x 25 minutes, 87167 x 18 minutes beginning at 8:57 AM. Thank you very much for this referral. Corinna Durán PT, DPT, CLT [facility] [place], [place]
--- NOTE | 2020-05-19 09:42 | INITIAL_ITS ---
- If Service Date Differs Date of service: 05/19/20 Time of Service: 09:42 Care Management Initial Assess REASON FOR HOSPITALIZATION:: Sepsis PAST MEDICAL HISTORY/PAST SURGICAL HISTORY:: Medical History (Updated 04/16/20 @ 21:42 by Avelino Lang). Acute kidney injury (nontraumatic) (Resolved). Associated with dehydration secondary to overdiuresis for treatment of his CHF. Atrial fibrillation (Chronic). Cellulitis and abscess of lower extremity (Ac [place]). Chronic venous insufficiency of lower extremity (Acute). Coronary artery disease (Chronic). Non-hemodynamic diffuse disease per cardiac catheterization from [facility] October [facility], [address] Heladio Harkins. Diabetic peripheral neuropathy associated with type 2 diabetes mellitus (Acute). Morbid obesity with BMI of 50.0-59.9, adult (Acute). Nonischemic cardiomyopath y (Acute). LVEF 35% with diffuse hypokinesis and septal wall motion abnormality due to bundle branch block, moderately dilated and moderately reduced RV systolic function, mild mitral regurgitation, mild tricuspid regurgitation, mild dilatation aortic root and moderate dilatation of ascending aorta per transthoracic echocardiogram [place] [facility] [place] October 22, 2019. Obstructive sleep apnea (Chronic). Wear CPAP mask. Orthostatic hypotension (Resolved). Venous stasis ulcers of both lower extremities (Acute). Surgical History (Updated 04/16/20 @ 21:40 by Avelino Lang). H/O cardiac catheterization (Chronic 10/28/19). Cardiac catheterization per Dr. Heladio Harkins at [facility], 10/28/2019, mild diffuse nonobstructive coronary artery disease with right coronary dominance and elevated left ventricular end-diastolic pressures, less than 25% narrowing of the left main coronary artery, less than 25% stenosis of the LAD, less than 25% stenosis of left circumflex, less than 25% stenosis of RCA. PREVIOUS FUNCTIONAL STATUS/SOCIAL/FAMILY SUPPORTS:: Barrie lives in [place], alone. He has friends and family that live closeby and check in on him regularly. He is disabled, but independent with his ADL's. CURRENT FUNCTIONAL STATUS:: Barrie is in the ICU CM attempted to visit he was engaged in his care with nursing. CM did review careplan with [employer], they would like Barrie to have a hospital bed to assist with elevation due to his CHF. CM will coordinate this with provider. Barrie may need increase in services he currently has home health nursing. ADVANCE DIRECTIVES:: On file, Ban Peacock (daughter) listed as agent. Has patient been provided with info about the portal/API?: Yes Did the patient sign up for the portal?: No CODE STATUS:: Full Code INSURANCE COVERAGE / FINANCIAL ISSUES:: JESSICA LIZARRAGA CURRENT HOME/COMMUNITY SERVICES/EQUIPMENT:: Home Health [facility] PHYSICIAN:: Laura Martinez POTENTIAL DISCHARGE NEEDS:: Hospital bed, resumption of home health nursing and primary care appointment and follow up. PATIENT/FAMILY EDUCATION NEEDS:: Discharge education, limitations and follow up plan of care. ANTICIPATED BARRIERS TO DISCHARGE:: None identified TRANSPORTATION:: Via private car at time of discharge. PLAN:: Barrie is being treated for sepsis and hyperkalemia. He will be discharged home when medically ready. Barrie will need a hospital bed to assist with elevation r/t CHF. CM will contact [facility] with order. Resumption of home health nursing and increase in services if needed at time of discharge. CM to continue to assess for discharge needs and disposition coordination.
[2020-05-19] MEDS: Sodium Bicarbonate 50 MEQ/50 ML SYR IVP (09:45)
[2020-05-19] MEDS: Calcium Chloride 1000 MG/10 ML SYR IVP (09:45)
--- NOTE | 2020-05-19 10:46 | W.NUTCONSULT ---
Date of service: 05/19/20 Time of Service: 10:20 Nutritional Consult ASSESSMENT: 59 y/o male w/ hx BMI>50 and DM2 w/ peripheral neuropathy. Recent labs reveal hyponatremia r/t edema. He is on toursemide and may be at risk for potential fluid imbalance. BG 149/184 (H) on 05/18/20. Noted: Alb 2.6 (L) 05/18/20. He reports that he did not eat well yesterday but now was able to eat breakfast this am w/ intake>75%. Noted: Patient has shellfish allergy. Kitchen is aware, noted on meal ticket. Has bilateral wounds lower limbs r/t cellulitis. He was lethargic today at this encounter and was able to acknowledge some nutritional recommendations in the presence of ICU nurse. NUTRITIONAL DIAGNOSIS: Morbid Obesity as evidenced by hx BMI>50. INTERVENTION: Recommend: Active lx pro supplement 30ml BID with 30ml H20 to help with wound healing. Provided 30g/pro/day. Recommend: Vit C and Zn per MD. approval to help with wound healing MONITORING AND EVALUATION: Monitor PO intake, weights, labs Time Spent in Nutritional Counseling and Treatment: 10 minutes
[2020-05-19] MEDS: Sodium Zirconium Cyclosilicate 10 GM PKT PO (11:00)
[2020-05-19] MEDS: Insulin Aspart 300 UNITS/3 ML PEN SC (12:17)
--- NOTE | 2020-05-19 12:22 | PGE_ITS ---
Date of Service Date of service: 05/19/20 Time of Service: 12:25 Assessment and Plan Assessment and plan (1) Sepsis associated hypotension: Status: Acute Assessment and plan: BP has improved. No longer with tachypnea or tachycardia Received IV fluids in ED and in ICU. Lactic acid pending. Blood cx NGTD On Cefepime and Vanc. (2) Cellulitis of lower extremity: Status: Acute Assessment and plan: Wound gram stain with rate gram neg rods. Cx pending. Cont Cefepime and Vancomycin. No elevation of WBC count. (3) Venous stasis ulcers of both lower extremities: Status: Chronic Assessment and plan: Long standing venous stasis. Wound care consulted Elevate BLE if tolerates. (4) Supratherapeutic INR: Status: Acute Assessment and plan: INR 3.7 > 3.5 Holding coumadin and monitoring (5) Nonischemic cardiomyopathy: Status: Chronic Assessment and plan: Echocardiogram with moderately decreased left ventricular systolic function. LVEF of 35-40%. He is on Torsemide 40mg po daily at home. Has been held d/t sepsis and need for fluid resuscitation. Renal function within his baseline range. CXR on admission without any acute findings; no pulmonary edema. Will continue to monitor and renew diuretic when appropriate. (6) Hyponatremia: Status: Acute Assessment and plan: Na 119 on admission. Now 120. Would benefit from volume reduction and will add diuretic judiciously when appropriate. Monitor (7) Hyperkalemia: Status: Acute Assessment and plan: K+ continues to be elevated: 6.5 > 6.4 > 6.2> pending, though slowly trending downward. Elevated despite administration of Veltassa x 3, glucose and insulin x 3, Na Bicard. Also has received IV Calcium x 3 d/t wide QRS complex. This am gave a dose of Lokalma. Has yet to have a BM despite the K+ lowering meds and Miralax. Creatinine only mildly elevated at 1.57. Subjective Subjective Patient reports: no new complaints, tolerating a regular diet, no bowel movement and afebrile Interval history since last seen: Pt c/o being very tired. Slept very little overnight No palpitations, CP, SOA. No chills. Exam Const General: cooperative and no acute distress Nutritional Appearance: obese Orientation: alert and oriented x3 Resp Effort & Inspection: normal respiratory effort Auscultation: clear to auscultation bilaterally and diminished lung sounds Cardio Rate: regular rate Rhythm: regular rhythm Heart Sounds: S1 normal and S2 normal GI Inspection: obesity Palpation: soft Auscultation: normal bowel sounds Extrem General: pedal edema (Bandage wraps at each lower ext in place; mid-calf through feet.) bilaterally Objective Last Vital Signs Temp 35.7 C L 05/19/20 12:19 Pulse 67 05/19/20 12:02 Resp 19 05/19/20 12:19 BP 104/71 05/19/20 12:19 Pulse Ox 98 05/19/20 12:10 Laboratory Results - last 24 hr 05/18/20 05/18/20 05/18/20 10:19 12:15 16:05 WBC RBC Hgb Hct MCV MCH MCHC RDW Plt Count MPV Immature Gran % Neutrophils % Lymphocytes % Monocytes % Eosinophils % Basophils % Nucleated RBC % Absolute Neutrophils Absolute Lymphocytes Absolute Monocytes Absolute Eosinophils Absolute Basophils PT INR VBG Lactate 5.2 H* Sodium Potassium 6.1 H* Chloride Carbon Dioxide Anion Gap BUN Creatinine Estimated GFR/1.73 m2 Glucose Calcium Magnesium Total Bilirubin AST ALT Alkaline Phosphatase Total Protein Albumin COVID-19 PCR Negative Nasopharyn COVID-19 PCR Not Applicable Ref Test Perform Site [facility] 05/18/20 05/18/20 05/18/20 16:05 20:00 21:25 WBC RBC Hgb Hct MCV MCH MCHC RDW Plt Count MPV Immature Gran % Neutrophils % Lymphocytes % Monocytes % Eosinophils % Basophils % Nucleated RBC % Absolute Neutrophils Absolute Lymphocytes Absolute Monocytes Absolute Eosinophils Absolute Basophils PT INR VBG Lactate Sodium 122 L* 120 L* Potassium 6.5 H* Cancelled 6.4 H* Chloride 89 L 90 L Carbon Dioxide 23.2 19.4 L Anion Gap 9.8 10.6 BUN 66 H 67 H Creatinine 1.63 H 1.64 H Estimated GFR/1.73 m2 43.23 42.92 Glucose 184 H 149 H Calcium 9.1 9.5 Magnesium Total Bilirubin 2.0 H AST 36 ALT 16 Alkaline Phosphatase 137 H Total Protein 7.0 Albumin 2.6 L COVID-19 PCR Nasopharyn COVID-19 PCR Ref Test Perform Site 05/19/20 05/19/20 05/19/20 06:14 06:14 06:14 WBC 7.60 RBC 4.10 L Hgb 10.5 L Hct 33.7 L MCV 82.2 MCH 25.6 L MCHC 31.2 L RDW 17.7 H Plt Count 322 MPV 9.2 Immature Gran % 1.1 Neutrophils % 75.8 Lymphocytes % 14.1 Monocytes % 8.2 Eosinophils % 0.4 Basophils % 0.4 Nucleated RBC % 1 Absolute Neutrophils 5.77 Absolute Lymphocytes 1.07 L Absolute Monocytes 0.62 Absolute Eosinophils 0.03 Absolute Basophils 0.03 PT 34.1 H INR 3.5 H VBG Lactate Sodium 120 L* Potassium 6.2 H* Chloride 90 L Carbon Dioxide 19.6 L Anion Gap 10.4 BUN 66 H Creatinine 1.57 H Estimated GFR/1.73 m2 45.14 Glucose 95 D Calcium 9.5 Magnesium Total Bilirubin AST ALT Alkaline Phosphatase Total Protein Albumin COVID-19 PCR Nasopharyn COVID-19 PCR Ref Test Perform Site 05/19/20 06:14 WBC RBC Hgb Hct MCV MCH MCHC RDW Plt Count MPV Immature Gran % Neutrophils % Lymphocytes % Monocytes % Eosinophils % Basophils % Nucleated RBC % Absolute Neutrophils Absolute Lymphocytes Absolute Monocytes Absolute Eosinophils Absolute Basophils PT INR VBG Lactate Sodium Potassium Chloride Carbon Dioxide Anion Gap BUN Creatinine Estimated GFR/1.73 m2 Glucose Calcium Magnesium 2.1 Total Bilirubin AST ALT Alkaline Phosphatase Total Protein Albumin COVID-19 PCR Nasopharyn COVID-19 PCR Ref Test Perform Site
--- NOTE | 2020-05-19 13:26 | PHACLINREV_ITS ---
Pharmacy Admission Review - Admission Clinical Review (Last Reviewed 05/18/20 @ 12:39 by Wendy Allison NP) Cellulitis of lower extremity (Acute) Hyponatremia (Acute) Sepsis associated hypotension (Acute) Sepsis (Acute) Bilateral leg weakness (Acute) Acute leg pain (Acute) Hyperkalemia (Acute) Dizziness (Acute) Supratherapeutic INR (Acute) Lactic acidosis (Acute) Cellulitis and abscess of lower extremity (Acute) Chronic venous insufficiency of lower extremity (Acute) Morbid obesity with BMI of 50.0-59.9, adult (Acute) Supratherapeutic INR (Acute) Discharge planning issues (Acute) diltiazem Allergy (Unverified 05/18/20 10:21) Anaphylaxsis shellfish derived Allergy (Unverified 05/18/20 10:21) Other (See Comment) sulfamethoxazole [From Bactrim] Allergy (Unverified 05/18/20 10:21) Other (See Comment) trimethoprim [From Bactrim] Allergy (Unverified 05/18/20 10:21) Other (See Comment) adhesive tape Adverse Reaction (Unverified 05/18/20 10:21) Skin Rash Height 5 ft 8 in Weight 152.4 kg - Renal Dosing Renal Dosing: BUN 66 mg/dL (7-18) H 05/19/20 06:14 Creatinine 1.57 mg/dL (0.70-1.30) H 05/19/20 06:14 Medications needing adjustments: Reviewed (CrCl ~70ml/min based on abw) - Anticoagulation Anticoagulation: Hgb 10.5 g/dL (13.5-17.5) L 05/19/20 06:14 Hct 33.7 % (40.0-50.0) L 05/19/20 06:14 Plt Count 322 10^3/uL (130-400) 05/19/20 06:14 INR 3.5 (0.9-1.1) H 05/19/20 06:14 Creatinine 1.57 mg/dL (0.70-1.30) H 05/19/20 06:14 DVT Prohphylaxis: N/A Therapeutic Anticoagulation: N/A Medications: Warfarin (ON HOLD due to supratherapeutic INR (3.5)) - Opiate Usage Evaluate Pain Scale/Pains Meds: N/A Scheduled Bowel Reg ordered if on Opiates?: Yes (prn miralax) - Relevant Labs Sodium 120 mmol/L (136-145) L* 05/19/20 06:14 Potassium 6.2 mmol/L (3.5-5.1) H* 05/19/20 06:14 Chloride 90 mmol/L (98-107) L 05/19/20 06:14 Magnesium 2.1 mg/dL (1.8-2.4) 05/19/20 06:14 C-Reactive Protein 5.09 mg/dL (0.0-0.3) H 05/18/20 07:00 Electrolytes, C-Reactive P, ESR: Reviewed (Multiple doses of Veltassa, Calcium Chloride, Na Bicarb, Insulin for hyperkalmia -- K level is still 6.2 but has been trending down, 1 dose of Lokelma given this AM) - DM Control DM Control: Glucose 95 mg/dL (74-106) D 05/19/20 06:14 Finger Stick Blood Glucose 140 Finger Stick Blood Glucose 90 Finger Stick Blood Glucose 90 Insulin Dosing: Reviewed (Aspart per SS) - Heart Failure/LA Heart Failure/LA: NT-Pro-B Natriuret Pep 7224 pg/mL (<300) H 05/18/20 07:00 EF%, KADIE's, B-Blockers, Diuretics: Reviewed (Metoprolol (was previously on a much higher dose earlier this year), torsemide (home med), and was on an ACEI earlier this year but no longer seems to be active (does have DMII)) - BP Control BP Control: Blood Pressure [Left Arm] 104/71 Blood Pressure [Left Arm] 104/71 Blood Pressure 106/75 Blood Pressure 96/72 Blood Pressure 92/69 Blood Pressure 105/65 Blood Pressure 81/70 Blood Pressure 96/26 Blood Pressure 86/70 Blood Pressure 86/62 If elevated: Reviewed - Qtc Review If Elevated: Reviewed List meds needing interventions: QTc 592 - IV to PO Switch IV Medications: Reviewed - Home Meds Home Med List reviewed: Reviewed Relevent Home Meds Not ordered & why?: Duloxetine BUT last will was 12/30/19 for a 15 day supply so probably not taking anymore, torsemide (septic), glyburide (has aspart per SS ordered), potassium (hyperkalemic), warfarin (INR is suprat herapeutic) - Current meds Current Medication Order Review: Reviewed - Comments Comments/Follow Ups: Does not appear to be on an ACEI or an ARB
[2020-05-19 13:59] LABS: Lactate 3.2 mmol/L (0.6-1.4)
[2020-05-19 14:20] LABS: Potassium 5.5 mmol/L (3.5-5.1)
--- NOTE | 2020-05-19 15:36 | PT.INTREAT ---
Date of service: 05/19/20 Time of Service: 15:36 PT Notes Visit Reasons: HYPERKALEMIA, CELLU Inpatient Physical Therapy Treatment Note [facility] Date: 05/20/2020 PRECAUTIONS: Fall SUBJECTIVE: Barrie is pleasant and agreeable to participate in PT. He states I will not go to a rehab. He also reports that he does not sleep in a bed at home, but rather a chair. OBJECTIVE: PAIN: No c/o pain BED MOBILITY/TRANSFERS Supine-sit: SBA with HOB at 40 degrees Sit-supine: Min A of B LE with HOB flat Sit-stand: SBA Stand-sit: SBA Bed-chair: SBA Chair-bed: SBA GAIT Assistive Device: FWW Weight bearing: Full Assist: SBA Distance: 20' Deviation: Decreased susi and step height THEREX: Patient was instructed in a LE strengthening program, in a supine, as per flow sheet. He requires verbal cueing for proper exercise performance. ASSESSMENT: Patient tolerated a progression in gait distance with FWW support and SBA, demonstrating slow susi and short step height. He requires minimal assist with B LE with sit-supine transfer. He would benefit from continued gait training with improved mobility and continued progression toward baseline level of function. PLAN: Continue with gait training and global strengthening for improved mobility TREATMENT CODE/TIME: 45 minutes; 71140 x2
--- NOTE | 2020-05-19 16:00 | RT.EKG_ITS ---
APPROVED REPORT Exam: Resting ECG Patient Location: I HR:101 bpm ECG Measurements Heart Rate 101 AXIS MT [id number] P [id number] QRSd 188 QRS -94 QT 412 T 75 QTc 535 Conclusion Atrial fibrillation...V-rate 76-121, irreg A-activity Right bundle branch block...QRSd>120, terminal axis(90,270) ST elevation secondary to IVCD...Multiple VCG criteria I have reviewed and I agree with the emergency room physician???s ECG interpretation.
[2020-05-19] MEDS: Acetaminophen 325 MG TAB PO ×2 (16:11→22:16)
--- NOTE | 2020-05-19 17:07 | WOUNDCONS ---
- If Service Date Differs Date of service: 05/19/20 Time of Service: 15:00 Wound Initial Evaluation Narrative: patient is a 59 yom, who is admitted here for sepsis, cellulitis, hyponatremia, and hyperkalemia. Patient is followed by the wound team at [facility]. H&P, labs , allergies, and other pertinent information were reviewed. Patient signed consents, and was interviewed by myself and Melissa Leigh RN, [facility]. We discussed [facility] wound teams current POC with the patient. - Circulation, Sensation, Motion Capillary Refill: Greater than 3 seconds
--- NOTE | 2020-05-19 17:43 | WOUNDCONS ---
Wound Initial Evaluation Narrative:
--- NOTE | 2020-05-19 17:46 | WOUNDCONS_ITS ---
- If Service Date Differs Date of service: 05/19/20 Time of Service: 15:00 Wound Initial Evaluation Narrative: Patient is a 59 yom, who is admitted here for sepsis,hyponatremia and hyperkalemia. Patient is seen by the wound team at [facility]. Melissa Leigh RN, [facility] and myself interviewed patient as to what the current poc was being performed. H&P, labs, allergies, and other pertinent data were reviewed. Patient agreed to the consult and what the poc would be. - Wound Left Lower Anterior Tib/Fib(lower leg) Wound Type: Statis Ulcer Pressure Ulcer Stage: II Wound General Appearance: Asymptomatic, Draining, Unapproximated Wound Bed Greatest Portion: Pale [place] Wound Surrounding Tissue Appearance: Dark Red Percent of Wound Bed Granulated/Red: 0 Percent of Wound Bed Slough/Yellow: 0 Percent of Wound Bed Eschar/Black: 0 Wound Length: 2 cm Wound Width: 1.3 cm Wound Depth: 0.3 cm Wound Drainage Amount: Moderate Wound Drainage Odor: None/Absent Wound Drainage Description: Serous Wound Topical Solution/Irrigant: Antibiotic Irrigant Wound Debridement Method: Mechanical Wound Debridement Result: Healthy Tissue Revealed Wound Debridement Amount of Tissue Removed: Minimal Right Posterior Tib/Fib(lower leg) Wound Type: Statis Ulcer Wound General Appearance: Unapproximated Wound Bed Greatest Portion: Pale [place] Wound Bed Lesser Portion: Pale [place] Wound Surrounding Tissue Appearance: Dark Red Percent of Wound Bed Granulated/Red: 0 Percent of Wound Bed Slough/Yellow: 0 Percent of Wound Bed Eschar/Black: 0 Wound Length: 8.9 cm Wound Width: 5.8 cm Wound Depth: 0.1 cm Wound Drainage Amount: Moderate Wound Drainage Odor: None/Absent Wound Drainage Description: Serous Wound Topical Solution/Irrigant: Antibiotic Irrigant Wound Debridement Method: Mechanical Wound Debridement Result: Healthy Tissue Revealed Wound Debridement Amount of Tissue Removed: Minimal Left Anterior Tib/Fib(lower leg) Wound Type: Statis Ulcer Wound General Appearance: Reddened, Draining Wound Bed Greatest Portion: Pale [place] Wound Bed Lesser Portion: Pale [place] Wound Surrounding Tissue Appearance: Dark Red Percent of Wound Bed Granulated/Red: 0 Percent of Wound Bed Slough/Yellow: 0 Percent of Wound Bed Eschar/Black: 0 Wound Length: 1.5 cm Wound Width: 0.9 cm Wound Depth: 0.2 cm Wound Drainage Amount: Moderate Wound Drainage Odor: None/Absent Wound Drainage Description: Serous Wound Topical Solution/Irrigant: Antibiotic Irrigant Wound Debridement Method: Mechanical Wound Debridement Result: Healthy Tissue Revealed Wound Debridement Amount of Tissue Removed: Minimal Left Medial Ankle Wound Type: Statis Ulcer Wound General Appearance: Reddened, Necrotic Wound Bed Greatest Portion: Yellow (Slough) Wound Bed Lesser Portion: Pale [place] Wound Surrounding Tissue Appearance: Dark Red Percent of Wound Bed Granulated/Red: 0 Percent of Wound Bed Slough/Yellow: 85 Percent of Wound Bed Eschar/Black: 0 Wound Length: 1.5 cm Wound Width: 1.8 cm Wound Depth: 0.3 cm Wound Drainage Amount: Minimal Wound Drainage Odor: None/Absent Wound Drainage Description: Brown Wound Topical Solution/Irrigant: Antibiotic Irrigant Wound Debridement Method: Mechanical Wound Debridement Result: Yellow Sloughing Remains Wound Debridement Amount of Tissue Removed: Minimal Left Posterior Calf Wound Type: Statis Ulcer Wound General Appearance: Draining, Unapproximated Wound Bed Greatest Portion: Pale [place] Wound Bed Lesser Portion: Pale [place] Wound Surrounding Tissue Appearance: Dark Red Percent of Wound Bed Granulated/Red: 0 Percent of Wound Bed Slough/Yellow: 0 Percent of Wound Bed Eschar/Black: 0 Wound Length: 7.9 cm Wound Width: 2.4 cm Wound Depth: 0.2 cm Wound Drainage Amount: Moderate Wound Drainage Odor: None/Absent Wound Drainage Description: Serous Wound Topical Solution/Irrigant: Antibiotic Irrigant Wound Debridement Method: Mechanical Wound Debridement Result: Pt Unable to Tolerate Wound Debridement Amount of Tissue Removed: None - Circulation, Sensation, Motion Edema Degree: 3+ Peripheral Pulse Strength: Normal Capillary Refill: Less than 3 seconds Sensation Description: Pain Skin Temperature: Warm Skin Color: Tom, Dusky - Pain Pain Level: 8 (with debridement) Pain Description: Sharp Pain Duration (Hours): 0 (with debridement) Patient who has statis ulcers on both legs.Wounds are Draining a moderate amount of serous fluid. Goal should be to control drainage and remove slough from the ankle wound - Treatment/Dressing Change Topicals/Ointments: Santyl Cleanse With: Anasept Dressing Types: Telfa, Opti-Lock - Recomendation Recomendation:: Left posterior calf. Cleanse with debrisoft and anasept cleanser, pat dry Apply optiloc, dressing. Secure with Kerlix. Change daily or prn. Left anterior tib/fib Cleanse with debrisoft and anasept cleanser, pat dry Apply optiloc, dressing. Secure with Kerlix. Change daily or prn. Right posterior lower leg. Cleanse with debrisoft and anasept cleanser, pat dry Apply optiloc, dressing. Secure with Kerlix. Change daily or prn. Right anterior lower leg. Cleanse with debrisoft and anasept cleanser, pat dry Apply optiloc, dressing. Secure with Kerlix. Change daily or prn. Left medial ankle. cleanse with Debrisoft and Anasept,pat dry. Apply a nickel thickness of Santyl to the wound bed. Cover with Telfa pad. Secure with Kerlix. Change daily or prn Physcian/Nurse Practioner Notified: Yes (Dr. Avilez) Treatment Time - Time Total Time Spent with Patient: 1 hour - Patient Will be Seen Weekly Treatment: daily - For: For:: 1 week
[2020-05-19] MEDS: Collagenase 30 GM TUBE TP (19:26)
[2020-05-19] MEDS: Gabapentin 600 MG TAB 1200 MG PO (19:28)
[2020-05-19] MEDS: Melatonin 3 MG TAB 6 MG PO (19:29)
[2020-05-19] MEDS: HYDROcodone 5/Acetaminophen 325 TAB PO (19:29)
[2020-05-19] MEDS: Zolpidem 5 MG TAB PO (22:16)
[2020-05-20] VITALS (25 sets, daily range): BP systolic 70–108; BP diastolic 35–83; PULSE 55–162; RESP 9–27; TEMP 35.1–36.6; O2SAT 96–99
[2020-05-20] MEDS: CEFEPIME 2 GM in Normal Saline 100 ML IVPB ×3 (01:21→17:26)
[2020-05-20] MEDS: HYDROcodone 5/Acetaminophen 325 TAB PO ×2 (01:28→20:41)
[2020-05-20] MEDS: Acetaminophen 325 MG TAB PO ×2 (04:44→11:15)
--- NOTE | 2020-05-20 06:00 | NUR.NOTE ---
Addendum entered by Petar Menjivar 05/20/20 06:15: Phleb at bedside to draw AM labs. Original Note: Nursing Note:
[2020-05-20 07:09] LABS: Absolute Basophil Count 0.03 10^3/uL (0.0-0.2); Absolute Eosinophil Count 0.11 10^3/uL (0.0-0.7); Absolute Lymphocyte Count 1.02 10^3/uL (1.2-3.4); Absolute Monocyte Count 0.66 10^3/uL (0.1-0.8); Absolute Neutrophil Count 4.57 10^3/uL (1.2-6.7); Basophils % 0.5; Eosinophils % 1.7; HCT 32.2 % (40.0-50.0); Immature Grans % 1.5; Lymphocytes % 15.7; MCH 25.9 pg (27.0-33.0); MCHC 31.1 % (32.0-36.0); MCV 83.4 fL (80-95); MPV 9.3 fL (8.0-11.0); Monocytes % 10.2; Neutrophils % 70.4; Nucleated RBC 1 %; Platelet Count 288 10^3/uL (130-400); RBC 3.86 10^6/uL (4.36-5.78); RDW 17.7 % (11.8-14.1); RDW-SD 52.5 fL; WBC 6.49 10^3/uL (4.4-10.8)
[2020-05-20 07:16] LABS: Anion Gap 7.8 mmol/L (3-11); BUN 64 mg/dL (7-18); CO2 22.2 mmol/L (21.0-32.0); Calcium 8.9 mg/dL (8.5-10.1); Chloride 95 mmol/L (98-107); Estimated GFR 44.16 (mL/min/1.73m2); Glucose 124 mg/dL (74-106); Sodium 125 mmol/L (136-145)
[2020-05-20 07:21] LABS: INR 2.1 (0.9-1.1); Prothrombin Time 20.8 sec (9.3-11.0)
[2020-05-20] MEDS: Simvastatin 20 MG TAB 40 MG PO (08:18)
[2020-05-20] MEDS: Metoprolol 25 MG TAB 12.5 MG PO (08:24)
[2020-05-20] MEDS: Nystatin POWDER 15 GM JAR TP ×2 (09:00→20:50)
--- NOTE | 2020-05-20 09:05 | NT_ITS ---
Date of service: 05/20/20 Time of Service: 07:12 Occupational Therapy Notes 05/20/20 OT attempted to see pt who is confused this morning. Per RN orders, they would like to hold on OT services at this time. Serina Pradhan OTR/[facility]
[2020-05-20] MEDS: Budesonide/Formoterol 80/4.5 10.2 GM 120 PUFF INH IH ×2 (09:09→20:41)
--- NOTE | 2020-05-20 09:15 | CMPROGNOTE_ITS ---
- If Service Date Differs Date of service: 05/20/20 Time of Service: 09:15 Care Management Progress Note S/O:Barrie is alert and engaged at this time he does report he is tired and had a bad reaction to Ambien last night. His sister is present in the room and request more information regarding moderate needs and home making services. Barrie is not interested in services at this time he feels that he can care for his own home, however his sister is concerned that he needs more help. CM reviewed resource such as insurance counsel on aging and offered referral for options to discuss resources in the community which he may benefit from. Barrie is willing to consider. A:Barrie is a 59 year old male admitted for Sepsis, with a history of CHF, venous stasis ulcers and multiple comobitities P:Barrie is being treated for sepsis and hyperkalemia. He will be discharged home when medically ready. Barrie will need a hospital bed to assist with elevation r/t CHF, CM will coordinate prescription and DME. CM reviewed DME agencies Barrie would like to pursue [facility] for his equipment. He also needs new CPAP equipment including hose, mask and filters CM will request RT facilitate. Barrie will have resumption of home health nursing he denies PT and OT at this time. CM to continue to assess for discharge needs and disposition coordination.
--- NOTE | 2020-05-20 10:29 | W.PM.PROGNOT ---
Date of Service Date of service: 05/20/20 Time of Service: 08:13 Assessment and Plan Assessment and plan (1) Cellulitis of lower extremity: Status: Acute Assessment and plan: bilateral venous stasis ulcers. Left LE cellulitis Leg wound culture growing mixed Gram + and mixed Gram - omar. On Cefepime and Vanc. Blood cultures negative to date. Cont wound care. Consider changing to oral antibiotic tomorrow. Qualifiers: Laterality: unspecified laterality Qualified Code(s): L03.119 - Cellulitis of unspecified part of limb (2) Hyponatremia: Status: Acute Assessment and plan: Improving. Na now 125. Monitor. (3) Sepsis associated hypotension: Status: Acute Assessment and plan: Resolved. Blood cultures NGTD (4) Atrial fibrillation: Status: Chronic Assessment and plan: HR under better control Cont metoprolol. Coumadin has been on hold d/t supratherapeutic INR. INR now 2.1. Subjective Subjective Patient reports: bowel movement Interval history since last seen: Pt confused this AM; took Ambien last PM for the first time. No pain, SOA, CP, palpitations. No F/C. Exam Const General: cooperative and no acute distress Nutritional Appearance: obese Orientation: alert and oriented to person Eyes Sclera: sclerae normal Pupils: PERRL Resp Effort & Inspection: normal respiratory effort Auscultation: clear to auscultation bilaterally Cardio Jugular venous pressure: no JVD Rhythm: other (Irreg Irreg) GI Inspection: obesity Palpation: soft Auscultation: normal bowel sounds Skin Other: Bilateral venous stasis ulcers; improved erythema +/-. Gauze bandages in place. Neuro General: patient alert and moves all extremities Cognition: abnormal cognition (mild confusion / lethargic) Speech: speech normal Objective Last Vital Signs Temp 35.4 C L 05/20/20 08:00 Pulse 85 05/20/20 09:14 Resp 15 05/20/20 09:14 BP 101/83 05/20/20 07:01 Pulse Ox 98 05/20/20 09:14 Laboratory Results - last 24 hr 05/19/20 05/19/20 05/20/20 13:35 13:35 06:45 WBC RBC Hgb Hct MCV MCH MCHC RDW Plt Count MPV Immature Gran % Neutrophils % Lymphocytes % Monocytes % Eosinophils % Basophils % Nucleated RBC % Absolute Neutrophils Absolute Lymphocytes Absolute Monocytes Absolute Eosinophils Absolute Basophils PT INR VBG Lactate 3.2 H* Sodium 125 L Potassium 5.5 H 5.0 Chloride 95 L Carbon Dioxide 22.2 Anion Gap 7.8 BUN 64 H Creatinine 1.60 H Estimated GFR/1.73 m2 44.16 Glucose 124 H Calcium 8.9 05/20/20 05/20/20 06:45 06:45 WBC 6.49 RBC 3.86 L Hgb 10.0 L Hct 32.2 L MCV 83.4 MCH 25.9 L MCHC 31.1 L RDW 17.7 H Plt Count 288 MPV 9.3 Immature Gran % 1.5 Neutrophils % 70.4 Lymphocytes % 15.7 Monocytes % 10.2 Eosinophils % 1.7 Basophils % 0.5 Nucleated RBC % 1 Absolute Neutrophils 4.57 Absolute Lymphocytes 1.02 L Absolute Monocytes 0.66 Absolute Eosinophils 0.11 Absolute Basophils 0.03 PT 20.8 H D INR 2.1 H D VBG Lactate Sodium Potassium Chloride Carbon Dioxide Anion Gap BUN Creatinine Estimated GFR/1.73 m2 Glucose Calcium
[2020-05-20] MEDS: Insulin Aspart 300 UNITS/3 ML PEN SC ×2 (12:03→17:26)
--- NOTE | 2020-05-20 12:48 | PT.INTREAT ---
Date of service: 05/20/20 Time of Service: 12:48 PT Notes Visit Reasons: HYPERKALEMIA, CELLU Inpatient Physical Therapy Treatment Note [facility] Date: 05/20/2020 PRECAUTIONS: Fall SUBJECTIVE: Barrie reports that he feels really sleepy today due to medication he received over night. OBJECTIVE: PAIN: No c/o pain BED MOBILITY/TRANSFERS Supine-sit: S with HOB at 30 degrees Sit-stand: S Stand-sit: S GAIT Assistive Device: FWW Weight bearing: Full Assist: SBA Distance: 6' in a.m.; 60' in p.m. Deviation: Slow susi and short step height in both a.m. and p.m.; standing rest x2 and SOB in p.m. Static stand x3 minutes with FWW support and SBA THEREX: Patient was instructed in several LE strengthening exercises, in a seated position in a.m., as per flow sheet. Held further ther ex due to patient falling asleep. ASSESSMENT: Patient tolerated a progression in gait distance with FWW support and SBA, requiring standing rest x2 and demonstrating increased SOB. He would benefit from continued gait training and global strengthening for improved mobility and continued progression toward baseline level of function. PLAN: Continue with gait training and global strengthening TREATMENT CODE/TIME: Session 1: 30 minutes; [id number] x2 Session 2: 25 minutes; [id number] x2
[2020-05-20] MEDS: Normal Saline Flush 10 ML SYR IVP ×2 (16:40→23:28)
[2020-05-20 17:51] LABS: Vancomycin, Trough 26.3 ug/mL (10.0-20.0)
[2020-05-20] MEDS: Collagenase 30 GM TUBE TP (18:09)
[2020-05-20] MEDS: Protein Nutritional Supplement 16 GM 1 OUNCE PACKET PO (20:41)
[2020-05-20] MEDS: Gabapentin 600 MG TAB 1200 MG PO (21:49)
[2020-05-20] MEDS: Warfarin 5 MG TAB PO (21:50)
[2020-05-20] MEDS: Docusate Sodium 100 MG CAP PO (21:50)
[2020-05-21] MEDS: CEFEPIME 2 GM in Normal Saline 100 ML IVPB ×3 (01:30→18:20)
[2020-05-21 02:51] VITALS: BP 114/77; PULSE 95; RESP 19; TEMP 35.9; O2SAT 100
[2020-05-21 06:50] LABS: Absolute Basophil Count 0.04 10^3/uL (0.0-0.2); Absolute Eosinophil Count 0.14 10^3/uL (0.0-0.7); Absolute Lymphocyte Count 0.88 10^3/uL (1.2-3.4); Absolute Monocyte Count 0.66 10^3/uL (0.1-0.8); Absolute Neutrophil Count 5.11 10^3/uL (1.2-6.7); Basophils % 0.6; HCT 31.4 % (40.0-50.0); HGB 9.7 g/dL (13.5-17.5); Immature Grans % 1.4; Lymphocytes % 12.7; MCH 25.9 pg (27.0-33.0); MCHC 30.9 % (32.0-36.0); MPV 9.2 fL (8.0-11.0); Monocytes % 9.5; Neutrophils % 73.8; Nucleated RBC 1 %; Platelet Count 290 10^3/uL (130-400); RBC 3.74 10^6/uL (4.36-5.78); RDW 17.7 % (11.8-14.1); RDW-SD 52.8 fL; WBC 6.93 10^3/uL (4.4-10.8)
[2020-05-21 07:01] LABS: Anion Gap 6.9 mmol/L (3-11); BUN 63 mg/dL (7-18); CO2 23.1 mmol/L (21.0-32.0); CREATININE 1.46 mg/dL (0.70-1.30); Calcium 8.6 mg/dL (8.5-10.1); Chloride 96 mmol/L (98-107); Estimated GFR 49.09 (mL/min/1.73m2); Glucose 138 mg/dL (74-106); Magnesium 1.6 mg/dL (1.8-2.4); Potassium 5.2 mmol/L (3.5-5.1); Sodium 126 mmol/L (136-145)
[2020-05-21 07:04] LABS: INR 1.6 (0.9-1.1); Prothrombin Time 16.4 sec (9.3-11.0)
[2020-05-21] MEDS: Budesonide/Formoterol 80/4.5 10.2 GM 120 PUFF INH IH ×2 (07:34→20:11)
--- NOTE | 2020-05-21 07:57 | OTTR_ITS ---
Date of service: 05/21/20 Time of Service: 07:10 Occupational Therapy Notes Occupational Therapy Inpatient Treatment Note Date: 05/21/20 PRECAUTIONS: Fall, Standard, Full SUBJECTIVE: Pt was lying in bed when OT arrived. He was alert and awake as well as agreeable to OT session. His leg bandages were off as he reports that he ripped them off in the night. OBJECTIVE: PAIN:10/06 pain FUNCTIONAL MOBILITY Rolling L/R: (I) with increased performance time Supine-sit: Increased performance time, min (A) and mod vc Sit-supine: Increased performance time, max (A) (R) LE and mod vc throughout BATHING: sitting on side of the bed with max (A) set up and clean up Upper Body: (I) face, (B) UE, abdomen and max (A) back with min vc throughout Lower Body: pt was able to wash his (B) thighs, will hold biju area to be performed with nursing as pt reports that he needs cream as his boys are sore and this limits his mobility. DRESSING: sitting on side of the bed Upper Extremity: Mod (A) [facility] gown Lower Extremity: Pt denies GROOMING: sitting on side of the bed (I) with brushing his hair TOILETING: Shepherd in place ASSESSMENT/PLAN: Pt was receptive to performance of his ADLs in the sitting position. He was able to perform with increased performance time and did require vc throughout. His limited mobility is what is affecting his functional (I) in his ADL routines. OT does feel that pt would benefit from HH services if he returns home, pt did not respond when OT mentions this. His leg wounds are painful and he reports that he took his bandages off last night against medical advice. Pt has difficulty performing his functional mobility required for his ADLs. He is not interested in any adaptive equipment at this time. TREATMENT CODES/TIME: [id number], 25 minutes (07:10) SAHARA Hall/[facility]
[2020-05-21] MEDS: Collagenase 30 GM TUBE TP (08:12)
[2020-05-21] MEDS: Nystatin POWDER 15 GM JAR TP ×2 (08:12→20:11)
[2020-05-21] MEDS: Protein Nutritional Supplement 16 GM 1 OUNCE PACKET PO ×2 (08:13→20:11)
[2020-05-21] MEDS: Normal Saline Flush 10 ML SYR IVP ×5 (08:13→18:58)
[2020-05-21] MEDS: Insulin Aspart 300 UNITS/3 ML PEN SC ×3 (08:14→16:54)
[2020-05-21] MEDS: Zinc Sulfate 220 MG TAB PO (08:14)
[2020-05-21] MEDS: Simvastatin 20 MG TAB 40 MG PO (08:14)
[2020-05-21] MEDS: Metoprolol 25 MG TAB 12.5 MG PO ×2 (08:15→20:10)
[2020-05-21] MEDS: Ascorbic Acid 500 MG TAB PO (08:15)
[2020-05-21 08:37] VITALS: BP 103/73; PULSE 87; RESP 19; TEMP 35.8; O2SAT 100
[2020-05-21] MEDS: HYDROcodone 5/Acetaminophen 325 TAB PO ×2 (09:54→15:54)
[2020-05-21 11:11] VITALS: BP 112/79; PULSE 49; RESP 17; TEMP 36.2; O2SAT 100
[2020-05-21] MEDS: Sodium Zirconium Cyclosilicate 10 GM PKT PO (12:12)
[2020-05-21] MEDS: Magnesium Oxide 400 MG TAB PO (12:13)
[2020-05-21] MEDS: Acetaminophen 325 MG TAB PO ×2 (12:18→20:29)
--- NOTE | 2020-05-21 14:17 | PDOC.CMPRO ---
- If Service Date Differs Date of service: 05/21/20 Time of Service: 14:17 Care Management Progress Note S/O:Barrie is alert and engaged his hospital bed was approved anticipated it will likely be set up early next week. Barrie continues to need wound care and is receiving antibiotic for cellulites. Barrie may need to swing here at [facility] for short term rehab, CM did speak with case assembler today through [facility] they will verify benefit and return information to CM. Barrie does not want to return to SNF at this time. A:Barrie is a 59 year old male admitted for Sepsis, with a history of CHF, venous stasis ulcers and multiple diagnosis. P:Barrie is being treated for sepsis and hyperkalemia. He will be discharged home vs short SB1 here at [facility] for PT, when medically ready. Hospital bed was approved for elevation r/t CHF, CM is awaiting information from [facility] as to when the bed can be delivered. RT set up delivery of all Barrie's CPAP supplies. Barrie will have resumption of home health nursing he denies PT and OT at this time. CM to continue to assess for discharge needs and disposition coordination.
--- NOTE | 2020-05-21 14:23 | W.PM.PROGNOT ---
Date of Service Date of service: 05/21/20 Time of Service: 14:24 Assessment and Plan Assessment and plan (1) Cellulitis of lower extremity: Status: Acute Assessment and plan: Improving. WBC count has not been elevated. Cxs grew mixed gram + omar and mixed gram - omar. Currently on Cefepime and Vanc. Will change to doxycycline and monitor. Qualifiers: Laterality: unspecified laterality Qualified Code(s): L03.119 - Cellulitis of unspecified part of limb (2) Hyponatremia: Status: Acute Assessment and plan: Improving; now 126. Will give lasix 20mg IV x 1. (3) Venous stasis ulcers of both lower extremities: Status: Chronic Assessment and plan: Wound care [place] [facility] [place] as outpt. (4) Supratherapeutic INR: Status: Acute Assessment and plan: Now low at 1.6 Pharmacy managing. (5) Hyperkalemia: Status: Acute Assessment and plan: K had normalized to 5.0. Today is 5.2 Gave a dose of [place]. Monitor. (6) Atrial fibrillation: Status: Chronic Assessment and plan: Cont metoprolol 12.5mg BID Rate controlled. Cont AC warfarin. Subjective Subjective Patient reports: no new complaints, feels better, bowel movement and afebrile; denies blood in stool, nausea, vomiting and shortness of breath Exam Const General: cooperative, no acute distress and other (Sitting in recliner) Nutritional Appearance: obese Orientation: alert and oriented x3 Neck Neck: full ROM Resp Effort & Inspection: normal respiratory effort Auscultation: clear to auscultation bilaterally and diminished lung sounds Cardio Rhythm: other (Irreg Irreg) GI Inspection: obesity Palpation: soft and nontender Auscultation: normal bowel sounds Skin General skin exam: other (BLE with dusky venous stasis discoloration. Wraps in place.) Extrem General: pedal edema (bilateral; nonpitting.) Objective Last Vital Signs Temp 36.2 C L 05/21/20 11:11 Pulse 49 L 05/21/20 11:11 Resp 17 05/21/20 11:11 BP 112/79 05/21/20 11:11 Pulse Ox 100 05/21/20 11:11 Laboratory Results - last 24 hr 05/20/20 05/21/20 05/21/20 17:30 06:20 06:20 WBC RBC Hgb Hct MCV MCH MCHC RDW Plt Count MPV Immature Gran % Neutrophils % Lymphocytes % Monocytes % Eosinophils % Basophils % Nucleated RBC % Absolute Neutrophils Absolute Lymphocytes Absolute Monocytes Absolute Eosinophils Absolute Basophils PT 16.4 H INR 1.6 H Sodium 126 L Potassium 5.2 H Chloride 96 L Carbon Dioxide 23.1 Anion Gap 6.9 BUN 63 H Creatinine 1.46 H Estimated GFR/1.73 m2 49.09 Glucose 138 H Calcium 8.6 Magnesium 1.6 L Vancomycin Trough 26.3 H* 05/21/20 06:20 WBC 6.93 RBC 3.74 L Hgb 9.7 L Hct 31.4 L MCV 84.0 MCH 25.9 L MCHC 30.9 L RDW 17.7 H Plt Count 290 MPV 9.2 Immature Gran % 1.4 Neutrophils % 73.8 Lymphocytes % 12.7 Monocytes % 9.5 Eosinophils % 2.0 Basophils % 0.6 Nucleated RBC % 1 Absolute Neutrophils 5.11 Absolute Lymphocytes 0.88 L Absolute Monocytes 0.66 Absolute Eosinophils 0.14 Absolute Basophils 0.04 PT INR Sodium Potassium Chloride Carbon Dioxide Anion Gap BUN Creatinine Estimated GFR/1.73 m2 Glucose Calcium Magnesium Vancomycin Trough
[2020-05-21] MEDS: Furosemide 20 MG/2 ML VIAL IVP (14:45)
[2020-05-21 15:40] VITALS: BP 113/62; PULSE 63; RESP 19; TEMP 36.3; O2SAT 97
--- NOTE | 2020-05-21 16:50 | PT.INTREAT ---
Date of service: 05/21/20 Time of Service: 16:50 PT Notes Visit Reasons: HYPERKALEMIA, CELLU Inpatient Physical Therapy Treatment Note [facility] Date: 05/21/2020 PRECAUTIONS: Fall SUBJECTIVE: Barrie reports that he is feeling better today, although feels that he is still feeling the affects of the Ambien he received two nights ago. OBJECTIVE: PAIN: No c/o pain BED MOBILITY/TRANSFERS Sit-stand: S Stand-sit: S GAIT Assistive Device: FWW Weight bearing: Full Assist: S Distance: 100' Deviation: Slow susi and short step height, standing rest x3 and SOB Static stand 1x5 minutes and 1x2 minutes with B UE support and S STAIRS: Up/down 3x4 and 4x6 using B rails and a step-to pattern with supervision ASSESSMENT: Patient tolerated a progression in gait distance with FWW support and supervision, requiring standing rest x3 and demonstrating increased SOB. He would benefit from continued gait training and global strengthening for improved mobility and continued progression toward baseline level of function. PLAN: Continue with gait training and global strengthening TREATMENT CODE/TIME: 45 minutes; [id number] x3
[2020-05-21] MEDS: VANCOMYCIN 1,250 MG in Normal Saline 250 ML 166.667 MG IV (18:58)
[2020-05-21 19:25] VITALS: BP 118/80; PULSE 79; RESP 20; TEMP 36.3; O2SAT 99
[2020-05-21] MEDS: Warfarin 5 MG TAB PO (20:10)
[2020-05-21] MEDS: Gabapentin 600 MG TAB 1200 MG PO (20:28)
[2020-05-21] MEDS: Melatonin 3 MG TAB 6 MG PO (20:29)
[2020-05-21] MEDS: Docusate Sodium 100 MG CAP PO (20:29)
[2020-05-21 23:20] VITALS: BP 100/55; PULSE 89; RESP 19; TEMP 36.5; O2SAT 98
[2020-05-22] MEDS: CEFEPIME 2 GM in Normal Saline 100 ML IVPB ×3 (02:30→17:15)
[2020-05-22 02:40] VITALS: BP 90/61; PULSE 83; RESP 18; TEMP 36.9; O2SAT 97
[2020-05-22] MEDS: Normal Saline Flush 10 ML SYR IVP ×4 (02:41→19:17)
[2020-05-22 07:42] LABS: INR 1.5 (0.9-1.1); Prothrombin Time 14.8 sec (9.3-11.0)
[2020-05-22 07:45] LABS: BUN 64 mg/dL (7-18); CREATININE 1.33 mg/dL (0.70-1.30); Calcium 8.6 mg/dL (8.5-10.1); Chloride 99 mmol/L (98-107); Estimated GFR 54.66 (mL/min/1.73m2); Glucose 158 mg/dL (74-106); Potassium 4.5 mmol/L (3.5-5.1); Sodium 130 mmol/L (136-145)
[2020-05-22 08:05] VITALS: BP 113/73; PULSE 73; RESP 19; TEMP 35.6; O2SAT 100
[2020-05-22] MEDS: Budesonide/Formoterol 80/4.5 10.2 GM 120 PUFF INH IH ×2 (08:30→19:16)
[2020-05-22] MEDS: Nystatin POWDER 15 GM JAR TP ×2 (08:38→19:37)
[2020-05-22] MEDS: Insulin Aspart 300 UNITS/3 ML PEN SC ×2 (08:38→12:20)
[2020-05-22] MEDS: Collagenase 30 GM TUBE TP (08:38)
[2020-05-22] MEDS: Protein Nutritional Supplement 16 GM 1 OUNCE PACKET PO ×2 (08:39→19:17)
[2020-05-22] MEDS: Ascorbic Acid 500 MG TAB PO (08:41)
[2020-05-22] MEDS: Magnesium Oxide 400 MG TAB PO (08:41)
[2020-05-22] MEDS: Zinc Sulfate 220 MG TAB PO (08:41)
[2020-05-22] MEDS: Simvastatin 20 MG TAB 40 MG PO (08:41)
[2020-05-22] MEDS: Metoprolol 25 MG TAB 12.5 MG PO ×2 (08:41→19:18)
[2020-05-22] MEDS: Docusate Sodium 100 MG CAP PO (10:05)
[2020-05-22] MEDS: VANCOMYCIN 1,250 MG in Normal Saline 250 ML 166.667 MG IV (11:43)
[2020-05-22 11:55] VITALS: BP 110/79; PULSE 63; RESP 19; TEMP 35.9; O2SAT 98
--- NOTE | 2020-05-22 13:12 | PT.INTREAT ---
Date of service: 05/22/20 Time of Service: 11:45 PT Notes Visit Reasons: HYPERKALEMIA, CELLU Inpatient Physical Therapy Treatment Note [facility] Date: 05/22/20 SUBJECTIVE: Barrie states that his goal is to go home Sunday. OBJECTIVE: [] BED MOBILITY/TRANSFERS Sit-stand: S Stand-sit: S GAIT Assistive Device:FWW Weight bearing: FWB Assist: S Distance: 120' STAIRS: ascended and descended 6x4 steps and 4x6 steps with B rails and S, step to gait pattern. ASSESSMENT: tolerated session well. He refused to perform balance ex today due to not wanting to miss his lunch. PLAN: will continue to progress as per PT POC. TREATMENT CODE/TIME: 25 min starting at 1145. [id number], [id number]
[2020-05-22] MEDS: HYDROcodone 5/Acetaminophen 325 TAB PO (13:57)
[2020-05-22 15:45] VITALS: BP 115/87; PULSE 91; RESP 19; TEMP 36.2; O2SAT 95
--- NOTE | 2020-05-22 16:02 | WOUNDCARE ---
Wound Care Report Clarification. The benefits of compression were discussed with the patient. He stated emphatically, that he was very sensitive to the pain of compression and that he had a history of removing compression dressings in the past, and would continue to do so if applied again in the future. Therefore, other options of treatment were then discussed
--- NOTE | 2020-05-22 18:15 | W.PM.PROGNOT ---
Date of Service Date of service: 05/22/20 Time of Service: 18:16 Assessment and Plan Assessment and plan (1) Cellulitis of lower extremity: Status: Acute Assessment and plan: Continue vancomycin/cefepime. Resume diuresis. Elevate lower extremities. Qualifiers: Laterality: unspecified laterality Qualified Code(s): L03.119 - Cellulitis of unspecified part of limb (2) Hyponatremia: Status: Acute Assessment and plan: Likely dilutional. Monitor with resumption of diuretics. (3) Venous stasis ulcers of both lower extremities: Status: Chronic Assessment and plan: Continue wound care. Consider prasanth boots - will discuss (4) Supratherapeutic INR: Status: Resolved Assessment and plan: Pharmacy is doing coumadin (5) Hyperkalemia: Status: Resolved Assessment and plan: Was iatrogenic - the patient had been consuming a beverage as outpatient with high potassium content. Resolved. (6) Atrial fibrillation: Status: Chronic Assessment and plan: Rate controlled. Continue metoprolol 12.5 mg PO BID Pharmacy is doing warfarin (7) DVT prophylaxis: Status: Acute Assessment and plan: On coumadin (8) Discharge planning issues: Status: Acute Assessment and plan: Full code Continues to require hospitalization. Subjective Subjective Interval history since last seen: Complains of swelling in the legs getting worse. We talked about elevating the legs, which he promises he will do. Denies dizziness, chest pain, shortness of breath, nausea. Per nursing, the redness in the legs is getting better, but they are still quite weepy (serosanguenous). Exam Narrative Exam Narrative: General: Obese male sitting in a chair, A&Ox3, legs are hanging down HEENT: EOMI, MMM Heart: RRR, no m/r/g Lungs: crackles at the L base, otherwise CTAB Abdomen: soft, nontender, nondistended Extremities: 2+ pitting edema B, BLE dressed; venous stasis to mid-thigh B; L thigh ulcer with a eschar. Objective Last Vital Signs Temp 36.2 C L 05/22/20 15:45 Pulse 91 H 05/22/20 15:45 Resp 19 05/22/20 15:45 BP 115/87 05/22/20 15:45 Pulse Ox 95 05/22/20 15:45 Laboratory Results - last 24 hr 05/22/20 05/22/20 07:00 07:00 PT 14.8 H INR 1.5 H Sodium 130 L Potassium 4.5 Chloride 99 Carbon Dioxide 22.0 Anion Gap 9.0 BUN 64 H Creatinine 1.33 H Estimated GFR/1.73 m2 54.66 Glucose 158 H Calcium 8.6
[2020-05-22 19:15] VITALS: BP 117/85; PULSE 70; RESP 19; TEMP 36; O2SAT 99
[2020-05-22] MEDS: Gabapentin 600 MG TAB 1200 MG PO (19:17)
[2020-05-22] MEDS: Furosemide 40 MG/4 ML VIAL IVP (19:19)
[2020-05-22] MEDS: Warfarin 5 MG TAB PO (19:19)
--- NOTE | 2020-05-22 20:53 | CMPROGNOTE_ITS ---
- If Service Date Differs Date of service: 05/22/20 Time of Service: 20:53 Care Management Progress Note S/O:Barrie was sitting up in a chair when CM came to see him. He appeared to be in good spirits and was joking with CM. Barrie continues to need wound care and is receiving antibiotic for cellulites. He may need to transition to SB-1 at [facility] for short term rehab. CM is awaiting information from [facility] about the availability of this benefit. Barrie does not want to return to SNF at this time. A:Barrie is a 59 year old male admitted for Sepsis, with a history of CHF, venous stasis ulcers and multiple diagnosis. P:Barrie is being treated for cellulitis, hyponatremia and hyperkalemia. He will likely be discharged to SB-1 at [facility] for PT, when medically ready. Hospital bed was approved for elevation r/t CHF, CM is awaiting information from [facility] as to when the bed can be delivered. RT set up delivery of all Barrie's CPAP supplies. Barrie will have resumption of home health nursing. he denies PT and OT at this time. CM to continue to assess for discharge needs and disposition coordination.
[2020-05-22 23:15] VITALS: BP 115/74; PULSE 84; RESP 19; TEMP 36.1; O2SAT 100
[2020-05-23] MEDS: HYDROcodone 5/Acetaminophen 325 TAB PO ×2 (02:21→13:21)
[2020-05-23] MEDS: Normal Saline Flush 10 ML SYR IVP ×3 (02:22→15:55)
[2020-05-23] MEDS: Normal Saline 500 ML IV (02:23)
[2020-05-23] MEDS: CEFEPIME 2 GM in Normal Saline 100 ML IVPB ×3 (02:24→17:43)
[2020-05-23] MEDS: Docusate Sodium 100 MG CAP PO ×2 (02:34→20:59)
[2020-05-23 05:44] LABS: Abs Immature Grans 0.09 10^3/uL (0.0-0.06); Absolute Basophil Count 0.02 10^3/uL (0.0-0.2); Absolute Eosinophil Count 0.12 10^3/uL (0.0-0.7); Absolute Lymphocyte Count 0.76 10^3/uL (1.2-3.4); Absolute Monocyte Count 0.59 10^3/uL (0.1-0.8); Absolute Neutrophil Count 4.36 10^3/uL (1.2-6.7); Basophils % 0.3; HGB 10.4 g/dL (13.5-17.5); Immature Grans % 1.5; Lymphocytes % 12.8; MCH 25.7 pg (27.0-33.0); MCHC 30.6 % (32.0-36.0); MCV 84.2 fL (80-95); MPV 8.6 fL (8.0-11.0); Monocytes % 9.9; Neutrophils % 73.5; Nucleated RBC 0 %; Platelet Count 230 10^3/uL (130-400); RBC 4.04 10^6/uL (4.36-5.78); RDW 18.4 % (11.8-14.1); RDW-SD 54.4 fL; WBC 5.94 10^3/uL (4.4-10.8)
[2020-05-23 05:55] LABS: Anion Gap 9.1 mmol/L (3-11); BUN 64 mg/dL (7-18); C-Reactive Protein 2.31 mg/dL (0.0-0.3); CO2 21.9 mmol/L (21.0-32.0); CREATININE 1.22 mg/dL (0.70-1.30); Calcium 8.7 mg/dL (8.5-10.1); Chloride 103 mmol/L (98-107); Glucose 149 mg/dL (74-106); Magnesium 1.7 mg/dL (1.8-2.4); Potassium 3.9 mmol/L (3.5-5.1); Sodium 134 mmol/L (136-145)
[2020-05-23 05:56] LABS: INR 1.6 (0.9-1.1); Prothrombin Time 15.9 sec (9.3-11.0)
[2020-05-23 06:12] LABS: Vancomycin, Trough 27.6 ug/mL (10.0-20.0)
[2020-05-23 07:50] VITALS: BP 106/73; PULSE 69; RESP 18; TEMP 36.1; O2SAT 99
[2020-05-23] MEDS: Furosemide 40 MG/4 ML VIAL IVP ×2 (08:05→15:54)
[2020-05-23] MEDS: Collagenase 30 GM TUBE TP (08:05)
[2020-05-23] MEDS: Nystatin POWDER 15 GM JAR TP ×2 (08:05→21:06)
[2020-05-23] MEDS: Ascorbic Acid 500 MG TAB PO (08:06)
[2020-05-23] MEDS: Protein Nutritional Supplement 16 GM 1 OUNCE PACKET PO ×2 (08:06→20:58)
[2020-05-23] MEDS: Simvastatin 20 MG TAB 40 MG PO (08:06)
[2020-05-23] MEDS: Metoprolol 25 MG TAB 12.5 MG PO ×2 (08:06→20:59)
[2020-05-23] MEDS: Magnesium Oxide 400 MG TAB PO (08:06)
[2020-05-23] MEDS: Zinc Sulfate 220 MG TAB PO (08:07)
[2020-05-23] MEDS: Budesonide/Formoterol 80/4.5 10.2 GM 120 PUFF INH IH ×2 (09:23→21:01)
[2020-05-23] MEDS: MAGNESIUM SULFATE 2 GM/50 ML BAG IVPB (10:11)
--- NOTE | 2020-05-23 11:29 | CMPROGNOTE_ITS ---
- If Service Date Differs Date of service: 05/23/20 Time of Service: 11:29 Care Management Progress Note S/O: Barrie continues to receive wound care and IV antibiotics for cellulites. He may need to transition to SB-1 at [facility] for short term rehab. CM is awaiting information from [facility] about the availability of this benefit. Barrie does not want to return to SNF at this time. Wound nurse reported that compression dressings are recommended, however Barrie refused them. Provider reports that today Barrie is in agreement as long as they are changed daily. A:Barrie is a 59 year old male admitted for Sepsis, with a history of CHF, venous stasis ulcers and multiple diagnosis. P:Barrie is being treated for cellulitis, hyponatremia and hyperkalemia. He will likely be discharged to SB-1 at [facility] for PT, when medically ready. Hospital bed was approved for elevation r/t CHF, CM is awaiting information from [facility] as to when the bed can be delivered. RT set up delivery of all Barrie's CPAP supplies. Barrie will have resumption of home health nursing. he denies PT and OT at this time. CM to continue to assess for discharge needs and disposition coordination.
[2020-05-23] MEDS: Insulin Aspart 300 UNITS/3 ML PEN SC ×2 (12:03→16:53)
--- NOTE | 2020-05-23 13:06 | PT.INTREAT ---
Date of service: 05/23/20 Time of Service: 11:05 PT Notes Visit Reasons: HYPERKALEMIA, CELLU Inpatient Physical Therapy Treatment Note [facility] Date: 05/23/2020 SUBJECTIVE: Barrie offers no complaints. He is hoping to go home tomorrow. OBJECTIVE: [] BED MOBILITY/TRANSFERS Sit-stand: S Stand-sit: S GAIT Assistive Device:FWW Weight bearing: FWB Assist: S Distance: 300' STAIRS:negotiated 3x4 and 2x6 steps, x2 each using B rails and step to pattern. ASSESSMENT: tolerated session well. He was able to progress his distance with gait with minimal SOB. PLAN: continue PT POC. TREATMENT CODE/TIME: 40 min beginning at 1105. [id number].
[2020-05-23] MEDS: VANCOMYCIN 1,000 MG in Normal Saline 250 ML 166.667 MG IVPB (15:54)
[2020-05-23 16:00] VITALS: BP 105/74; PULSE 89; RESP 19; TEMP 35.9; O2SAT 99
--- NOTE | 2020-05-23 16:40 | W.PM.PROGNOT ---
Date of Service Date of service: 05/23/20 Time of Service: 16:40 Assessment and Plan Assessment and plan (1) Cellulitis of lower extremity: Status: Acute Assessment and plan: Continue vancomycin/cefepime. Trend CRP. Continue IV lasix. Will discuss daily compressive dressings with nursing. Elevate lower extremities. Qualifiers: Laterality: unspecified laterality Qualified Code(s): L03.119 - Cellulitis of unspecified part of limb (2) Hyponatremia: Status: Acute Assessment and plan: Likely dilutional. Better with resumption of diuretics. Continue to monitor. (3) Venous stasis ulcers of both lower extremities: Status: Chronic Assessment and plan: Continue wound care. Will talk to nursing re daily compressive dressing (4) Supratherapeutic INR: Status: Resolved Assessment and plan: INR is 1.6 today. Pharmacy is dosing coumadin (5) Hyperkalemia: Status: Resolved Assessment and plan: Was iatrogenic - the patient had been consuming a beverage as outpatient with high potassium content. Resolved. (6) Atrial fibrillation: Status: Chronic Assessment and plan: Rate controlled. Continue metoprolol 12.5 mg PO BID Pharmacy is dosing warfarin (7) DVT prophylaxis: Status: Acute Assessment and plan: On coumadin (8) Discharge planning issues: Status: Acute Assessment and plan: Full code Continues to require hospitalization. Subjective Subjective Interval history since last seen: The patient states that his left leg feels less hot and less swollen today. He agrees to having compression dressing as long as it is changed daily. He states that changing his dressings is excruciatingly painful for him. He denies dizziness, chest pain, shortness of breath, nausea. Exam Narrative Exam Narrative: General: Obese male sitting in a chair, A&Ox3, legs are hanging down again HEENT: EOMI, MMM Heart: RRR, no m/r/g Lungs: CTAB Abdomen: soft, nontender, nondistended Extremities: 2+ pitting edema B, but does look better today, BLE dressed; venous stasis to mid-thigh B; L thigh ulcer with a eschar - erythema LLE appears better Objective Last Vital Signs Temp 35.9 C L 05/23/20 16:00 Pulse 89 05/23/20 16:00 Resp 19 05/23/20 16:00 BP 105/74 05/23/20 16:00 Pulse Ox 99 05/23/20 16:00 Laboratory Results - last 24 hr 05/23/20 05/23/20 05/23/20 05:30 05:30 05:30 WBC 5.94 RBC 4.04 L Hgb 10.4 L Hct 34.0 L MCV 84.2 MCH 25.7 L MCHC 30.6 L RDW 18.4 H Plt Count 230 MPV 8.6 Immature Gran % 1.5 Neutrophils % 73.5 Lymphocytes % 12.8 Monocytes % 9.9 Eosinophils % 2.0 Basophils % 0.3 Nucleated RBC % 0 Absolute Neutrophils 4.36 Absolute Lymphocytes 0.76 L Absolute Monocytes 0.59 Absolute Eosinophils 0.12 Absolute Basophils 0.02 PT INR Sodium 134 L Potassium 3.9 Chloride 103 Carbon Dioxide 21.9 Anion Gap 9.1 BUN 64 H Creatinine 1.22 Estimated GFR/1.73 m2 >= 60.00 Glucose 149 H Calcium 8.7 Magnesium 1.7 L C-Reactive Protein 2.31 H Vancomycin Trough 27.6 H* 05/23/20 05:30 WBC RBC Hgb Hct MCV MCH MCHC RDW Plt Count MPV Immature Gran % Neutrophils % Lymphocytes % Monocytes % Eosinophils % Basophils % Nucleated RBC % Absolute Neutrophils Absolute Lymphocytes Absolute Monocytes Absolute Eosinophils Absolute Basophils PT 15.9 H INR 1.6 H Sodium Potassium Chloride Carbon Dioxide Anion Gap BUN Creatinine Estimated GFR/1.73 m2 Glucose Calcium Magnesium C-Reactive Protein Vancomycin Trough
[2020-05-23] MEDS: Gabapentin 600 MG TAB 1200 MG PO (20:59)
[2020-05-23] MEDS: Warfarin 5 MG TAB PO (21:01)
[2020-05-23 23:15] VITALS: BP 151/72; PULSE 58; RESP 19; TEMP 35.9; O2SAT 97
[2020-05-24] MEDS: Normal Saline Flush 10 ML SYR IVP ×4 (02:14→20:33)
[2020-05-24] MEDS: CEFEPIME 2 GM in Normal Saline 100 ML IVPB ×3 (02:14→17:18)
[2020-05-24 07:47] VITALS: BP 111/77; PULSE 63; RESP 17; TEMP 36.4; O2SAT 99
[2020-05-24] MEDS: Budesonide/Formoterol 80/4.5 10.2 GM 120 PUFF INH IH ×2 (08:01→20:32)
[2020-05-24 08:11] LABS: INR 1.6 (0.9-1.1)
--- NOTE | 2020-05-24 08:18 | OT.INTREAT ---
Date of service: 05/24/20 Time of Service: 07:30 Occupational Therapy Notes Occupational Therapy Inpatient Treatment Note Date: 05/24/20 PRECAUTIONS: Fall, Standard, Full SUBJECTIVE: Pt was sitting in chair when OT arrived, he reports that his legs are sore and notes that he is agreeable to OT session. OBJECTIVE: PAIN:no c/o pain BATHING: sitting in chair with max (A) set up/clean up Upper Body: (I) face, (B) UE and abdomen Lower Body: NT DRESSING: Upper Extremity: (I) [employer] [facility] GROOMING: (I) with brushing hair ASSESSMENT/PLAN: Pt was able to perform his UE dressing and bathing with increased functional activity tolerance, he was able to perform with increased functional (I). TREATMENT CODES/TIME: 29325, 15 minutes (07:30) SAHARA Hall/[facility]
[2020-05-24 08:20] LABS: Anion Gap 8.1 mmol/L (3-11); BUN 60 mg/dL (7-18); CO2 24.9 mmol/L (21.0-32.0); CREATININE 1.37 mg/dL (0.70-1.30); Calcium 8.7 mg/dL (8.5-10.1); Chloride 105 mmol/L (98-107); Estimated GFR 52.83 (mL/min/1.73m2); Glucose 158 mg/dL (74-106); Magnesium 1.8 mg/dL (1.8-2.4); Sodium 138 mmol/L (136-145)
[2020-05-24] MEDS: Protein Nutritional Supplement 16 GM 1 OUNCE PACKET PO ×2 (08:20→20:32)
[2020-05-24] MEDS: Nystatin POWDER 15 GM JAR TP ×2 (08:21→21:04)
[2020-05-24] MEDS: Furosemide 40 MG/4 ML VIAL IVP ×2 (08:21→16:10)
[2020-05-24] MEDS: Collagenase 30 GM TUBE TP (08:22)
[2020-05-24] MEDS: Insulin Aspart 300 UNITS/3 ML PEN SC ×2 (08:22→11:57)
[2020-05-24] MEDS: Magnesium Oxide 400 MG TAB PO (08:23)
[2020-05-24] MEDS: Simvastatin 20 MG TAB 40 MG PO (08:23)
[2020-05-24] MEDS: Docusate Sodium 100 MG CAP PO ×2 (08:24→20:30)
[2020-05-24] MEDS: Metoprolol 25 MG TAB 12.5 MG PO ×2 (08:24→20:30)
[2020-05-24] MEDS: Ascorbic Acid 500 MG TAB PO (08:24)
[2020-05-24] MEDS: Zinc Sulfate 220 MG TAB PO (08:24)
[2020-05-24] MEDS: VANCOMYCIN 1,000 MG in Normal Saline 250 ML 166.667 MG IVPB (09:38)
[2020-05-24] MEDS: Normal Saline 500 ML IV ×2 (09:39→17:18)
--- NOTE | 2020-05-24 10:54 | PDOC.CMPRO ---
- If Service Date Differs Date of service: 05/24/20 Time of Service: 10:54 Care Management Progress Note S/O: Barrie continues to receive wound care, IV abx, and Diuretics for acute CHF. He wants to be discharged home however is not ready at this time. His electric hospital bed should be delivered this week it should not hold up discharge. He does use his recliner for comfort at home. Barrie will have resumption of home health nursing, wound care. His [facility] housing case manager [place] [phone] would like to continue to be involved in his discharge planning. Barrie declines SNF or SB1. A:Barrie is a 59 year old male admitted for Sepsis, with a history of CHF, venous stasis ulcers and multiple diagnosis. Barrie has had several admissions over the past year related to cellulitis, and CHF. P:Barrie will be discharged when medically ready, CM did contact [facility] and spoke with Kayli [phone] she is following up on approval for his electric bed r/t CHF. Resumption of home health nursing for wound care.
--- NOTE | 2020-05-24 16:00 | PT.INTREAT ---
Date of service: 05/24/20 Time of Service: 16:00 PT Notes Visit Reasons: HYPERKALEMIA, CELLU Inpatient Physical Therapy Treatment Note [facility] Date: 05/24/20 PRECAUTIONS: Fall SUBJECTIVE: Barrie is pleasant and agreeable to participating in PT. He reports that he is feeling good, although he feels extremely thristy because he has been placed on fluid restrictions today. OBJECTIVE: Patient is cleared to be independent within room with transfer and gait utilizing FWW for support. PAIN: No c/o pain BED MOBILITY/TRANSFERS Sit-stand: I Stand-sit: I Bed-chair: I Chair-bed: I GAIT Assistive Device: FWW Weight bearing: Full Assist: S Distance: 200' Deviation: Short step height, slow susi THEREX: Patient was issued a LE strengthening HEP. Reviewed with patient. STAIRS: Up/down 3x4 and 2x6 using B rails and a step-to pattern with supervision. Patient demonstrates safety with improvement in pacing and ability with stairs compared to previous sessions. ASSESSMENT: Patient tolerated session well without complaint. He demonstrates independence with transfers and short-distance (in room) gait with FWW support at this time. PLAN: Continue with gait training and global strengthening for continued progression toward baseline level of function. TREATMENT CODE/TIME: Session 1: 5 minutes; no charge Session 2: 30 minutes; [id number], [id number]
[2020-05-24 16:15] VITALS: BP 108/69; PULSE 80; RESP 18; TEMP 36.8; O2SAT 97
--- NOTE | 2020-05-24 18:29 | W.PM.PROGNOT ---
Date of Service Date of service: 05/24/20 Time of Service: 18:29 Assessment and Plan Assessment and plan (1) Cellulitis of lower extremity: Status: Acute Assessment and plan: Continue vancomycin/cefepime. Continue to trend CRP. Continue IV lasix. Continue compressive dressing. Elevate lower extremities. Qualifiers: Laterality: unspecified laterality Qualified Code(s): L03.119 - Cellulitis of unspecified part of limb (2) Hyponatremia: Status: Acute Assessment and plan: Likely dilutional. Better with resumption of diuretics. Continue to monitor. (3) Venous stasis ulcers of both lower extremities: Status: Chronic Assessment and plan: Continue wound care. (4) Supratherapeutic INR: Status: Resolved Assessment and plan: Pharmacy is dosing coumadin (5) Hyperkalemia: Status: Resolved Assessment and plan: Was iatrogenic - the patient had been consuming a beverage as outpatient with high potassium content. Resolved. (6) Atrial fibrillation: Status: Chronic Assessment and plan: Rate controlled. Continue metoprolol 12.5 mg PO BID Pharmacy is dosing warfarin (7) DVT prophylaxis: Status: Acute Assessment and plan: On coumadin (8) Discharge planning issues: Status: Acute Assessment and plan: Full code Continues to require hospitalization. Subjective Subjective Interval history since last seen: Mr Peacock states that he hopes he is doing better. He denies dizziness, chest pain, states he thinks he felt short of breath earlier today, but that maybe it was all in his head. He states his O2 sats were in the 90s at the time. Denies n/v. Exam Narrative Exam Narrative: General: Obese male sitting in a chair, A&Ox3, legs are elevated HEENT: EOMI, MMM Heart: not auscultated today Lungs: nonlabored breathing Abdomen: soft, nontender, nondistended Extremities: 2+ pitting edema B, skin looks less tense, BLE dressed with compression dressing; venous stasis to mid-thigh B; L thigh ulcer with a eschar - erythema LLE appears better Objective Last Vital Signs Temp 36.8 C 05/24/20 16:15 Pulse 80 05/24/20 16:15 Resp 18 05/24/20 16:15 BP 108/69 05/24/20 16:15 Pulse Ox 97 05/24/20 16:15 Laboratory Results - last 24 hr 05/24/20 05/24/20 06:55 06:55 PT 16.0 H INR 1.6 H Sodium 138 Potassium 4.0 Chloride 105 Carbon Dioxide 24.9 Anion Gap 8.1 BUN 60 H Creatinine 1.37 H Estimated GFR/1.73 m2 52.83 Glucose 158 H Calcium 8.7 Magnesium 1.8
--- NOTE | 2020-05-24 19:57 | NUR.NOTE ---
Nursing Note: Patient is reminded what the goal of the fluid restriction is, and what the out come is. An extra glass of water that is foune in the room is removed. Patient did not protest.
[2020-05-24 20:25] VITALS: BP 140/89; PULSE 99; RESP 18; TEMP 37.5; O2SAT 98
[2020-05-24] MEDS: Warfarin 5 MG TAB PO (20:31)
[2020-05-24] MEDS: Gabapentin 600 MG TAB 1200 MG PO (20:32)
[2020-05-24] MEDS: Melatonin 3 MG TAB 6 MG PO (20:38)
[2020-05-24] MEDS: HYDROcodone 5/Acetaminophen 325 TAB PO (20:38)
[2020-05-25] MEDS: CEFEPIME 2 GM in Normal Saline 100 ML IVPB ×3 (01:58→17:51)
[2020-05-25] MEDS: Normal Saline Flush 10 ML SYR IVP ×4 (01:59→21:52)
[2020-05-25] MEDS: VANCOMYCIN 1,000 MG in Normal Saline 250 ML 166.67 MG IVPB ×2 (03:18→21:52)
[2020-05-25 05:30] VITALS: BP 113/79; PULSE 75; RESP 18; TEMP 35.5; O2SAT 93
[2020-05-25] MEDS: Budesonide/Formoterol 80/4.5 10.2 GM 120 PUFF INH IH ×2 (07:45→20:00)
[2020-05-25 07:59] VITALS: BP 100/66; PULSE 85; RESP 18; TEMP 36.7; O2SAT 100
--- NOTE | 2020-05-25 08:59 | NT_ITS ---
Date of service: 05/25/20 Time of Service: 08:59 Occupational Therapy Notes 05/25/20 OT attempted to see pt who reports that he is going to hold on OT services for today as he is already performed his ADLs at 6:30 this morning. OT will resume services tomorrow. Serina Pradhan OTR/[facility]
[2020-05-25] MEDS: Protein Nutritional Supplement 16 GM 1 OUNCE PACKET PO ×2 (09:01→20:03)
[2020-05-25] MEDS: Zinc Sulfate 220 MG TAB PO (09:01)
[2020-05-25] MEDS: Simvastatin 20 MG TAB 40 MG PO (09:01)
[2020-05-25] MEDS: Magnesium Oxide 400 MG TAB PO (09:01)
[2020-05-25] MEDS: Docusate Sodium 100 MG CAP PO ×2 (09:01→20:03)
[2020-05-25] MEDS: Ascorbic Acid 500 MG TAB PO (09:02)
[2020-05-25] MEDS: Metoprolol 25 MG TAB 12.5 MG PO ×2 (09:02→20:00)
[2020-05-25] MEDS: Nystatin POWDER 15 GM JAR TP ×2 (09:05→20:03)
[2020-05-25] MEDS: Collagenase 30 GM TUBE TP (09:05)
[2020-05-25 09:11] LABS: Abs Immature Grans 0.09 10^3/uL (0.0-0.06); Absolute Basophil Count 0.04 10^3/uL (0.0-0.2); Absolute Lymphocyte Count 0.96 10^3/uL (1.2-3.4); Absolute Monocyte Count 0.53 10^3/uL (0.1-0.8); Absolute Neutrophil Count 4.09 10^3/uL (1.2-6.7); Basophils % 0.7; Eosinophils % 1.7; HCT 34.1 % (40.0-50.0); HGB 10.2 g/dL (13.5-17.5); Immature Grans % 1.5; Lymphocytes % 16.5; MCH 25.4 pg (27.0-33.0); MCHC 29.9 % (32.0-36.0); MCV 84.8 fL (80-95); MPV 8.7 fL (8.0-11.0); Monocytes % 9.1; Neutrophils % 70.5; Nucleated RBC 1 %; Platelet Count 208 10^3/uL (130-400); RBC 4.02 10^6/uL (4.36-5.78); RDW-SD 56.9 fL; WBC 5.81 10^3/uL (4.4-10.8)
[2020-05-25] MEDS: Furosemide 40 MG/4 ML VIAL IVP (09:12)
[2020-05-25 09:32] LABS: INR 1.8 (0.9-1.1); Prothrombin Time 17.8 sec (9.3-11.0)
[2020-05-25 09:35] LABS: Anion Gap 10.5 mmol/L (3-11); BUN 61 mg/dL (7-18); C-Reactive Protein 1.52 mg/dL (0.0-0.3); CO2 23.5 mmol/L (21.0-32.0); CREATININE 1.33 mg/dL (0.70-1.30); Calcium 8.3 mg/dL (8.5-10.1); Chloride 102 mmol/L (98-107); Estimated GFR 54.66 (mL/min/1.73m2); Glucose 168 mg/dL (74-106); Magnesium 1.6 mg/dL (1.8-2.4); Potassium 3.3 mmol/L (3.5-5.1); Sodium 136 mmol/L (136-145)
--- NOTE | 2020-05-25 09:55 | W.NUTRFU ---
Date of service: 05/25/20 Time of Service: 09:55 Nutritional Follow up NOTE: Barrie continues on Diabetic Diet with 1500 ml fluid restriction. Has been non compliant with fluid restriction at times, nursing/dietary redirecting as possible. PO intake 100% of meals, diet supplemented with protein supplement 1 oz BID, MVI and 220 mg zinc sulfate. Currently meeting 100% nutrient and fluid needs at this time for optimal wound healing. Will continue to follow. Time Spent in Nutritional Counseling and Treatment: 5 min spent face to face
[2020-05-25] MEDS: Potassium Chloride 20 MEQ TABCR 40 MEQ PO (12:21)
[2020-05-25] MEDS: MAGNESIUM SULFATE 2 GM/50 ML BAG IVPB (12:22)
[2020-05-25] MEDS: Insulin Aspart 300 UNITS/3 ML PEN SC ×2 (12:24→16:53)
--- NOTE | 2020-05-25 12:46 | W.PM.PROGNOT ---
Date of Service Date of service: 05/25/20 Time of Service: 12:46 Assessment and Plan Assessment and plan (1) Cellulitis of lower extremity: Status: Acute Assessment and plan: Looks better to me today. Continue vancomycin/cefepime. Continue to trend CRP. Switch to lasix gtt as the patient has gained weight from yesterday. Continue compressive dressing. Elevate lower extremities. Qualifiers: Laterality: unspecified laterality Qualified Code(s): L03.119 - Cellulitis of unspecified part of limb (2) Hyponatremia: Status: Acute Assessment and plan: Likely dilutional. Better with diuresis. Continue to monitor. (3) Venous stasis ulcers of both lower extremities: Status: Chronic Assessment and plan: Continue wound care. (4) Supratherapeutic INR: Status: Resolved Assessment and plan: Pharmacy is dosing coumadin (5) Hyperkalemia: Status: Resolved Assessment and plan: Was iatrogenic - the patient had been consuming a beverage as outpatient with high potassium content. Resolved. In fact, hypokalemic today - replete. (6) Atrial fibrillation: Status: Chronic Assessment and plan: Rate controlled. Continue metoprolol 12.5 mg PO BID Pharmacy is dosing warfarin (7) Hypokalemia: Status: Acute Assessment and plan: replete (8) Hypomagnesemia: Status: Acute Assessment and plan: replete (9) DVT prophylaxis: Status: Acute Assessment and plan: On coumadin (10) Discharge planning issues: Status: Acute Assessment and plan: Full code Continues to require hospitalization. Subjective Subjective Interval history since last seen: Mr Peacock states that he has not had any shortness of breath today. His legs feel better and he is very pleased with the way that the dressing changes went today. His legs were weeping, per nursing. He denies dizziness, chest pain, nausea. He is feeling constipated. Exam Narrative Exam Narrative: General: Obese male sitting in a chair, A&Ox3, legs down while eating lunch HEENT: EOMI, MMM Heart: Irregularly irregular rhythm Lungs: crackles at B bases Abdomen: soft, nontender, nondistended Extremities: 2+ pitting edema B, visible skin is much less erythematous; BLE dressed with compression dressing; venous stasis to mid-thigh B; L thigh ulcer with a eschar. Looks better. Objective Last Vital Signs Temp 36.7 C 05/25/20 07:59 Pulse 85 05/25/20 07:59 Resp 18 05/25/20 07:59 BP 100/66 05/25/20 07:59 Pulse Ox 100 05/25/20 07:59 Laboratory Results - last 24 hr 05/25/20 05/25/20 05/25/20 09:06 09:06 09:06 WBC 5.81 RBC 4.02 L Hgb 10.2 L Hct 34.1 L MCV 84.8 MCH 25.4 L MCHC 29.9 L RDW 19.0 H Plt Count 208 MPV 8.7 Immature Gran % 1.5 Neutrophils % 70.5 Lymphocytes % 16.5 Monocytes % 9.1 Eosinophils % 1.7 Basophils % 0.7 Nucleated RBC % 1 Absolute Neutrophils 4.09 Absolute Lymphocytes 0.96 L Absolute Monocytes 0.53 Absolute Eosinophils 0.10 Absolute Basophils 0.04 PT 17.8 H INR 1.8 H Sodium 136 Potassium 3.3 L Chloride 102 Carbon Dioxide 23.5 Anion Gap 10.5 BUN 61 H Creatinine 1.33 H Estimated GFR/1.73 m2 54.66 Glucose 168 H Calcium 8.3 L Magnesium 1.6 L C-Reactive Protein 1.52 H
[2020-05-25] MEDS: HYDROcodone 5/Acetaminophen 325 TAB PO (13:07)
--- NOTE | 2020-05-25 13:22 | PT.INTREAT ---
Date of service: 05/25/20 Time of Service: 13:22 PT Notes Visit Reasons: HYPERKALEMIA, CELLU Inpatient Physical Therapy Treatment Note [facility] Date: 05/25/20 PRECAUTIONS: Fall SUBJECTIVE: Barrie is pleasant and agreeable to participating in PT. OBJECTIVE: Patient is cleared to be independent within room with transfer and gait utilizing FWW for support. PAIN: No c/o pain BED MOBILITY/TRANSFERS Supine-sit: I Sit-supine: I Sit-stand: I Stand-sit: I Bed-chair: I Chair-bed: I GAIT: Abbreviated gait training due to need for R foot to be re-dressed. Assistive Device: FWW Weight bearing: Full Assist: S Distance: 50' Deviation: Short step height, slow susi THEREX: Patient was issued a LE strengthening HEP. Reviewed with patient. STAIRS: Up/down 6x4 and 4x6 using B rails and a step-to pattern with supervision. Patient demonstrates safety with improvement in pacing and ability with stairs compared to previous sessions. ASSESSMENT: Patient tolerated session well without complaint. He demonstrates independence with transfers and short-distance (in room) gait with FWW support at this time. PLAN: Continue with gait training and global strengthening for continued progression toward baseline level of function. TREATMENT CODE/TIME: 25 minutes; 79964 x2
--- NOTE | 2020-05-25 14:39 | CHAPLAIN ---
Barrie was sitting up in his chair when I visited this afternoon. We remembered each other from a previous admission. He said he is not being allowed to drink liquids because they are trying to get fluid off him. He said he isn't happy about fluid intake restrictions. 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 His sister visits almost daily and other siblings call him.
[2020-05-25 15:46] VITALS: BP 114/74; PULSE 59; RESP 18; TEMP 36.6; O2SAT 97
--- NOTE | 2020-05-25 16:14 | CMPROGNOTE_ITS ---
- If Service Date Differs Date of service: 05/25/20 Time of Service: 16:14 Care Management Progress Note S/O: Barrie continues to receive wound care, IV abx, and Diuretics for acute CHF. He discusses the pain related to his dressing changes CM encouraged him to request pain med prior to dressing changed and spoke with primary nurse. Barrie is having nose bleeds this was reported to nursing and the provider who ordered nasal saline. He wants to be discharged home however is not ready at this time. His electric hospital bed should be delivered this week it should not hold up discharge. He does use his recliner for comfort at home. Barrie will have resumption of home health nursing, wound care. His [facility] caseworker intake [place] [phone] would like to continue to be involved in his discharge planning. Barrie declines SNF or [facility]. A:Barrie is a 59 year old male admitted for Sepsis, with a history of CHF, venous stasis ulcers and multiple diagnosis. Barrie has had several admissions over the past year related to cellulitis, and CHF. P:Barrie will be discharged when medically ready, ANTOINE did contact [facility] and spoke with Kayli [phone] she is following up on approval for his electric bed r/t CHF. Resumption of home health nursing for wound care. Transportation via private car with family.
[2020-05-25] MEDS: Sodium Chloride-Nasal SPRAY-ADULT 44 ML BTL NS ×2 (16:52→20:02)
[2020-05-25] MEDS: Gabapentin 600 MG TAB 1200 MG PO (20:03)
[2020-05-25 23:25] VITALS: BP 129/88; PULSE 77; RESP 17; TEMP 35.5; O2SAT 98
[2020-05-26] MEDS: Normal Saline Flush 10 ML SYR IVP ×3 (01:58→15:11)
[2020-05-26] MEDS: CEFEPIME 2 GM in Normal Saline 100 ML IVPB ×3 (01:58→18:17)
--- NOTE | 2020-05-26 03:18 | NUR.NOTE ---
Nursing Note: Pt is very insistent to have apple sauce, when RN educated him about his fluid restrictions, he insisted of having anything that is not fluid.
[2020-05-26 03:21] VITALS: BP 119/84; PULSE 77; RESP 18; TEMP 36.5; O2SAT 97
[2020-05-26 07:33] VITALS: BP 126/89; PULSE 72; RESP 17; TEMP 35.9; O2SAT 98
[2020-05-26 07:44] LABS: Anion Gap 12.3 mmol/L (3-11); BUN 72 mg/dL (7-18); C-Reactive Protein 1.29 mg/dL (0.0-0.3); CO2 21.7 mmol/L (21.0-32.0); CREATININE 1.39 mg/dL (0.70-1.30); Calcium 8.6 mg/dL (8.5-10.1); Chloride 103 mmol/L (98-107); Estimated GFR 51.95 (mL/min/1.73m2); Glucose 138 mg/dL (74-106); Potassium 3.4 mmol/L (3.5-5.1); Sodium 137 mmol/L (136-145)
[2020-05-26] MEDS: Protein Nutritional Supplement 16 GM 1 OUNCE PACKET PO ×2 (07:57→20:17)
[2020-05-26] MEDS: Insulin Aspart 300 UNITS/3 ML PEN SC ×3 (07:57→17:38)
--- NOTE | 2020-05-26 07:57 | OT.INTREAT ---
Date of service: 05/26/20 Time of Service: 07:40 Occupational Therapy Notes Occupational Therapy Inpatient Treatment Note Date: 05/26/20 PRECAUTIONS: Fall, Standard, Full SUBJECTIVE: Pt was sitting in his chair when OT arrived. He was agreeable to OT session and reports that he would like to get ready for the day. OBJECTIVE: PAIN:no c/o pain BATHING: sitting in chair with max (A) set up/clean up Upper Body: (I) UE including face, (B) UE and abdomen DRESSING: Upper Extremity: seated in chair (I) [facility] gown ASSESSMENT/PLAN: Pt is demonstrating increased functional activity tolerance, he is (I) with his bathing routines and with his UE dressing at this time. He states that he does not need (A). OT will touch base with pt tomorrow, if pt feels that he is still at his baseline level of function by that time, OT will discharge pt from skilled OT services at this time. TREATMENT CODES/TIME: 04304, 15 minutes (07:40) [facility]
[2020-05-26] MEDS: Nystatin POWDER 15 GM JAR TP ×2 (07:58→20:17)
[2020-05-26] MEDS: Simvastatin 20 MG TAB 40 MG PO (07:58)
[2020-05-26] MEDS: Metoprolol 25 MG TAB 12.5 MG PO ×2 (07:58→20:15)
[2020-05-26] MEDS: Docusate Sodium 100 MG CAP PO ×2 (07:59→20:16)
[2020-05-26] MEDS: Magnesium Oxide 400 MG TAB PO (07:59)
[2020-05-26] MEDS: Zinc Sulfate 220 MG TAB PO (07:59)
[2020-05-26] MEDS: Ascorbic Acid 500 MG TAB PO (07:59)
[2020-05-26] MEDS: Sodium Chloride-Nasal SPRAY-ADULT 44 ML BTL NS ×4 (08:07→20:17)
[2020-05-26] MEDS: Budesonide/Formoterol 80/4.5 10.2 GM 120 PUFF INH IH ×2 (08:19→20:15)
[2020-05-26] MEDS: Collagenase 30 GM TUBE TP (10:21)
[2020-05-26] MEDS: Normal Saline 500 ML IV (10:22)
--- NOTE | 2020-05-26 10:40 | W.PM.PROGNOT ---
Date of Service Date of service: 05/26/20 Time of Service: 10:40 Assessment and Plan Assessment and plan (1) Cellulitis of lower extremity: Status: Acute Assessment and plan: Erythema is better, but edema/suspected lymphedema continues to require acute intervention. Contineu lasix drip. Wound care recommendations will be changing today - I am deferring to wound care nursing. Continue vancomycin/cefepime. CRP is improving. Elevate lower extremities. Continues to require hospitalization. Qualifiers: Laterality: unspecified laterality Qualified Code(s): L03.119 - Cellulitis of unspecified part of limb (2) Hyponatremia: Status: Resolved Assessment and plan: Likely dilutional. Resolved with diuresis. Continue to monitor. (3) Venous stasis ulcers of both lower extremities: Status: Chronic Assessment and plan: As above (4) Supratherapeutic INR: Status: Resolved Assessment and plan: Check INR. (5) Hyperkalemia: Status: Resolved Assessment and plan: Was iatrogenic - the patient had been consuming a beverage as outpatient with high potassium content. Resolved. Hypokalemic again today due to lasix gtt - replete. (6) Atrial fibrillation: Status: Chronic Assessment and plan: Rate controlled. Continue metoprolol 12.5 mg PO BID INR pending this am (7) Hypokalemia: Status: Acute Assessment and plan: replete (8) Hypomagnesemia: Status: Resolved Assessment and plan: recheck in am (9) DVT prophylaxis: Status: Acute Assessment and plan: On coumadin (10) Discharge planning issues: Status: Acute Assessment and plan: Full code Continues to require hospitalization. Subjective Subjective Interval history since last seen: I saw the patient today as he was getting his dressings changed. He denies dizziness, chest pain, shortness of breath, nausea. His left leg is weeping a lot of clear fluid, and new dressings are being considered. Exam Narrative Exam Narrative: General: Obese male sitting in a chair, A&Ox3, getting his dressings changed HEENT: EOMI, MMM Heart: Irregularly irregular rhythm, no m/r/g Lungs: crackles at B bases, unchanged Abdomen: soft, nontender, nondistended Extremities: 2+ pitting edema B, RLE with chronic venous stasis dermatitis and slight erythema over knee; LLE with decreased edema, but impressive weeping through several wounds. clear fluid. Erythema is improved in LLE. Objective Last Vital Signs Temp 35.9 C L 05/26/20 07:33 Pulse 72 05/26/20 07:33 Resp 17 05/26/20 07:33 BP 126/89 05/26/20 07:33 Pulse Ox 98 05/26/20 07:33 Laboratory Results - last 24 hr 05/26/20 06:05 Sodium 137 Potassium 3.4 L Chloride 103 Carbon Dioxide 21.7 Anion Gap 12.3 H BUN 72 H Creatinine 1.39 H Estimated GFR/1.73 m2 51.95 Glucose 138 H Calcium 8.6 Magnesium 2.0 C-Reactive Protein 1.29 H
--- NOTE | 2020-05-26 10:43 | CMPROGNOTE_ITS ---
- If Service Date Differs Date of service: 05/26/20 Time of Service: 10:43 Care Management Progress Note S/O: Barrie is alert and engaged he is sitting up today. Not ready for discharged at this time. He will need to have resumption of home health when discharged for nursing r/t dressing changes. CM to continue to assess for ongoing discharge needs and provide coordination. A:Barrie is a 59 year old male admitted for Sepsis, with a history of CHF, venous stasis ulcers and multiple diagnosis. Barrie has had several admissions over the past year related to cellulitis, and CHF. P:Barrie will be discharged when medically ready, CM did contact [facility] and spoke with Kayli [phone] she is following up on approval for his electric bed r/t CHF. Resumption of home health nursing for wound care. Transportation via private car with family.
--- NOTE | 2020-05-26 11:18 | PT.INPN ---
Date of service: 05/26/20 Time of Service: 11:18 PT Notes Visit Reasons: HYPERKALEMIA, CELLU Physical Therapy Inpatient Progress Note Date: 05/26/2020 Referring Doctor: Wendy Allison NP PT Orders: PT CONSULT: Eval/treat Precautions: Fall. Standard. Activity as tolerated. Patient Profile/Admitting Diagnosis: Barrie is a 59-year-old male patient who presented to the Ed on 05/19/2020 with chief presentation of weak in B legs and increased pain in B calves. He is diagnosed with sepsis, hypotension related to sepsis, hyperkalemia, cellulitis and abscess of B LE, therapeutic INR, chronic ulcer of left leg, hyponatremia, lactic acidosis, and morbid obesity. PMHX: Medical History Acute kidney injury (nontraumatic) Associated with dehydration secondary to overdiuresis for treatment of his CHF Atrial fibrillation Cellulitis and abscess of lower extremity Chronic venous insufficiency of lower extremity Coronary artery disease Non-hemodynamic diffuse disease per cardiac catheterization from [facility] October 28, [address] Heladio Harkins Diabetic peripheral neuropathy associated with type 2 diabetes mellitus Morbid obesity with BMI of 50.0-59.9, adult Nonischemic cardiomyopathy LVEF 35% with diffuse hypokinesis and septal wall motion abnormality due to bundle branch block, moderately dilated and moderately reduced RV systolic function, mild mitral regurgitation, mild tricuspid regurgitation, mild dilatation aortic root and moderate dilatation of ascending aorta per transthoracic echocardiogram [place] [facility] [place], [place]. Obstructive sleep apnea Wear CPAP mask Orthostatic hypotension Osteoarthritis, knee Venous stasis ulcers of both lower extremities Surgical History H/O cardiac catheterization (10/28/19) Cardiac catheterization per Dr. Heladio Harkins at [facility], 10/28/2019, mild diffuse nonobstructive coronary artery disease with right coronary dominance and elevated left ventricular end-diastolic pressures, less than 25% narrowing of the left main coronary artery, less than 25% stenosis of the LAD, less than 25% stenosis of left circumflex, less than 25% stenosis of RCA. Subjective: Patient indicates that he feels that he has significantly improved mobility-sofia. He states that if it were not for the increased drainage in his bilateral feet, he will be able to improve his ambulation distance much more. Moreover, he states that his only goal is to be able to return to performing grocery shopping and states that he can use the cart at [facility] in order to maximize energy conservation. He indicates that his brother and sister live close to him and have provided him with excellet ADL support. He verbalizes and demonstrates good mastery of seated exercises. He is agreeable to decreasing frequency to 1?2 times per week in order to assess for the stability of gains from therapy and to potentially progress mobility level once feet drainage is resolved. Objective: General Observation: Kerlix gauze to bilateral legs. Mental Status: Alert and oriented x4 Pain: 3/10 in bilateral legs ROM: Right Upper Extremity: Shoulder Flexion WFL. Shoulder abduction WFL. Elbow flexion WFL. Wrist flexion WFL. Opening and closing of hand WFL. Left Upper Extremity: Shoulder Flexion WFL. Shoulder abduction WFL. Elbow flexion WFL. Wrist flexion WFL. Opening and closing of hand WFL. Right Lower Extremity: Hip flexion allows only up to 10 degrees beyond 90 while seated at edge of bed due to abdominal panniculus/morbid obesity. Hip abduction WFL. Knee flexion WFL. Ankle dorsiflexion WFL. Ankle plantarflexion WFL. Left Lower Extremity: Hip flexion only up to 10 degrees beyond 90 while seated at edge of bed due to abdominal panniculus/morbid obesity. Hip abduction WFL. Knee flexion WFL. Ankle dorsiflexion WFL. Ankle plantarflexion WFL. Strength: Right Upper Extremity: Shoulder flexors 4/5. Shoulder abductors 4/5. Elbow flexors 4/5. Elbow extensors 4/5. Humanities Instructor strong. Left Upper Extremity: Shoulder flexors 4/5. Shoulder abductors 4/5. Elbow flexors 4/5. Elbow extensors 4/5. Humanities Instructor strong. Right Lower Extremity: Hip flexors 3+/5. Hip abductors 4/5. Knee flexors 4/5. Knee extensors 4/5. Ankle dorsiflexors 4/5. Ankle plantarflexors 4/5. Left Lower Extremity:Hip flexors 3+/5. Hip abductors 4/5. Knee flexors 4/5. Knee extensors 4/5. Ankle dorsiflexors 4/5. Ankle plantarflexors 4/5. Sensation: Intact as to pain and pressure on bilateral lower extremities. Bed Mobility/Transfers: Supine to sit independent Sit to supine independent Sit to stand independent Stand to sit independent Bed to chair independent Chair to bed independent Gait: Has tolerated up to 200 feet on level surface ambulation using front wheeled walker with full weightbearing requiring only supervision with PHYSICAL THERAPIST AIDE in the past couple of days with a susi increasing but step height remains decreased. Also has been able to go up and down three 4 inch steps and two 6 inch steps holding onto bilateral rails with step to gait pattern requiring supervision assist. Balance: Static Sitting: Normal Dynamic Sitting: Normal Static Standing: Fair Dynamic Standing: Fair Special Tests: Mobility Limitations Standardized Measure [facility]-PAC 6 clicks Basic Mobility Inpatient Short Form: Raw Score: 19 CMS Score: 42% deficit Informed Consent/Education: Patient instructed in purpose of PT consult and plan of care. Assessment: Nursing staff may walk with the patient in the hallway using walker and assist of 1 for at least 50 feet. Barrie has achieved goals listed above but is right now limited by increased purulent drainage in B feet with L>>R. Said increase in drainage can increase patient risk for falls. Will determine best footwear for patient and will work with wound nurse in order to maintain mobility level. Will decrease visit frequency to 1?2 times per week to attempt to potentially progress mobility level once bilateral fluid drainage is resolved. Patient presented with clinical signs and symptoms consistent with current/admitting diagnoses that have resulted to mobility limitations, gait instability, generalized weakness, and impairment of motor control as demonstrated by the following impairment level findings: 1. Decreased strength to B LE major muscle groups 2. Impaired standing balance 3. Impaired activity tolerance 4. Serous fluid drainage in B feet with L >>R Impairments continue to contribute to the following functional limitations: 1. Inability to safely ambulate without assistive device 2. Increase completion time for mobility ADL performance 3. Increased fall risk 4. Inability to negotiate steps alone safely Patient is assessed as a 39689 moderate complexity based on the following: History: 58-year-old male with impairment level findings, functional limitations, and past medical history as indicated above Examination: Demonstrable impairment in strength, balance, and activity tolerance with underlying impairments and functional limitations as documented above Presentation: Evolving Decision Makin moderate complexity Goals: Goal x 1 week 1. Supine-Sit independent MET 2. Sit-Supine independent MET 3. Sit-Stand independent MET 4. Stand-Sit independent MET 5. Bed-Chair independent MET 6. Chair-Bed independent MET 7. Independent gait on level surface with use of single-point cane 100 feet without report of pain nor dyspnea NOT MET. Limited by L foot serous fluid leak at this time. 8. Independent stair negotiation while holding onto bilateral rails for at least 15 steps without report of pain nor dyspnea NOT MET. Limited by L foot serous fluid leak at this time. 9. Independent with home exercise program MET 10. Good static and dynamic standing balance/tolerance NOT MET. Limited by L foot serous fluid leak at this time. DISCHARGE RECOMMENDATIONS: PT services in order to maximize mobility gains using most appropriate assistive device. TREATMENT CODE/TIME: 11435 x 37 minutes beginning at 11:18 AM. Thank you very much for this referral. Corinna Durán PT, DPT, CLT [facility] [place], [place]
[2020-05-26] MEDS: Potassium Chloride 20 MEQ TABCR 40 MEQ PO (11:24)
[2020-05-26 11:46] LABS: INR 1.9 (0.9-1.1); Prothrombin Time 18.7 sec (9.3-11.0)
[2020-05-26 15:45] VITALS: BP 103/70; PULSE 51; RESP 18; TEMP 36; O2SAT 99
[2020-05-26 15:52] LABS: Vancomycin, Trough 24.2 ug/mL (10.0-20.0)
[2020-05-26 18:25] VITALS: BP 100/64; PULSE 80; RESP 16; TEMP 37.3; O2SAT 99
--- NOTE | 2020-05-26 18:43 | WOUNDCARE ---
Wound Care Report 05/26/20- Wounds assessed by MD at same time as this RN. LLE with maceration noted. Recommend change dressing BID today to manage drainage. CAll out to [facility] wound center where pt states he goes to find out what dressing they are using outpatient. Pt in agreement with plan of care.
[2020-05-26] MEDS: Gabapentin 600 MG TAB 1200 MG PO (20:16)
[2020-05-26] MEDS: Warfarin 5 MG TAB PO (20:21)
[2020-05-26 23:47] VITALS: BP 100/70; PULSE 83; RESP 18; TEMP 36.4; O2SAT 100
[2020-05-27 00:10] VITALS: PULSE 83; RESP 18; O2SAT 100
[2020-05-27] MEDS: VANCOMYCIN 750 MG in Normal Saline 250 ML 250 MG IVPB (00:28)
[2020-05-27] MEDS: CEFEPIME 2 GM in Normal Saline 100 ML IVPB ×3 (01:52→17:13)
[2020-05-27] MEDS: Normal Saline Flush 10 ML SYR IVP ×2 (03:05→08:27)
[2020-05-27 05:45] VITALS: BP 109/66; PULSE 76; RESP 18; TEMP 36.5; O2SAT 99
[2020-05-27 06:59] LABS: INR 1.9 (0.9-1.1); Prothrombin Time 19.2 sec (9.3-11.0)
[2020-05-27 07:10] LABS: Anion Gap 10.9 mmol/L (3-11); BUN 78 mg/dL (7-18); C-Reactive Protein 1.16 mg/dL (0.0-0.3); CO2 22.1 mmol/L (21.0-32.0); CREATININE 1.55 mg/dL (0.70-1.30); Calcium 8.5 mg/dL (8.5-10.1); Chloride 103 mmol/L (98-107); Estimated GFR 45.81 (mL/min/1.73m2); Glucose 129 mg/dL (74-106); Magnesium 1.8 mg/dL (1.8-2.4); Potassium 3.4 mmol/L (3.5-5.1); Sodium 136 mmol/L (136-145)
[2020-05-27 07:12] VITALS: BP 134/61; PULSE 84; RESP 18; TEMP 36.5; O2SAT 96
[2020-05-27] MEDS: Budesonide/Formoterol 80/4.5 10.2 GM 120 PUFF INH IH ×2 (07:33→20:10)
[2020-05-27] MEDS: Metoprolol 25 MG TAB 12.5 MG PO ×2 (07:59→20:10)
[2020-05-27] MEDS: Protein Nutritional Supplement 16 GM 1 OUNCE PACKET PO ×2 (07:59→20:10)
[2020-05-27] MEDS: Docusate Sodium 100 MG CAP PO ×2 (07:59→20:09)
[2020-05-27] MEDS: Magnesium Oxide 400 MG TAB PO (07:59)
[2020-05-27] MEDS: Ascorbic Acid 500 MG TAB PO (07:59)
[2020-05-27] MEDS: Zinc Sulfate 220 MG TAB PO (07:59)
[2020-05-27] MEDS: Simvastatin 20 MG TAB 40 MG PO (07:59)
[2020-05-27] MEDS: Insulin Aspart 300 UNITS/3 ML PEN SC ×3 (08:01→17:13)
[2020-05-27] MEDS: Nystatin POWDER 15 GM JAR TP ×2 (08:02→20:11)
[2020-05-27] MEDS: Sodium Chloride-Nasal SPRAY-ADULT 44 ML BTL NS ×4 (08:03→20:10)
[2020-05-27] MEDS: MAGNESIUM SULFATE 2 GM/50 ML BAG IVPB (08:26)
[2020-05-27] MEDS: Potassium Chloride 20 MEQ TABCR 40 MEQ PO (08:26)
--- NOTE | 2020-05-27 09:31 | OT.INDS ---
Date of service: 05/27/20 Time of Service: 08:50 Occupational Therapy Notes Occupational Therapy Inpatient Discharge Summary Date: 05/27/20 Dates of Service: 05/19/20-05/27/20 Referring Doctor:Wendy Allsion NP OT Orders: Non-Urgent Precautions: Fall, Standard, Full PATIENT PROFILE/ADMITTING DIAGNOSIS: Pt is a 59 year old male who presented to the ER on 05/18/20 and admitted for a dx of hyponatremia, sepsis, (B) leg weakness, acute leg pain, chronic leg ulcer, hyperkalemia, dizziness, supratherapeutic INR, lactic acidosis, cellulitis/abscess LE, venous stasis ulcers (B) LE, chronic venous insufficiency. Past Medical History: Medical History (Updated 05/18/20 @ 10:13 by Roseanna Mcdowell DO) Acute kidney injury (nontraumatic) Associated with dehydration secondary to overdiuresis for treatment of his CHF Atrial fibrillation Cellulitis and abscess of lower extremity Chronic venous insufficiency of lower extremity Coronary artery disease Non-hemodynamic diffuse disease per cardiac catheterization from [facility] October 28, [address] Heladio Harkins Diabetic peripheral neuropathy associated with type 2 diabetes mellitus Morbid obesity with BMI of 50.0-59.9, adult Nonischemic cardiomyopathy LVEF 35% with diffuse hypokinesis and septal wall motion abnormality due to bundle branch block, moderately dilated and moderately reduced RV systolic function, mild mitral regurgitation, mild tricuspid regurgitation, mild dilatation aortic root and moderate dilatation of ascending aorta per transthoracic echocardiogram from [facility] October 22, 2019. Obstructive sleep apnea Wear CPAP mask Orthostatic hypotension Osteoarthritis, knee Venous stasis ulcers of both lower extremities Surgical History (Updated 04/16/20 @ 21:40 by Avelino Lang) H/O cardiac catheterization (10/28/19) Cardiac catheterization per Dr. Heladio Harkins at [facility], 10/28/2019, mild diffuse nonobstructive coronary artery disease with right coronary dominance and elevated left ventricular end-diastolic pressures, less than 25% narrowing of the left main coronary artery, less than 25% stenosis of the LAD, less than 25% stenosis of left circumflex, less than 25% stenosis of RCA. Social History/Home Situation: Pt lives alone in [place], [place] his brother and sister live nearby and he has daughter who lives in [place]. He utilizes a FWW at all times for functional mobility and performs driving/community mobility (I) which he states that he has stopped performing at this time. His home is set up with five stairs to enter with (B) railings. He notes that he has 14 steps into his basement where his heating unit is and he would need to go up and down for that but his brother is going to (A) with this at this time. He sleeps in a recliner chair. His nephew and children stay in his home with him every other weekend. He is (I) in the kitchen for cooking and meal preparation, he has a tub shower with grab bars and is getting remodeled, non slip adhesive on bottom, removable shower head. OT does recommend a shower seat that could fit into his shower due to syncope episodes. Pt is able to (I) don and doff shirt at baseline he requires (A) with socks which he states he has a sock aid but does not feel that it is helpful. He states that he does not have issues getting up from the toilet and at nighttime he wears a depends due to being incontinent and does not attempt toileting during the night hours. He goes with his sister grocery shopping and his sister has managed his medications for years. His laundry room is located off his kitchen which he can easily access. He states that his brother is putting in a walk in shower soon which he feels will (A) with his (I). Equipment owned/DME: FWW, raised toilet seat, shower seat SUBJECTIVE: Pt was sitting in chair when OT arrived, he was agreeable to OT session and reports that he feels that he is at his baseline level of function. OBJECTIVE: ROM: RUE AROM WFL throughout L UE AROM WFL throughout STRENGTH: RUE Shoulder flexion 5/5, bicep 5/5, tricep 5/5, billet examiner is strong and symmetrical LUE Shoulder flexion 5/5, bicep 5/5, tricep 4+/5, billet examiner is strong and symmetrical SENSATION: Intact (B) UE FUNCTIONAL MOBILITY/ADLS: Transfers with FWW BATHING sitting in chair with max (A) Set up/clean up (I) face, (B) UE, abdomen, max (A) back, (I) Upper thighs DRESSING Dressing UE Sitting on side of the bed (I) don and doffing hospital gown. GROOMING Sitting in chair, pt is (I) with brushing his teeth with max (A) set up/clean up EATING (I) sitting in chair ASSESSMENT: Patient is a 59-year-old male referred to occupational therapy services with diagnosis of hyponatremia, sepsis, (B) leg weakness, acute leg pain, chronic leg ulcer, hyperkalemia, dizziness, supratherapeutic INR, lactic acidosis, cellulitis/abscess LE, venous stasis ulcers (B) LE, chronic venous insufficiency. Pt has been seen for 6 skilled OT sessions, he has made increased gains in terms of his ADL routines and feels that he is at his baseline level of function. He states that he needs (A) at baseline and feels that he has achieved his level of function. GOALS 1. Transfers with FWW (I)- not met 2. Dressing in seated position pt will be mod (I) with don and doffing pants, (I) don and doffing shirt- met 3. Bathing sitting on side of the bed pt will be (I) with washing face and (B) UE, in seated position pt will be (I) (B) LE- met for (B) UE and pt denies LE due to leg wrappings he utilizes a long handled sponge at home for (I). 4. Toileting on toilet (I)- not met 5. Eating (I)- met 6. Grooming standing at sink with FWW (I) with brushing teeth.- pt is able to (I) brush his teeth in sitting position, held on standing due to drainage from (B) LE. PLAN OF CARE/TREATMENT PLAN: Pt feels that he has met his baseline level of function at this time and is not interested in further OT services, OT recommends that pt return home with HH services vs. SNF. DISCHARGE RECOMMENDATIONS: OT recommends that pt go to SNF vs. return home with HHOT for assessment of functional (I) in home setting when medically cleared per MD and when able to demonstrate (I) in standing ADLs/IADLs. TREATMENT TIME/MINUTES/CODES 50151, 20 minutes (08:50 [facility]
--- NOTE | 2020-05-27 11:14 | NUR.NOTE ---
Patient put all four bed rails on his bed. Patient said that he knows the rule about not having all 4 bed rails up because it is considered a restraint and he said that he is of sound mind and he wants all 4 bed rails up.
[2020-05-27] MEDS: Collagenase 30 GM TUBE TP (11:50)
--- NOTE | 2020-05-27 12:28 | W.PM.PROGNOT ---
Date of Service Date of service: 05/27/20 Time of Service: 12:28 Assessment and Plan Assessment and plan (1) Cellulitis of lower extremity: Status: Acute Assessment and plan: Improving. Continue cefepime. Vancomycin d/c'ed - monitor CRP. Continue lasix gtt. Continue fluid restriction. Continue wound care - discussed with wound care nursing; higher level compression and increase in lasix gtt rates seem to have improved drainage. Elevate lower extremities. Continues to require hospitalization. Qualifiers: Laterality: unspecified laterality Qualified Code(s): L03.119 - Cellulitis of unspecified part of limb (2) Hyponatremia: Status: Resolved Assessment and plan: Likely dilutional. Resolved with diuresis. Continue to monitor. (3) Venous stasis ulcers of both lower extremities: Status: Chronic Assessment and plan: As above Continue wound care. Has a vascular appointment on 06/09. (4) PAD (peripheral artery disease): Status: Chronic Assessment and plan: As above (5) Supratherapeutic INR: Status: Resolved Assessment and plan: INR is 1.9 today. No change to coumadin dose. (6) Hyperkalemia: Status: Resolved Assessment and plan: Was iatrogenic - the patient had been consuming a beverage as outpatient with high potassium content. Resolved. Hypokalemic today due to lasix gtt - replete. (7) Atrial fibrillation: Status: Chronic Assessment and plan: Rate controlled. Continue metoprolol 12.5 mg PO BID INR 1.9 today - no change in tx. (8) Hypokalemia: Status: Acute Assessment and plan: replete (9) Hypomagnesemia: Status: Resolved Assessment and plan: recheck in am (10) DVT prophylaxis: Status: Acute Assessment and plan: On coumadin (11) Discharge planning issues: Status: Acute Assessment and plan: Full code Continues to require hospitalization. Subjective Subjective Interval history since last seen: Left leg has significantly less weeping today. The patient states that he is thirsty all the time and that it's going to be a struggle at home not to drink so much. He thinks his legs look better now, but he is worried about what's going to happen at home. His ABIs show PAD. He already has a vascular appointment scheduled. He denies dizziness, chest pain, shortness of breath, nausea. Exam Narrative Exam Narrative: General: Obese male, sitting at the side of the bed, A&Ox3, getting his dressings changed HEENT: EOMI, MMM Heart: RRR, no m/r/g Lungs: crackles at B bases, better Abdomen: soft, nontender, nondistended Extremities: 2+ pitting edema B, but improved; RLE with chronic venous stasis dermatitis and slight erythema over knee, overall looks better; LLE with decreased edema, several open wounds distally medially as well as posteriorly. I do not see any active drainage. L foot is beefy red. Long toe nails B. Objective Last Vital Signs Temp 36.5 C 05/27/20 07:12 Pulse 84 05/27/20 07:12 Resp 18 05/27/20 07:12 BP 134/61 05/27/20 07:12 Pulse Ox 96 05/27/20 07:12 Laboratory Results - last 24 hr 05/26/20 05/27/20 05/27/20 15:15 06:01 06:01 PT 19.2 H INR 1.9 H Sodium 136 Potassium 3.4 L Chloride 103 Carbon Dioxide 22.1 Anion Gap 10.9 BUN 78 H Creatinine 1.55 H Estimated GFR/1.73 m2 45.81 Glucose 129 H Calcium 8.5 Magnesium 1.8 C-Reactive Protein 1.16 H Vancomycin Trough 24.2 H*
--- NOTE | 2020-05-27 15:00 | PDOC.CMPRO ---
- If Service Date Differs Date of service: 05/27/20 Time of Service: 15:00 Care Management Progress Note S/O: Barrie was asleep when CM into see him. He will be seen by palliative care on Sunday. CM did request nursing provide him a CHF book and CM will review with him. Barrie is having a difficult time with the fluid restriction. CM discussed with dietary to assist in solutions to help relieve some of his thirst. Barrie remains on IV diuretics and his weight continues to increase. He is not ready for discharge at this time. CM did review the plan with his sister over the phone and she agrees that Barrie needs increase services at home and additional education related to disease process. A:Barrie is a 59 year old male admitted for Sepsis, with a history of CHF, venous stasis ulcers and multiple diagnosis. Barrie has had several admissions over the past year related to cellulitis, and CHF. P:Barrie will be discharged when medically ready, CM did contact [facility] and spoke with Kayli [phone] she is following up on approval for his electric bed r/t CHF. Resumption of home health nursing for wound care. Transportation via private car with family.
[2020-05-27 15:40] VITALS: BP 126/88; PULSE 54; RESP 19; TEMP 36.7; O2SAT 97
[2020-05-27 19:10] VITALS: BP 111/79; PULSE 97; RESP 19; TEMP 36.7; O2SAT 98
--- NOTE | 2020-05-27 19:59 | WOUNDCONS ---
- If Service Date Differs Date of service: 05/27/20 Time of Service: 11:30 Wound Initial Evaluation Narrative: This is a follow up consult from the initial wound consult done 05/19/20. Records obtained from [facility] for current dressing orders as well as [facility] for last progress not and orders. Pt last seen by [facility] wound care 05/10/20. Since last assessment, drainage has been considerable. Dressing done 05/26/20 by this nurse showed copious serous drainage. Dressing changed again l=around 2200 on 05/26/20 per pt report. Pt reports decreased pain with dressing changes and is able to lie in bed with decreased comfort as well. Upon entering room ,pt in bed, legs slightly elevated. Pt agreeable to NEGRO which showed PVD. Pt stated was increased discomfort with NEGRO but reported pain diminshed after procedure over. Dressings when removed prior to NEGRO showed minimal serous drainage with pinkish skin on lle up to mid plascencia, purplish there to directly below knee. RLE with purplish skin. MD in to see patient at time of dressing change. - Wound left medial ankle Wound Type: Full Thickness Wound General Appearance: Unapproximated Wound Bed Greatest Portion: Red (Granulation) Wound Bed Lesser Portion: Yellow (Slough) Wound Surrounding Tissue Appearance: [place] Percent of Wound Bed Granulated/Red: 60 Percent of Wound Bed Slough/Yellow: 40 Wound Length: 1.4 cm Wound Width: 1.4 cm Wound Depth: 0.2 cm Wound Drainage Amount: Minimal Wound Drainage Odor: None/Absent Wound Drainage Description: Serous Wound Topical Solution/Irrigant: Saline Irrigant Wound Debridement Method: Mechanical Wound Debridement Result: Healthy Tissue Revealed Wound Debridement Amount of Tissue Removed: Minimal Left Thigh Wound Type: Full Thickness Wound General Appearance: Unapproximated Wound Bed Greatest Portion: Yellow (Slough) Wound Bed Lesser Portion: Dusky Red Percent of Wound Bed Granulated/Red: 25 Percent of Wound Bed Slough/Yellow: 75 Wound Length: 1 cm Wound Width: 1.3 cm Wound Depth: 0.1 cm Wound Drainage Amount: Minimal Wound Drainage Odor: None/Absent Wound Drainage Description: Serous Wound Debridement Method: Mechanical Wound Debridement Result: Healthy Tissue Revealed Wound Debridement Amount of Tissue Removed: Minimal Left posterior calf Wound Type: Full Thickness Wound General Appearance: Unapproximated Wound Bed Greatest Portion: Yellow (Slough) Wound Bed Lesser Portion: Dusky Red Wound Surrounding Tissue Appearance: [place] Percent of Wound Bed Granulated/Red: 50 Percent of Wound Bed Slough/Yellow: 50 Wound Length: 5.5 cm Wound Width: 1.3 cm Wound Depth: 0.1 cm Wound Drainage Amount: Minimal Wound Drainage Odor: None/Absent Wound Drainage Description: Serous Wound Debridement Method: Mechanical Wound Debridement Result: Yellow Sloughing Remains Wound Debridement Amount of Tissue Removed: Minimal right posterior calf Wound Type: Full Thickness Wound General Appearance: Unapproximated Wound Bed Greatest Portion: Yellow (Slough) Wound Bed Lesser Portion: Pale [place] Wound Surrounding Tissue Appearance: [place] Percent of Wound Bed Granulated/Red: 10 Percent of Wound Bed Slough/Yellow: 90 Wound Length: 4.6 cm Wound Width: 7 cm Wound Depth: 0.1 cm Wound Drainage Amount: Minimal Wound Drainage Description: Serous Wound Debridement Method: Mechanical Wound Debridement Result: Yellow Sloughing Remains Wound Debridement Amount of Tissue Removed: Minimal (pt able to tolerate short amount of debridement before unable to tolerate due to pain. Debrisoft used.) - Circulation, Sensation, Motion Edema Degree: 3+ Peripheral Pulse Strength: Weak Capillary Refill: Greater than 3 seconds Sensation Description: Numbness, Tingling, Pain Skin Temperature: Warm Skin Color: Hyperpigmentation - NEGRO Left NEGRO: PAD Right NEGRO: PAD - Pain Pain Level: 3 Pain Scale Used: Visual Analog Scale 0-10 Pain Description: Acute Pain Duration/Frequency: Intermittent Left posterior calf appears to have decreased drainage. Area measured includes many smaller wounds in measured area. Firmly adherent slough noted. edges firmly adherent. dark pink warm skin noted to be receeding from borders. Left thigh wound noted to be site of old scab I picked, I can't stop picking notified 05/26/20 upon discovery of wound. Firmly adherent egdes, yellow slough firmly adhered to wound base. Minimal serous drainage noted. Left medial ankle. Appears to be improved slough to dusky red tissue. Minimal serous drainage noted. Right posterior calf wounds- smaller wounds in measured area. Firmly adherent yellow slough noted- debrided with debrisoft to patient tolerance, minimal slough removed. Pain with dressing changes improving. Patient educated on pain increasing have dressings taken off and redone. Patient in agreement with plan of care. Patient denies pain with dressing application after applied - Treatment/Dressing Change Topicals/Ointments: None Cleanse With: Anasept Dressing Types: Opti-Lock - Recomendation Recomendation:: Left medial ankle- Cleanse with ns, pat dry, apply nickel thick layer collagenase, cover with telfa. Change daily and PRN. Left posterior calf- Cleanse with debrisoft. Cleanse with anasept, let dwell 2 min. Pat dry. Apply Optilock, cover with kerlix and cullen wrap to secure. Change daily and PRN. Left thigh- Cleanse with anasept, let dwell 2 min. Pat dry. Apply mepilex with border. Change q 3 days and PRN. Right posterior calf- Cleanse with debrisoft. Apply Anasept cleanser, let dweel 2 min. Pat dry. Apply optilock, cover with kerlix and cullen wrap to secure. Change every other day and PRN. Bilat feet- Wash feet and apply Eucerin with every dressing change. Physcian/Nurse Practioner Notified: Yes (Dr. Miranda)
[2020-05-27] MEDS: Gabapentin 600 MG TAB 1200 MG PO (20:09)
[2020-05-27 23:00] VITALS: BP 102/77; PULSE 68; RESP 18; TEMP 36.7; O2SAT 98
[2020-05-28] MEDS: CEFEPIME 2 GM in Normal Saline 100 ML IVPB ×3 (02:15→17:14)
[2020-05-28] MEDS: Normal Saline Flush 10 ML SYR IVP ×4 (02:16→17:14)
[2020-05-28 06:53] VITALS: BP 114/84; PULSE 72; RESP 18; TEMP 36; O2SAT 100
[2020-05-28 07:02] LABS: INR 2.1 (0.9-1.1); Prothrombin Time 20.5 sec (9.3-11.0)
[2020-05-28 07:05] LABS: Anion Gap 13.8 mmol/L (3-11); C-Reactive Protein 1.32 mg/dL (0.0-0.3); CO2 18.2 mmol/L (21.0-32.0); CREATININE 1.72 mg/dL (0.70-1.30); Calcium 8.5 mg/dL (8.5-10.1); Chloride 103 mmol/L (98-107); Estimated GFR 40.63 (mL/min/1.73m2); Glucose 156 mg/dL (74-106); Magnesium 1.9 mg/dL (1.8-2.4); Potassium 3.3 mmol/L (3.5-5.1); Sodium 135 mmol/L (136-145)
[2020-05-28 07:26] LABS: BUN 85 mg/dL (7-18)
[2020-05-28] MEDS: Docusate Sodium 100 MG CAP PO ×2 (07:40→20:53)
[2020-05-28] MEDS: Ascorbic Acid 500 MG TAB PO (07:40)
[2020-05-28] MEDS: Sodium Chloride-Nasal SPRAY-ADULT 44 ML BTL NS ×3 (07:41→20:54)
[2020-05-28] MEDS: Zinc Sulfate 220 MG TAB PO (07:41)
[2020-05-28] MEDS: Magnesium Oxide 400 MG TAB PO (07:41)
[2020-05-28] MEDS: Metoprolol 25 MG TAB 12.5 MG PO ×2 (07:41→20:54)
[2020-05-28] MEDS: Simvastatin 20 MG TAB 40 MG PO (07:41)
[2020-05-28] MEDS: Protein Nutritional Supplement 16 GM 1 OUNCE PACKET PO ×2 (07:41→20:54)
[2020-05-28] MEDS: Budesonide/Formoterol 80/4.5 10.2 GM 120 PUFF INH IH ×2 (07:47→20:55)
[2020-05-28] MEDS: Insulin Aspart 300 UNITS/3 ML PEN SC ×3 (08:05→17:14)
[2020-05-28] MEDS: Potassium Chloride 20 MEQ TABCR 40 MEQ PO (08:52)
[2020-05-28 11:15] VITALS: BP 109/71; PULSE 80; RESP 18; TEMP 36.5; O2SAT 98
[2020-05-28] MEDS: Collagenase 30 GM TUBE TP (11:23)
--- NOTE | 2020-05-28 14:24 | NUR.NOTE ---
Nursing Note: At 1100 on 05/28/20, pt. back to bed to allow RN to perform dressing changes on his bilateral lower legs. Pt. requesting that all four side rails on the bed be in the up position and that they be left in that position following the dressing changes. RN informed pt. that having all four side rails on the bed in the up position is considered a restraint. Pt. states, I'm aware, but I feel more comfortable having them all up. RN will reassess as necessary.
--- NOTE | 2020-05-28 14:41 | PGE_ITS ---
Date of Service Date of service: 05/28/20 Time of Service: 14:43 Assessment and Plan Assessment and plan (1) Cellulitis of lower extremity: Status: Acute Assessment and plan: Unchanged today. Patient's noncompliance with fluid restriction is a big factor. Continue cefepime. Vancomycin d/c'ed - monitor CRP (stable so far). Change from lasix gtt to PO torsemide. Attempt to obtain a palliative care consult today. Continue fluid restriction unless the patient is on comfort measures. Continue wound care. Elevate lower extremities. Continues to require hospitalization. Qualifiers: Laterality: unspecified laterality Qualified Code(s): L03.119 - Cellul itis of unspecified part of limb (2) Hyponatremia: Status: Resolved Assessment and plan: Likely dilutional. Resolved with diuresis. Continue to monitor. (3) Venous stasis ulcers of both lower extremities: Status: Chronic Assessment and plan: As above Continue wound care. Has a vascular appointment on 06/09. (4) PAD (peripheral artery disease): Status: Chronic Assessment and plan: As above (5) Supratherapeutic INR: Status: Resolved Assessment and plan: INR 2.1 - continue current coumadin dose. (6) Hyperkalemia: Status: Resolved Assessment and plan: Was iatrogenic - the patient had been consuming a beverage as outpatient with high potassium content. Resolved. Again hypokalemic today - replete (7) Atrial fibrillation: Status: Chronic Assessment and plan: Rate controlled. Continue metoprolol 12.5 mg PO BID Continue therapeutic coumadin. (8) Hypokalemia: Status: Acute Assessment and plan: replete (9) Hypomagnesemia: Status: Resolved Assessment and plan: recheck in am (10) DVT prophylaxis: Status: Acute Assessment and plan: On coumadin (11) Discharge planning issues: Status: Acute Assessment and plan: Full code Continues to require hospitalization. Palliative care consulted to discuss goals of care. Subjective Subjective Interval history since last seen: Mr Peacock is upset - he is so thirsty, he can't stand it anymore. He says: please, don't take any more water from me. Please, please. We talked about the fact that, unless he gets diuresed, he will have a really hard time healing the wounds on his left leg. He does not have any other complaints today - dizziness, chest pain, shortness of breath, nausea. Just thirst. Nursing describes a lot more weeping drainage in his leg today and that the patient has been noncompliant with his fluid restriction. I have asked for palliative care to meet with the patient to discuss his goals of care. Exam Narrative Exam Narrative: General: Obese male, sitting in a chair with his legs down. He has two empty cups on his bedside table; tearful HEENT: EOMI, MMM Heart: not ausucultated today Lungs: nonlabored breathing Abdomen: soft, nontender, nondistended Extremities: 2+ pitting edema B, worse; BLE wrapped in dressing - c/d/i; erythema is better above the dressing. RLE with chronic venous stasis dermatitis and slight erythema over knee. Objective Last Vital Signs Temp 36.0 C L 05/28/20 06:53 Pulse 72 05/28/20 06:53 Resp 18 05/28/20 06:53 BP 114/84 05/28/20 06:53 Pulse Ox 100 05/28/20 06:53 Laboratory Results - last 24 hr 05/28/20 05/28/20 06:25 06:25 PT 20.5 H INR 2.1 H Sodium 135 L Potassium 3.3 L Chloride 103 Carbon Dioxide 18.2 L Anion Gap 13.8 H BUN 85 H* Creatinine 1.72 H Estimated GFR/1.73 m2 40.63 Glucose 156 H Calcium 8.5 Magnesium 1.9 C-Reactive Protein 1.32 H
[2020-05-28 15:23] VITALS: BP 104/73; PULSE 65; RESP 18; TEMP 36.6; O2SAT 95
[2020-05-28] MEDS: Gabapentin 600 MG TAB 1200 MG PO (18:42)
--- NOTE | 2020-05-28 19:45 | W.PALLCONSUL ---
Date of service: 05/28/20 History of Present Illness History of Present Illness Chief Complaint: morbid obesity with CHF, edema Narrative: I was asked to see Barrie by Dr Miranda. He has been on an diuretic drip since admission. He is not diuresing effectively. He was changed over to oral medication as of today. His lower legs are weeping. When he stood up in his room, in preparation for going for a walk, his depends dripped urine/fluid on the floor. He has consistently refused a boateng. He says he is urinating all the time. He is terribly thirsty. Staff suspect he is sneaking fluids over his 1500 cc limit per day. He swears he is not. He is upset frustrated angry in general. He has been here too long. He doesn't feel there is a concrete plan to get him home. He says his brother helps take care of him at home, buys his groceries and medications, comes by regularly. His sister used to help him too but she got tired of it. He said he is still recovering from hearing on this admission that his heart is very weak. THis comes as a surprise to him, he reports. He says he wants to talk to his daughter about his medical condition. He wants to go home. He appointed his sister as his one official visitor. He wants to change it just for one day to his daughter. Consults Consult date: 05/28/20 Requesting physician: Marta Miranda Assessment and Plan Assessment and plan (1) Lives alone with help available: Status: Chronic Assessment and plan: He says he wants to go home on SundayMay 31. Dr Miranda strongly opposes this plan as he is still diuresing and his legs are weeping. She stated to him when we all 3 met that if he went home now, he would return with another leg infection. He refuses to go to a SNF. He wants to go home with . I didn't speak to his siblings, but it sounds as if his sister burned out on helping him and their brother took over. Daughter not near by. Very tenuous housing situation, it sounds like. REcommend that I visit him at home once he is discharged for a better assessment of his home enviornment and his ability to care for self. (2) Social isolation: Status: Chronic Assessment and plan: Sounds as if he doesn't have a lot of friends who come by or call. Sounded frustrated and angry day of visit (05/28/20) but he also sounded scared and lonely. Recommend more interaction if possible. Made more difficult by COVID-19. (3) Anxiety: Status: Chronic Assessment and plan: Doesn't have a chance to interact much with others. Lonely. ANxious about his health. Frightened to hear from Dr Miranda that his heart is as bad as it is. He reports he has weighed over 300 lbs for almost all his life. (4) Depression: Status: Chronic Assessment and plan: Not doing well in the big picture. Not open to counseling at this time. (5) Palliative care patient: Status: Chronic Assessment and plan: Multiple co-morbidities, several of them life-threatening. In very poor health overall. Will continue to follow once discharged. Willing to return on this admission, but he is hoping for a discharge soon. (6) Bilateral leg weakness: Status: Chronic Assessment and plan: He was able to stand unassisted with his walker. Was going to walk in the hallway when he had an episode of urinary incontinence. He needs to be more active. No motivation at home to be so.... (7) Chronic venous insufficiency of lower extremity: Status: Chronic Assessment and plan: Explained that his large abdomen makes it hard for blood to return to his heart. Encouraged compression stockings, once able and increased activity. (8) Morbid obesity with BMI of 50.0-59.9, adult: Status: Chronic (9) Nonischemic cardiomyopathy: Status: Chronic Assessment and plan: Seems as if he is just beginning to understand how sick he is overall. He was weepy several times during my visit. Frightened. Says he wants to change. Not sure how. (10) Goals of care, counseling/discussion: Status: Acute Assessment and plan: We started to discuss his CODE STATUS. He is full code for now. Says he doesn't want to make any decisions about his health without input from his daughter. He wants to have a meeting with her present. Review of Systems Constitutional Constitutional: Reports daytime sleepiness, Reports difficulty sleeping, Reports fatigue, Reports headache(s), Reports lethargy, Reports poor appetite and Reports weakness Eyes Eyes: Reports dry eyes and Reports requires corrective lenses ENT Ears, Nose, Mouth, and Throat: Reports headache(s) and Reports disequilibrium (uses a walker) Cardiovascular Cardiovascular: Reports rapid heart rate, Reports pedal edema, Reports leg edema, Reports lightheadedness, Reports dyspnea on exertion and Reports orthopnea Respiratory Respiratory: Reports cough and Reports dyspnea on exertion Gastrointestinal Gastrointestinal: Reports constipation Genitourinary Genitourinary: Reports urinary frequency, Reports urinary incontinence and Reports urinary urgency Musculoskeletal Musculoskeletal: Reports muscle weakness Integumentary/Breasts Skin/Breast: Reports skin swelling, Reports striae and Reports other (constant weeping of both LE, soaking wraps) Neurologic Neurologic: Reports headache(s), Reports disequilibrium (uses a walker) and Reports weakness Psychiatric Psychiatric: Reports anxiety, Reports depression, Reports difficulty concentrating, Reports hopelessness, Reports irritability and Reports anhedonia Endocrine Endocrine: Reports fatigue and Reports heat intolerance [facility] Medical History (Updated 06/01/20 @ 20:27 by Pushpa De aL Torre MD) Acute kidney injury (nontraumatic) Associated with dehydration secondary to overdiuresis for treatment of his CHF Anxiety Atrial fibrillation Cellulitis and abscess of lower extremity Chronic venous insufficiency of lower extremity Coronary artery disease Non-hemodynamic diffuse disease per cardiac catheterization from [facility] October 28, [address] Heladio Hrakins Depression Diabetic peripheral neuropathy associated with type 2 diabetes mellitus Goals of care, counseling/discussion Lives alone with help available Morbid obesity with BMI of 50.0-59.9, adult Nonischemic cardiomyopathy LVEF 35% with diffuse hypokinesis and septal wall motion abnormality due to bundle branch block, moderately dilated and moderately reduced RV systolic function, mild mitral regurgitation, mild tricuspid regurgitation, mild dilatation aortic root and moderate dilatation of ascending aorta per transthoracic echocardiogram from [facility] October 22, 2019. Obstructive sleep apnea Wear CPAP mask Orthostatic hypotension Osteoarthritis, knee Palliative care patient Social isolation Venous stasis ulcers of both lower extremities Surgical History H/O cardiac catheterization (10/28/19) Cardiac catheterization per Dr. Heladio Harkins at [facility], 10/28/2019, mild diffuse nonobstructive coronary artery disease with right coronary dominance and elevated left ventricular end-diastolic pressures, less than 25% narrowing of the left main coronary artery, less than 25% stenosis of the LAD, less than 25% stenosis of left circumflex, less than 25% stenosis of RCA. Family History (Updated 06/01/20 @ 20:07 by Pushpa De La Torre MD) Brother No problems noted. Sister No problems noted. Daughter No problems noted. Other Diabetes Heart disease Hyperlipidemia Hypertension Social History (Updated 06/01/20 @ 20:18 by Pushpa De La Torre MD) Smoking/Tobacco Use Status: Never Alcohol Intake: former Drug use: Never Details: no alcohol for 10 yrs Caregiver/Support person: Yes (brother lives near by, grocery shops for him, etc) Details: sister also near by, was more involved in past than now Household members: none Housing: house Number of Children: 1 Communication Needs: Hard of Hearing and Corrective Lenses Education Level: high school Do you need help understanding health information?: Always Current gender identity: male What is your relationship status?: How often do you talk on the phone with friends or family?: three or more times per week How often do you get together with friends or relatives?: twice per week Panel score (0-1 are the most socially isolated patients): 1 What type of physical activity do you participate in: none and sedentary lifestyle Special otoniel needs: No Agree to transfusion: Yes Seatbelt use: sometimes Fire extinguisher in home: Yes Do you feel safe at home: Yes Do you feel safe in your relationship?: Yes Additional Social history: Barrie lives alone. His brother looks in on him regularly and buys his groceries. He is homebound. He used to depend on his sister but she got tired of it so now his brother does it. He has a daughter who lives away. She is due to come visit soon. He wants to see her. He is annoyed by other people pretending to be disabled when they aren't. He feels that many people take advantage of the system. 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 Exam Const General: cooperative, no acute distress and other (Sitting in recliner) Nutritional Appearance: obese Orientation: alert, oriented x3 and oriented to person Eyes Sclera: sclerae normal Pupils: PERRL Neck Neck: full ROM Resp Effort & Inspection: normal respiratory effort Auscultation: clear to auscultation bilaterally and diminished lung sounds Cardio Jugular venous pressure: no JVD Rate: regular rate Rhythm: other (Irreg Irreg) Heart Sounds: S1 normal and S2 normal GI Inspection: obesity Palpation: soft and nontender Auscultation: normal bowel sounds Skin General skin exam: other (BLE with dusky venous stasis discoloration. Wraps in place.) Neuro General: patient alert and moves all extremities Cognition: abnormal cognition (mild confusion / lethargic) Speech: speech normal Extrem General: pedal edema (bilateral; nonpitting.) bilaterally Results Last Vital Signs Temp 97.3 F L 06/01/20 15:39 Pulse 64 06/01/20 15:39 Resp 19 06/01/20 15:39 BP 109/70 06/01/20 15:39 Pulse Ox 98 06/01/20 15:39 Labs Result diagrams: 05/30/20 07:00 06/01/20 16:00 Labs: Laboratory Results - last 24 hr 06/01/20 06/01/20 06/01/20 06:20 06:20 16:00 PT 20.7 H INR 2.1 H Sodium 134 L 132 L Potassium 4.1 D 4.1 Chloride 101 100 Carbon Dioxide 21.7 20.0 L Anion Gap 11.3 H 12.0 H BUN 121 H* 127 H* Creatinine 2.29 H 2.63 H Estimated GFR/1.73 m2 29.20 24.89 Glucose 139 H 168 H Calcium 8.5 8.7
[2020-05-28] MEDS: Warfarin 5 MG TAB PO (20:53)
[2020-05-28] MEDS: Torsemide 20 MG TAB 40 MG PO (20:54)
[2020-05-28] MEDS: Nystatin POWDER 15 GM JAR TP (20:55)
[2020-05-28 23:15] VITALS: BP 131/89; PULSE 97; RESP 19; TEMP 36.3; O2SAT 97
[2020-05-29] MEDS: Normal Saline Flush 10 ML SYR IVP ×5 (02:16→20:10)
[2020-05-29] MEDS: CEFEPIME 2 GM in Normal Saline 100 ML IVPB ×3 (02:16→17:48)
[2020-05-29 07:22] VITALS: BP 121/86; PULSE 83; RESP 16; TEMP 36.3; O2SAT 96
[2020-05-29 07:30] LABS: Prothrombin Time 19.9 sec (9.3-11.0)
[2020-05-29 07:39] LABS: Anion Gap 11.7 mmol/L (3-11); CO2 20.3 mmol/L (21.0-32.0); Calcium 8.7 mg/dL (8.5-10.1); Chloride 104 mmol/L (98-107); Estimated GFR 41.18 (mL/min/1.73m2); Glucose 145 mg/dL (74-106); Magnesium 1.9 mg/dL (1.8-2.4); Potassium 3.2 mmol/L (3.5-5.1); Sodium 136 mmol/L (136-145)
[2020-05-29 07:45] LABS: BUN 91 mg/dL (7-18)
[2020-05-29] MEDS: Budesonide/Formoterol 80/4.5 10.2 GM 120 PUFF INH IH ×2 (07:58→20:08)
[2020-05-29] MEDS: Simvastatin 20 MG TAB 40 MG PO (08:22)
[2020-05-29] MEDS: Zinc Sulfate 220 MG TAB PO (08:22)
[2020-05-29] MEDS: Torsemide 20 MG TAB 40 MG PO ×2 (08:22→20:09)
[2020-05-29] MEDS: Docusate Sodium 100 MG CAP PO ×2 (08:22→20:09)
[2020-05-29] MEDS: Ascorbic Acid 500 MG TAB PO (08:22)
[2020-05-29] MEDS: Metoprolol 25 MG TAB 12.5 MG PO ×2 (08:23→20:09)
[2020-05-29] MEDS: Magnesium Oxide 400 MG TAB PO (08:23)
[2020-05-29] MEDS: Sodium Chloride-Nasal SPRAY-ADULT 44 ML BTL NS ×4 (08:25→20:08)
[2020-05-29] MEDS: Protein Nutritional Supplement 16 GM 1 OUNCE PACKET PO ×2 (08:25→20:08)
[2020-05-29] MEDS: Collagenase 30 GM TUBE TP (08:28)
[2020-05-29] MEDS: Normal Saline 500 ML IV (10:32)
[2020-05-29] MEDS: Acetaminophen 325 MG TAB PO (10:56)
[2020-05-29] MEDS: Insulin Aspart 300 UNITS/3 ML PEN SC (11:46)
--- NOTE | 2020-05-29 12:17 | CMPROGNOTE_ITS ---
- If Service Date Differs Date of service: 05/29/20 Time of Service: 12:17 Care Management Progress Note S/O: No change in plan. Barrie reported to staff that he is not sleeping well at night and, therefore, has not been using his BiPap. Melatonin is being added to his medication regimen to see if that helps his sleep. Barrie continues to struggle with the fluid restriction. The restriction is being changed from 1500 ml daily to 2000 mg daily to see if that improves compliance with the fluid restriction. Barrie met with Palliative Care yesterday to discuss goals of care. CM will continue to follow. A: Barrie is a 59 year old male admitted for Sepsis, with a history of CHF, venous stasis ulcers and multiple diagnosis. Barrie has had several admissions over the past year related to cellulitis, and CHF. P: Plan remains for Barrie to be discharged home when medically ready. SAMANTHA Brantley C are Assurance Analyst, contacted [facility] and spoke with Kayli [phone], she is following up on approval for his electric bed r/t CHF. Resumption of home health nursing for wound care. Transportation via private car with family when ready. CM will continue to follow.
[2020-05-29 15:05] VITALS: BP 116/80; PULSE 90; RESP 16; TEMP 37.1; O2SAT 100
--- NOTE | 2020-05-29 16:50 | W.PM.PROGNOT ---
Date of Service Date of service: 05/29/20 Time of Service: 16:50 Assessment and Plan Assessment and plan (1) Cellulitis of lower extremity: Status: Acute Assessment and plan: Unchanged today. Patient's noncompliance with fluid restriction is a big factor. Continue cefepime. Vancomycin d/c'ed - monitor CRP (stable so far). Change from lasix gtt to PO torsemide-diuresing well. palliative care consulted. Continue fluid restriction unless the patient is on comfort measures. Continue wound care. Elevate lower extremities. Continues to require hospitalization. Qualifiers: Laterality: unspecified laterality Qualified Code(s): L03.119 - Cellulitis of unspecified part of limb (2) Hyponatremia: Status: Resolved Assessment and plan: Likely dilutional. Resolved with diuresis. Continue to monitor. (3) Venous stasis ulcers of both lower extremities: Status: Chronic Assessment and plan: As above Continue wound care. Has a vascular appointment on 06/09. (4) PAD (peripheral artery disease): Status: Chronic Assessment and plan: As above (5) Supratherapeutic INR: Status: Resolved Assessment and plan: INR 2.1 - continue current coumadin dose. (6) Hyperkalemia: Status: Resolved Assessment and plan: Was iatrogenic - the patient had been consuming a beverage as outpatient with high potassium content. Resolved. Again hypokalemic today - replete (7) Atrial fibrillation: Status: Chronic Assessment and plan: Rate controlled. Continue metoprolol 12.5 mg PO BID Continue therapeutic coumadin. (8) Hypokalemia: Status: Acute Assessment and plan: replete (9) Hypomagnesemia: Status: Resolved Assessment and plan: recheck in am (10) DVT prophylaxis: Status: Acute Assessment and plan: On coumadin (11) Discharge planning issues: Status: Acute Assessment and plan: Full code Continues to require hospitalization. Palliative care consulted to discuss goals of care. Subjective Subjective Patient reports: no new complaints, feels better, tolerating liquids well, tolerating a regular diet, voiding w/o difficulty and bowel movement (some constipation); denies shortness of breath and afebrile Exam Const General: cooperative, no acute distress and other (Sitting in recliner) Nutritional Appearance: obese Orientation: alert, oriented x3 and oriented to person Eyes Sclera: sclerae normal Pupils: PERRL Neck Neck: full ROM Resp Effort & Inspection: normal respiratory effort Auscultation: clear to auscultation bilaterally and diminished lung sounds Cardio Jugular venous pressure: no JVD Rate: regular rate Rhythm: other (Irreg Irreg) Heart Sounds: S1 normal and S2 normal GI Inspection: obesity Palpation: soft and nontender Auscultation: normal bowel sounds Skin General skin exam: other (BLE with dusky venous stasis discoloration. Wraps in place.) Neuro General: patient alert and moves all extremities Cognition: abnormal cognition (mild confusion / lethargic) Speech: speech normal Extrem General: pedal edema (bilateral; nonpitting.) bilaterally Objective Last Vital Signs Temp 37.1 C 05/29/20 15:05 Pulse 90 05/29/20 15:05 Resp 16 05/29/20 15:05 BP 116/80 05/29/20 15:05 Pulse Ox 100 05/29/20 15:05 Laboratory Results - last 24 hr 05/29/20 05/29/20 06:55 06:55 PT 19.9 H INR 2.0 H Sodium 136 Potassium 3.2 L Chloride 104 Carbon Dioxide 20.3 L Anion Gap 11.7 H BUN 91 H* Creatinine 1.70 H Estimated GFR/1.73 m2 41.18 Glucose 145 H Calcium 8.7 Magnesium 1.9 C-Reactive Protein 1.50 H
[2020-05-29] MEDS: Gabapentin 600 MG TAB 1200 MG PO (20:09)
[2020-05-29] MEDS: Nystatin POWDER 15 GM JAR TP (20:09)
[2020-05-29] MEDS: Melatonin 3 MG TAB 9 MG PO (21:26)
[2020-05-30] MEDS: CEFEPIME 2 GM in Normal Saline 100 ML IVPB ×2 (01:15→09:18)
[2020-05-30] MEDS: Normal Saline Flush 10 ML SYR IVP ×3 (01:15→19:50)
[2020-05-30 07:24] VITALS: BP 121/77; PULSE 70; RESP 18; TEMP 36.7; O2SAT 99
[2020-05-30 07:42] LABS: Abs Immature Grans 0.05 10^3/uL (0.0-0.06); Absolute Basophil Count 0.04 10^3/uL (0.0-0.2); Absolute Eosinophil Count 0.13 10^3/uL (0.0-0.7); Absolute Lymphocyte Count 0.98 10^3/uL (1.2-3.4); Absolute Monocyte Count 0.67 10^3/uL (0.1-0.8); Absolute Neutrophil Count 3.85 10^3/uL (1.2-6.7); Basophils % 0.7; Eosinophils % 2.3; HCT 32.2 % (40.0-50.0); Immature Grans % 0.9; Lymphocytes % 17.1; MCH 25.4 pg (27.0-33.0); MCHC 31.1 % (32.0-36.0); MCV 81.9 fL (80-95); MPV 9.7 fL (8.0-11.0); Monocytes % 11.7; Neutrophils % 67.3; Nucleated RBC 0 %; Platelet Count 208 10^3/uL (130-400); RBC 3.93 10^6/uL (4.36-5.78); RDW 19.1 % (11.8-14.1); RDW-SD 56.1 fL; WBC 5.72 10^3/uL (4.4-10.8)
[2020-05-30 07:52] LABS: Prothrombin Time 19.5 sec (9.3-11.0)
[2020-05-30 07:54] LABS: Anion Gap 12.6 mmol/L (3-11); CO2 21.4 mmol/L (21.0-32.0); CREATININE 1.95 mg/dL (0.70-1.30); Calcium 8.9 mg/dL (8.5-10.1); Chloride 102 mmol/L (98-107); Estimated GFR 35.15 (mL/min/1.73m2); Glucose 149 mg/dL (74-106); Sodium 136 mmol/L (136-145)
[2020-05-30] MEDS: Budesonide/Formoterol 80/4.5 10.2 GM 120 PUFF INH IH ×2 (08:03→19:47)
[2020-05-30 08:10] LABS: BUN 103 mg/dL (7-18); Potassium 2.7 mmol/L (3.5-5.1)
[2020-05-30] MEDS: Sodium Chloride-Nasal SPRAY-ADULT 44 ML BTL NS ×4 (08:18→19:47)
[2020-05-30] MEDS: Insulin Aspart 300 UNITS/3 ML PEN SC ×3 (08:18→16:59)
[2020-05-30] MEDS: Protein Nutritional Supplement 16 GM 1 OUNCE PACKET PO ×2 (08:18→19:47)
[2020-05-30] MEDS: Nystatin POWDER 15 GM JAR TP ×2 (08:18→19:44)
[2020-05-30] MEDS: Collagenase 30 GM TUBE TP (08:19)
[2020-05-30] MEDS: Zinc Sulfate 220 MG TAB PO (08:20)
[2020-05-30] MEDS: Docusate Sodium 100 MG CAP PO ×2 (08:20→19:47)
[2020-05-30] MEDS: Magnesium Oxide 400 MG TAB PO (08:20)
[2020-05-30] MEDS: Torsemide 20 MG TAB 40 MG PO (08:21)
[2020-05-30] MEDS: Ascorbic Acid 500 MG TAB PO (08:21)
[2020-05-30] MEDS: Metoprolol 25 MG TAB 12.5 MG PO ×2 (08:21→19:44)
[2020-05-30] MEDS: Potassium Chloride 20 MEQ TABCR 40 MEQ PO ×2 (08:46→16:59)
[2020-05-30 10:19] LABS: Procalcitonin 0.2 ng/mL
--- NOTE | 2020-05-30 11:42 | W.PM.PROGNOT ---
Date of Service Date of service: 05/30/20 Time of Service: 11:42 Assessment and Plan Assessment and plan (1) Cellulitis of lower extremity: Start date: 05/30/20 Start time: 11:45 Status: Acute Assessment and plan: Improved from admission. Drsg clean/d/I. Wound culture with normal omar BC no growth Received 12 days cefepime with 10 days vanco. CRP improved. Will d/c antibiotics Procal improved. He wants to be discharged home. He would benefit from another day as this Renal function is worsening on torsemide. Will hold dose and repeat BMP in am. Possible discharge tomorrow or Sunday. Patient wants to leave AMA if not discharged by Sunday Qualifiers: Laterality: unspecified laterality Qualified Code(s): L03.119 - Cellulitis of unspecified part of limb (2) Hyponatremia: Start date: 05/30/20 Start time: 11:48 Status: Resolved Assessment and plan: Likely dilutional. Resolved with diuresis. Continue to monitor. (3) Venous stasis ulcers of both lower extremities: Start date: 05/30/20 Start time: 11:48 Status: Chronic Assessment and plan: As above Continue wound care. Has a vascular appointment on 06/09. (4) PAD (peripheral artery disease): Start date: 05/30/20 Start time: 11:48 Status: Chronic Assessment and plan: As above (5) Supratherapeutic INR: Start date: 05/30/20 Start time: 11:48 Status: Resolved Assessment and plan: INR 2.0 - continue current coumadin dose. (6) Hyperkalemia: Start date: 05/30/20 Start time: 11:48 Status: Resolved Assessment and plan: Was iatrogenic - the patient had been consuming a beverage as outpatient with high potassium content. Resolved. Again hypokalemic today - replete (7) Atrial fibrillation: Start date: 05/30/20 Start time: 11:48 Status: Chronic Assessment and plan: Rate controlled. Continue metoprolol 12.5 mg PO BID Continue therapeutic coumadin. (8) Hypokalemia: Start date: 05/30/20 Start time: 11:48 Status: Acute Assessment and plan: 2.7 this am. Will replete with PO potassium 40 meq this am and afternoon. Repeat bmp in am. (9) Hypomagnesemia: Start date: 05/30/20 Start time: 11:49 Status: Resolved Assessment and plan: recheck in am (10) DVT prophylaxis: Start date: 05/30/20 Start time: 11:49 Status: Acute Assessment and plan: On coumadin (11) Discharge planning issues: Start date: 05/30/20 Start time: 11:49 Status: Acute Assessment and plan: Full code Continues to require hospitalization. Palliative care consulted to discuss goals of care. Above case discussed with Dr. Lang who is in agreement. Subjective Subjective Patient reports: no new complaints Interval history since last seen: Mr. Peacock is sitting up in chair sleeping. Awakes. He is angry and wants to go home because his sister is his person who can visit and he wants his daughter to visit. He is agreeable to staying overnight. He wants to be home by Sunday as his daughter will be visiting his house sunday morning. He denies CP, SBO, N/V/d. Exam Narrative Exam Narrative: General: Obese male, sitting in a chair with his legs down. Sleeping, awakes with arousing HEENT: EOMI, MMM Heart: not ausucultated today Lungs: nonlabored breathing Abdomen: soft, nontender, nondistended Extremities: 2+ pitting edema B, worse; BLE wrapped in dressing - c/d/i; erythema is better above the dressing. RLE with chronic venous stasis dermatitis and slight erythema over knee improving. Objective Last Vital Signs Temp 36.7 C 05/30/20 07:24 Pulse 70 05/30/20 07:24 Resp 18 05/30/20 07:24 BP 121/77 05/30/20 07:24 Pulse Ox 99 05/30/20 07:24 Laboratory Results - last 24 hr 05/30/20 05/30/20 05/30/20 07:00 07:00 07:00 WBC 5.72 RBC 3.93 L Hgb 10.0 L Hct 32.2 L MCV 81.9 MCH 25.4 L MCHC 31.1 L RDW 19.1 H Plt Count 208 MPV 9.7 Immature Gran % 0.9 Neutrophils % 67.3 Lymphocytes % 17.1 Monocytes % 11.7 Eosinophils % 2.3 Basophils % 0.7 Nucleated RBC % 0 Absolute Neutrophils 3.85 Absolute Lymphocytes 0.98 L Absolute Monocytes 0.67 Absolute Eosinophils 0.13 Absolute Basophils 0.04 PT 19.5 H INR 2.0 H Sodium 136 Potassium 2.7 L* Chloride 102 Carbon Dioxide 21.4 Anion Gap 12.6 H BUN 103 H* Creatinine 1.95 H Estimated GFR/1.73 m2 35.15 Glucose 149 H Calcium 8.9 Procalcitonin 05/30/20 07:00 WBC RBC Hgb Hct MCV MCH MCHC RDW Plt Count MPV Immature Gran % Neutrophils % Lymphocytes % Monocytes % Eosinophils % Basophils % Nucleated RBC % Absolute Neutrophils Absolute Lymphocytes Absolute Monocytes Absolute Eosinophils Absolute Basophils PT INR Sodium Potassium Chloride Carbon Dioxide Anion Gap BUN Creatinine Estimated GFR/1.73 m2 Glucose Calcium Procalcitonin 0.2
--- NOTE | 2020-05-30 13:12 | PDOC.CMPRO ---
- If Service Date Differs Date of service: 05/30/20 Time of Service: 13:12 Care Management Progress Note S/O: No change in plan. Barrie is improving and he is asking to be discharged home. He was upset yesterday because he wanted his daughter to be able to visit him but he has already named his sister as his support person. He is agreeable to remaining until Sunday but states he will leave against medical advise if he is not discharged then. Lab work done this morning shows low potassium at 2.7, elevated BUN at 103, and elevated Creatinine at 1.95. His antibiotic is being discontinued and BMP will be repeated in the a.m. CM will continue to follow. A: Barrie is a 59 year old male admitted for Sepsis, with a history of CHF, venous stasis ulcers and multiple diagnosis. Barrie has had several admissions over the past year related to cellulitis and CHF. P: Plan remains for Barrie to be discharged home when medically ready. Karon tax technician, contacted [facility] and spoke with Kayli [phone], she is following up on approval for his electric bed r/t CHF. Resumption of home health nursing for wound care. Transportation via private car with family when ready. CM will continue to follow.
[2020-05-30 15:28] VITALS: BP 119/94; PULSE 57; RESP 18; TEMP 36.5; O2SAT 98
[2020-05-30 19:15] VITALS: BP 106/73; PULSE 104; RESP 19; TEMP 36; O2SAT 98
[2020-05-30] MEDS: Simvastatin 20 MG TAB 40 MG PO (19:45)
[2020-05-30] MEDS: Gabapentin 600 MG TAB 1200 MG PO (19:46)
[2020-05-30] MEDS: Melatonin 3 MG TAB 9 MG PO (19:46)
[2020-05-31 03:24] VITALS: BP 124/79; PULSE 90; RESP 19; TEMP 36.5; O2SAT 99
[2020-05-31 06:55] LABS: Anion Gap 12.6 mmol/L (3-11); CO2 22.4 mmol/L (21.0-32.0); CREATININE 2.22 mg/dL (0.70-1.30); Calcium 8.4 mg/dL (8.5-10.1); Chloride 102 mmol/L (98-107); Estimated GFR 30.26 (mL/min/1.73m2); Glucose 132 mg/dL (74-106); Magnesium 1.9 mg/dL (1.8-2.4); Potassium 3.1 mmol/L (3.5-5.1); Sodium 137 mmol/L (136-145)
[2020-05-31 07:00] LABS: BUN 115 mg/dL (7-18)
[2020-05-31 07:08] LABS: INR 2.1 (0.9-1.1); Prothrombin Time 20.6 sec (9.3-11.0)
[2020-05-31 07:25] VITALS: BP 145/85; PULSE 72; RESP 18; TEMP 36.6; O2SAT 98
[2020-05-31] MEDS: Budesonide/Formoterol 80/4.5 10.2 GM 120 PUFF INH IH ×2 (07:41→20:23)
[2020-05-31] MEDS: Nystatin POWDER 15 GM JAR TP ×2 (07:59→20:24)
[2020-05-31] MEDS: Insulin Aspart 300 UNITS/3 ML PEN SC ×3 (08:00→17:50)
[2020-05-31] MEDS: Magnesium Oxide 400 MG TAB PO (08:00)
[2020-05-31] MEDS: Metoprolol 25 MG TAB 12.5 MG PO ×2 (08:00→20:23)
[2020-05-31] MEDS: Protein Nutritional Supplement 16 GM 1 OUNCE PACKET PO ×2 (08:00→20:24)
[2020-05-31] MEDS: Zinc Sulfate 220 MG TAB PO (08:01)
[2020-05-31] MEDS: Ascorbic Acid 500 MG TAB PO (08:01)
[2020-05-31] MEDS: Docusate Sodium 100 MG CAP PO ×2 (08:01→20:23)
[2020-05-31] MEDS: Collagenase 30 GM TUBE TP (08:01)
[2020-05-31] MEDS: Sodium Chloride-Nasal SPRAY-ADULT 44 ML BTL NS ×3 (08:07→20:24)
[2020-05-31] MEDS: Normal Saline Flush 10 ML SYR IVP (08:32)
[2020-05-31] MEDS: Potassium Chloride 20 MEQ TABCR 40 MEQ PO ×2 (08:32→14:30)
[2020-05-31] MEDS: Normal Saline 500 ML IV (08:33)
[2020-05-31] MEDS: Bacitracin 1 PACKET (10:12)
--- NOTE | 2020-05-31 11:51 | PT.INDS ---
Date of service: 05/31/20 Time of Service: 11:51 PT Notes Visit Reasons: HYPERKALEMIA, CELLU Physical Therapy Inpatient Discharge Summary Date: 05/31/2020 Dates of service: 05/19/2020 through 05/26/2020 This is a clinical summary of care provided on the duration of dates listed above. No charge was made in the completion of this documentation. Referring Doctor: Wendy Allison NP PT Orders: PT CONSULT: Eval/treat Precautions: Fall. Standard. Activity as tolerated. Patient Profile/Admitting Diagnosis: Barrie is a 59-year-old male patient who presented to the Ed on 05/19/2020 with chief presentation of weak in B legs and increased pain in B calves. He is diagnosed with sepsis, hypotension related to sepsis, hyperkalemia, cellulitis and abscess of B LE, therapeutic INR, chronic ulcer of left leg, hyponatremia, lactic acidosis, and morbid obesity. PMHX: Medical History Acute kidney injury (nontraumatic) Associated with dehydration secondary to overdiuresis for treatment of his CHF Atrial fibrillation Cellulitis and abscess of lower extremity Chronic venous insufficiency of lower extremity Coronary artery disease Non-hemodynamic diffuse disease per cardiac catheterization from [facility] October 28, [address] Heladio Harkins Diabetic peripheral neuropathy associated with type 2 diabetes mellitus Morbid obesity with BMI of 50.0-59.9, adult Nonischemic cardiomyopathy LVEF 35% with diffuse hypokinesis and septal wall motion abnormality due to bundle branch block, moderately dilated and moderately reduced RV systolic function, mild mitral regurgitation, mild tricuspid regurgitation, mild dilatation aortic root and moderate dilatation of ascending aorta per transthoracic echocardiogram from [facility] October 22, 2019. Obstructive sleep apnea Wear CPAP mask Orthostatic hypotension Osteoarthritis, knee Venous stasis ulcers of both lower extremities Surgical History H/O cardiac catheterization (10/28/19) Cardiac catheterization per Dr. Heladio Harkins at [facility], 10/28/2019, mild diffuse nonobstructive coronary artery disease with right coronary dominance and elevated left ventricular end-diastolic pressures, less than 25% narrowing of the left main coronary artery, less than 25% stenosis of the LAD, less than 25% stenosis of left circumflex, less than 25% stenosis of RCA. Subjective: NT. See most recent PURCHASING INTERN notes. Objective: General Observation: NT. See most recent PURCHASING INTERN notes. Mental Status: NT. See most recent PURCHASING INTERN notes. Pain: NT. See most recent PURCHASING INTERN notes. ROM: Right Upper Extremity: Shoulder Flexion WFL. Shoulder abduction WFL. Elbow flexion WFL. Wrist flexion WFL. Opening and closing of hand WFL. Left Upper Extremity: Shoulder Flexion WFL. Shoulder abduction WFL. Elbow flexion WFL. Wrist flexion WFL. Opening and closing of hand WFL. Right Lower Extremity: Hip flexion allows only up to 10 degrees beyond 90 while seated at edge of bed due to abdominal panniculus/morbid obesity. Hip abduction WFL. Knee flexion WFL. Ankle dorsiflexion WFL. Ankle plantarflexion WFL. Left Lower Extremity: Hip flexion only up to 10 degrees beyond 90 while seated at edge of bed due to abdominal panniculus/morbid obesity. Hip abduction WFL. Knee flexion WFL. Ankle dorsiflexion WFL. Ankle plantarflexion WFL. Strength: Right Upper Extremity: Shoulder flexors 4/5. Shoulder abductors 4/5. Elbow flexors 4/5. Elbow extensors 4/5. Ciaio Lumite Injector strong. Left Upper Extremity: Shoulder flexors 4/5. Shoulder abductors 4/5. Elbow flexors 4/5. Elbow extensors 4/5. Ciaio Lumite Injector strong. Right Lower Extremity: Hip flexors 3+/5. Hip abductors 4/5. Knee flexors 4/5. Knee extensors 4/5. Ankle dorsiflexors 4/5. Ankle plantarflexors 4/5. Left Lower Extremity:Hip flexors 3+/5. Hip abductors 4/5. Knee flexors 4/5. Knee extensors 4/5. Ankle dorsiflexors 4/5. Ankle plantarflexors 4/5. Sensation: Intact as to pain and pressure on bilateral lower extremities. Bed Mobility/Transfers: Supine to sit independent Sit to supine independent Sit to stand independent Stand to sit independent Bed to chair independent Chair to bed independent Gait: Has tolerated up to 200 feet on level surface ambulation using front wheeled walker with full weightbearing requiring only supervision with PURCHASING INTERN in the past couple of days with a susi increasing but step height remains decreased. Also has been able to go up and down three 4 inch steps and two 6 inch steps holding onto bilateral rails with step to gait pattern requiring supervision assist. Balance: Static Sitting: Normal Dynamic Sitting: Normal Static Standing: Good Dynamic Standing: Fair Assessment: Nursing staff may walk with the patient in the hallway using walker and assist of 1 for at least 50 feet. Barrie has achieved goals listed above but is right now limited by increased purulent drainage in B feet with L>>R. Said increase in drainage can increase patient risk for falls. Podiatry consult has been made and patient is discontinued from skilled services at highest functional level. Goals: Goal x 1 week 1. Supine-Sit independent MET 2. Sit-Supine independent MET 3. Sit-Stand independent MET 4. Stand-Sit independent MET 5. Bed-Chair independent MET 6. Chair-Bed independent MET 7. Independent gait on level surface with use of single-point cane 100 feet without report of pain nor dyspnea NOT MET. Limited by L foot serous fluid leak at this time. 8. Independent stair negotiation while holding onto bilateral rails for at least 15 steps without report of pain nor dyspnea NOT MET. Limited by L foot serous fluid leak at this time. 9. Independent with home exercise program MET 10. Good static and dynamic standing balance/tolerance NOT MET. Limited by L foot serous fluid leak at this time. DISCHARGE RECOMMENDATIONS: PT services in order to ensure a smooth transition to home once medically cleared. TREATMENT CODE/TIME: NC. Thank you very much for this referral. Corinna Durán PT, DPT, CLT [facility] [place], [place]
--- NOTE | 2020-05-31 12:04 | CMPROGNOTE_ITS ---
- If Service Date Differs Date of service: 05/31/20 Time of Service: 12:04 Care Management Progress Note S/O: Barrie is in better spirts today after CM met with him at length. CM provided education r/t palliative care, goals of care and congestive heart failure. Barrie truly believed he was going to over the weekend and that he was not going to see his daughter again. CM listened as he processed the events since Sunday and reviewed the plan. Barrie states that he feels much better than admission and now understands his condition better. Barrie has questions related to his sodium intake, he states he has been watching his diet and sticks to a 2000 mg salt restriction. Barrie is open and willing to learn more about his disease process. 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 speciality clinic. He does not want to continue to go to [facility] due to travel and access to care. Barrie is not sleeping well here and is looking forward to returning home. CM contacted [facility] and requested his hospital bed be delivered prior to discharge. CM left a voicemail for November at the [place] office. CM also spoke with Barrie's sister today and provided an update. A: Barrie is a 59 year old male admitted for Sepsis, with a history of CHF, venous stasis ulcers and multiple diagnosis. Barrie has had several admissions over the past year related to cellulitis and CHF. P: Plan remains for Barrie to be discharged home when medically ready anticipate this will be on Sunday. Contacted and left a voicemail for [facility] electric bed r/t CHF. Resumption of home health nursing for wound care. Transportation via private car with family when ready. CM will continue to follow.
--- NOTE | 2020-05-31 13:35 | W.PM.PROGNOT ---
Date of Service Date of service: 05/31/20 Time of Service: 13:35 Assessment and Plan Assessment and plan (1) Cellulitis of lower extremity: Start date: 05/31/20 Start time: 13:50 Status: Resolved Assessment and plan: Improved from admission. Drsg clean/d/I. Wound culture with normal omar BC no growth Qualifiers: Laterality: right Qualified Code(s): L03.115 - Cellulitis of right lower limb (2) Venous stasis ulcers of both lower extremities: Start date: 05/31/20 Start time: 13:51 Status: Chronic Assessment and plan: As above Continue wound care. Wound improving, cellulitis resolved Has a vascular appointment on 06/09. (3) Hyponatremia: Start date: 05/31/20 Start time: 13:53 Status: Resolved Assessment and plan: Likely dilutional. Resolved with diuresis. Continue to monitor. (4) PAD (peripheral artery disease): Start date: 05/31/20 Start time: 13:53 Status: Chronic Assessment and plan: As above (5) Supratherapeutic INR: Start date: 05/31/20 Start time: 13:53 Status: Resolved Assessment and plan: INR 2.1 - continue current coumadin dose. (6) Atrial fibrillation: Status: Chronic Assessment and plan: Rate controlled. Continue metoprolol 12.5 mg PO BID Continue therapeutic coumadin. Qualifiers: Atrial fibrillation type: unspecified Qualified Code(s): I48.91 - Unspecified atrial fibrillation (7) Hypokalemia: Start date: 05/31/20 Start time: 13:53 Status: Acute Assessment and plan: 3.1 this am. Will replete with PO potassium 40 meq this am and afternoon. Repeat bmp in afternoon Repeat in am (8) Hypomagnesemia: Start date: 05/31/20 Start time: 13:55 Status: Resolved Assessment and plan: Mag 1.9 (9) DVT prophylaxis: Start date: 05/31/20 Start time: 13:55 Status: Acute Assessment and plan: On coumadin (10) Discharge planning issues: Start date: 05/31/20 Start time: 13:55 Status: Acute Assessment and plan: Full code Continues to require hospitalization. Palliative care consulted to discuss goals of care. Discharge in am. Above case discussed with Dr. Lang who is in agreement. Subjective Subjective Patient reports: other Interval history since last seen: Appears hypovolemic, will give bolus. Wounds appears improving. No weeping to ulcers today. Minimal swelling to LLE, agreeable to staying overnight. Renal function worsening today, will monitor overnight. He was given bolus with repeat bmp this afternoon. Will place back on regular potassium diet as he has had hypokalemia. Exam Narrative Exam Narrative: General: Obese male, sitting in a chair with his legs down. Sleeping, awakes with arousing HEENT: EOMI, MMM Heart: Lungs: nonlabored breathing Abdomen: soft, nontender, nondistended Extremities: trace edema to left lower extremity unable to assess RLE due to drsg, - c/d/i; erythema improved, not noticeable. LLE multiple ulcers without erythema, appear to be healing with wound care. No weeping. Objective Last Vital Signs Temp 36.6 C 05/31/20 07:25 Pulse 72 05/31/20 07:25 Resp 18 05/31/20 07:25 BP 145/85 H 05/31/20 07:25 Pulse Ox 98 05/31/20 07:25 Laboratory Results - last 24 hr 05/31/20 05/31/20 06:30 06:30 PT 20.6 H INR 2.1 H Sodium 137 Potassium 3.1 L Chloride 102 Carbon Dioxide 22.4 Anion Gap 12.6 H BUN 115 H* Creatinine 2.22 H Estimated GFR/1.73 m2 30.26 Glucose 132 H Calcium 8.4 L Magnesium 1.9
[2020-05-31 14:34] LABS: Anion Gap 9.9 mmol/L (3-11); CO2 25.1 mmol/L (21.0-32.0); CREATININE 2.22 mg/dL (0.70-1.30); Calcium 8.6 mg/dL (8.5-10.1); Chloride 102 mmol/L (98-107); Estimated GFR 30.26 (mL/min/1.73m2); Glucose 165 mg/dL (74-106); Potassium 3.3 mmol/L (3.5-5.1); Sodium 137 mmol/L (136-145)
[2020-05-31 14:37] LABS: BUN 118 mg/dL (7-18)
[2020-05-31 15:12] VITALS: BP 102/52; PULSE 78; RESP 18; TEMP 36.2; O2SAT 98
[2020-05-31 18:50] VITALS: BP 118/82; PULSE 102; RESP 19; TEMP 36.3; O2SAT 98
[2020-05-31] MEDS: Simvastatin 20 MG TAB 40 MG PO (20:24)
[2020-05-31] MEDS: Gabapentin 600 MG TAB 1200 MG PO (20:24)
[2020-05-31] MEDS: Warfarin 5 MG TAB PO (20:26)
[2020-05-31] MEDS: Melatonin 3 MG TAB 9 MG PO (20:26)
[2020-06-01 06:38] LABS: Anion Gap 11.3 mmol/L (3-11); CO2 21.7 mmol/L (21.0-32.0); CREATININE 2.29 mg/dL (0.70-1.30); Calcium 8.5 mg/dL (8.5-10.1); Chloride 101 mmol/L (98-107); Glucose 139 mg/dL (74-106); Potassium 4.1 mmol/L (3.5-5.1); Sodium 134 mmol/L (136-145)
[2020-06-01 06:46] LABS: INR 2.1 (0.9-1.1); Prothrombin Time 20.7 sec (9.3-11.0)
[2020-06-01 06:48] LABS: BUN 121 mg/dL (7-18)
[2020-06-01 07:24] VITALS: BP 107/71; PULSE 109; RESP 19; TEMP 36.6; O2SAT 98
[2020-06-01] MEDS: Budesonide/Formoterol 80/4.5 10.2 GM 120 PUFF INH IH ×2 (07:29→19:25)
[2020-06-01] MEDS: Acetaminophen 325 MG TAB PO (07:31)
[2020-06-01] MEDS: Nystatin POWDER 15 GM JAR TP (08:06)
[2020-06-01] MEDS: Sodium Chloride-Nasal SPRAY-ADULT 44 ML BTL NS ×3 (08:06→19:32)
[2020-06-01] MEDS: Collagenase 30 GM TUBE TP (08:06)
[2020-06-01] MEDS: Zinc Sulfate 220 MG TAB PO (08:07)
[2020-06-01] MEDS: Protein Nutritional Supplement 16 GM 1 OUNCE PACKET PO ×2 (08:07→19:26)
[2020-06-01] MEDS: Metoprolol 25 MG TAB 12.5 MG PO ×2 (08:07→19:27)
[2020-06-01] MEDS: Insulin Aspart 300 UNITS/3 ML PEN SC ×3 (08:07→16:52)
[2020-06-01] MEDS: Docusate Sodium 100 MG CAP PO ×2 (08:07→19:27)
[2020-06-01] MEDS: Magnesium Oxide 400 MG TAB PO (08:07)
[2020-06-01] MEDS: Ascorbic Acid 500 MG TAB PO (08:07)
--- NOTE | 2020-06-01 08:19 | W.PM.PROGNOT ---
Date of Service Date of service: 06/01/20 Time of Service: 08:19 Assessment and Plan Assessment and plan (1) Acute kidney injury: Status: Acute Assessment and plan: likely overdiuresis. diuretics on hold, give gentle IV fluids. avoid nephrotoxic drugs, renal dose medications. follow kidney function closely renal ultrasound (2) Cellulitis of lower extremity: Status: Resolved Assessment and plan: Improved from admission. Drsg clean/d/I. Wound culture with normal omar BC no growth Qualifiers: Laterality: right Qualified Code(s): L03.115 - Cellulitis of right lower limb (3) Venous stasis ulcers of both lower extremities: Status: Chronic Assessment and plan: As above Continue wound care. Wound improving, cellulitis resolved Has a vascular appointment on 06/09. (4) Hyponatremia: Status: Resolved Assessment and plan: Likely dilutional. Resolved with diuresis. Continue to monitor. (5) PAD (peripheral artery disease): Status: Chronic Assessment and plan: As above (6) Supratherapeutic INR: Status: Resolved Assessment and plan: INR 2.1 - continue current coumadin dose. (7) Atrial fibrillation: Status: Chronic Assessment and plan: Rate controlled. Continue metoprolol 12.5 mg PO BID Continue therapeutic coumadin. Qualifiers: Atrial fibrillation type: unspecified Qualified Code(s): I48.91 - Unspecified atrial fibrillation (8) Hypokalemia: Status: Acute Assessment and plan: normalized, follow and replete as needed. use caution in acute kidney injury Repeat bmp in afternoon Repeat in am (9) Hypomagnesemia: Status: Resolved Assessment and plan: Mag 1.9 (10) DVT prophylaxis: Status: Acute Assessment and plan: On coumadin (11) Discharge planning issues: Status: Acute Assessment and plan: Full code Continues to require hospitalization. Palliative care consulted to discuss goals of care. Discharge in am. Above case discussed with Dr. Lang who is in agreement. Subjective Subjective Patient reports: no new complaints, tolerating liquids well, tolerating a regular diet and afebrile Exam Const General: cooperative, no acute distress and other (Sitting in recliner) Nutritional Appearance: obese Orientation: alert, oriented x3 and oriented to person Eyes Sclera: sclerae normal Pupils: PERRL Neck Neck: full ROM Resp Effort & Inspection: normal respiratory effort Auscultation: clear to auscultation bilaterally and diminished lung sounds Cardio Jugular venous pressure: no JVD Rate: regular rate Rhythm: other (Irreg Irreg) Heart Sounds: S1 normal and S2 normal GI Inspection: obesity Palpation: soft and nontender Auscultation: normal bowel sounds Skin General skin exam: other (BLE with dusky venous stasis discoloration. Wraps in place.) Neuro General: patient alert and moves all extremities Cognition: abnormal cognition (mild confusion / lethargic) Speech: speech normal Extrem General: pedal edema (bilateral; nonpitting.) bilaterally Objective Last Vital Signs Temp 36.6 C 06/01/20 07:24 Pulse 109 H 06/01/20 07:24 Resp 19 06/01/20 07:24 BP 107/71 06/01/20 07:24 Pulse Ox 98 06/01/20 07:24 Laboratory Results - last 24 hr 05/31/20 06/01/20 06/01/20 14:13 06:20 06:20 PT 20.7 H INR 2.1 H Sodium 137 134 L Potassium 3.3 L 4.1 D Chloride 102 101 Carbon Dioxide 25.1 21.7 Anion Gap 9.9 11.3 H BUN 118 H* 121 H* Creatinine 2.22 H 2.29 H Estimated GFR/1.73 m2 30.26 29.20 Glucose 165 H 139 H Calcium 8.6 8.5
--- NOTE | 2020-06-01 09:41 | W.NUTRFU ---
Date of service: 06/01/20 Time of Service: 09:41 Nutritional Follow up NOTE: Barrie remains on Diabetic Diet with excellent intake (>75%), weight stable and diet supplemented with Vit C, Zinc sulfate and liquid protein supplements for optimal wound healing. Blood sugars in good control and supporting healing process. Will continue to follow. Time Spent in Nutritional Counseling and Treatment: 5 min spent face to face
[2020-06-01] MEDS: Normal Saline 500 ML 100 ML IV (10:59)
[2020-06-01 15:39] VITALS: BP 109/70; PULSE 64; RESP 19; TEMP 36.3; O2SAT 98
--- NOTE | 2020-06-01 16:33 | CMPROGNOTE_ITS ---
- If Service Date Differs Date of service: 06/01/20 Time of Service: 16:33 Care Management Progress Note S/O: ANTOINE met with Barrie at length today, we discussed his CHF and KELLY. He wants to be discharged home in the morning he would like that to be a 0900. ANTOINE has explained to Barrie that it may be after morning meeting. He is willing to continue to see palliative care, he will have resumption of home health for nursing. ANTOINE attempted to contact his sister and brother to confirm the electric bed has been delivered. Barrie wants to return home, he understands that his heart disease is not improving. He states he has made plans for his burial and has been working on end of life decisions. He does not want to spend his time in the hospital. He would like to see the mill labor supervisor here at [facility], provider will send the referral. A: Barrie is a 59 year old male admitted for Sepsis, with a history of CHF, venous stasis ulcers and multiple diagnosis. Barrie has had several admissions over the past year related to cellulitis and CHF. P: Plan remains for Barrie to be discharged home when medically ready anticipate this will be on Sunday. Resumption of home health nursing for wound care. Transportation via private car with family when ready. CM will continue to follow. Bed was to be delivered today, ANTOINE was unable to get in touch with his sister over the phone to confirm.
[2020-06-01 16:40] LABS: CREATININE 2.63 mg/dL (0.70-1.30); Calcium 8.7 mg/dL (8.5-10.1); Chloride 100 mmol/L (98-107); Estimated GFR 24.89 (mL/min/1.73m2); Glucose 168 mg/dL (74-106); Potassium 4.1 mmol/L (3.5-5.1); Sodium 132 mmol/L (136-145)
[2020-06-01 16:44] LABS: BUN 127 mg/dL (7-18)
[2020-06-01] MEDS: Gabapentin 600 MG TAB 1200 MG PO (19:26)
[2020-06-01] MEDS: Simvastatin 20 MG TAB 40 MG PO (19:26)
[2020-06-01] MEDS: Melatonin 3 MG TAB 9 MG PO (19:26)
[2020-06-01 21:17] VITALS: BP 127/85; PULSE 60; RESP 19; TEMP 36.6; O2SAT 98
--- NOTE | 2020-06-02 | DI.US_ITS ---
EXAM: US RENAL CLINICAL HISTORY: acute kidney injury TECHNIQUE: Ultrasound performed using standard protocol. COMPARISON: US US ECHOCARDIOGRAM from 05/18/2020 FINDINGS: Renal ultrasound was performed. Examination is somewhat limited due to patient's body habitus. Ther e is 47 millimeter in diameter simple cyst of the lower pole of the right kidney. No other mass iden tified. No hydronephrosis or nephrolithiasis. Urinary bladder is empty. IMPRESSION: Negative renal ultrasound. Bladder is empty and cannot be evaluated.. DATA REPOSITORY:
[2020-06-02 07:29] VITALS: BP 124/81; PULSE 99; RESP 19; TEMP 36; O2SAT 95
[2020-06-02 07:30] LABS: INR 2.2 (0.9-1.1); Prothrombin Time 21.8 sec (9.3-11.0)
[2020-06-02 07:32] LABS: Anion Gap 12.7 mmol/L (3-11); CO2 19.3 mmol/L (21.0-32.0); Calcium 8.6 mg/dL (8.5-10.1); Chloride 97 mmol/L (98-107); Estimated GFR 25.22 (mL/min/1.73m2); Glucose 137 mg/dL (74-106); Potassium 4.6 mmol/L (3.5-5.1); Sodium 129 mmol/L (136-145)
[2020-06-02 07:41] LABS: BUN 123 mg/dL (7-18)
[2020-06-02] MEDS: Ascorbic Acid 500 MG TAB PO (07:52)
[2020-06-02] MEDS: Magnesium Oxide 400 MG TAB PO (07:52)
[2020-06-02] MEDS: Zinc Sulfate 220 MG TAB PO (07:52)
[2020-06-02] MEDS: Docusate Sodium 100 MG CAP PO (07:52)
[2020-06-02] MEDS: Insulin Aspart 300 UNITS/3 ML PEN SC (07:53)
[2020-06-02] MEDS: Protein Nutritional Supplement 16 GM 1 OUNCE PACKET PO (07:53)
[2020-06-02] MEDS: Metoprolol 25 MG TAB 12.5 MG PO (07:53)
[2020-06-02] MEDS: Budesonide/Formoterol 80/4.5 10.2 GM 120 PUFF INH IH (08:45)
[2020-06-02] MEDS: Sodium Chloride-Nasal SPRAY-ADULT 44 ML BTL NS (08:49)
[2020-06-02] MEDS: Nystatin POWDER 15 GM JAR TP (08:50)
--- NOTE | 2020-06-02 10:31 | W.PM.DS.N ---
Date of service: 06/02/20 Time of Service: 10:31 DS: Diagnosis Discharge Diagnosis (1) Anxiety: Status: Chronic (2) Depression: Status: Chronic (3) Bilateral leg weakness: Status: Chronic (4) Morbid obesity with BMI of 50.0-59.9, adult: Status: Chronic (5) Nonischemic cardiomyopathy: Status: Chronic (6) Atrial fibrillation: Status: Chronic (7) Acute kidney injury: Status: Acute (8) Venous stasis ulcers of both lower extremities: Status: Chronic (9) Cellulitis of lower extremity: Status: Resolved (10) Hypokalemia: Status: Acute (11) Hypomagnesemia: Status: Resolved (12) PAD (peripheral artery disease): Status: Chronic Discharge Plan Disposition Patient Disposition: HOME W/HOME HEALTH SERVICE Condition: Improving Discharge Details Reason For Visit: HYPERKALEMIA, CELLU Admit Date/Time: 05/18/20 10:01 Admit Provider: Ashish Avilez Attending Provider: Ashish Avilez Primary Care Provider: Laura Martinez Hospital Course Hospital Course: This is a 59 y.o male with past medical history of DVT on coumadin, chronic venous stasis ulcer, afib, who was admitted in March for KELLY in setting of over diuresis and cellulitis of lower extremity presented to the ED septic from bilateral lower extremity cellulitis. He was started on Vancomycin and cefepime and admitted to ICU. He was hyponatremic at 119 and hyperkalemic receiving sodium bicarb, glucose and insulin, albuterol and calcium in addition to IV fluids. His course was complicated by ongoing hyperkalemia despite multiple agents including repeated doses of veltessa. He also required vitamin K for supratherapeutic INR. Echocardiogram with moderately decreased left ventricular systolic function. LVEF of 35-40%. Culture grew mixed gram + omar and mixed gram - omar. Antibiotics down-stepped to doxycycline which he continued to improve on. He was ultimately started on a lasix drip for his bilateral lower extremity edema and diuresed with good effect. His creatinine continued to climb, he was placed on a fluid restriction. Ultimately his drip was stopped and he was placed on oral torsemide. He creatinine peaked at 2.63 and BUN at 127. His diuretic was placed on hold and he was given IV fluid bolus of 500 cc which he started responding to, now down to 123 and 2.6. He should continue to hold his diuretic until discussed with his pcp. He also was referred to palliative care who will follow him outpatient. He should have his lab checked Sunday and report to pcp to determine when to resume diuretics. he will continue coumadin for INR goal of 2-3 and resume other usual medications as directed. Further outpatient labs and medication adjustment per outpatient team. Home Meds and New Rx's Prescriptions: New Santyl 250 unit/gram Ointment 0 g topical DAILY Qty: 30 RF: 0 Phlexy-Vits Packet 1 oz PO BID Qty: 60 RF: 0 Continued simvastatin 20 MG tablet 40 mg PO DAILY RF: 0 budesonide-formoterol [Symbicort] 10.2 GM HFA aerosol inhaler 2 puff Inhalation BID RF: 0 acetaminophen [Tylenol 8 Hour] 650 mg Tablet Extended Release 650 mg PO Q4H PRN PRNRF: 0 magnesium oxide 400 mg magnesium Tablet 400 mg PO BID RF: 0 metoprolol tartrate 25 mg Tablet 12.5 mg PO BID Qty: 28 RF: 0 warfarin 5 mg tablet See Rx Instructions .ROUTE .COMPLEX Qty: 1 RF: 0 gabapentin 600 mg tablet 1,200 mg PO QHS RF: 0 duloxetine 30 mg capsule,delayed release(DR/EC) 30 mg PO BID RF: 0 glyburide 5 mg tablet 5 mg PO QAM RF: 0 Discontinued torsemide 20 mg tablet 40 mg PO DAILY Qty: 0 RF: 0 potassium chloride 10 mEq Tablet,Er Particles/Crystals 20 meq PO DAILY Qty: 0 RF: 0 Discharge Instructions Instructions: Heart Failure (GEN), Acute Kidney Injury (DC), Cellulitis (DC), Hyperkalemia (DC), Venous Insufficiency (DC) Additional Instructions: Drink at least 6-8 glasses of water. take medications as directed. weigh yourself 3 times weekly and report 5 pound weight gain. continue wound care LLE- Left medial ankle- Cleanse with NS, pat dry. Apply nickel thick layer of collagenase, cover with Telfa. Change daily and PRN. Left Posterior calf- Cleanse with debrisoft. Cleanse with anasept, let dwell 2 minutes. Pat dry. Apply optilock, cover with kerlix and cullen wrap to secure. Change Daily and PRN. Left Thigh- Cleanse with anasept, let dwell 2 minutes. Pat dry. Apply Mepilex with border. Change Q3 days and PRN RLE- Right Posterior Calf- Cleanse with debrisoft. Apply anasept cleanser, let dwell 2 minutes. Pat dry. Apply optilock, cover with kerlix and cullen wrap to secure. Change every other day and PRN. Bilateral Feet- Wash feet and apply Eucerin with every dressing change. Follow up with V[place] [facility] [place] [facility] Forms: Nursing Discharge Form Referrals: Laura Martinez [Primary Care Provider] - 06/10/20 9:00 am Hugh Bradford MD [MD CONSULTING PHYSICIAN] - 06/22/20 9:00 am Activity:: Activity as Tolerated Equipment/Supplies:: hospital bed Diet:: Carb Counting Discharge Orders Discharge Orders: Discharge Order (Routine); Ordered 06/02/20 Ordered By: Sammi Gan Other Ambulatory Orders: Basic Metabolic Panel (Routine) Timeframe: [id number] Location: None Selected Ordered By: Sammi Gan Complete Blood Count w/Diff (Routine) Location: None Selected Ordered By: Sammi Gan Prothrombin Time (Routine) Location: None Selected Ordered By: Sammi Gan DS: Summary Status at Discharge Functional status at discharge: uses cane/walker Overall status at discharge: patient is progressing back to baseline Mental Status: mental status grossly normal Speech and Movement: speech and movement normal Mood: congruent mood Affect: normal affect Exam Const General: cooperative, no acute distress and other (Sitting in recliner) Nutritional Appearance: obese Orientation: alert, oriented x3 and oriented to person Eyes Sclera: sclerae normal Pupils: PERRL Neck Neck: full ROM Resp Effort & Inspection: normal respiratory effort Auscultation: clear to auscultation bilaterally and diminished lung sounds Cardio Jugular venous pressure: no JVD Rate: regular rate Rhythm: other (Irreg Irreg) Heart Sounds: S1 normal and S2 normal GI Inspection: obesity Palpation: soft and nontender Auscultation: normal bowel sounds Skin General skin exam: other (BLE with dusky venous stasis discoloration. Wraps in place.) Neuro General: patient alert and moves all extremities Cognition: normal cognition Speech: speech normal Extrem General: pedal edema (bilateral; nonpitting.) bilaterally Psych Mental Status: mental status grossly normal Speech and Movement: speech and movement normal Mood: congruent mood Affect: normal affect DS: Data Vitals/I&O Vitals and I&O: Vital Signs Temperature 36.0 C L 06/02/20 07:29 Temperature Source Tympanic 06/02/20 07:29 Pulse 99 H 06/02/20 07:29 Pulse Rhythm Irregular 06/02/20 07:30 Pulse 96 H 05/20/20 13:11 Respiratory Rate 19 06/02/20 07:29 Respiratory Effort Non-Labored 06/02/20 07:30 Respiratory Depth Normal 06/02/20 07:30 Respiratory Pattern Normal 06/02/20 07:30 Blood Pressure 124/81 06/02/20 07:29 Blood Pressure Mean 67 05/20/20 13:11 Blood Pressure Position Supine 05/20/20 08:00 Pulse Oximetry 95 06/02/20 07:29 Oxygen Delivery Method Room Air 06/02/20 07:29 Oxygen Flow Rate 0 06/02/20 07:29 Fraction of Inspired Oxygen (FIO2) 21 06/01/20 23:10 Pain Level 4 06/02/20 07:29 Comment 05/29/20 23:27 Intake & Output 06/01/20 06/01/20 06/02/20 11:59 23:59 11:59 Intake Total 100 / 1570 1470 / 1570 Output Total 450 / 450 660 / 660 Balance 100 / 1120 1020 / 1120 -660 / -660 Weight 158.9 kg 160.9 kg Intake: IV 500 / 500 Oral 100 / 1070 970 / 1070 Output: Urine 450 / 450 660 / 660 Other: Urine Color Yellow Yellow Urine Appearance Clear Clear Clear Urine Odor Strong Normal Comment diaper weighs 9 oz brief weighs 22oz. Stool Size Copious Stool Characteristics Brown Voiding Methods Diaper Diaper Diaper Incontinent Incontinent Data Completed and Pending Labs on day of discharge: Labs from last 24 hours 06/02/20 06/02/20 06/01/20 06:50 06:50 16:00 PT 21.8 H INR 2.2 H Sodium 129 L 132 L Potassium 4.6 4.1 Chloride 97 L 100 Carbon Dioxide 19.3 L 20.0 L Anion Gap 12.7 H 12.0 H BUN 123 H* 127 H* Creatinine 2.60 H 2.63 H Estimated GFR/1.73 m2 25.22 24.89 Glucose 137 H 168 H Calcium 8.6 8.7 PFSH Medical History (Updated 06/02/20 @ 11:36 by Sammi Gan NP) Acute kidney injury (nontraumatic) Associated with dehydration secondary to overdiuresis for treatment of his CHF Anxiety Atrial fibrillation Cellulitis and abscess of lower extremity Chronic venous insufficiency of lower extremity Coronary artery disease Non-hemodynamic diffuse disease per cardiac catheterization from [facility] October 28, [address] Heladio Harkins Depression Diabetic peripheral neuropathy associated with type 2 diabetes mellitus Goals of care, counseling/discussion Lives alone with help available Morbid obesity with BMI of 50.0-59.9, adult Nonischemic cardiomyopathy LVEF 35% with diffuse hypokinesis and septal wall motion abnormality due to bundle branch block, moderately dilated and moderately reduced RV systolic function, mild mitral regurgitation, mild tricuspid regurgitation, mild dilatation aortic root and moderate dilatation of ascending aorta per transthoracic echocardiogram [place] [facility] [place], [place]. Obstructive sleep apnea Wear CPAP mask Orthostatic hypotension Osteoarthritis, knee Palliative care patient Social isolation Venous stasis ulcers of both lower extremities Surgical History H/O cardiac catheterization (10/28/19) Cardiac catheterization per Dr. Heladio Harkins at [facility], 10/28/2019, mild diffuse nonobstructive coronary artery disease with right coronary dominance and elevated left ventricular end-diastolic pressures, less than 25% narrowing of the left main coronary artery, less than 25% stenosis of the LAD, less than 25% stenosis of left circumflex, less than 25% stenosis of RCA. Family History (Updated 06/01/20 @ 20:07 by Pushpa De La Torre MD) Brother No problems noted. Sister No problems noted. Daughter No problems noted. Other Diabetes Heart disease Hyperlipidemia Hypertension Social History (Updated 06/01/20 @ 20:18 by Pushpa De La Torre MD) Smoking/Tobacco Use Status: Never Alcohol Intake: former Drug use: Never Details: no alcohol for 10 yrs Caregiver/Support person: Yes (brother lives near by, grocery shops for him, etc) Details: sister also near by, was more involved in past than now Household members: none Housing: house Number of Children: 1 Communication Needs: Hard of Hearing and Corrective Lenses Education Level: high school Do you need help understanding health information?: Always Current gender identity: male What is your relationship status?: How often do you talk on the phone with friends or family?: three or more times per week How often do you get together with friends or relatives?: twice per week Panel score (0-1 are the most socially isolated patients): 1 What type of physical activity do you participate in: none and sedentary lifestyle Special otoniel needs: No Agree to transfusion: Yes Seatbelt use: sometimes Fire extinguisher in home: Yes Do you feel safe at home: Yes Do you feel safe in your relationship?: Yes Additional Social history: Barrie lives alone. His brother looks in on him regularly and buys his groceries. He is homebound. He used to depend on his sister but she got tired of it so now his brother does it. He has a daughter who lives away. She is due to come visit soon. He wants to see her. He is annoyed by other people pretending to be disabled when they aren't. He feels that many people take advantage of the system. 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
--- NOTE | 2020-06-02 11:24 | PDOC.CMDIS ---
- If Service Date Differs Date of service: 06/02/20 Time of Service: 11:25 LACE Index Scoring Tool - Questions: Length of Stay (in days): 7 - 13 Acuity (Admit via E.D.?): Yes Comorbidities: Previous M.I., Diabetes w/o Complication, Congestive Heart Failure, Mild Liver/Renal Disease E.D. Visits: 3 - Answers: Total Score: 16 Risk of Readmission: High Risk Care Management Discharge Reason for Hospitalization: Sepsis Discharge Plan: Barrie will be discharged home today, he was scheduled an appointment with cardiology here at [facility], and a follow up with his primary care on 06/10/20. Unit will send the discharge summary to Ashley Martinez at [facility], CM also called and notified of discharge. CM contacted home health and notified of discharge today. Hospital bed was delieiverd to the home. Patient/Family Education Needs: Discharge education, limitations and follow up plan of care. Barrie was given the CHF book and reviewed the information with Barrie. Services Needed at Discharge: DME Agency, Home Health Care Services
== END 2020-06-02 11:48 | disposition home health service (06) | DRG 871 ==
LOC: ER 10:15 → ICU 11:41 → MS 05-20 14:15
PROVIDERS: Emergency Medicine; Family Medicine; Internal Medicine; Nurse Practitioner Acute Care; Nurse Practitioner Family; Admitting Provider Family Medicine; Emergency Provider Physician Assistant; PCP Nurse Practitioner Family; Visit Provider Family Medicine
DX: A41.9 Sepsis, unspecified organism (principal); R65.21 Severe sepsis with septic shock; E87.1 Hypo-osmolality and hyponatremia; L97.819 Non-pressure chronic ulcer of other part of right lower leg with unspecified severity; L97.829 Non-pressure chronic ulcer of other part of left lower leg with unspecified severity; I42.8 Other cardiomyopathies; N17.9 Acute kidney failure, unspecified; Z68.43 Body mass index [BMI] 50.0-59.9, adult; L03.115 Cellulitis of right lower limb; L03.116 Cellulitis of left lower limb; Z79.01 Long term (current) use of anticoagulants; Z79.84 Long term (current) use of oral hypoglycemic drugs; I48.91 Unspecified atrial fibrillation; I25.2 Old myocardial infarction; E87.5 Hyperkalemia; I83.018 Varicose veins of right lower extremity with ulcer other part of lower leg; I83.028 Varicose veins of left lower extremity with ulcer other part of lower leg; Z86.718 Personal history of other venous thrombosis and embolism; E86.0 Dehydration; I25.10 Atherosclerotic heart disease of native coronary artery without angina pectoris; E66.01 Morbid (severe) obesity due to excess calories; G47.33 Obstructive sleep apnea (adult) (pediatric); M17.9 Osteoarthritis of knee, unspecified; E87.6 Hypokalemia; E83.42 Hypomagnesemia; I73.9 Peripheral vascular disease, unspecified; F41.9 Anxiety disorder, unspecified; F32.9 Major depressive disorder, single episode, unspecified; E11.42 Type 2 diabetes mellitus with diabetic polyneuropathy; Z91.19 Patient's noncompliance with other medical treatment and regimen
CPT/HCPCS: 36410; 36415; 76770; 80048; 80053; 82550; 82805; 84145; 86900; 86901; 87040; 93005; 94640; 96361; 96374; 96375; 97110; 97162; 97166; 97530; 97535; 99223; 99226; 99232; 99233; 99239; 99255; 99285; U0003; 71046; 80202; 83605; 83735; 83880; 84132; 84439; 84443; 85025; 85610; 85730; 86140; 87070; 87205; 93010; 93306; 93970; 94762; 99281; J1940; J1941; J3370; J3490; J7613

== ENCOUNTER 2020-06-04 14:37 | Outpatient (REF) | payer BC, SELFPAY ==
[2020-06-04 14:53] LABS: Abs Immature Grans 0.04 10^3/uL (0.0-0.06); Absolute Basophil Count 0.05 10^3/uL (0.0-0.2); Absolute Eosinophil Count 0.08 10^3/uL (0.0-0.7); Absolute Lymphocyte Count 0.85 10^3/uL (1.2-3.4); Absolute Monocyte Count 0.53 10^3/uL (0.1-0.8); Absolute Neutrophil Count 4.72 10^3/uL (1.2-6.7); Basophils % 0.8; Eosinophils % 1.3; HCT 33.7 % (40.0-50.0); HGB 10.4 g/dL (13.5-17.5); Immature Grans % 0.6; Lymphocytes % 13.6; MCH 25.3 pg (27.0-33.0); MCHC 30.9 % (32.0-36.0); MPV 9.9 fL (8.0-11.0); Monocytes % 8.5; Neutrophils % 75.2; Nucleated RBC 0 %; Platelet Count 268 10^3/uL (130-400); RBC 4.11 10^6/uL (4.36-5.78); RDW 19.5 % (11.8-14.1); RDW-SD 56.6 fL; WBC 6.27 10^3/uL (4.4-10.8)
[2020-06-04 15:10] LABS: Prothrombin Time 19.8 sec (9.3-11.0)
[2020-06-04 15:15] LABS: Anion Gap 14.2 mmol/L (3-11); CO2 17.8 mmol/L (21.0-32.0); CREATININE 2.08 mg/dL (0.70-1.30); Calcium 8.7 mg/dL (8.5-10.1); Chloride 98 mmol/L (98-107); Estimated GFR 32.63 (mL/min/1.73m2); Glucose 189 mg/dL (74-106); Potassium 4.9 mmol/L (3.5-5.1); Sodium 130 mmol/L (136-145)
[2020-06-04 15:22] LABS: BUN 117 mg/dL (7-18)
== END 2020-06-04 14:57 ==
LOC: LBN 14:37
PROVIDERS: PCP Nurse Practitioner Family; Visit Provider Nurse Practitioner Family
DX: N17.9 Acute kidney failure, unspecified (principal); I73.9 Peripheral vascular disease, unspecified
CPT/HCPCS: 80048; 85025; 85610

== ENCOUNTER 2020-06-09 01:00 | Outpatient (REF) | payer BC, SELFPAY ==
[2020-06-09 12:06] LABS: INR 1.9 (0.9-1.1); Prothrombin Time 19.1 sec (9.3-11.0)
[2020-06-09 12:10] LABS: Anion Gap 13.8 mmol/L (3-11); CO2 18.2 mmol/L (21.0-32.0); CREATININE 1.59 mg/dL (0.70-1.30); Calcium 8.6 mg/dL (8.5-10.1); Chloride 97 mmol/L (98-107); Estimated GFR 44.48 (mL/min/1.73m2); Glucose 135 mg/dL (74-106); Potassium 5.7 mmol/L (3.5-5.1); Sodium 129 mmol/L (136-145)
[2020-06-09 13:11] LABS: BUN 82 mg/dL (7-18)
== END 2020-06-09 01:20 ==
LOC: LBN 01:00
PROVIDERS: PCP Nurse Practitioner Family; Visit Provider Nurse Practitioner Family
DX: I50.21 Acute systolic (congestive) heart failure (principal); Z79.01 Long term (current) use of anticoagulants; N17.9 Acute kidney failure, unspecified
CPT/HCPCS: 80048; 85610

== ENCOUNTER 2020-06-11 21:29 | Inpatient (IN) | payer BC, SELFPAY ==
[2020-06-11] VITALS (13 sets, daily range): BP systolic 94–101; BP diastolic 66–78; PULSE 74–102; RESP 15–21; TEMP 36; O2SAT 85–99
--- NOTE | 2020-06-11 21:28 | W.ED.GENAD ---
Discharge Plan Disposition Patient Disposition: [facility] INPATIENT Condition: Poor Discharge Details Clinical Impression: Generalized weakness, CHF (congestive heart failure), CKD (chronic kidney disease), Hyperkalemia Primary Care Provider: Laura Martinez ED Provider: Caleb Alonso [place] Meds and New Rx's Prescriptions: No Action simvastatin 20 MG tablet 40 mg PO DAILY RF: 0 budesonide-formoterol [Symbicort] 10.2 GM HFA aerosol inhaler 2 puff Inhalation BID RF: 0 acetaminophen [Tylenol 8 Hour] 650 mg Tablet Extended Release 650 mg PO Q4H PRN PRNRF: 0 magnesium oxide 400 mg magnesium Tablet 400 mg PO BID RF: 0 metoprolol tartrate 25 mg Tablet 12.5 mg PO BID Qty: 28 RF: 0 warfarin 5 mg tablet See Rx Instructions .ROUTE .COMPLEX Qty: 1 RF: 0 gabapentin 600 mg tablet 1,200 mg PO QHS RF: 0 duloxetine 30 mg capsule,delayed release(DR/EC) 30 mg PO BID RF: 0 glyburide 5 mg tablet 5 mg PO QAM RF: 0 Santyl 250 unit/gram Ointment 0 g topical DAILY Qty: 30 RF: 0 Phlexy-Vits Packet 1 oz PO BID Qty: 60 RF: 0 Medical Decision Making Patient arrives here by EMS after being unable to get into his house because of weakness. Required 6 people to assist getting him situated on a stretcher here as he was unable to help himself. He denies fever or cough or pain. He was at [facility] earlier. I spoke to the ED physician there. He has taken care of this patient previously. Minerva that the patient was at his chronic poor baseline. He did report that the potassium was elevated on 3 separate sticks but that they were all hemolyzed. Chest x-ray was read as unremarkable. Kidney function was baseline. Patient was reportedly able to get himself into a wheelchair and into the car at discharge. Blood pressure was in the 120 range at discharge. Here patient blood pressure has remained in the 90s. IV established. EKG unchanged with bundle branch block. Chest x-ray without edema or infiltrate. Labs show normal white count. Mild anemia. Potassium is 6 not hemolyzed here. BNP is elevated almost to 10,000 tonight. This is his highest level in our system. I had spoke to care management regarding swing bed status. However, after evaluation by hospitalist and with lab values returning markedly abnormal will be a full medical admission once again. Medical Records Medical records reviewed: Yes I reviewed the patient's medical records. Lab Data Lab results reviewed: Yes I reviewed the patient's lab results. ECG Data Attestation: I personally reviewed and interpreted this ECG (s) as follows: Interpretation: See EKG HPI General Mode of arrival: EMS. Date/Time Provider Initiated Documentation: 06/11/20 21:50. Limitations to Documentation: no limitations. Information obtained by: patient, EMS and old records reviewed. HPI Narrative: Patient presents to the ED from home with general weakness. Patient was admitted at this hospital from late April until June 02. He had been admitted with leg cellulitis and edema as well as CHF. Since being home he really has not done much. Home health service and home referrals were made from this hospital. He states he is done nothing with PT. In the last 36 hours he has been having issues with dry heaves. He had follow-up appointment with his PCP office this afternoon. They ended up sending him to [facility] ED. He was discharged from there back home. While trying to get into the house, he made it as far as the porch and I was it. EMS was called and he was transported here. He denies having any chest pain. His shortness of breath is baseline. He denies fever or cough. His legs are little more swollen than at discharge. The wounds he think are unchanged. He has no abdominal pain. He does continue to make urine. Related Data Home Medications Medication Instructions Recorded Confirmed budesonide-formoterol [Symbicort] 2 puff INHALATION BID 03/10/18 06/11/20 simvastatin 40 mg PO DAILY 03/10/18 06/11/20 acetaminophen [Tylenol 8 Hour] 650 mg PO Q4H PRN PRN 11/24/19 06/11/20 magnesium oxide 400 mg PO BID 11/24/19 06/11/20 metoprolol tartrate 12.5 mg PO BID #28 tab 12/01/19 06/11/20 warfarin See Rx Instructions .ROUTE 04/19/20 06/11/20 .COMPLEX #1 tab duloxetine 30 mg PO BID 05/18/20 06/11/20 gabapentin 1,200 mg PO QHS 05/18/20 06/11/20 glyburide 5 mg PO QAM 05/19/20 06/11/20 collagenase clostridium histo. 0 g TOPICAL DAILY #30 g 06/02/20 06/11/20 [Santyl] nutritional supplements 1 oz PO BID #60 ea 06/02/20 06/11/20 [Phlexy-Vits] Previous Rx's Medication Instructions Recorded metoprolol tartrate 12.5 mg PO BID #28 tab 12/01/19 warfarin See Rx Instructions .ROUTE 04/19/20 .COMPLEX #1 tab collagenase clostridium histo. 0 g TOPICAL DAILY #30 g 06/02/20 [Santyl] nutritional supplements 1 oz PO BID #60 ea 06/02/20 [Phlexy-Vits] Allergies Allergy/AdvReac Type Severity Reaction Status Date / Time diltiazem Allergy Anaphylaxsi Unverified 06/11/20 22:02 s shellfish derived Allergy Other (See Unverified 06/11/20 22:02 Comment) sulfamethoxazole Allergy Other (See Unverified 06/11/20 22:02 [From Bactrim] Comment) trimethoprim [From Bactrim] Allergy Other (See Unverified 06/11/20 22:02 Comment) adhesive tape AdvReac Skin Rash Unverified 06/11/20 22:02 General ALICJA: 3 Review of Systems Narrative: 06/09 Review of Systems completed and is negative except as stated above in HPI (Systems reviewed: Const, Eyes, ENT, Resp, CV, GI, , MSK, Skin, Neuro) PFSH Medical History Acute kidney injury (nontraumatic) Associated with dehydration secondary to overdiuresis for treatment of his CHF Anxiety Atrial fibrillation Cellulitis and abscess of lower extremity Chronic venous insufficiency of lower extremity Coronary artery disease Non-hemodynamic diffuse disease per cardiac catheterization from [facility] October 28, [address] Heladio Harkins Depression Diabetic peripheral neuropathy associated with type 2 diabetes mellitus Goals of care, counseling/discussion Lives alone with help available Morbid obesity with BMI of 50.0-59.9, adult Nonischemic cardiomyopathy LVEF 35% with diffuse hypokinesis and septal wall motion abnormality due to bundle branch block, moderately dilated and moderately reduced RV systolic function, mild mitral regurgitation, mild tricuspid regurgitation, mild dilatation aortic root and moderate dilatation of ascending aorta per transthoracic echocardiogram from [facility] [place] October 22, 2019. Obstructive sleep apnea Wear CPAP mask Orthostatic hypotension Osteoarthritis, knee Palliative care patient Social isolation Venous stasis ulcers of both lower extremities Surgical History H/O cardiac catheterization (10/28/19) Cardiac catheterization per Dr. Heladio Harkins at [facility], 10/28/2019, mild diffuse nonobstructive coronary artery disease with right coronary dominance and elevated left ventricular end-diastolic pressures, less than 25% narrowing of the left main coronary artery, less than 25% stenosis of the LAD, less than 25% stenosis of left circumflex, less than 25% stenosis of RCA. Family History Brother No problems noted. Sister No problems noted. Daughter No problems noted. Other Diabetes Heart disease Hyperlipidemia Hypertension Social History Smoking/Tobacco Use Status: Never Alcohol Intake: former Drug use: Never Details: no alcohol for 10 yrs Caregiver/Support person: Yes (brother lives near by, grocery shops for him, etc) Details: sister also near by, was more involved in past than now Household members: none Housing: house Number of Children: 1 Communication Needs: Hard of Hearing and Corrective Lenses Education Level: high school Do you need help understanding health information?: Always Current gender identity: male What is your relationship status?: How often do you talk on the phone with friends or family?: three or more times per week How often do you get together with friends or relatives?: twice per week Panel score (0-1 are the most socially isolated patients): 1 What type of physical activity do you participate in: none and sedentary lifestyle Special otoniel needs: No Agree to transfusion: Yes Seatbelt use: sometimes Fire extinguisher in home: Yes Do you feel safe at home: Yes Do you feel safe in your relationship?: Yes Additional Social history: Barrie lives alone. His brother looks in on him regularly and buys his groceries. He is homebound. He used to depend on his sister but she got tired of it so now his brother does it. He has a daughter who lives away. She is due to come visit soon. He wants to see her. He is annoyed by other people pretending to be disabled when they aren't. He feels that many people take advantage of the system. 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 Exam Narrative Exam Narrative: Vitals: Afebrile. Soft blood pressure with systolic in the 90s. Otherwise normal vitals and normal room air pulse ox. Const: Morbidly obese male in NAD. HEENT: NC/AT. Normal facial exam. Eyes: Normal conjunctiva and sclera. Neck: Supple. Trachea midline. Lungs: Normal respiratory effort. Lungs with rhonchi and few wheezes throughout. Cor: Irr/irr without murmur. Good radial pulses. GI: Soft. NT/ND. No guarding or rebound. Neuro: A+O x 3. Normal speech, mentation. Cranial nerves II - XII grossly intact. No gross focal motor or sensory deficit, but significant generalized weakness throughout Ext: Significant bilateral lower extremity edema with venous stasis changes, wound dressing and compression wraps in place Skin: Warm and dry
--- NOTE | 2020-06-11 21:45 | RT.EKG_ITS ---
APPROVED REPORT Exam: Resting ECG Patient Location: E HR:98 bpm ECG Measurements Heart Rate 98 AXIS WA [id number] P [id number] QRSd 206 QRS -94 QT 459 T 66 QTc 587 Conclusion Atrial fibrillation...? atrial activity Right bundle branch block...QRSd>120, terminal axis(90,270) ST elevation secondary to IVCD...Multiple VCG criteria I have reviewed and interpreted ECG and agree with software generated interpretation. There are no significant changes compared to prior EKG performed on 05/19/2020 at 16:22.
--- NOTE | 2020-06-11 21:45 | DI.RAD_ITS ---
EXAM: XR PORTABLE CHEST AP CLINICAL HISTORY: SOB TECHNIQUE: 2D digital imaging was performed. COMPARISON: CR XR CHEST 2V PA LATERAL from 05/18/2020 FINDINGS: The lungs are not well inflated. The heart is enlarged. No gross infiltrate is seen. There is no evidence of pneumothorax. IMPRESSION: Limited exam. No acute pulmonary findings. DATA REPOSITORY: RADIATION DOSE DELIVERED:
--- NOTE | 2020-06-11 22:17 | HPE_ITS ---
Date of service: 06/11/20 Time of Service: 22:17 Assessment and Plan Assessment and plan (1) Weakness: Status: Acute Assessment and plan: Generalized weakness and debilitation due to numerous and ongoing chronic medical conditions. I will update this report once chemistries are in but at this point I think this is going to be more a question of a longer term solution to his problems. 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 History of Present Illness History of Present Illness Chief Complaint: weakness Narrative: 59 male with multiple problems, including morbid obesity, CHF, chronic stasis ulcers LEs -- recently here for cellulitis, azotemia, hyponatremia. D/suzy last week. Seen PCP for f/u today, advised to go to [facility] ER because he didn't look well, though the provider who he saw was not his usual PCP,. Seen in ER. Verbal report is that evaluation essentially benign (K 6.5 in hemolyzed specimen). Patient offered admission but declined. Returns here saying he just cannot manage at home. In our ER patient noted to be weak, unable to even navigate in the stretcher, though it should be noted that report from [facility] was that patient's weakness appeared to be inconsistent, in that he was able to independently navigate to his car we are told. We are also told that at one point he had a brief period of RVR (with his known AF) and was given extra Lopressor (? dose). Here in ER initial evaluation of note for patient appearing chronically ill, BP 96/systolic, pulse 90s. He was exhibiting difficulty even navigating in the stretcher and it was felt he would be unable to manage at home. He is admitted for further evaluation and managent. Initial labs of note for normal CBC (save Hct 36, better than prior), neg CXR, baseline AF with RBBB on EKG, INR 2.6; chemistries pending at this time. Review of Systems All systems reviewed & are unremarkable except as noted in HPI and below PFSH Medical History Acute kidney injury (nontraumatic) Associated with dehydration secondary to overdiuresis for treatment of his CHF Anxiety Atrial fibrillation Cellulitis and abscess of lower extremity Chronic venous insufficiency of lower extremity Coronary artery disease Non-hemodynamic diffuse disease per cardiac catheterization from [facility] October 28, [address] Heladio Harkins Depression Diabetic peripheral neuropathy associated with type 2 diabetes mellitus Goals of care, counseling/discussion Lives alone with help available Morbid obesity with BMI of 50.0-59.9, adult Nonischemic cardiomyopathy LVEF 35% with diffuse hypokinesis and septal wall motion abnormality due to bundle branch block, moderately dilated and moderately reduced RV systolic function, mild mitral regurgitation, mild tricuspid regurgitation, mild dilatation aortic root and moderate dilatation of ascending aorta per transthoracic echocardiogram from [facility] October 22, 2019. Obstructive sleep apnea Wear CPAP mask Orthostatic hypotension Osteoarthritis, knee Palliative care patient Social isolation Venous stasis ulcers of both lower extremities Surgical History H/O cardiac catheterization (10/28/19) Cardiac catheterization per Dr. Heladio Harkins at [facility], 10/28/2019, mild diffuse nonobstructive coronary artery disease with right coronary dominance and elevated left ventricular end-diastolic pressures, less than 25% narrowing of the left main coronary artery, less than 25% stenosis of the LAD, less than 25% stenosis of left circumflex, less than 25% stenosis of RCA. Family History Brother No problems noted. Sister No problems noted. Daughter No problems noted. Other Diabetes Heart disease Hyperlipidemia Hypertension Social History Smoking/Tobacco Use Status: Never Alcohol Intake: former Drug use: Never Details: no alcohol for 10 yrs Caregiver/Support person: Yes (brother lives near by, grocery shops for him, etc) Details: sister also near by, was more involved in past than now Household members: none Housing: house Number of Children: 1 Communication Needs: Hard of Hearing and Corrective Lenses Education Level: high school Do you need help understanding health information?: Always Current gender identity: male What is your relationship status?: How often do you talk on the phone with friends or family?: three or more times per week How often do you get together with friends or relatives?: twice per week Panel score (0-1 are the most socially isolated patients): 1 What type of physical activity do you participate in: none and sedentary lifestyle Special otoniel needs: No Agree to transfusion: Yes Seatbelt use: sometimes Fire extinguisher in home: Yes Do you feel safe at home: Yes Do you feel safe in your relationship?: Yes Additional Social history: Barrie lives alone. His brother looks in on him regularly and buys his groceries. He is homebound. He used to depend on his sister but she got tired of it so now his brother does it. He has a daughter who lives away. She is due to come visit soon. He wants to see her. He is annoyed by other people pretending to be disabled when they aren't. He feels that many people take advantage of the system. 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 Meds Home Medications and Allergies Home Medications Medication Instructions Recorded Confirmed Type budesonide-formoterol [Symbicort] 2 puff INHALATION BID 03/10/18 06/11/20 History simvastatin 40 mg PO DAILY 03/10/18 06/11/20 History acetaminophen [Tylenol 8 Hour] 650 mg PO Q4H PRN PRN 11/24/19 06/11/20 History magnesium oxide 400 mg PO BID 11/24/19 06/11/20 History metoprolol tartrate 12.5 mg PO BID #28 tab 12/01/19 06/11/20 Rx warfarin See Rx Instructions .ROUTE 04/19/20 06/11/20 Rx .COMPLEX #1 tab duloxetine 30 mg PO BID 05/18/20 06/11/20 History gabapentin 1,200 mg PO QHS 05/18/20 06/11/20 History glyburide 5 mg PO QAM 05/19/20 06/11/20 History collagenase clostridium histo. 0 g TOPICAL DAILY #30 g 06/02/20 06/11/20 Rx [Santyl] nutritional supplements 1 oz PO BID #60 ea 06/02/20 06/11/20 Rx [Phlexy-Vits] Allergies Allergy/AdvReac Type Severity Reaction Status Date / Time diltiazem Allergy Anaphylaxsi Unverified 06/11/20 22:02 s shellfish derived Allergy Other (See Unverified 06/11/20 22:02 Comment) sulfamethoxazole Allergy Other (See Unverified 06/11/20 22:02 [From Bactrim] Comment) trimethoprim [From Bactrim] Allergy Other (See Unverified 06/11/20 22:02 Comment) adhesive tape AdvReac Skin Rash Unverified 06/11/20 22:02 Exam Narrative Exam Narrative: 94/66, 90, 36.0, 20, 99% RA. Appears chronically ill, morbidly obese, but comfortable. HEENT unremarkable; neck supple; lungs clear; heart distant, irr/irr; abdomen soft and NNT; extremities chronic lymphedema with stasis changes and multiple grade II stasis ulcers ankles generally in 1-2 cm range, appear to be granulating, no arben d/c or erythema. Single bleeding skin tear right plascencia. Neuro Ox3, motor 4/5 throughout. Results Labs Result diagrams: 06/11/20 22:37 06/11/20 22:37 Last Vital Signs Temp 36.0 C L 06/11/20 21:27 Pulse 90 06/11/20 21:27 Resp 20 06/11/20 21:45 BP 94/66 L 06/11/20 21:27 Pulse Ox 99 06/11/20 21:27 COVID-19 Screening Have you,or household,traveled outside [place] in last 14 days?: No Had IN PERSON contact w/suspected or confirmed C-19 person: No
[2020-06-11 22:43] LABS: Abs Immature Grans 0.07 10^3/uL (0.0-0.06); Absolute Basophil Count 0.01 10^3/uL (0.0-0.2); Absolute Lymphocyte Count 0.62 10^3/uL (1.2-3.4); Absolute Monocyte Count 0.47 10^3/uL (0.1-0.8); Absolute Neutrophil Count 5.08 10^3/uL (1.2-6.7); Basophils % 0.2; HCT 36.6 % (40.0-50.0); HGB 11.1 g/dL (13.5-17.5); Immature Grans % 1.1; Lymphocytes % 9.9; MCH 25.1 pg (27.0-33.0); MCHC 30.3 % (32.0-36.0); MCV 82.8 fL (80-95); MPV 9.4 fL (8.0-11.0); Monocytes % 7.5; Neutrophils % 81.3; Nucleated RBC 1 %; Platelet Count 389 10^3/uL (130-400); RBC 4.42 10^6/uL (4.36-5.78); RDW-SD 58.7 fL; WBC 6.25 10^3/uL (4.4-10.8)
--- NOTE | 2020-06-11 22:53 | NUR.NOTE ---
Nursing Note: Started NS 500 ml bolus per Hospitalist.
[2020-06-11 22:54] LABS: INR 2.6 (0.9-1.1); Prothrombin Time 25.2 sec (9.3-11.0)
--- NOTE | 2020-06-11 23:01 | DI.VRAD_ITS ---
PROCEDURE INFORMATION: Exam: XR Chest, 1 View Exam date and time: 06/11/2020 10:43 PM Age: 59 years old Clinical indication: Shortness of breath TECHNIQUE: Imaging protocol: XR of the chest Views: 1 view. COMPARISON: CR XR CHEST 2V PA LATERAL 05/18/2020 8:56 AM FINDINGS: Lungs: Unremarkable. No consolidation. Pleural space: Unremarkable. No pleural effusion. No pneumothorax. Heart/Mediastinum: Stable cardiomegaly. Bones/joints: Unremarkable. IMPRESSION: No acute finding. Dictated and Authenticated by: Marty Reina MD. Ordering:SHAYNA Ellis MD
[2020-06-11 23:07] LABS: ALT 41 U/L (16-63); AST 95 U/L (15-37); Albumin 2.6 g/dL (3.4-5.0); Alkaline Phosphatase 131 U/L (46-116); Anion Gap 10.7 mmol/L (3-11); Bilirubin, Total 2.8 mg/dL (0.2-1.0); CO2 20.3 mmol/L (21.0-32.0); CREATININE 1.94 mg/dL (0.70-1.30); Calcium 8.7 mg/dL (8.5-10.1); Chloride 93 mmol/L (98-107); Estimated GFR 35.36 (mL/min/1.73m2); Glucose 152 mg/dL (74-106); Magnesium 1.9 mg/dL (1.8-2.4); NT-proBNP 9948 pg/mL (<300); Total Protein 6.9 g/dL (6.4-8.2); Troponin I < 0.05 ng/mL (<0.06)
[2020-06-11 23:14] LABS: BUN 80 mg/dL (7-18); Sodium 124 mmol/L (136-145)
[2020-06-12] VITALS (17 sets, daily range): BP systolic 76–126; BP diastolic 52–80; PULSE 56–109; RESP 15–21; TEMP 35.2–36.3; O2SAT 90–100
[2020-06-12 00:14] LABS: Prothrombin Time 24.1 sec (9.3-11.0)
[2020-06-12 00:18] LABS: ALT 40 U/L (16-63); AST 96 U/L (15-37); Anion Gap 11.4 mmol/L (3-11); Bilirubin, Total 2.8 mg/dL (0.2-1.0); CO2 19.6 mmol/L (21.0-32.0); CREATININE 1.98 mg/dL (0.70-1.30); Calcium 9.1 mg/dL (8.5-10.1); Chloride 92 mmol/L (98-107); Estimated GFR 34.54 (mL/min/1.73m2); Glucose 156 mg/dL (74-106); Potassium 5.9 mmol/L (3.5-5.1)
[2020-06-12 00:34] LABS: BUN 82 mg/dL (7-18); Sodium 123 mmol/L (136-145)
[2020-06-12 00:36] LABS: INR 2.4 (0.9-1.1)
[2020-06-12] MEDS: Normal Saline Flush 10 ML SYR IVP (02:16)
[2020-06-12] MEDS: Gabapentin 600 MG TAB 1200 MG PO ×2 (02:17→21:20)
[2020-06-12] MEDS: Ondansetron 4 MG/2 ML VIAL IVP (02:17)
[2020-06-12 08:25] LABS: ALT 42 U/L (16-63); AST 120 U/L (15-37); Anion Gap 9.5 mmol/L (3-11); Bilirubin, Total 2.6 mg/dL (0.2-1.0); CO2 20.5 mmol/L (21.0-32.0); CREATININE 1.93 mg/dL (0.70-1.30); Calcium 8.8 mg/dL (8.5-10.1); Chloride 93 mmol/L (98-107); Estimated GFR 35.57 (mL/min/1.73m2); Glucose 149 mg/dL (74-106)
[2020-06-12 08:29] LABS: BUN 82 mg/dL (7-18); Potassium 6.9 mmol/L (3.5-5.1); Sodium 123 mmol/L (136-145)
--- NOTE | 2020-06-12 09:00 | RT.EKG_ITS ---
APPROVED REPORT Exam: Resting ECG Patient Location: I HR:87 bpm ECG Measurements Heart Rate 87 AXIS WA [id number] P [id number] QRSd 200 QRS -120 QT 466 T 86 QTc 561 Conclusion Atrial fibrillation...? atrial activity Right bundle branch block...QRSd>120, terminal axis(90,270) Inferior infarct, old...Q >35mS, II III aVF Probable lateral infarct, age indeterminate...Q >35mS, T neg, V5-V6 I aVL
[2020-06-12] MEDS: Magnesium Oxide 400 MG TAB PO ×2 (09:01→19:46)
[2020-06-12] MEDS: glyBURIDE 5 MG TAB PO (09:01)
[2020-06-12] MEDS: Metoprolol 25 MG TAB 12.5 MG PO ×2 (09:02→19:46)
[2020-06-12] MEDS: DULoxetine 30 MG CAP PO ×2 (09:02→19:46)
[2020-06-12] MEDS: Lidocaine 2% Jelly 6 ML SYR (09:23)
[2020-06-12] MEDS: Dextrose 50%-Water 25 GM/50 ML SYR IVP (10:32)
[2020-06-12] MEDS: Normal Saline 500 ML 100 ML IV (10:33)
[2020-06-12] MEDS: Insulin REGULAR-Human 100 UNITS/ML UNIT 10 UNITS IV (10:35)
[2020-06-12 10:40] LABS: Bilirubin Negative (Negative); Blood Negative (Negative); Clarity Clear (Clear); Glucose Negative (Negative); Ketones Negative (Negative); Leukocyte Esterase Negative (Negative); Nitrite Negative (Negative); Specific Gravity 1.015 (1.005-1.025); Urobilinogen 0.2 EU/dL (Up TO 0.2); pH 5.5 (5-8)
[2020-06-12] MEDS: Budesonide/Formoterol 80/4.5 10.2 GM 120 PUFF INH IH ×2 (10:44→19:46)
--- NOTE | 2020-06-12 11:05 | W.PM.PROGNOT ---
Date of Service Date of service: 06/12/20 Time of Service: 11:05 Assessment and Plan Assessment and plan (1) Acute kidney injury superimposed on CKD: Status: Acute Assessment and plan: Multifactorial but combination of chronic kidney disease in the setting of biventricular heart failure causing cardiorenal syndrome, acute dehydration due to poor oral intake along with continued use of diuretics to control his heart failure. For now his diuretics are on hold he is getting a small fluid bolus to get his blood pressure up and to see if we get a urine response. I have ordered a Shepherd catheter monitor his urine output. Treating his hyperkalemia with Lokelma and repeating his BMP later today. Did receive an additional dose of Kayexalate this morning along with the calcium gluconate and insulin and dextrose. We will monitor his urine output with Shepherd catheter and see what response we get from low fluid bolus. (2) Hyperkalemia: Status: Acute Assessment and plan: Treatment as above (3) Generalized weakness: Status: Acute Assessment and plan: Generalized weakness secondary to above comorbidities. Will consult with physical therapy to begin working with him once we have stabilized his hyperkalemia. (4) CKD (chronic kidney disease): Status: Acute Assessment and plan: Multifactorial including low cardiac output state, diabetes mellitus Qualifiers: Chronic kidney disease stage: stage 4 (severe) Qualified Code(s): N18.4 - Chronic kidney disease, stage 4 (severe) (5) Atrial fibrillation: Status: Chronic Assessment and plan: Variable rate control. Patient received his Lopressor this morning which probably contributed to his acute drop in his blood pressure this morning. Nevertheless we will check a procalcitonin level to make sure there is no evidence for sepsis. He did not have a leukocytosis on admission and is not running a fever at this time. He remains on warfarin with daily monitoring of his INR. May need to titrate down his metoprolol dose to accommodate his blood pressure. Qualifiers: Atrial fibrillation type: unspecified Qualified Code(s): I48.91 - Unspecified atrial fibrillation (6) Obstructive sleep apnea: Status: Chronic Assessment and plan: Continue use of nocturnal BiPAP or CPAP (7) Diabetic peripheral neuropathy associated with type 2 diabetes mellitus: Status: Chronic Assessment and plan: In light of his kidney disease glyburide is not the best agent to treat his diabetes. I discontinued his glyburide and put him on a sliding scale insulin. Once his renal function is stabilized and we see how much insulin he requires I will put him on basal insulin therapy starting tomorrow and adjust his bolus insulin therapy to accommodate his carbohydrate intake. (8) Nonischemic cardiomyopathy: Status: Chronic Assessment and plan: We will repeat his troponin this morning and if the second troponin is negative we will not pursue further work-up at this time since he has had extensive cardiac work-up. Given the severity of his LV and RV dysfunction he should be referred to congestive heart failure clinic at [facility]. Subjective Subjective Interval history since last seen: 59-year-old male with a past medical history of biventricular heart failure, chronic kidney disease, diabetes mellitus requiring both oral agents and insulin, chronic bilateral leg edema with previous treatment for cellulitis and venous stasis ulcers who was hospitalized from late April until June 02, 2020 here at [facility] where he was treated for leg cellulitis and leg edema and CHF along with hyperkalemia and chronic kidney disease. Home health services had been referred to him upon discharge and the patient relates not been able to do anything since returning home and has not done any physical therapy. For the last couple days he has had dry heaves and nausea and poor oral intake. He had seen his PCP yesterday afternoon who had referred him to [facility] emergency department. There he was evaluated and discharged from the emergency department in spite of having had some runs of rapid atrial fibrillation requiring IV Lopressor and multiple blood sticks showing hyperkalemia with potassium over 6. These elevated potassium levels were reportedly hemolyzed specimens. Upon returning home the patient could not even get into his home under his own power and was brought to [facility] last night by EMS. He was found to be azotemic and hyperkalemic with a potassium of 6.0 and a sodium of 124 and an elevated BUN of 80 and a creatinine 1.94. His proBNP was 9900 with a normal troponin of less than 0.05. Patient's hyperkalemia was treated Kayexalate last night the patient was admitted by Dr. uHgh Ward for treatment of prerenal azotemia and hyperkalemia. EKG demonstrates atrial fibrillation with a right bundle branch block without peaked T waves. This morning his repeat labs showed his potassium to be elevated 6.9 after initially came down to 5.9 last night. BUN/creatinine remain elevated at 82 and 1.93. Patient was mildly hypotensive last night but did not receive any IV fluids. This morning I repeat his Kayexalate and recheck his EKG and have given him calcium gluconate along with insulin and dextrose 50%. Patient will receive a small bolus of IV fluids saline x500 mL at a rate of 100 mL an hour. Recheck his troponin and also obtain a procalcitonin level. His CBC last night showed no leukocytosis and stable chronic mild anemia with a hemoglobin 11.1 g. He currently has no chest pain and no dyspnea. He has been very nauseated. Exam Narrative Exam Narrative: Morbidly obese male who is sitting up in the chair when I evaluated him this morning. Nurse reported that he was very lethargic and required sternal rub this morning however he seems to be awake and alert and in no respiratory distress and not having any chest discomfort. He does have an emesis bag in hand. Lungs reveal scattered end expiratory wheezes no rhonchi. He has some fine bibasilar rales Heart is irregularly irregular Abdomen is obese soft nontender Legs with 3+ edema along with stasis skin ulcers over the pretibial surfaces Objective Last Vital Signs Temp 35.4 C L 06/12/20 10:54 Pulse 72 06/12/20 10:59 Resp 18 06/12/20 10:59 BP 92/74 L 06/12/20 10:59 Pulse Ox 99 06/12/20 10:59 Laboratory Results - last 24 hr 06/11/20 06/11/20 06/11/20 22:37 22:37 22:37 WBC 6.25 RBC 4.42 Hgb 11.1 L Hct 36.6 L MCV 82.8 MCH 25.1 L MCHC 30.3 L RDW 20.0 H Plt Count 389 D MPV 9.4 Immature Gran % 1.1 Neutrophils % 81.3 Lymphocytes % 9.9 Monocytes % 7.5 Eosinophils % 0.0 Basophils % 0.2 Nucleated RBC % 1 Absolute Neutrophils 5.08 Absolute Lymphocytes 0.62 L Absolute Monocytes 0.47 Absolute Eosinophils 0.00 Absolute Basophils 0.01 PT 25.2 H D INR 2.6 H D Sodium 124 L* Potassium 6.0 H* Chloride 93 L Carbon Dioxide 20.3 L Anion Gap 10.7 BUN 80 H* Creatinine 1.94 H Estimated GFR/1.73 m2 35.36 Glucose 152 H Calcium 8.7 Magnesium 1.9 Total Bilirubin 2.8 H AST 95 H ALT 41 Alkaline Phosphatase 131 H Troponin I < 0.05 NT-Pro-B Natriuret Pep 9948 H Total Protein 6.9 Albumin 2.6 L Urine Color Urine Clarity Urine pH Ur Specific [place] Urine Protein Urine Ketones Urine Blood Urine Nitrite Urine Bilirubin Urine Urobilinogen Ur Leukocyte Esterase Urine Glucose 06/12/20 06/12/20 06/12/20 00:00 00:00 08:00 WBC RBC Hgb Hct MCV MCH MCHC RDW Plt Count MPV Immature Gran % Neutrophils % Lymphocytes % Monocytes % Eosinophils % Basophils % Nucleated RBC % Absolute Neutrophils Absolute Lymphocytes Absolute Monocytes Absolute Eosinophils Absolute Basophils PT 24.1 H INR 2.4 H Sodium 123 L* 123 L* Potassium 5.9 H 6.9 H* Chloride 92 L 93 L Carbon Dioxide 19.6 L 20.5 L Anion Gap 11.4 H 9.5 BUN 82 H* 82 H* Creatinine 1.98 H 1.93 H Estimated GFR/1.73 m2 34.54 35.57 Glucose 156 H 149 H Calcium 9.1 8.8 Magnesium Total Bilirubin 2.8 H 2.6 H AST 96 H 120 H ALT 40 42 Alkaline Phosphatase Troponin I NT-Pro-B Natriuret Pep Total Protein Albumin Urine Color Urine Clarity Urine pH Ur Specific [place] Urine Protein Urine Ketones Urine Blood Urine Nitrite Urine Bilirubin Urine Urobilinogen Ur Leukocyte Esterase Urine Glucose 06/12/20 09:45 WBC RBC Hgb Hct MCV MCH MCHC RDW Plt Count MPV Immature Gran % Neutrophils % Lymphocytes % Monocytes % Eosinophils % Basophils % Nucleated RBC % Absolute Neutrophils Absolute Lymphocytes Absolute Monocytes Absolute Eosinophils Absolute Basophils PT INR Sodium Potassium Chloride Carbon Dioxide Anion Gap BUN Creatinine Estimated GFR/1.73 m2 Glucose Calcium Magnesium Total Bilirubin AST ALT Alkaline Phosphatase Troponin I NT-Pro-B Natriuret Pep Total Protein Albumin Urine Color Yellow Urine Clarity Clear Urine pH 5.5 Ur Specific [place] 1.015 Urine Protein Negative Urine Ketones Negative Urine Blood Negative Urine Nitrite Negative Urine Bilirubin Negative Urine Urobilinogen 0.2 Ur Leukocyte Esterase Negative Urine Glucose Negative
[2020-06-12 11:26] LABS: Hemoglobin A1C 8.3 % (<5.7)
[2020-06-12 12:27] LABS: BUN 78 mg/dL (7-18); CREATININE 1.95 mg/dL (0.70-1.30); Calcium 8.8 mg/dL (8.5-10.1); Chloride 96 mmol/L (98-107); Estimated GFR 35.15 (mL/min/1.73m2); Glucose 123 mg/dL (74-106); Potassium 5.1 mmol/L (3.5-5.1); Sodium 127 mmol/L (136-145)
[2020-06-12 12:33] LABS: Troponin I < 0.05 ng/mL (<0.06)
--- NOTE | 2020-06-12 12:59 | INITIAL_ITS ---
- If Service Date Differs Date of service: 06/12/20 Time of Service: 13:25 Care Management Initial Assess REASON FOR HOSPITALIZATION:: Weakness, azotemia, hyperkalemia, hyponatremia PAST MEDICAL HISTORY/PAST SURGICAL HISTORY:: Medical History (Updated 04/16/20 @ 21:42 by Avelino Lang). Acute kidney injury (nontraumatic) (Resolved). Associated with dehydration secondary to overdiuresis for treatment of his CHF. Atrial fibrillation (Chronic). Cellulitis and abscess of lower extremity (Acute). Chronic venous insufficiency of lower extremity (Acute). Coronary artery disease (Chronic). Non-hemodynamic diffuse disease per cardiac catheterization from [facility] October 28, [address] Heladio Harkins. Diabetic peripheral neuropathy associated with type 2 diabetes mellitus (Acute). Morbid obesity with BMI of 50.0-59.9, adult (Acute). Nonischemic cardiomyopathy (Acute). LVEF 35% with diffuse hypokinesis and septal wall motion abnormality due to bundle branch block, moderately dilated and moderately reduced RV systolic function, mild mitral regurgitation, mild tricuspid regurgitation, mild dilatation aortic root and moderate dilatation of ascending aorta per transthoracic echocardiogram from [facility] October 22, 2019. Obstructive sleep apnea (Chronic). Wear CPAP mask. Orthostatic hypotension (Resolved). Venous stasis ulcers of both lower extremities (Acute). Surgical History (Updated 04/16/20 @ 21:40 by Avelino Lang). H/O cardiac catheterization (Chronic 10/28/19). Cardiac catheterization per Dr. Heladio Harkins at [facility], 10/28/2019, mild diffuse nonobstructive coronary artery disease with right coronary dominance and elevated left ventricular end-diastolic pressures, less than 25% narrowing of the left main coronary artery, less than 25% stenosis of the LAD, less than 25% stenosis of left circumflex, less than 25% stenosis of RCA. PREVIOUS FUNCTIONAL STATUS/SOCIAL/FAMILY SUPPORTS:: Barrie resides in [place], alone. He has friends and family that live closeby and check in on him regularly. He is disabled, was independent with his ADL's previously but has continued to decline and was unable to enter his home after discharging from [facility] yesterday and presented to [facility] ED. Barrie's brother is currently providing support, running errands for Barrie and delivering his groceries. CURRENT FUNCTIONAL STATUS:: Barrie was sleeping when CM attempted to meet with him after lunch, later in the day he was getting up to the bathroom with staff support. CM will continue to follow. ADVANCE DIRECTIVES:: On file, Ban Peacock (daughter) listed as agent. Has patient been provided with info about the portal/API?: Yes Did the patient sign up for the portal?: No CODE STATUS:: Full Code INSURANCE COVERAGE / FINANCIAL ISSUES:: JESSICA LIZARRAGA CURRENT HOME/COMMUNITY SERVICES/EQUIPMENT:: FILBIERTO SINGHSECOND TIME WORKER PHYSICIAN:: Laura Martinez POTENTIAL DISCHARGE NEEDS:: Discussion around discharge care needs, higher level of care due to multiple hospitalization and inability to care for self. PATIENT/FAMILY EDUCATION NEEDS:: Review of discharge instructions, discuss self care needs; Ask Me Three. ANTICIPATED BARRIERS TO DISCHARGE:: Barrie has been reluctant to consider alternative disposition but continues to decline and is unfortunately failing in home setting. TRANSPORTATION:: TBD by mobility and disposition. PLAN:: Barrie continues to be closely monitored at this time. He will be evaluated by PT/OT for discharge planning considerations as he is currently a 2 max assist. CM requested PT/OT orders and will continue to follow. Readmission - Within the Past 30 Days Yes or No: Y - Date of First Admission Date of 1st Admission: 05/18/20 - Date of this Admission Date of Admission: 06/12/20 This admission was: Through ED (Reportedly admitted to [facility] as well.) - Assessment for Readmission Summary of readmission circumstances, based upon interviews: Generalized weakness and debilitation due to numerous and ongoing chronic medical conditions. He would likely benefit from a course of rehab, and possibly jail placement but has not been agreeable.
[2020-06-12 13:07] LABS: Procalcitonin 0.5 ng/mL
[2020-06-12] MEDS: Sodium Zirconium Cyclosilicate 10 GM PKT PO ×2 (13:32→21:20)
[2020-06-12] MEDS: Acetaminophen 325 MG TAB 650 MG PO (14:18)
[2020-06-12 14:49] LABS: COVID-19 RT-PCR UVMMC Result Negative (Negative)
--- NOTE | 2020-06-12 15:10 | WOUNDCONS_ITS ---
- If Service Date Differs Date of service: 06/12/20 Time of Service: 15:00 Wound Initial Evaluation Narrative: Patient is a 59 yom. He is here for Hyperkalemia , generalized weakness. he has a hx of multiple co-morbidities including, DM and morbid obesity. All pertinent information including, H&P, Labs. allergies were reviewed. - Wound Left Lateral Thigh Wound Type: Statis Ulcer Wound General Appearance: Unapproximated Wound Bed Greatest Portion: Pale [place] Wound Bed Lesser Portion: Blanched/Dull Wound Surrounding Tissue Appearance: [place] (pink to light red) Percent of Wound Bed Granulated/Red: 0 Percent of Wound Bed Slough/Yellow: 0 Percent of Wound Bed Eschar/Black: 0 Wound Length: 0.8 cm Wound Width: 1.4 cm Wound Depth: 0.2 cm Wound Drainage Amount: Minimal Wound Drainage Description: Serous Wound Topical Solution/Irrigant: Antibiotic Irrigant Wound Debridement Method: Mechanical Wound Debridement Result: Healthy Tissue Revealed Wound Debridement Amount of Tissue Removed: None Left Medial Ankle Wound Type: Statis Ulcer Wound General Appearance: Blackened, Necrotic Wound Bed Greatest Portion: Yellow (Slough) Wound Bed Lesser Portion: Black (Eschar) Wound Surrounding Tissue Appearance: Dark Red Percent of Wound Bed Granulated/Red: 0 Percent of Wound Bed Slough/Yellow: 80 Percent of Wound Bed Eschar/Black: 20 Wound Length: 1.5 cm Wound Width: 1.4 cm Wound Depth: 0.5 cm Wound Drainage Amount: None Wound Drainage Odor: None/Absent, Pungent Wound Drainage Description: No drainage Wound Topical Solution/Irrigant: Antibiotic Irrigant (anasept) Wound Debridement Method: Mechanical Wound Debridement Result: Yellow Sloughing Remains Wound Debridement Amount of Tissue Removed: None Right Posterior Calf Wound Type: Statis Ulcer Wound General Appearance: Draining, Unapproximated Wound Bed Greatest Portion: Pale [place] Wound Surrounding Tissue Appearance: Dark Red Percent of Wound Bed Granulated/Red: 0 Percent of Wound Bed Slough/Yellow: 0 Percent of Wound Bed Eschar/Black: 0 Wound Length: 1.9 cm Wound Width: 0.9 cm Wound Depth: 0.2 cm Wound Drainage Amount: Moderate Wound Drainage Odor: Strong Wound Drainage Description: Serous Wound Topical Solution/Irrigant: Antibiotic Irrigant Wound Debridement Method: Mechanical Wound Debridement Result: Healthy Tissue Revealed Wound Debridement Amount of Tissue Removed: Minimal Right Anterior Calf Wound Type: Statis Ulcer Wound General Appearance: Reddened, Draining, Bleeding Wound Bed Greatest Portion: Red (Granulation) Wound Bed Lesser Portion: Pale [place] Wound Surrounding Tissue Appearance: Dark Red Percent of Wound Bed Granulated/Red: 50 Wound Length: 1.7 cm Wound Width: 1.8 cm Wound Depth: 0.2 cm Wound Drainage Amount: Large Wound Drainage Odor: Strong Wound Drainage Description: Sero Sanguineous Wound Topical Solution/Irrigant: Antibiotic Irrigant Wound Debridement Method: Mechanical Wound Debridement Result: Healthy Tissue Revealed Wound Debridement Amount of Tissue Removed: Minimal - Circulation, Sensation, Motion Edema Degree: 3+ (ble) Peripheral Pulse Strength: Normal Capillary Refill: Less than 3 seconds Sensation Description: Burning, Pain Skin Temperature: Warm Skin Color: Tom - Pain Pain Scale Used: Adult Pain Description: Sharp Pain Duration/Frequency: Intermittent Patient who has had a long history of stasis ulcer in BLE. Patient is agreeable to treatment and has agreed to try compression with boyd wraps - Treatment/Dressing Change Topicals/Ointments: Anasept Gel Cleanse With: Anasept Dressing Types: ABD Pad, Hydrocollid (Duoderm) - Recomendation Recomendation:: Left medial ankle Cleanse wound with Anasept janitor and cleaner and pat dry. Apply Lachydrin to the biju wound skin. Apply Anasept gel to the wound bed. Cover with Duoderm thin. Secure with Boyd Wrap. Change every other day or PRN. Left lateral thigh Clean wound bed with Anasept janitor and cleaner and pat dry. Apply Anasept gel to the wound bed. Cover with Duoderm thin. Change every other day or PRN. Right posterior calf Clean wound with Anasept janitor and cleaner, pat dry. Apply Lachydrin to the leg. Apply ABD Pad to the wound bed. Secure with Kerlix. Apply Compression with boyd wrap to just below the knee. Change every day or PRN. Right Anterior Calf. Clean with Anasept janitor and cleaner, pat dry. Apply lachydrin to the leg. Cover with ABD pad. Apply compression to the leg with boyd wraps to just below the knee. Change daily or prn. Physcian/Nurse Practioner Notified: Yes (Dr. Lang) Treatment Time - Time Total Time Spent with Patient: 1 hour - Patient Will be Seen Weekly Treatment: daily - For: For:: 1 week
[2020-06-13 03:38] VITALS: BP 114/72; PULSE 80; RESP 19; TEMP 36.9; O2SAT 98
[2020-06-13] MEDS: Sodium Zirconium Cyclosilicate 10 GM PKT PO (06:23)
[2020-06-13 08:00] VITALS: BP 110/70; PULSE 74; RESP 19; TEMP 36.4; O2SAT 97
[2020-06-13] MEDS: Metoprolol 25 MG TAB 12.5 MG PO ×2 (08:21→19:48)
[2020-06-13] MEDS: Magnesium Oxide 400 MG TAB PO ×2 (08:21→19:48)
[2020-06-13] MEDS: DULoxetine 30 MG CAP PO ×2 (08:21→19:48)
[2020-06-13 08:23] LABS: INR 2.1 (0.9-1.1); Prothrombin Time 20.7 sec (9.3-11.0)
[2020-06-13] MEDS: Budesonide/Formoterol 80/4.5 10.2 GM 120 PUFF INH IH ×2 (08:24→19:49)
[2020-06-13 08:26] LABS: ALT 37 U/L (16-63); AST 83 U/L (15-37); BUN 76 mg/dL (7-18); Bilirubin, Total 1.7 mg/dL (0.2-1.0); CREATININE 1.71 mg/dL (0.70-1.30); Calcium 8.2 mg/dL (8.5-10.1); Chloride 97 mmol/L (98-107); Glucose 53 mg/dL (74-106); Potassium 3.7 mmol/L (3.5-5.1); Sodium 129 mmol/L (136-145)
--- NOTE | 2020-06-13 08:41 | PDOC.CMPRO ---
Care Management Progress Note S/O: Barrie was sitting up in his chair when CM met with him. He reviewed his multiple hospitalizations, increased weakness and struggles with getting in and out of his home. CM reviewed multiple re-admissions and posed questions regarding Barrie's plans as it appears his current care needs likely fall somewhere in between home and hospital. He reported his family is encouraging him to go to a rehab but that he feels he has been in the hospital since September and wants to be home. CM continued to be curious about how Barrie felt he could return home without first strengthening which has resulted in multiple re-admissions. Barrie reported he is quite reluctant to go to [facility] as he has been there before. He also wants to be able to see his family. CM reviewed other facilities, and compiled a list with locations for Barrie's review. CM encouraged Barrie to choose as many as possible to send referrals as bed availability and Covid restrictions are limiting admissions. Barrie reported wanting to review the list with his sister who was arriving for a visit this afternoon; CM will follow up with Barrie to determine his choices and fax referrals with patient permission. CM continues to follow. A: 59 year old male admitted to [facility] 06/12/20 for weakness, azotemia, hyperkalemia, hyponatremia P: Barrie continues to be closely monitored at this time. He was evaluated by PT who reports Barrie is a one assist with FWW, but in order to stand requires Max assist. Barrie has a flight of stairs to enter his home which has become a barrier to returning home. Awaiting Barrie's choices in order to fax SNF referrals for discharge coordination.
--- NOTE | 2020-06-13 10:54 | PT.INIE ---
Date of service: 06/13/20 Time of Service: 09:10 PT Notes Visit Reasons: WEAKNESS,AZOTEMIA,HYPERKALEMIA,HYPONATREMIA Inpatient Physical Therapy Evaluation Date: 06/13/20 Referring Doctor: Wendy Allison, PT Orders: PT CONSULT: Evaluate and Treat Precautions: STandard Patient Profile/Admitting Diagnosis: Orders received for this 59-year-old male with a history of severe obesity. Patient has had an issue with chronic health conditions and hyponatremia and CHF as well as azotemia. Patient has recently had a patient hospitalization at [facility]. Upon discharge 2 days ago he was unable to make it up his stairs required for entry into his home. This led to an assessment at the [facility] emergency department where it was determined that he would not be able to return home in his current state. Orders have been advised for physical therapy evaluate and treatment PMHX: Medical History Acute kidney injury (nontraumatic) Associated with dehydration secondary to overdiuresis for treatment of his CHF Anxiety Atrial fibrillation Cellulitis and abscess of lower extremity Chronic venous insufficiency of lower extremity Coronary artery disease Non-hemodynamic diffuse disease per cardiac catheterization from [facility] October 28, [address] Heladio Harkins Depression Diabetic peripheral neuropathy associated with type 2 diabetes mellitus Goals of care, counseling/discussion Lives alone with help available Morbid obesity with BMI of 50.0-59.9, adult Nonischemic cardiomyopathy LVEF 35% with diffuse hypokinesis and septal wall motion abnormality due to bundle branch block, moderately dilated and moderately reduced RV systolic function, mild mitral regurgitation, mild tricuspid regurgitation, mild dilatation aortic root and moderate dilatation of ascending aorta per transthoracic echocardiogram from [facility] October 22, 2019. Obstructive sleep apnea Wear CPAP mask Orthostatic hypotension Osteoarthritis, knee Palliative care patient Social isolation Venous stasis ulcers of both lower extremities Surgical History H/O cardiac catheterization (10/28/19) Cardiac catheterization per Dr. Heladio Harkins at [facility], 10/28/2019, mild diffuse nonobstructive coronary artery disease with right coronary dominance and elevated left ventricular end-diastolic pressures, less than 25% narrowing of the left main coronary artery, less than 25% stenosis of the LAD, less than 25% stenosis of left circumflex, less than 25% stenosis of RCA. Social History/Home Situation: Patient lives alone in [place] and he has 5 steps in which to enter the home Equipment Owned/DME: None with a walker Subjective: Patient states that he is very weak today and he does not recall why Objective: Patient sitting up in chair with a Shepherd catheter in place Mental Status: Well oriented alert in place and time Pain: Patient complains of pain mainly through the buttocks and low back area ROM: Right Upper Extremity: Within normal limits Left Upper Extremity: Within normal limits Right Lower Extremity: Hip flexion to 90 degrees, knee extension to 0 degrees, knee flexion to 105 degrees Left Lower Extremity: Hip flexion to 90 degrees, knee extension to 0 degrees, knee flexion to 105 degrees Strength: Right Upper Extremity: Grossly 5 out of 5 Left Upper Extremity: Grossly 5 out of 5 Right Lower Extremity: Hip flexion 4-5, quads 4+ out of 5, hamstring is 4 out of 5, dorsiflexion 4+ out of 5, plantarflexion 4+ out of 5 Left Lower Extremity: Hip flexion 4-5, quads 4+ out of 5, hamstring is 4 out of 5, dorsiflexion 4+ out of 5, plantarflexion 4+ out of 5 Bed Mobility/Transfers: Not assessed as patient was sitting recliner Sit-stand: Max assist x2 Stand-sit: Max assist x2 Patient stand for 5 minutes while he receives bathing services through [facility] Gait: Patient ambulates 2 steps backward in order to write himself for preparing of transfer back into his recliner chair. He requires max assistance x1 with use of front wheel walker Balance: Static Sitting: Good Dynamic Sitting: Good Static Standing: Fair Dynamic Standing: Poor Special Tests: Mobility Limitations Standardized Measure [facility] AM-PAC 6 clicks Basic Mobility Inpatient Short Form: Raw Score: 12 standardized Score: 35.33 CMS Score: 68.66% Informed Consent/Education: Patient instructed in purpose of PT consult and plan of care. ASSESSMENT: Patient is a 59-year-old male with a history of morbid obesity and chronic health conditions affecting function Admitted with generalized weakness due to chronic medical issues that are compounding Patient presents with the following impairment level findings: Significant obesity, weakness to the lower extremities, max assistance x2 needed for all transferring, very limited ambulation endurance Pt will benefit from skilled therapy intervention in order to remedy their functional limitations and restore patient to a more appropriate and stable functional level. Impairments are contributing to the following functional limitations: AMPAC score 68.66% Patient is assessed as a moderate complexity initial evaluation [id number] based on the following: History: see above Examination: see above Presentation: Evolving Decision Making: Moderate based on AMPAC 68.66% Goals: Goals X1 week 1. Supine-Sit Independent 2. Sit-Supine independent 3. Sit-Stand independent with front wheel walker 4. Stand-Sit independent with front wheel walker 5. Bed-Chair independent with front wheel walker 6. Gait independent with front wheel walker up to 50 feet 7: Stairs Moderate assistance x1 up to 5 steps 8: Independent in Home program Plan of Care/Treatment Plan: 1-2x/day, 7 days/week x 1 week. Plan of care has been reviewed with the LOAN DOCUMENTATION SPECIALIST providing the service under Physical Therapy direction. Initiate Physical Therapy intervention for strengthening, bed mobility, transfers, gait, stairs, balance training, use of assistive device. DISCHARGE RECOMMENDATIONS: To home with a care of home health services once medically stable. However, patient unable to stand without the use of max assist therefore this brings a significant problem has patient requires steps to enter his home. If unable to fill functional goals of in the stand, and ability to utilize stairs with at least moderate assistance x1 patient may require fci facility placed TREATMENT CODE/TIME: Moderate complexity initial evaluation [id number], time of treatment 910 20 minutes of direct patient care [facility]
[2020-06-13 11:43] VITALS: BP 118/74; PULSE 87; RESP 22; TEMP 36.4; O2SAT 98
[2020-06-13] MEDS: Acetaminophen 325 MG TAB 650 MG PO (12:07)
--- NOTE | 2020-06-13 12:09 | PHA.REVIEW ---
Pharmacy Admission Review - Admission Clinical Review (Last Reviewed 06/12/20 @ 00:04 by Caleb Alonso MD) Acute kidney injury superimposed on CKD (Acute) Generalized weakness (Acute) CKD (chronic kidney disease) (Acute) Hyperkalemia (Acute) Weakness (Acute) diltiazem Allergy (Unverified 06/11/20 22:02) Anaphylaxsis shellfish derived Allergy (Unverified 06/11/20 22:02) Other (See Comment) sulfamethoxazole [From Bactrim] Allergy (Unverified 06/11/20 22:02) Other (See Comment) trimethoprim [From Bactrim] Allergy (Unverified 06/11/20 22:02) Other (See Comment) adhesive tape Adverse Reaction (Unverified 06/11/20 22:02) Skin Rash Height 5 ft 8 in Weight 165 kg WEAKNESS, AZOTEMIA, HYPERKALEMIA, HYPONATREMIA - Comments Comments/Follow Ups: Follow INR, Potassium levels - Renal Dosing Renal Dosing: BUN 76 mg/dL (7-18) H 06/13/20 07:45 Creatinine 1.71 mg/dL (0.70-1.30) H 06/13/20 07:45 Medications needing adjustments: Reviewed (CrCl~43ml/min-meds ok) - Anticoagulation Anticoagulation: Hgb 11.1 g/dL (13.5-17.5) L 06/11/20 22:37 Hct 36.6 % (40.0-50.0) L 06/11/20 22:37 Plt Count 389 10^3/uL (130-400) D 06/11/20 22:37 INR 2.1 (0.9-1.1) H 06/13/20 07:45 Creatinine 1.71 mg/dL (0.70-1.30) H 06/13/20 07:45 Therapeutic Anticoagulation: Reviewed Medications: Warfarin (2.5mg 4x/week and 5mg 3x/week for Afib (goal INR 2-3) Today's INR 2.1) - Opiate Usage Evaluate Pain Scale/Pains Meds: N/A - Relevant Labs Sodium 129 mmol/L (136-145) L 06/13/20 07:45 Potassium 3.7 mmol/L (3.5-5.1) D 06/13/20 07:45 Chloride 97 mmol/L (98-107) L 06/13/20 07:45 Magnesium 1.9 mg/dL (1.8-2.4) 06/11/20 22:37 Electrolytes, C-Reactive P, ESR: Reviewed (K+ was 6.0 on admission (rec'd Kayexylate, Regular insulin, Calcium Gluconate) and suggested Lokelma with great success after 3 doses, Sodium slowly improving) - DM Control DM Control: Glucose 53 mg/dL (74-106) L D 06/13/20 07:45 Hemoglobin A1c 8.3 % (<5.7) H 06/11/20 22:37 Finger Stick Blood Glucose 122 Finger Stick Blood Glucose 122 Finger Stick Blood Glucose 96 Finger Stick Blood Glucose 59 Finger Stick Blood Glucose 59 Insulin Dosing: Reviewed (Novolog scale) - Heart Failure/AR Heart Failure/AR: Troponin I < 0.05 ng/mL (<0.06) 06/12/20 12:10 NT-Pro-B Natriuret Pep 9948 pg/mL (<300) H 06/11/20 22:37 EF%, KADIE's, B-Blockers, Diuretics: Reviewed (Metoprolol with hold parameters) - BP Control BP Control: Blood Pressure 118/74 Blood Pressure 110/70 Blood Pressure 114/72 If elevated: Reviewed - Qtc Review If Elevated: Reviewed (QTC 587) - Home Meds Home Med List reviewed: Reviewed Relevent Home Meds Not ordered & why?: Statin not ordered at this time-likely due to weakness - Comments Comments/Follow Ups: working with PT, has difficulty managing at home, recent hospitalizations
--- NOTE | 2020-06-13 12:50 | PGE_ITS ---
Date of Service Date of service: 06/13/20 Time of Service: 12:50 Assessment and Plan Assessment and plan (1) Acute kidney injury superimposed on CKD: Status: Acute Assessment and plan: Multifactorial but combination of chronic kidney disease in the setting of biventricular heart failure causing cardiorenal syndrome, acute dehydration due to poor oral intake along with continued use of diuretics to control his heart failure. He completed his iv fluid bolus last night. His renal function is improving. For today, I will continue to withold his diuretics but will resume them at reduced dosing tomorrow. Unfortunately, he will have some chronic azotemia in order to control his fluid balance w/ diuretics. (2) Hyperkalemia: Status: Resolved Assessment and plan: [place] (3) Generalized weakness: Status: Acute Assessment and plan: Generalized weakness secondary to above comorbidities. Will consult with physical therapy to begin working with him once we have stabilized his hyperkalemia. (4) CKD (chronic kidney disease): Status: Acute Assessment and plan: Multifactorial including low cardiac output state, diabetes mellitus Qualifiers: Chronic kidney disease stage: stage 4 (severe) Qualified Code(s): N18.4 - Chronic kidney disease, stage 4 (severe) (5) Atrial fibrillation: Status: Chronic Assessment and plan: fairly well controlled rates in the 70's and 80's. INR remains therapeutic at 2.1. cont. current warfarin regimen Qualifiers: Atrial fibrillation type: unspecified Qualified Code(s): I48.91 - Unspecified atrial fibrillation (6) Obstructive sleep apnea: Status: Chronic Assessment and plan: Continue use of nocturnal BiPAP or CPAP (7) Diabetic peripheral neuropathy associated with type 2 diabetes mellitus: Status: Chronic Assessment and plan: In light of his kidney disease glyburide is not the best agent to treat his diabetes. I discontinued his glyburide and put him on a sliding scale insulin. Once his renal function is stabilized and we see how much insulin he requires I will put him on basal insulin therapy. For today his glucose readings have been well controlled. (8) Nonischemic cardiomyopathy: Status: Chronic Assessment and plan: We will repeat his troponin this morning and if the second troponin is negative we will not pursue further work-up at this time since he has had extensive cardiac work-up. Given the severity of his LV and RV dysfunction he should be referred to congestive heart failure clinic at [facility]. Subjective Subjective Interval history since last seen: Barrie seems to be doing better today he is much more alert he is oriented and more animated. Appetite seems to be okay he denies any chest pain or dyspnea. I spoke with his primary nurse Mekhi who even feels that his chronic leg ulcers appear to be improved.With respect to the patient's acute kidney injury, his creatinine has improved is down to 1.71 today. With respect to his hyperkalemia that is also improved his potassium is down to 3.7. At this time I am not going to give him any more IV fluids as he is able to eat and drink adequately. I will withhold his diuretics today and then resume them tomorrow at an adjusted dose. I spoke with Barrie about placement in a SNF and he is open to the idea but does not want to go to [facility] as he had a bad experience there. He indicated to me that the case management rn spoke with him about alternative places for rehabilitation including [facility], [place], [place], and [place], [place]. He is willing to consider this. Exam Narrative Exam Narrative: Morbidly obese male sitting up in his chair alert and oriented person place time circumstance. Lungs are clear to auscultation anteriorly posteriorly there are some faint bibasilar rales. No wheezes and no rhonchi. Heart is regular rate and rhythm Abdomen is obese soft nontender Lower extremities with 3+ edema. His chronic venous ulcers were bandaged and I did not examine them today. I will look at them tomorrow when the wound care nurse does his dressings. Objective Last Vital Signs Temp 36.4 C L 06/13/20 11:43 Pulse 87 06/13/20 11:43 Resp 22 06/13/20 11:43 BP 118/74 06/13/20 11:43 Pulse Ox 98 06/13/20 11:43 Laboratory Results - last 24 hr 06/11/20 06/12/20 06/13/20 23:40 12:10 07:45 PT 20.7 H INR 2.1 H Sodium Potassium Chloride Carbon Dioxide Anion Gap BUN Creatinine Estimated GFR/1.73 m2 Glucose Calcium Total Bilirubin AST ALT Procalcitonin 0.5 COVID-19 PCR Negative Nasopharyn COVID-19 PCR Not Applicable Ref Test Perform Site [place] [facility] 06/13/20 07:45 PT INR Sodium 129 L Potassium 3.7 D Chloride 97 L Carbon Dioxide 22.0 Anion Gap 10.0 BUN 76 H Creatinine 1.71 H Estimated GFR/1.73 m2 40.90 Glucose 53 L D Calcium 8.2 L Total Bilirubin 1.7 H AST 83 H ALT 37 Procalcitonin COVID-19 PCR Nasopharyn COVID-19 PCR Ref Test Perform Site
[2020-06-13] MEDS: Ketoconazole 2% CREAM 15 GM TUBE TP ×2 (14:07→19:48)
[2020-06-13 15:50] VITALS: BP 103/63; PULSE 56; RESP 19; TEMP 36.4; O2SAT 98
[2020-06-13 19:15] VITALS: BP 105/75; PULSE 67; RESP 20; TEMP 36.4; O2SAT 98
[2020-06-13] MEDS: Gabapentin 600 MG TAB 1200 MG PO (20:13)
[2020-06-13] MEDS: Normal Saline Flush 10 ML SYR IVP (20:13)
[2020-06-13] MEDS: Insulin Aspart 300 UNITS/3 ML PEN SC (21:06)
[2020-06-13 21:52] VITALS: BP 96/62; PULSE 80; RESP 18; TEMP 36.4; O2SAT 96
[2020-06-14] MEDS: Acetaminophen 325 MG TAB 650 MG PO ×2 (02:24→21:00)
[2020-06-14 03:25] VITALS: BP 100/78; PULSE 87; RESP 18; TEMP 36.9; O2SAT 98
[2020-06-14 06:48] LABS: ALT 34 U/L (16-63); AST 72 U/L (15-37); Anion Gap 11.2 mmol/L (3-11); BUN 79 mg/dL (7-18); Bilirubin, Total 1.5 mg/dL (0.2-1.0); CO2 20.8 mmol/L (21.0-32.0); Calcium 8.5 mg/dL (8.5-10.1); Chloride 97 mmol/L (98-107); Estimated GFR 36.22 (mL/min/1.73m2); Glucose 146 mg/dL (74-106); Potassium 4.4 mmol/L (3.5-5.1); Sodium 129 mmol/L (136-145)
[2020-06-14 06:50] LABS: Prothrombin Time 20.1 sec (9.3-11.0)
[2020-06-14] MEDS: Insulin Aspart 300 UNITS/3 ML PEN SC ×5 (06:56→21:01)
[2020-06-14 08:01] VITALS: BP 101/52; PULSE 84; RESP 18; TEMP 36.5; O2SAT 98
[2020-06-14] MEDS: Metoprolol 25 MG TAB 12.5 MG PO (08:07)
[2020-06-14] MEDS: DULoxetine 30 MG CAP PO ×2 (08:07→19:44)
[2020-06-14] MEDS: Magnesium Oxide 400 MG TAB PO ×2 (08:07→19:44)
[2020-06-14] MEDS: Lachydrin 12% LOTION 225 GM BTL TP (08:08)
[2020-06-14] MEDS: Ketoconazole 2% CREAM 15 GM TUBE TP ×2 (08:08→21:00)
--- NOTE | 2020-06-14 08:58 | OTIE_ITS ---
Occupational Therapy Notes Inpatient Occupational Therapy Evaluation Date: 06/14/20 Referring Doctor:Wendy Allison NP OT Orders: Non-Urgent Precautions: Fall, Standard, Full PATIENT PROFILE/ADMITTING DIAGNOSIS: Pt is a 59 year old male who presented to the ER after reporting increased leg weakness at home. He reports that he was walking up the stairs and states that he just could not go any further. He had to call EMS to come and help him up. He was admitted after recently being discharged recently from [facility] with a dx of acute kidney injury superimposed CKD, generalized weakness, DM II, CHF, CKD and nonischemic cardiomyopathy. Past Medical History: Acute kidney injury (nontraumatic) Associated with dehydration secondary to overdiuresis for treatment of his CHF Atrial fibrillation Cellulitis and abscess of lower extremity Chronic venous insufficiency of lower extremity Coronary artery disease Non-hemodynamic diffuse disease per cardiac catheterization from [facility] October 28, [address] Heladio Harkins Diabetic peripheral neuropathy associated with type 2 diabetes mellitus Morbid obesity with BMI of 50.0-59.9, adult Nonischemic cardiomyopathy LVEF 35% with diffuse hypokinesis and septal wall motion abnormality due to bundle branch block, moderately dilated and moderately reduced RV systolic function, mild mitral regurgitation, mild tricuspid regurgitation, mild dilatation aortic root and moderate dilatation of ascending aorta per [place]sthoracic echocardiogram [place] [facility] [place]. Obstructive sleep apnea Wear CPAP mask Orthostatic hypotension Osteoarthritis, knee Venous stasis ulcers of both lower extremities Surgical History H/O cardiac catheterization (10/28/19) Cardiac catheterization per Dr. Heladio Harkins at [facility], 10/28/2019, mild diffuse nonobstructive coronary artery disease with right coronary dominance and elevated left ventricular end-diastolic pressures, less than 25% narrowing of the left main coronary artery, less than 25% stenosis of the LAD, less than 25% stenosis of left circumflex, less than 25% stenosis of RCA. Social History/Home Situation: Pt lives alone in [place], [place] his brother and sister live nearby and he has daughter who lives in [place]. He utilizes a FWW at all times for functional mobility and performs driving/community mobility (I) which he states that he has stopped performing at this time. His home is set up with five stairs to enter with (B) railings. He notes that he has 14 steps into his basement where his heating unit is and he would need to go up and down for that but his brother is going to (A) with this at this time. He sleeps in a recliner chair. His nephew and children stay in his home with him every other weekend. He is (I) in the kitchen for cooking and meal preparation, he has a tub shower with grab bars and is getting remodeled, non slip adhesive on bottom, removable shower head. OT does recommend a shower seat that could fit into his shower due to syncope episodes. Pt is able to (I) don and doff shirt at baseline he requires (A) with socks which he states he has a sock aid but does not feel that it is helpful. He states that he does not have issues getting up from the toilet and at nighttime he wears a depends due to being incontinent and does not attempt toileting during the night hours. He goes with his sister grocery shopping and his sister has managed his medications for years. His laundry room is located off his kitchen which he can easily access. Equipment owned/DME: FWW, raised toilet seat, shower seat SUBJECTIVE: Pt was sitting on side of his bed when OT arrived. He states that he is so tired and did not sleep well last night. OBJECTIVE: General Observation: Pleasant, IV (R) UE, boateng Mental Status: A&Ox4 Pain: c/o pain in (B) LE ROM: RUE AROM WFL throughout L UE AROM WFL throughout STRENGTH: RUE Shoulder flexion 3+/5, bicep 4/5, tricep 4/5, chef assistant is strong and symmetrical LUE Shoulder flexion 4-/5, bicep 4-/5, tricep 4/5, chef assistant is strong and symmetrical SENSATION: Intact (B) UE FUNCTIONAL MOBILITY/ADLS: Transfers with FWW at this time is requiring multiple (A) BATHING pt denies that he is too tired at todays session.He does have functional ROM required for performance of bathing for (B) UE. DRESSING Dressing UE Sitting on side of the bed pt required mod (A) don and doffing hospital gown due to his decreased balance. Dressing LE Sitting on side of bed pt requires max (A) to don and doff (B) socks. GROOMING Sitting on side of the bed he demonstrates increased functional movements and ROM required for ADL performance he is able to touch the top of his head with one hand but requires stablity with the other hand. TOILETING NT boateng in place. EATING pt requires (A) with opening containers. He is able to bring hand to mouth (I). SPECIAL TESTS: Daily Activity Limitations Standardized Measure [facility] AM -PAC ?6 clicks? Daily Activity Inpatient Short Form: Raw score: 14 Standardized score: 33.39 CMS score: 59.67% INFORMED CONSENT/EDUCATION: Pt instructed in purpose of OT Consult and plan of care. ASSESSMENT: Patient is a 59-year-old male referred to occupational therapy services with diagnosis of acute kidney injury superimposed CKD, generalized weakness, DM II, CHF, CKD and nonischemic cardiomyopathy. Patient presents with clinical signs and symptoms consistent with dx, as demonstrated by the following impairment level findings: Pain in (B) LE, decreased functional mobility, decreased functional activity tolerance, decreased bed mobility, decreased ability to perform his ADLs in the sitting position, weakness in (B) LE, infected wounds significantly related to pain, decreased ability to perform functional mobility required for ADLs, decreased energy conservation techniques. Impairments are contributing to the following functional limitations: Pt has difficulty with (L) LE dressing, decreased (B) LE bathing, decreased functional activity tolerance, multiple falls limiting his functional mobility required for performance of ADLs/IADLs routines, decreased functional performance of LE gross motor control required for ADL routines. AMPAC score 14, CMS 59.67% Patient is assessed as a Moderate 81307 complexity based on the following: History: See Above Examination: See functional limitations as noted above Presentation: Evolving Decision Making: AMPAC score 14, CMS 59.67% GOALS Goals x1 week 1. Transfers with FWW (S) 2. Dressing in seated position pt will be mod (I) with don and doffing pants, (I) don and doffing shirt 3. Bathing sitting on side of the bed pt will be (I) with washing face and (B) UE, in seated position pt will be min (A) (B) LE 4. Toileting on toilet (I) 5. Eating (I) 6. Grooming standing at sink with FWW (I) with brushing teeth. PLAN OF CARE/TREATMENT PLAN: 1x/day, 5 days/ week x 1week Initiate Occupational Therapy Services for bathing, dressing, grooming, toileting, eating, transfer training. DISCHARGE RECOMMENDATIONS: OT recommends that pt go to SNF when medically cleared per MD due to his decreased performance of ADLs, weakness and inability to safely return home at this time based on his decline in functional mobility. TREATMENT TIME/MINUTES/CODES 11294, 15 minutes (08:45) Serina Pradhan OTR/[facility]
[2020-06-14] MEDS: Budesonide/Formoterol 80/4.5 10.2 GM 120 PUFF INH IH ×2 (10:11→19:46)
[2020-06-14 11:18] VITALS: BP 130/81; PULSE 80; RESP 16; TEMP 36.2; O2SAT 97
--- NOTE | 2020-06-14 11:40 | W.INDIABCONS ---
Date of service: 06/14/20 Time of Service: 11:40 Diabetes Inpatient Consult DESCRIPTION/ASSESSMENT: 59 year old male readmitted after fall at home with acute kidney injury with CKD, generalized weakness, CHF with hyponatremia and poorly controlled DM 2. Recent A1C; 8.3% indicating BS > 180 mg/dl. Home meds include glyburide. Barrie reports taking is sugars sometimes. Discussed briefly with Barrie that he may consider a continuous glucose monitor. He was very sleepy at this encounter. Will discuss further with him prior to d/c. Following renal diet inview of CKD. Allergic to shellfish, dietary aware and on meal ticket. BMI > 50 indicating morbid obesity. INTERVENTION: Morbid obesity in view of BMI > 50 PLAN: Will discuss benefits of CGM with Barrie prior to d/c will provide diet as ordered Time Spent in Nutritional Counseling and Treatment: 10 min spent face to face
[2020-06-14] MEDS: Docusate Sodium 100 MG CAP PO ×2 (11:53→19:45)
--- NOTE | 2020-06-14 12:36 | PGE_ITS ---
Date of Service Date of service: 06/14/20 Time of Service: 12:37 Assessment and Plan Assessment and plan (1) Acute kidney injury superimposed on CKD: Status: Acute Assessment and plan: Multifactorial cause for his acute on chronic kidney disease. Of note his creatinine was within normal limits last spring. Not clear as to what caused the initial insult but his baseline creatinine seems to be around 2 now. At this point I do not think he needs further IV fluids as he is able to eat and drink well enough. I am going to liberalize his fluid restriction as he has been on 1500 mL fluid restriction I will increase this to 2000 mL. He will remain off diuretics for the present time unless he shows overt acute heart failure. I work on long-term treatment of his heart failure adjusting his beta-kunal and adding vasodilators including Imdur and hydralazine. He is not a candidate for an BOYD inhibitor nor an angiotensin receptor kunal due to his recurrent hyperkalemia and azotemia (2) Hyperkalemia: Status: Resolved Assessment and plan: Hyperkalemia has resolved with treatment with Lokelma. He is now off Lokelma as potassium is risen slightly to 4.4. We will continue to monitor this. (3) Generalized weakness: Status: Acute Assessment and plan: Generalized weakness secondary to above comorbidities. Continue physical therapy. Patient will need SNF placement which she is willing to do as long as is not [facility]. (4) CKD (chronic kidney disease): Status: Acute Assessment and plan: Multifactorial including low cardiac output state, diabetes mellitus Qualifiers: Chronic kidney disease stage: stage 4 (severe) Qualified Code(s): N18.4 - Chronic kidney disease, stage 4 (severe) (5) Atrial fibrillation: Status: Chronic Assessment and plan: fairly well controlled rates in the 70's and 80's. INR remains therapeutic at 2.0 cont. current warfarin regimen Qualifiers: Atrial fibrillation type: unspecified Qualified Code(s): I48.91 - Unspecified atrial fibrillation (6) Obstructive sleep apnea: Status: Chronic Assessment and plan: Continue use of nocturnal BiPAP or CPAP (7) Diabetic peripheral neuropathy associated with type 2 diabetes mellitus: Status: Chronic Assessment and plan: start low dose Lantus at night and add CHO coverage (8) Nonischemic cardiomyopathy: Status: Chronic Assessment and plan: titrate his lopressor and add low dose Imdur and hydralazine Subjective Subjective Interval history since last seen: Patient states he had a horrible night last night had trouble sleeping due to some throbbing in his left ankle. Patient currently has been receiving Boyd wraps in addition to his dressing changes to his chronic venous stasis ulcers. He remains off diuretics due to acute prerenal azotemia. At present time he does not appear to be in acute congestive failure exacerbation. He does have chronic nonischemic biventricular heart failure. His ejection fraction is 35 to 40%. He has significant right ventricular dysfunction and biatrial enlargement and chronic atrial fibrillation. Currently his labs show improvement in his azotemia although he has chronic kidney disease his BUN 79 creatinine 1.90 Which is down from his admission prn of 82 creatinine 1.98. He is on a 1500 mL fluid restricted renal diet. He initially came in hyperkalemia with a potassium of 6 and it nikole to as high as 6.9. He was treated for a day with Kayexalate and then Lokelma. Potassium today is 4.4 after declining to as low as 3.7. Present time I do not feel that he needs diuretics as he appears to be euvolemic. Does need better management of his heart failure. Because of his chronic kidney disease and hyperkalemia he is not a candidate for an BOYD inhibitor or angiotensin receptor kunal. He is already on metoprolol 12.5 mg p.o. twice daily for his A. fib. I am going to adjust that up to 25 mg twice a day if his heart rate and blood pressure will tolerate. I am also start on low-dose hydralazine and Imdur for his heart failure. As for his diabetes his blood sugars are increasing now that he is getting his appetite back. Fasting glucose this morning was 147 and his lunchtime blood sugar is 197. He is not a candidate for glyburide or Metformin anymore because of his chronic kidney disease and congestive heart failure. He is currently being treated with sliding scale insulin moderate dose. It appears he is required 8 units over the last 24 hours. I will start him on low-dose Lantus 5 units at bedtime and put him on carbohydrate coverage at 1 unit of NovoLog per 30 g of carbohydrates Exam Narrative Exam Narrative: Morbidly obese male sitting up at the bedside in no acute distress not dyspneic. Lungs are clear to auscultation Heart sounds to be irregularly irregular but a controlled rate Abdomen is obese soft nontender Lower extremities with 1+ edema along with chronic purplish discoloration to the skin consistent with chronic venous skin changes. I did not take down his dressing on his right leg is that this had just been changed. I did asked the nurse to take down the dressing on the left leg and we took the Boyd wraps off and the skin is warm and dry he has an occlusive bandage over his medial skin ulcer which I did not remove. He has diminished but palpable pedal pulses. No calf tenderness or swelling Objective Last Vital Signs Temp 36.2 C L 06/14/20 11:18 Pulse 80 06/14/20 11:18 Resp 16 06/14/20 11:18 BP 130/81 06/14/20 11:18 Pulse Ox 97 06/14/20 11:18 Laboratory Results - last 24 hr 06/14/20 06/14/20 06:18 06:18 PT 20.1 H INR 2.0 H Sodium 129 L Potassium 4.4 Chloride 97 L Carbon Dioxide 20.8 L Anion Gap 11.2 H BUN 79 H Creatinine 1.90 H Estimated GFR/1.73 m2 36.22 Glucose 146 H D Calcium 8.5 Total Bilirubin 1.5 H AST 72 H ALT 34
--- NOTE | 2020-06-14 15:32 | PT.INNT ---
Date of service: 06/14/20 Time of Service: 11:25 PT Notes Visit Reasons: WEAKNESS,AZOTEMIA,HYPERKALEMIA,HYPONATREMIA 06/14/2020 Patient was not easily roused, and groggy and mildly confused upon waking. He refused morning PT session, stating I'm so tired. Will attempt to resume PT services later today.
--- NOTE | 2020-06-14 15:34 | PT.INTREAT ---
Date of service: 06/14/20 Time of Service: 13:45 PT Notes Visit Reasons: WEAKNESS,AZOTEMIA,HYPERKALEMIA,HYPONATREMIA Inpatient Physical Therapy Treatment Note [facility] Date: 06/14/2020 PRECAUTIONS: Fall, Weakness SUBJECTIVE: Barrie continues to report severe drowsiness and fatigue. He is agreeable to participating in bed-level exercises. OBJECTIVE: PAIN: Patient c/o pain all over with heel slide exercise BED MOBILITY/TRANSFERS/GAIT: Patient refused all OOB activities. THEREX: Patient was instructed in a LE strengthening program, in a supine position, as per flow sheet, including bilateral ankle pumps, quad and glute sets, heel slides, and hip abduction. He also performed shoulder flexion exercise. ASSESSMENT: Patient tolerated bed-level ther ex with complaint of pain all over with heel slide exercise completion. Patient would benefit from participating in gait training and global strengthening for improved activity tolerance and progress toward baseline level of function. PLAN: Continue global strengthening and begin gait training TREATMENT CODE/TIME: 10 minutes; [id number]
[2020-06-14 15:35] VITALS: BP 95/61; PULSE 70; RESP 19; TEMP 36; O2SAT 97
--- NOTE | 2020-06-14 16:17 | PDOC.CMPRO ---
Care Management Progress Note S/O: Barrie remains acute. CM continues to attempt SNF placement, see documentation below. CM continues to follow. A: 59 year old male admitted to [facility] 06/12/20 for weakness, azotemia, hyperkalemia, hyponatremia P: Barrie continues to be closely monitored at this time. He was evaluated by PT who reports Barrie is a one assist with FWW, but in order to stand requires Max assist. Barrie has a flight of stairs to enter his home which has become a barrier to returning home. Awaiting Barrie's choices in order to fax SNF referrals for discharge coordination. [facility]: No beds [facility]: 06/14: @1007, @1400: [facility] reported no bed availability at this time, CM requested bed offer being availability: still reviewing [facility]: left 06/14@1135 [facility]: No bed [facility]: No bed availability [facility]: No beds [facility]: still reviewing Other options for Barrie's review: [facility] CM left result list with Barrie to review with his sister to determine if he would have interest in admitting to other SNFs offered. CM will continue to follow up and work toward placement consideration.
--- NOTE | 2020-06-14 17:40 | NUR.NOTE ---
Nursing Note: 06/14/20- pt did well with standing today. pt was a moderate 2 assist when going from sitting to standing, and did much better when the bed was raised prior to standing, instead of attempting to stand from the lowest position. pt stood for the period of time staff washed backside and bottom, without any complaints. The ergo was used when getting the patient boosted up in bed, but the pt would benefit well from a bed with a trapeze, and could help with boosting. pt very pleasant today, saying please and thank you all day.
[2020-06-14 19:05] VITALS: BP 104/65; PULSE 47; RESP 19; TEMP 36.2; O2SAT 99
[2020-06-14] MEDS: Warfarin 5 MG TAB PO (19:44)
[2020-06-14] MEDS: Metoprolol 25 MG TAB PO (19:44)
[2020-06-14] MEDS: Gabapentin 600 MG TAB 1200 MG PO (19:44)
[2020-06-14] MEDS: hydrALAZINE 10 MG TAB PO (19:44)
[2020-06-14] MEDS: Normal Saline Flush 10 ML SYR IVP (19:47)
[2020-06-14] MEDS: Insulin Glargine 300 UNITS/3 ML PEN SC (21:01)
[2020-06-14 23:20] VITALS: BP 110/80; PULSE 76; RESP 17; TEMP 36.1; O2SAT 100
[2020-06-15 03:44] VITALS: BP 103/66; PULSE 70; RESP 20; TEMP 36.5; O2SAT 97
[2020-06-15 07:15] LABS: INR 1.8 (0.9-1.1); Prothrombin Time 17.6 sec (9.3-11.0)
[2020-06-15 07:25] LABS: ALT 31 U/L (16-63); AST 59 U/L (15-37); Anion Gap 10.3 mmol/L (3-11); Bilirubin, Total 1.4 mg/dL (0.2-1.0); CO2 22.7 mmol/L (21.0-32.0); CREATININE 2.01 mg/dL (0.70-1.30); Calcium 8.1 mg/dL (8.5-10.1); Chloride 96 mmol/L (98-107); Estimated GFR 33.94 (mL/min/1.73m2); Glucose 115 mg/dL (74-106); Potassium 4.6 mmol/L (3.5-5.1); Sodium 129 mmol/L (136-145)
[2020-06-15 07:26] VITALS: BP 91/60; PULSE 84; RESP 19; TEMP 36.6; O2SAT 96
[2020-06-15 07:27] LABS: BUN 86 mg/dL (7-18)
[2020-06-15] MEDS: Budesonide/Formoterol 80/4.5 10.2 GM 120 PUFF INH IH ×2 (07:36→19:42)
[2020-06-15 07:43] LABS: Abs Immature Grans 0.08 10^3/uL (0.0-0.06); Absolute Basophil Count 0.03 10^3/uL (0.0-0.2); Absolute Eosinophil Count 0.11 10^3/uL (0.0-0.7); Absolute Lymphocyte Count 0.96 10^3/uL (1.2-3.4); Absolute Monocyte Count 0.74 10^3/uL (0.1-0.8); Absolute Neutrophil Count 4.16 10^3/uL (1.2-6.7); Basophils % 0.5; Eosinophils % 1.8; HGB 10.1 g/dL (13.5-17.5); Immature Grans % 1.3; Lymphocytes % 15.8; MCH 24.9 pg (27.0-33.0); MCHC 30.6 % (32.0-36.0); MCV 81.5 fL (80-95); MPV 9.3 fL (8.0-11.0); Monocytes % 12.2; Neutrophils % 68.4; Nucleated RBC 1 %; Platelet Count 257 10^3/uL (130-400); RBC 4.05 10^6/uL (4.36-5.78); RDW 19.7 % (11.8-14.1); RDW-SD 57.4 fL; WBC 6.08 10^3/uL (4.4-10.8)
--- NOTE | 2020-06-15 08:13 | OTTR_ITS ---
Date of service: 06/15/20 Time of Service: 07:35 Occupational Therapy Notes Occupational Therapy Inpatient Treatment Note Date: 06/15/20 PRECAUTIONS: Fall, Standard, Full SUBJECTIVE: Pt was sitting in chair when OT arrived, he reports that he slept really well last night and although he still feels weak he thinks that he is improving since his admission. OBJECTIVE: PAIN:no c/o pain but specific c/o weakness in (B) UE/LE FUNCTIONAL MOBILITY Sit-stand: Max (A) x2 BATHING: sitting in chair with max (A) set up/clean up Upper Body: max (A) back, pt was (I) face, (B) UE and abdomen with resting breaks and not at his baseline level of function. Lower Body: Pt requires max (A) with don and doffing (B) socks. DRESSING: sitting in chair Upper Extremity: pt required mod (A) for [facility] gown ASSESSMENT/PLAN: Pt was able to perform his bathing routine in the seated position but experienced notable fatigue and was extremely tired post session. Pt reports weakness in his (B) shoulders, he required max (A) x2 for moving back in his chair and would benefit from energy conservation techniques, (B) UE ROM and increased functional activity tolerance. TREATMENT CODES/TIME: 22844, 15 minutes (07:35) Serina Pradhan OTR/[facility]
[2020-06-15] MEDS: Ketoconazole 2% CREAM 15 GM TUBE TP ×2 (08:15→19:42)
[2020-06-15] MEDS: Insulin Aspart 300 UNITS/3 ML PEN SC ×6 (08:16→21:09)
[2020-06-15] MEDS: Magnesium Oxide 400 MG TAB PO ×2 (08:18→19:40)
[2020-06-15] MEDS: DULoxetine 30 MG CAP PO ×2 (08:18→19:40)
[2020-06-15] MEDS: hydrALAZINE 10 MG TAB PO (08:18)
[2020-06-15] MEDS: Docusate Sodium 100 MG CAP PO ×2 (08:19→19:42)
[2020-06-15] MEDS: Lachydrin 12% LOTION 225 GM BTL TP (08:19)
[2020-06-15] MEDS: Isosorbide Mononitrate 30 MG TABCR PO (08:19)
[2020-06-15 11:18] VITALS: BP 99/62; PULSE 70; RESP 18; TEMP 36.3; O2SAT 96
--- NOTE | 2020-06-15 14:43 | W.PM.PROGNOT ---
Date of Service Date of service: 06/15/20 Time of Service: 13:00 Assessment and Plan Assessment and plan (1) Acute kidney injury superimposed on CKD: Status: Acute Assessment and plan: multifactorial including DM, non-ischemic CM; continue to hold his diuretics as his lungs remain clear. His weights have not been done in three days. I have asked nursing to check his weights so we can monitor. If he developes significant weight gain, then I will resume his oral diuretics. Meanwhile, I will try to adjust his other meds for his chronic biventricular heart failure i.e. vasodilators and beta blockers. He is not a candidate for KADIE inhibitor or ARB (2) Hyperkalemia: Status: Resolved Assessment and plan: Hyperkalemia has resolved with treatment with Lokelma. He is now off Lokelma. Continue to monitor. His K+ today is 4.6. (3) Generalized weakness: Status: Acute Assessment and plan: Generalized weakness secondary to above comorbidities. Continue physical therapy. Patient will need SNF placement which he is willing to do as long as is not [facility]. (4) CKD (chronic kidney disease): Status: Acute Assessment and plan: Multifactorial including low cardiac output state, diabetes mellitus Qualifiers: Chronic kidney disease stage: stage 4 (severe) Qualified Code(s): N18.4 - Chronic kidney disease, stage 4 (severe) (5) Atrial fibrillation: Status: Chronic Assessment and plan: fairly well controlled rates in the 70's and 80's. INR is sub-therapeutic at 1.8. I have adjusted his warfarin therapy and reverse the days in which she received 2.5 versus 5 mg. He will now get 5 mg every Sunday, Sunday, , Sunday and 2.5 mg every Sunday and Sunday. Qualifiers: Atrial fibrillation type: unspecified Qualified Code(s): I48.91 - Unspecified atrial fibrillation (6) Obstructive sleep apnea: Status: Chronic Assessment and plan: Continue use of nocturnal BiPAP or CPAP (7) Diabetic peripheral neuropathy associated with type 2 diabetes mellitus: Status: Chronic Assessment and plan: Patient now on low dose Lantus 5 units nightly. FBS today was better at 117. His other glucose levels today have been reasonable at 160 to 170. (8) Nonischemic cardiomyopathy: Status: Chronic Assessment and plan: titrate his BB and d/t his low BP readings I have had to decr. his Imdur and hydralazine. (9) Discharge planning issues: Status: Acute Assessment and plan: CM has placed referrals to multiple area SNF. Subjective Subjective Patient reports: no new complaints; denies shortness of breath Interval history since last seen: Denies any chest pain Exam Narrative Exam Narrative: Obese male who is sitting up in his chair. Alert and oriented Lungs clear Heart: regular Abd: soft, obese, nontender Legs: 2+ pitting edema w/ purplish skin discoloration and superficial ulcer over right pretibial surface; no purulence; left medial malleolus w/ shallow ulcer that has granulation tissue at the base and no pus. Objective Last Vital Signs Temp 36.3 C L 06/15/20 11:18 Pulse 70 06/15/20 11:18 Resp 18 06/15/20 11:18 BP 99/62 L 06/15/20 11:18 Pulse Ox 96 06/15/20 11:18 Laboratory Results - last 24 hr 06/15/20 06/15/20 06/15/20 06:52 06:52 06:52 WBC 6.08 RBC 4.05 L Hgb 10.1 L Hct 33.0 L MCV 81.5 MCH 24.9 L MCHC 30.6 L RDW 19.7 H Plt Count 257 D MPV 9.3 Immature Gran % 1.3 Neutrophils % 68.4 Lymphocytes % 15.8 Monocytes % 12.2 Eosinophils % 1.8 Basophils % 0.5 Nucleated RBC % 1 Absolute Neutrophils 4.16 Absolute Lymphocytes 0.96 L Absolute Monocytes 0.74 Absolute Eosinophils 0.11 Absolute Basophils 0.03 PT 17.6 H INR 1.8 H Sodium 129 L Potassium 4.6 Chloride 96 L Carbon Dioxide 22.7 Anion Gap 10.3 BUN 86 H* Creatinine 2.01 H Estimated GFR/1.73 m2 33.94 Glucose 115 H Calcium 8.1 L Total Bilirubin 1.4 H AST 59 H ALT 31
--- NOTE | 2020-06-15 15:06 | CMPROGNOTE_ITS ---
- If Service Date Differs Date of service: 06/15/20 Time of Service: 15:06 Care Management Progress Note S/O: Barrie continues to need close medical monitoring,, his diuretics are on hold his BUN and CR remain elevated. Anticipate he will be ready in the next few days, [facility] does not have availability and [facility] continues to review, CM left a voicemail for Cynthia in admissions. A: 59 year old male admitted to [facility] 06/12/20 for weakness, azotemia, hyperkalemia, hyponatremia with a history of CHF, and Renal failure, Barrie has had several admissions to the hospital since September of this year. P: Barrie will be discharged to SNF facility once one is available. CM will continue to send referrals to requested facilities. Transportation to be determined at time of discharge pending disposition.
--- NOTE | 2020-06-15 15:27 | PT.INTREAT ---
Date of service: 06/15/20 Time of Service: 09:35 PT Notes Visit Reasons: WEAKNESS,AZOTEMIA,HYPERKALEMIA,HYPONATREMIA Inpatient Physical Therapy Treatment Note [facility] Date: 06/15/2020 PRECAUTIONS: Fall, Activity as tolerated SUBJECTIVE: Barrie states that he is feeling better, although he reports that he continues to feel extremely weak and that he feels discouraged by this. OBJECTIVE: PAIN: Patient complained of soreness in biju-area, nursing is aware BED MOBILITY/TRANSFERS Sit-stand: SBA Stand-sit: SBA Bed-Chair: SBA Chair-bed: SBA GAIT Assistive Device: FWW Weight bearing: Full Assist: SBA Distance: 5' +20' in a.m.; 30' in p.m. Deviation: Slow pace, complained of increased bilateral lower extremity weakness Static standing with SBA and FWW support x3 minutes THEREX: Patient was instructed in several lower extremity strengthening exercises, while in a seated position in a.m. and long sitting position in p.m., as per flow sheet. Patient was unable to complete hip abduction exercise in long sitting position, due to increased biju-area soreness. ASSESSMENT: Patient tolerated session with complaints of increased bilateral lower extremity weakness gait training. He was able to tolerate a progression in gait distance with FWW support and SBA. Patient would benefit from continued gait and transfer training as well as global strengthening for improved mobility and activity tolerance. PLAN: Continue with gait and transfer training and global strengthening TREATMENT CODE/TIME: Session 1: 25 minutes; 08705 x2 Session 2: 15 minutes; [id number]
[2020-06-15 15:49] VITALS: BP 103/70; PULSE 83; RESP 18; TEMP 35.7; O2SAT 97
[2020-06-15 19:15] VITALS: BP 109/83; PULSE 55; RESP 17; TEMP 36.1; O2SAT 100
[2020-06-15] MEDS: Gabapentin 600 MG TAB 1200 MG PO (19:40)
[2020-06-15] MEDS: Warfarin 5 MG TAB PO (19:41)
[2020-06-15] MEDS: hydrALAZINE 10 MG TAB 5 MG PO (19:41)
[2020-06-15] MEDS: Acetaminophen 325 MG TAB 650 MG PO (21:09)
[2020-06-15] MEDS: Insulin Glargine 300 UNITS/3 ML PEN SC (21:09)
[2020-06-15 23:45] VITALS: BP 122/73; PULSE 70; RESP 18; TEMP 36.5; O2SAT 96
[2020-06-16 04:30] VITALS: BP 98/62; PULSE 66; RESP 17; TEMP 36; O2SAT 98
[2020-06-16 07:12] LABS: Anion Gap 6.5 mmol/L (3-11); BUN 78 mg/dL (7-18); CO2 25.5 mmol/L (21.0-32.0); CREATININE 1.61 mg/dL (0.70-1.30); Calcium 8.1 mg/dL (8.5-10.1); Chloride 97 mmol/L (98-107); Estimated GFR 43.85 (mL/min/1.73m2); Glucose 133 mg/dL (74-106); Potassium 4.5 mmol/L (3.5-5.1); Sodium 129 mmol/L (136-145)
[2020-06-16 07:13] LABS: INR 1.7 (0.9-1.1); Prothrombin Time 16.7 sec (9.3-11.0)
[2020-06-16] MEDS: Budesonide/Formoterol 80/4.5 10.2 GM 120 PUFF INH IH ×2 (07:53→20:15)
[2020-06-16 08:20] VITALS: BP 94/63; PULSE 62; RESP 14; TEMP 35.3; O2SAT 95
[2020-06-16] MEDS: Magnesium Oxide 400 MG TAB PO ×2 (08:37→20:16)
[2020-06-16] MEDS: Docusate Sodium 100 MG CAP PO ×2 (08:37→20:15)
[2020-06-16] MEDS: DULoxetine 30 MG CAP PO ×2 (08:38→20:15)
[2020-06-16] MEDS: Isosorbide Mononitrate 30 MG TABCR 15 MG PO (08:38)
[2020-06-16] MEDS: hydrALAZINE 10 MG TAB 5 MG PO ×2 (08:43→20:16)
[2020-06-16] MEDS: Insulin Aspart 300 UNITS/3 ML PEN SC ×6 (08:45→17:04)
[2020-06-16] MEDS: Ketoconazole 2% CREAM 15 GM TUBE TP ×2 (08:48→20:24)
[2020-06-16] MEDS: Lachydrin 12% LOTION 225 GM BTL TP (09:01)
--- NOTE | 2020-06-16 09:07 | OT.INTREAT ---
Date of service: 06/16/20 Time of Service: 08:40 Occupational Therapy Notes Occupational Therapy Inpatient Treatment Note Date: 06/16/20 PRECAUTIONS: Fall, Standard, Full SUBJECTIVE: Pt was sitting on side of his bed when OT arrived. He reports that he is sore in his biju area and is uncomfortable in the sitting position. He notes that his standing has been better and he is willing to participate in todays session. OBJECTIVE: PAIN:c/o pain in biju area, RN is aware FUNCTIONAL MOBILITY Sit-stand: CGA, FWW Stand-sit: CGA, FWW Bed-Chair: CGAx2, FWW BATHING: sitting on side of his bed with max (A) set up/clean up Upper Body: (I) face, (B) UE, abdomen and pannus area, with min vc, max (A) for back, (I) with washing hair Lower Body: Able to wash (B) UE on thighs, below knees are wrapped and unable to be washed at this time. DRESSING: sitting on side of the bed with min vc Upper Extremity: (I) [facility] GROOMING: Standing position with FWW pt was able to perform oral hygiene (I) with (A) with set up/clean up. He performed in standing as he was having pain in his biju area and wanted to stand to decrease the pressure. EATING: Sitting in chair (I) with eating routine, including cutting food, opening and closing containers. ASSESSMENT/PLAN: Pt was able to perform his functional mobility required for ADL performance with increased (I). He performed his bathing without need to take breaks and good functional ROM of (B) UE. No noted fatigue post session or during session for his (B) UE. He does have a significant amount of pain in his biju area which is limiting him in tolerating the sitting position for too long. TREATMENT CODES/TIME: [id number], 25 minutes (08:40) SAHARA Hall[facility]
[2020-06-16] MEDS: Normal Saline Flush 10 ML SYR IVP (10:42)
[2020-06-16 10:56] VITALS: BP 106/73; PULSE 92; RESP 20; TEMP 36.5; O2SAT 98
--- NOTE | 2020-06-16 11:36 | PTTR_ITS ---
Date of service: 06/16/20 Time of Service: 11:36 PT Notes Visit Reasons: WEAKNESS,AZOTEMIA,HYPERKALEMIA,HYPONATREMIA Inpatient Physical Therapy Treatment Note [facility] Date: 06/16/2020 PRECAUTIONS: Fall, Activity as tolerated SUBJECTIVE: Barrie states that he is feeling very fatigued this morning, but that he would like to do as much as he can to participate in PT. OBJECTIVE: Patient appears limited due to significant fatigue PAIN: Patient complained of soreness and pain in biju-area with sit<>stand transfers, nursing is aware BED MOBILITY/TRANSFERS Supine-sit: Min A with HOB at 60 degrees Sit-supine: Max A of B LEs with HOB flat Sit-stand: SBA Stand-sit: SBA GAIT Assistive Device: FWW Weight bearing: Full Assist: SBA Distance: 4 side steps to L Deviation: Slow pace THEREX: ASSESSMENT: Patient tolerated session with complaints of increased fatigue and biju-area pain with activity. Patient would benefit from continued gait and tr ansfer training as well as global strengthening for improved mobility and activity tolerance. PLAN: Continue with gait and transfer training and global strengthening TREATMENT CODE/TIME: 30 minutes; 73294 x2
--- NOTE | 2020-06-16 11:40 | PGE_ITS ---
Date of Service Date of service: 06/16/20 Time of Service: 11:40 Assessment and Plan Assessment and plan (1) Acute kidney injury superimposed on CKD: Status: Acute Assessment and plan: Renal fxn continues to improve despite being off diuretics. BUN down to 78 and creatinine of 1.61. Avoid NSAID's, continue to adjust his meds for his CHF. He is not able to use ARB nor KADIE-inhibitors d/t CKD and hyperkalemia. However, I have add low dose hydralazine and imdur but his BP have been too low to tolerate. I have reduced their doses. He remains on metoprolol however, I have changed this to Toprol XL. (2) Hyperkalemia: Status: Resolved Assessment and plan: Hyperkalemia has resolved with treatment with Lokelma. He is now off Lokelma. Continue to monitor. His K+ today is 4.5. (3) Generalized weakness: Status: Acute Assessment and plan: Generalized weakness secondary to above comorbidities. Continue physical therapy. Patient will need SNF placement which he is willing to do as long as is not [facility]. (4) CKD (chronic kidney disease): Status: Acute Assessment and plan: Multifactorial including low cardiac output state, diabetes mellitus Qualifiers: Chronic kidney disease stage: stage 4 (severe) Qualified Code(s): N18.4 - Chronic kidney disease, stage 4 (severe) (5) Atrial fibrillation: Status: Chronic Assessment and plan: fairly well controlled rates in the 70's and 80's. IN R is sub-therapeutic at 1.8. I have adjusted his warfarin therapy and reverse the days in which she received 2.5 versus 5 mg. He will now get 5 mg every Sunday, Sunday, , Sunday and 2.5 mg every Sunday and Sunday. Qualifiers: Atrial fibrillation type: unspecified Qualified Code(s): I48.91 - Unspecified atrial fibrillation (6) Obstructive sleep apnea: Status: Chronic Assessment and plan: Continue use of nocturnal BiPAP or CPAP (7) Diabetic peripheral neuropathy associated with type 2 diabetes mellitus: Status: Chronic Assessment and plan: Blood sugars ranging 140 to 217. Will increase his Lantus. Patient now on CHO coverage as well as sliding scale. I will adjust his dose of CHO coverage as well. (8) Nonischemic cardiomyopathy: Status: Chronic Assessment and plan: titrate his metoprolol and d/t his low BP readings I have had to decr. his Imdur and hydralazine. (9) Discharge planning issues: Status: Acute Assessment and plan: CM has placed referrals to multiple area SNF. Subjective Subjective Patient reports: no new complaints and feels better Exam Narrative Exam Narrative: Obese male who is sitting up in his chair. Alert and oriented Lungs clear Heart: regular Abd: soft, obese, nontender Legs: 2+ edema; left medial malleolar ulcer measure 15 mm x 12 mm x 5 mm depth has granulation base, rim of whitish tissue; left thigh superficial skin ulcer w/out drainage is healing Objective Last Vital Signs Temp 36.5 C 06/16/20 10:56 Pulse 92 H 06/16/20 10:56 Resp 20 06/16/20 10:56 BP 106/73 06/16/20 10:56 Pulse Ox 98 06/16/20 10:56 Laboratory Results - last 24 hr 06/16/20 06/16/20 06:37 06:37 PT 16.7 H INR 1.7 H Sodium 129 L Potassium 4.5 Chloride 97 L Carbon Dioxide 25.5 Anion Gap 6.5 BUN 78 H Creatinine 1.61 H Estimated GFR/1.73 m2 43.85 Glucose 133 H Calcium 8.1 L
[2020-06-16 15:05] VITALS: BP 124/86; PULSE 77; RESP 16; TEMP 36.5; O2SAT 99
--- NOTE | 2020-06-16 15:39 | CMPROGNOTE_ITS ---
Care Management Progress Note S/O: Barrie continues to require close monitoring and remains inpatient at this time. He reports being weak and tired today, but continues to participate in PT to strengthen and return home. CM continues to seek placement. Barrie verbalized wanting to await determinations from [place] and the [facility] prior to broadening SNF search. CM continues to follow. A: 59 year old male admitted to [facility] 06/12/20 for weakness, azotemia, hyperkalemia, hyponatremia with a history of CHF, and Renal failure, Barrie has had several admissions to the hospital since September of this year. P: Barrie will be discharged to SNF facility once one is available. CM will continue to send referrals to requested facilities. Transportation to be deter mined at time of discharge pending disposition. [facility]: 06/14: VM@1007, @1400: [facility] reported no bed availability at this time, CM requested bed offer pending bed availability: jose abbott reviewing-faxed updated clinicals 06/16/20. [facility]: still reviewing-emailed 06/16/20. [place]: No bed availability: [facility]20. [facility]: [facility]/14/20 [facility]: No bed availability: 06/14/20 [facility]: No beds: 06/14/20 [facility] [place]: No beds: 06/14/20 [facility]-Barrie wants to await [place] and [place]'s determinations. [facility]-Barrie wants to await [place] and [place]'s determinations. [facility]Barrie wants to await [place] and [place]'s determinations. [facility]: No bed availability: 06/15/20
--- NOTE | 2020-06-16 15:39 | PDOC.CMPRO ---
Care Management Progress Note S/O: Barrie continues to require close monitoring and remains inpatient at this time. He reports being weak and tired today, but continues to participate in PT to strengthen and return home. CM continues to seek placement. Barrie verbalized wanting to await determinations from [place] and the [facility] prior to broadening SNF search. CM continues to follow. A: 59 year old male admitted to [facility] 06/12/20 for weakness, azotemia, hyperkalemia, hyponatremia with a history of CHF, and Renal failure, Barrie has had several admissions to the hospital since September of this year. P: Barrie will be discharged to SNF facility once one is available. CM will continue to send referrals to requested facilities. Transportation to be determined at time of discharge pending disposition. [facility]: 06/14: @1007, @1400: [facility] reported no bed availability at this time, CM requested bed offer pending bed availability: still reviewing-faxed updated clinicals 06/16/20. [facility]: still reviewing-emailed 06/16/20. [facility]: No bed availability: 06/15/20. [facility]: 06/14/20 [facility]: No bed availability: 06/14/20 [facility]: No beds: 06/14/20 [facility] [place]: No beds: [facility]/14/20 [facility] [place] [facility] [place]. [facility]rie wants to await [place] and [place]'s determinations. [facility]Barrie wants to await [place] and [place]'s determinations. [facility]: No bed availability: 06/15/20
--- NOTE | 2020-06-16 16:18 | PT.INTREAT ---
Date of service: 06/16/20 Time of Service: 16:18 PT Notes Visit Reasons: WEAKNESS,AZOTEMIA,HYPERKALEMIA,HYPONATREMIA Inpatient Physical Therapy Treatment Note [facility] Date: 06/16/2020 PRECAUTIONS: Fall. Activity as tolerated. SUBJECTIVE: Barrie is agreeable to initiating complete decongetive therapy to manage existing skin breakdown and limb girth affectation. OBJECTIVE: KADIE wraps to B legs. Wound dressings to B LE seen. GIRTH MEASUREMENTS: Done by wound care nurse Mekhi calderon R L Smallest part of ankle 27.0 cm 29.1 cm Largest part of calf 46.8 cm 40.8 cm Largest part of thigh 72.9 cm 63.5 cm PAIN: None reported. ASSESSMENT: Barrie demonstrates ulcers and swelling from chronic venous insufficiency which may benefit from complete decongestive therapy. PLAN: Per verbal order of Dr. Lang, will add lymphedema management as of 06/17/2020 in coordination with nursing staff and wound care nurse in order to minimize limb girth, reduce infection recurrence, and facilitate wound healing. TREATMENT CODE/TIME: 21199 x 10 minutes beginning at 16:18 PM.
--- NOTE | 2020-06-16 18:33 | WOUNDCARE ---
Wound Care Report Saw patients wounds with Dr. Lang this afternoon. Only concern that we both had was the edges of the wounds on the left leg were macerating. After discussion we both agreed, that at this time it was in the patients interest to dc the anasept gel from the patients wound bed, and allow the duoderm itself to autolytically debride the wound beds. no other issues noted.
[2020-06-16 19:18] VITALS: BP 130/82; PULSE 62; RESP 16; TEMP 36.5; O2SAT 99
[2020-06-16] MEDS: Acetaminophen 325 MG TAB 650 MG PO (20:15)
[2020-06-16] MEDS: Warfarin 5 MG TAB PO (20:16)
[2020-06-16] MEDS: Gabapentin 600 MG TAB 1200 MG PO (20:22)
[2020-06-16] MEDS: Insulin Glargine 300 UNITS/3 ML PEN 10 UNITS SC (20:26)
[2020-06-16] MEDS: oxyCODONE 5 MG TAB PO (22:38)
[2020-06-16 23:15] VITALS: BP 118/81; PULSE 73; RESP 19; TEMP 35.5; O2SAT 96
[2020-06-17] MEDS: oxyCODONE 5 MG TAB (00:33)
[2020-06-17] MEDS: Acetaminophen 325 MG TAB 650 MG PO ×3 (02:02→16:58)
[2020-06-17 06:55] LABS: Anion Gap 7.5 mmol/L (3-11); BUN 78 mg/dL (7-18); CO2 23.5 mmol/L (21.0-32.0); CREATININE 1.29 mg/dL (0.70-1.30); Calcium 8.2 mg/dL (8.5-10.1); Chloride 97 mmol/L (98-107); Estimated GFR 56.62 (mL/min/1.73m2); Glucose 133 mg/dL (74-106); Potassium 4.9 mmol/L (3.5-5.1); Sodium 128 mmol/L (136-145)
[2020-06-17 06:56] LABS: INR 1.8 (0.9-1.1); Prothrombin Time 17.8 sec (9.3-11.0)
[2020-06-17 07:59] VITALS: BP 101/71; PULSE 97; RESP 19; TEMP 36.5; O2SAT 94
[2020-06-17] MEDS: Budesonide/Formoterol 80/4.5 10.2 GM 120 PUFF INH IH ×2 (08:12→21:04)
[2020-06-17] MEDS: Ketoconazole 2% CREAM 15 GM TUBE TP ×2 (08:20→21:06)
[2020-06-17] MEDS: Metoprolol CR 50 MG TABCR PO (08:21)
[2020-06-17] MEDS: Docusate Sodium 100 MG CAP PO ×2 (08:22→21:04)
[2020-06-17] MEDS: Insulin Aspart 300 UNITS/3 ML PEN SC ×6 (08:22→21:05)
[2020-06-17] MEDS: Magnesium Oxide 400 MG TAB PO ×2 (08:24→21:04)
[2020-06-17] MEDS: DULoxetine 30 MG CAP PO ×2 (09:20→21:03)
[2020-06-17] MEDS: Lachydrin 12% LOTION 225 GM BTL TP (09:21)
--- NOTE | 2020-06-17 09:23 | OTTR_ITS ---
Date of service: 06/17/20 Time of Service: 09:00 Occupational Therapy Notes Occupational Therapy Inpatient Treatment Note Date: 06/17/20 PRECAUTIONS: Fall, Standard, Full SUBJECTIVE: Pt was sitting in chair when OT arrived, he states that he is tired and in pain. He notes that his (B) LE are bothersome and he is not able to move them throughout the night without discomfort. OBJECTIVE: PAIN:c/o pain in (B) LE up to 10. FUNCTIONAL MOBILITY Sit-stand: SBA Stand-sit: SBA BATHING: Upper Body: Sitting in chair (I) with (B) UE with min (A) for underarms as pt is fatigued and tired, (I) abdomen Lower Body: In standing position pt was able to was to (B) knees and under pannus/biju area gently as this is red and with increased soreness. DRESSING: Upper Extremity: Min (A) [facility] gown Lower Extremity: NT ASSESSMENT/PLAN: Pt is tired his decreased functional activity tolerance and fatigue are limiting him in his performance of ADLs. He is having pain in (B) LE which RN/MD are aware of. He is limited in functional mobility needed for performance of his ADLS due to this pain. TREATMENT CODES/TIME: 12005, 15 minutes (09:00) SAHARA Hall[facility]
[2020-06-17] MEDS: Isosorbide Mononitrate 30 MG TABCR 15 MG PO (10:28)
[2020-06-17] MEDS: hydrALAZINE 10 MG TAB 5 MG PO ×2 (10:29→21:01)
--- NOTE | 2020-06-17 11:17 | PDOC.CMPRO ---
Care Management Progress Note S/O: Barrie continues to require close monitoring and remains inpatient at this time. He reports being weak and tired today, but continues to participate in PT to strengthen and return home. CM continues to seek placement. Barrie verbalized wanting to await determinations from [place] and the [facility] prior to broadening SNF search. CM spoke with the [facility] who anticipated having a determination by this afternoon. CM continues to follow. A: 59 year old male admitted to [facility] 06/12/20 for weakness, azotemia, hyperkalemia, hyponatremia with a history of CHF, and Renal failure, Barrie has had several admissions to the hospital since September of this year. P: Barrie will be discharged to SNF facility once one is available. CM will continue to send referrals to requested facilities. Transportation to be determined at time of discharge pending disposition. [facility]: 06/14: @1007, @1400: [facility] reported no bed availability at this time, CM requested bed offer pending bed availability: still reviewing-faxed updated clinicals 06/16/20. [facility]: still reviewing-emailed 06/16/20. [facility]: No bed availability: 06/15/20. [facility]: No bed availability: 06/14/20 [facility]: No bed availability: 06/14/20 [facility]: No beds: 06/14/20 [facility]: No beds: [facility]14[facility]20 [facility] [place] [facility] [place]. [facility] [place] [facility] [place]Barrie wants to await [place] and [place]'s determinations. [place]: No bed availability: 06/15/20
[2020-06-17 11:18] VITALS: BP 98/68; PULSE 84; RESP 19; TEMP 36.4; O2SAT 95
--- NOTE | 2020-06-17 14:07 | W.PM.PROGNOT ---
Date of Service Date of service: 06/17/20 Time of Service: 14:07 Assessment and Plan Assessment and plan (1) Acute kidney injury superimposed on CKD: Status: Acute Assessment and plan: Renal function continues to improve. Creatinine is now down to 1.29 with a BUN of 78. Continue to withhold diuretics. Continue adjustment of his vasodilators for his nonischemic cardiomyopathy. Continue with beta-blockers. Avoid NSAIDs or other nephrotoxic medications. (2) Hyperkalemia: Status: Resolved Assessment and plan: Hyperkalemia has resolved with treatment with Lokelma. He is now off Lokelma. Continue to monitor. His K+ today is 4.9 (3) Generalized weakness: Status: Acute Assessment and plan: Generalized weakness secondary to above comorbidities. Continue physical therapy. Patient will need SNF placement which he is willing to do as long as is not [facility]. (4) CKD (chronic kidney disease): Status: Acute Assessment and plan: Multifactorial including low cardiac output state, diabetes mellitus Qualifiers: Chronic kidney disease stage: stage 4 (severe) Qualified Code(s): N18.4 - Chronic kidney disease, stage 4 (severe) (5) Atrial fibrillation: Status: Chronic Assessment and plan: Fairly well controlled atrial fibrillation rate however if his metoprolol continues to be withheld then this may result in rapid atrial fibrillation. INR remains subtherapeutic at 1.8. This in spite of an increase of his warfarin to 5 mg nightly. I will increase his warfarin 7.5 mg 3 nights a week and 5 mg the other nights of the week. Qualifiers: Atrial fibrillation type: unspecified Qualified Code(s): I48.91 - Unspecified atrial fibrillation (6) Obstructive sleep apnea: Status: Chronic Assessment and plan: Continue use of nocturnal BiPAP or CPAP (7) Diabetic peripheral neuropathy associated with type 2 diabetes mellitus: Status: Chronic Assessment and plan: Fasting blood sugar 138 and lunchtime blood sugar was 193. Yesterday's readings range from 143-185. He is currently on Lantus 10 units nightly along with insulin resistant sliding scale and carbohydrate coverage. His carbohydrate coverage scale is 1:15 ratio. We will increase that to 1:10 ratio. I will also increase his Lantus to 13 units. (8) Nonischemic cardiomyopathy: Status: Chronic Assessment and plan: titrate his metoprolol and d/t his low BP readings I have had to decr. his Imdur and hydralazine. (9) Venous stasis ulcers of both lower extremities: Status: Chronic Assessment and plan: Wound care as per wound care nursing specialists in coordination with physical therapies treatment for lymphedema (10) Discharge planning issues: Status: Acute Assessment and plan: CM has placed referrals to multiple area SNF. Subjective Subjective Patient reports: no new complaints and feels better Interval history since last seen: His only complaint is he did not sleep well last night due to throbbing in his left foot. I reviewed his wound care with his wound care nurse. Recommend continued doing compression dressings and she will coordinate with physcial therapy regarding lymphedema treatment and wound care. He is receiving a colloidal barrier to the skin wounds along w/ dressing changes every other day along w/ KADIE wrap compression. He has chronic 2+ pitting edema that at times will reduce to 1+ edema when he is able to keep the dressings on and elevated his legs. In the past he has not tolerated diuretic therapy d/t hypotension and severe azotemia. His renal function continues to improve by withold his diuretics and by adjustment of his other meds for his non-ischemic CM. Exam Narrative Exam Narrative: Obese male lying in bed in semifowler position. He is alert and oriented person place time circumstance. Lungs are clear to auscultation Heart is irregularly irregular at a controlled rate. Abdomen is obese soft and nontender. Lower extremities 2+ pitting edema from mid tibia down to his feet. Superficial skin ulcers over the pretibial surfaces as well as left thigh and left medial malleolus and underneath his right calf. See wound care nurses notes for details. Objective Last Vital Signs Temp 36.4 C L 06/17/20 11:18 Pulse 84 06/17/20 11:18 Resp 19 06/17/20 11:18 BP 98/68 L 06/17/20 11:18 Pulse Ox 95 06/17/20 11:18 Laboratory Results - last 24 hr 06/17/20 06/17/20 06:34 06:34 PT 17.8 H INR 1.8 H Sodium 128 L Potassium 4.9 Chloride 97 L Carbon Dioxide 23.5 Anion Gap 7.5 BUN 78 H Creatinine 1.29 Estimated GFR/1.73 m2 56.62 Glucose 133 H Calcium 8.2 L
[2020-06-17 15:15] VITALS: BP 128/54; PULSE 79; RESP 18; TEMP 36; O2SAT 98
[2020-06-17] MEDS: oxyCODONE 5 MG TAB PO (16:57)
--- NOTE | 2020-06-17 17:56 | WOUNDCONS ---
- If Service Date Differs Date of service: 06/17/20 Time of Service: 17:56 Wound Initial Evaluation Narrative: Recommending changing Pt's treatment plan to coincide with physical therapy's recommendation to apply lymphatic wraps to Pt's bilat LE's to help decrease edema. Pt has multiple venous stasis ulcers on bilateral LE's, recommend polymem placement under lymph wraps to help promote moist wound environment. - Recomendation Recomendation:: Recommendation: Mepilex to wound on L thigh. Change Q3 days and PRN. Apply polymem to all open areas on Bilateral LE's. Do not cleanse wounds, Do not disturb wound beds. Change Q3 days and PRN. Coordinate dressing changes with physical therapy's lymphatic wrap changes. Discontinue daily ammonium lactate order d/t wrap placement on LE's. Physcian/Nurse Practioner Notified: Yes (Dr. Lang )
[2020-06-17 19:08] VITALS: BP 107/73; PULSE 73; RESP 18; TEMP 36; O2SAT 98
[2020-06-17] MEDS: Gabapentin 600 MG TAB 1200 MG PO (21:02)
[2020-06-17] MEDS: Insulin Glargine 300 UNITS/3 ML PEN 13 UNITS SC (21:37)
[2020-06-17] MEDS: Metoprolol CR 25 MG TABCR 12.5 MG PO (21:39)
[2020-06-17] MEDS: Melatonin 3 MG TAB 9 MG PO (21:40)
[2020-06-17] MEDS: WARFARIN 5 MG, WARFARIN 2.5 MG 7.5 MG PO (21:45)
[2020-06-17 23:06] VITALS: BP 98/62; PULSE 80; RESP 19; TEMP 35.9; O2SAT 96
[2020-06-18] VITALS (134 sets, daily range): BP systolic 58–113; BP diastolic 35–85; PULSE 44–145; RESP 10–55; TEMP 35.1–37.1; O2SAT 89–100
[2020-06-18 07:37] LABS: Anion Gap 5.3 mmol/L (3-11); CO2 23.7 mmol/L (21.0-32.0); CREATININE 1.45 mg/dL (0.70-1.30); Calcium 8.1 mg/dL (8.5-10.1); Chloride 99 mmol/L (98-107); Estimated GFR 49.48 (mL/min/1.73m2); Glucose 131 mg/dL (74-106); Potassium 5.5 mmol/L (3.5-5.1); Sodium 128 mmol/L (136-145)
[2020-06-18 07:40] LABS: BUN 83 mg/dL (7-18)
[2020-06-18] MEDS: Magnesium Oxide 400 MG TAB PO (08:14)
[2020-06-18] MEDS: Docusate Sodium 100 MG CAP PO ×2 (08:14→19:54)
[2020-06-18] MEDS: Metoprolol CR 25 MG TABCR 12.5 MG PO (08:14)
[2020-06-18] MEDS: Ketoconazole 2% CREAM 15 GM TUBE TP (08:14)
[2020-06-18] MEDS: DULoxetine 30 MG CAP PO ×2 (08:14→19:54)
[2020-06-18] MEDS: Isosorbide Mononitrate 30 MG TABCR 15 MG PO (08:14)
[2020-06-18] MEDS: Budesonide/Formoterol 80/4.5 10.2 GM 120 PUFF INH IH ×2 (08:43→22:53)
[2020-06-18] MEDS: Insulin Aspart 300 UNITS/3 ML PEN SC ×3 (08:46→23:03)
--- NOTE | 2020-06-18 08:57 | NT_ITS ---
Date of service: 06/18/20 Time of Service: 08:50 Occupational Therapy Notes 06/18/20 OT attempted to see pt who denies performance of OT services as he reports that he is too fatigued and would like to rest. He is eating his breakfast and reporting that he is unable to finish it at this time. OT will resume OT s ervices on Sunday. Serina Pradhan OTR/[facility]
--- NOTE | 2020-06-18 12:03 | CMPROGNOTE_ITS ---
Care Management Progress Note S/O: Barrie was emergently transferred to the ICU today due to low BPs. CM notified Tiffani via and requested she come to [facility] is able. He is being closely monitored and treated. CM continues to follow. A: 59 year old male admitted to [facility] 06/12/20 for weakness, azotemia, hyperkalemia, hyponatremia with a history of CHF, and Renal failure, Barrie has had several admissions to the hospital since September of this year. P: Barrie was emergently transferred to the ICU today due to low BPs. He is being closely monitored and treated. CM continues to follow. Barrie will be discharged to SNF facility once one is available. CM will continue to send referrals to requested facilities. Transportation to be determined at time of discharge pending disposition. Anticipate Barrie may need to enter [facility] due to lack of placement availability. Barrie was declined at the following SNFs. Once he is able, CM will discuss further options, listed below. [facility]: 06/18/20 declined due to lack of equipment needed to support Barrie. [facility]: 06/18/20 declined due to bed availability and private insurance. [facility]: No bed availability: 06/15/20. [facility]: No bed availability: 06/14/20 [facility]: No bed availability: 06/14/20 [facility]: No beds: 06/14/20 [facility]: No beds: 06/14/20 [facility]-Barrie wants to await [place] determinations. [facility]-[place]rie wants to await [place] and [place] determinations. [facility]rie wants to await [place] and [place] determinations. [facility]: No bed availability: 06/15/20
--- NOTE | 2020-06-18 12:03 | PDOC.CMPRO ---
Care Management Progress Note S/O: Barrie was emergently transferred to the ICU today due to low BPs. CM notified Tiffani via and requested she come to [facility] is able. He is being closely monitored and treated. CM continues to follow. A: 59 year old male admitted to [facility] 06/12/20 for weakness, azotemia, hyperkalemia, hyponatremia with a history of CHF, and Renal failure, Barrie has had several admissions to the hospital since September of this year. P: Barrie was emergently transferred to the ICU today due to low BPs. He is being closely monitored and treated. CM continues to follow. Barrie will be discharged to SNF facility once one is available. CM will continue to send referrals to requested facilities. Transportation to be determined at time of discharge pending disposition. Anticipate Barrie may need to enter [facility] due to lack of placement availability. Barrie was declined at the following SNFs. Once he is able, CM will discuss further options, listed below. [facility]: 06/18/20 declined due to lack of equipment needed to support Barrie. [facility]: 06/18/20 declined due to bed availability and private insurance. [facility]: No bed availability: 06/15/20. [facility]: No bed availability: 06/14/20 [facility]: No bed availability: 06/14/20 [facility]: No beds: 06/14/20 [facility]: No beds: 06/14/20 [facility]-[place]rie wants to await [place] and [place]'s determinations. [facility] wants to await [place] and [place] determinations. [facility] wants to await [place] and [place] determinations. [facility]: No bed availability: 06/15/20
--- NOTE | 2020-06-18 12:14 | W.PM.PROGNOT ---
Date of Service Date of service: 06/18/20 Time of Service: 12:14 Assessment and Plan Assessment and plan (1) Nonischemic cardiomyopathy: Status: Chronic Assessment and plan: Patient has severe biventricular heart failure and now is in acute on chronic congestive failure. He is suffering from hypotension causing low flow state and renal failure. I discussed his condition with him and he understands that long-term his condition is poor and without invasive cardiac interventions such as an LVAD his condition is terminal. He has agreed to a DNR/DNI status. He is requesting his family to visit him. Case management is called his sister and his daughter who are on their way in here. In the interim I have transferred him to the intensive care unit and started him on a dobutamine and norepinephrine drip to stabilize his blood pressure and improve his cardiac output. This is merely a temporizing measure until he can meet with his family. (2) Acute kidney injury superimposed on CKD: Status: Acute Assessment and plan: Until today as renal function had been improving. Unfortunately now with the low cardiac output state his renal function has worsened and his potassium has risen. I have put him on Lokelma to reduce his potassium. Patient was given a fluid bolus of 250 mL of saline to attempt to get his blood pressure up at this had no response. He was transferred to the intensive care unit where [id number] ultrasound demonstrated severe LV and RV dysfunction. He has dilated IVC and dilated hepatic veins with pulsatility. Patient will be started on a furosemide drip in addition to the norepinephrine and dobutamine drip. Again this is only a temporizing measure to allow him some time to see his family. (3) Hyperkalemia: Status: Acute Assessment and plan: Patient is on a low potassium renal diet. He is not receiving any medications that would provoke hyperkalemia. He has been put on Lokelma to help control his potassium. (4) Generalized weakness: Status: Chronic (5) CKD (chronic kidney disease): Status: Acute Assessment and plan: Multifactorial including low cardiac output state, diabetes mellitus Qualifiers: Chronic kidney disease stage: stage 4 (severe) Qualified Code(s): N18.4 - Chronic kidney disease, stage 4 (severe) (6) Atrial fibrillation: Status: Chronic Assessment and plan: Patient is currently on warfarin with therapeutic INR. His INR is now up to 2.0. He is currently on warfarin 7.5 mg daily. His atrial fibrillation rate had previously been well controlled but because of missed doses of his metoprolol his rate is creeped up into the low 100s. Qualifiers: Atrial fibrillation type: unspecified Qualified Code(s): I48.91 - Unspecified atrial fibrillation (7) Obstructive sleep apnea: Status: Chronic Assessment and plan: Continue use of nocturnal BiPAP or CPAP (8) Diabetic peripheral neuropathy associated with type 2 diabetes mellitus: Status: Chronic Assessment and plan: Currently on basal bolus insulin along with carbohydrate coverage. Blood sugars are reasonable between 130-150. (9) Venous stasis ulcers of both lower extremities: Status: Chronic Assessment and plan: Wound care as per nursing (10) Discharge planning issues: Status: Acute Assessment and plan: CM has placed referrals to multiple area SNF. Subjective Subjective Interval history since last seen: Patient feels fatigued but no real pain or dyspnea. He shown some progressive weight gain. His weight today is up to 168.4 kg. Is a 4 kg weight gain since yesterday and yesterday's weight of 164 kg represent an 8 kg weight gain from the day before. Because of his acute kidney injury diuretics were withheld particularly since he was not having any dyspnea. He is still not requiring any oxygen saturations 98% on room air but he is having significant bilateral leg edema and abdominal edema 4+. He is also hypotensive this morning systolic blood pressure 88 over diastolic blood pressure 58 but that was taken from a forearm cough. When taken with a large arm cuff over the brachial his systolic pressure is 78 on the right and 76 on the left. He did receive his metoprolol XL 12.5 mg this morning however his hydralazine was not given. He did receive his Imdur 15 mg this morning. He is not currently receiving any diuretics. At this point he appears to be having worsening biventricular heart failure and worsening renal function from his heart failure. Yesterday his BUN was 78 and his creatinine is 1.29. This is the lowest that his creatinine had been in months. However today his creatinine took a slight climbed to 1.45 his BUNs 83. We will transfer the patient back into the intensive care unit for dobutamine drip. I am also going to initiate digoxin for his heart failure but will need to carefully titrate this in the setting of his chronic renal disease. His potassium is higher today at 5.5 and the patient will be given a daily dose of Lokelma to keep his potassium under 5. Patient remains a full CODE STATUS which I will readdress with the patient. Exam Narrative Exam Narrative: Patient is awake but less animated today. He seems to be nodding off while I am talking to him. Lungs with diffuse bilateral rales. Heart Iregularly irregular and tachycardic Abdomen is obese with active bowel sounds but distended and edematous. Both legs are edematous 4+ tense edema of his thighs and his calves. Objective Last Vital Signs Temp 36.2 C L 06/18/20 11:19 Pulse 62 06/18/20 11:19 Resp 18 06/18/20 11:19 BP 88/58 L 06/18/20 11:30 Pulse Ox 98 06/18/20 11:19 Laboratory Results - last 24 hr 06/18/20 06/18/20 07:05 07:05 PT 20.0 H INR 2.0 H Sodium 128 L Potassium 5.5 H Chloride 99 Carbon Dioxide 23.7 Anion Gap 5.3 BUN 83 H* Creatinine 1.45 H Estimated GFR/1.73 m2 49.48 Glucose 131 H Calcium 8.1 L
--- NOTE | 2020-06-18 12:30 | DI.RAD_ITS ---
EXAM: XR PORTABLE CHEST AP POST LINE CLINICAL HISTORY: post PICC TECHNIQUE: 2D digital imaging was performed. COMPARISON: CR,XR XR PORTABLE CHEST AP from 06/11/2020 FINDINGS: A portable exam was performed. PICC line has been inserted via the left arm. The tip lies in the up per SVC. No pneumothorax is seen. The lungs are expiratory but appear clear. The heart is enlarged , unchanged.. IMPRESSION: PICC line tip is in the upper SVC. DATA REPOSITORY: RADIATION DOSE DELIVERED:
--- NOTE | 2020-06-18 12:44 | PT.INTREAT ---
Date of service: 06/18/20 Time of Service: 11:40 PT Notes Visit Reasons: WEAKNESS,AZOTEMIA,HYPERKALEMIA,HYPONATREMIA Inpatient Physical Therapy Treatment Note [facility] Date: 06/18/2020 PRECAUTIONS: Fall, Activity as Tolerated SUBJECTIVE: Barrie reports that he is not feeling well today. He reports feeling very tired and weak. OBJECTIVE: MD and nursing request assist for chair-bed transfer. PAIN: No c/o pain BED MOBILITY/TRANSFERS Sit-supine: Max A x3 Sit-stand: Min A x2 Stand-sit: CGA x3 Chair-bed: Min A x3 GAIT Assistive Device: FWW Weight bearing: Full Assist: CGA x3 Distance: 8 steps (approx.) ASSESSMENT: Patient demonstrates significant weakness and reports significant fatigue with chair-bed transfer. He would benefit from continued participation in PT, when medically appropriate. PLAN: Continue with PT when medically appropriate. TREATMENT CODE/TIME: 10 minutes; [id number]
[2020-06-18 13:14] LABS: Troponin I < 0.05 ng/mL (<0.06)
[2020-06-18 13:19] LABS: NT-proBNP 6030 pg/mL (<300)
[2020-06-18] MEDS: Sodium Zirconium Cyclosilicate 10 GM PKT PO (13:30)
[2020-06-18 13:39] LABS: BE -5 mmol/L (-2-3); HCO3 20 mmol/L (22-26); pCO2 38 mmHg (35-45); pH 7.34 (7.35-7.45); pO2 91 mmHg (80-105); sO2 98 % (95-98); tCO2 19 mmol/L (23-27)
[2020-06-18 13:42] LABS: Site Left Radial
[2020-06-18 13:45] LABS: Procalcitonin 0.1 ng/mL
[2020-06-18] MEDS: DOBUTamine 500 MG/250 ML BAG 12.63 MG IV ×2 (14:01→14:04)
[2020-06-18] MEDS: Normal Saline 1,000 ML 1000 ML IV (14:12)
[2020-06-18] MEDS: Digoxin 0.5 MG/2 ML AMP 0.25 MG IVP (19:55)
[2020-06-18] MEDS: Normal Saline Flush 10 ML SYR 20 ML IVP (20:08)
[2020-06-18] MEDS: DOBUTamine 500 MG/250 ML BAG 25.26 MG IV (20:47)
[2020-06-18] MEDS: Gabapentin 600 MG TAB 1200 MG PO (21:50)
[2020-06-18] MEDS: Melatonin 3 MG TAB 9 MG PO (21:51)
[2020-06-18] MEDS: Warfarin 5 MG TAB PO (22:58)
[2020-06-18] MEDS: Insulin Glargine 300 UNITS/3 ML PEN 13 UNITS SC (23:04)
[2020-06-19] VITALS (71 sets, daily range): BP systolic 64–107; BP diastolic 29–66; PULSE 63–113; RESP 12–25; TEMP 37; O2SAT 93–97
[2020-06-19] MEDS: Digoxin 0.5 MG/2 ML AMP 0.25 MG IVP (00:15)
[2020-06-19] MEDS: DOBUTamine 500 MG/250 ML BAG 50.4 MG IV ×2 (01:50→07:03)
[2020-06-19 07:38] LABS: BUN 70 mg/dL (7-18); CREATININE 1.07 mg/dL (0.70-1.30); Calcium 8.4 mg/dL (8.5-10.1); Chloride 99 mmol/L (98-107); Glucose 132 mg/dL (74-106); Potassium 4.3 mmol/L (3.5-5.1); Sodium 133 mmol/L (136-145)
[2020-06-19] MEDS: Budesonide/Formoterol 80/4.5 10.2 GM 120 PUFF INH IH (08:00)
--- NOTE | 2020-06-19 09:47 | W.PALLCONSUL ---
Date of service: 06/19/20 Time of Service: 09:48 History of Present Illness Narrative: Barrie is well known to staff due to his multiple admissions due to multiple comorbidities, some life threatening. He came to [facility] after being [place] [facility] due to inability to care for himself. Unfortunately his condition worsened and he is nowin the ICU on 2 vasopressors. Yesterday he chose to change his CODE status to DNR. I was asked to meet with Barrie to discuss his goals of care. He realizes that he is not doing well. He would like to live 2 more years, but doubts he will. He and his daughter had a heartfelt conversation last evening. She talked about their mystery trips when they would just drive around the [facility] until they figured out we they were. 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 These conversations meant a lot to Barrie. He feels in some way that they were saying good bye. His daughter was very upset when she left. He doesn't want to disappoint her. We discussed what it means to be on vasopressors and how he would likely if they were stopped. We discussed the gift of making the decision to stop the medications rather than leaving it to his family. I offered to put his daughter on speaker phone to discuss it further. Assessment and Plan Assessment and plan (1) Acute kidney injury superimposed on CKD: Status: Acute (2) CHF (congestive heart failure): Status: Chronic (3) Weakness: Status: Acute (4) Palliative care patient: Status: Chronic Assessment and plan: We spoke for some time about his choices. He would like to start to wean off the vasopressors. He hopes to see his daughter again. I conveyed his choices to the hospitalist team and nurses. I have spent more than 50% of time in counseling with this patient. (5) Physician orders for life-sustaining treatment (POLST) form indicates patient wish for [id number] status: Status: Acute Review of Systems Narrative: He states he is not in pain and at least he has that going for him. He has no appetite and feels very weak. [facility] Medical History Acute kidney injury (nontraumatic) Associated with dehydration secondary to overdiuresis for treatment of his CHF Anxiety Atrial fibrillation Cellulitis and abscess of lower extremity Chronic venous insufficiency of lower extremity Coronary artery disease Non-hemodynamic diffuse disease per cardiac catheterization from [facility] October 28, [address] Heladio Harkins Depression Diabetic peripheral neuropathy associated with type 2 diabetes mellitus Goals of care, counseling/discussion Lives alone with help available Morbid obesity with BMI of 50.0-59.9, adult Nonischemic cardiomyopathy LVEF 35% with diffuse hypokinesis and septal wall motion abnormality due to bundle branch block, moderately dilated and moderately reduced RV systolic function, mild mitral regurgitation, mild tricuspid regurgitation, mild dilatation aortic root and moderate dilatation of ascending aorta per transthoracic echocardiogram [place] [facility] [place]. Obstructive sleep apnea Wear CPAP mask Orthostatic hypotension Osteoarthritis, knee Palliative care patient Social isolation Venous stasis ulcers of both lower extremities Surgical History H/O cardiac catheterization (10/28/19) Cardiac catheterization per Dr. Heladio Harkins at [facility], 10/28/2019, mild diffuse nonobstructive coronary artery disease with right coronary dominance and elevated left ventricular end-diastolic pressures, less than 25% narrowing of the left main coronary artery, less than 25% stenosis of the LAD, less than 25% stenosis of left circumflex, less than 25% stenosis of RCA. Family History Brother No problems noted. Sister No problems noted. Daughter No problems noted. Other Diabetes Heart disease Hyperlipidemia Hypertension Social History Smoking/Tobacco Use Status: Never Alcohol Intake: former Drug use: Never Details: no alcohol for 10 yrs Caregiver/Support person: Yes (brother lives near by, grocery shops for him, etc) Details: sister also near by, was more involved in past than now Household members: none Housing: house Number of Children: 1 Communication Needs: Hard of Hearing and Corrective Lenses Education Level: high school Do you need help understanding health information?: Always Current gender identity: male What is your relationship status?: How often do you talk on the phone with friends or family?: three or more times per week How often do you get together with friends or relatives?: twice per week Panel score (0-1 are the most socially isolated patients): 1 What type of physical activity do you participate in: none and sedentary lifestyle Special otoniel needs: No Agree to transfusion: Yes Seatbelt use: sometimes Fire extinguisher in home: Yes Do you feel safe at home: Yes Do you feel safe in your relationship?: Yes Additional Social history: Barrie lives alone. His brother looks in on him regularly and buys his groceries. He is homebound. He used to depend on his sister but she got tired of it so now his brother does it. He has a daughter who lives away. She is due to come visit soon. He wants to see her. He is annoyed by other people pretending to be disabled when they aren't. He feels that many people take advantage of the system. 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 Exam Narrative Exam Narrative: Barrie is lying in bed and is unable to turn on his own. He looks me squarely in the eye and answers my questions clearly. He is tachycardic and irregular. Lung sounds diminished. Legs are edematous and wrapped Results Last Vital Signs Temp 98.6 F 06/19/20 03:48 Pulse 96 H 06/19/20 04:01 Resp 12 06/19/20 04:01 BP 96/52 L 06/19/20 04:01 Pulse Ox 95 06/19/20 04:01 Labs Result diagrams: 06/15/20 06:52 06/19/20 06:30 Labs: Laboratory Results - last 24 hr 06/18/20 06/18/20 06/18/20 12:50 12:50 12:50 PT INR ABG Sample Site ABG pH ABG pCO2 ABG pO2 ABG HCO3 ABG Total CO2 ABG O2 Saturation ABG Base Excess VBG Lactate 2.0 H Sodium Potassium Chloride Carbon Dioxide Anion Gap BUN Creatinine Estimated GFR/1.73 m2 Glucose Calcium Troponin I < 0.05 NT-Pro-B Natriuret Pep 6030 H Procalcitonin 0.1 06/18/20 06/19/20 06/19/20 13:20 06:30 06:30 PT Cancelled INR Cancelled ABG Sample Site Left radial ABG pH 7.34 L ABG pCO2 38 ABG pO2 91 ABG HCO3 20 L ABG Total CO2 19 L ABG O2 Saturation 98 ABG Base Excess -5 L VBG Lactate Sodium 133 L Potassium 4.3 D Chloride 99 Carbon Dioxide 27.0 Anion Gap 7.0 BUN 70 H Creatinine 1.07 Estimated GFR/1.73 m2 >= 60.00 Glucose 132 H Calcium 8.4 L Troponin I NT-Pro-B Natriuret Pep Procalcitonin 06/19/20 07:30 PT Cancelled INR Cancelled ABG Sample Site ABG pH ABG pCO2 ABG pO2 ABG HCO3 ABG Total CO2 ABG O2 Saturation ABG Base Excess VBG Lactate Sodium Potassium Chloride Carbon Dioxide Anion Gap BUN Creatinine Estimated GFR/1.73 m2 Glucose Calcium Troponin I NT-Pro-B Natriuret Pep Procalcitonin
[2020-06-19] MEDS: DULoxetine 30 MG CAP PO (10:44)
[2020-06-19] MEDS: Docusate Sodium 100 MG CAP PO ×2 (10:44→21:39)
[2020-06-19 10:49] LABS: Magnesium 1.8 mg/dL (1.8-2.4)
[2020-06-19] MEDS: Insulin Aspart 300 UNITS/3 ML PEN SC ×3 (10:50→12:17)
[2020-06-19] MEDS: Ketoconazole 2% CREAM 15 GM TUBE TP ×2 (10:51→21:40)
[2020-06-19] MEDS: Normal Saline Flush 10 ML SYR 20 ML IVP ×2 (10:51→21:38)
--- NOTE | 2020-06-19 11:05 | PDOC.CMPRO ---
- If Service Date Differs Date of service: 06/19/20 Time of Service: 11:05 Care Management Progress Note S/O: CM was requested to call Barrie's sister, Tiffani. CM explained the current visitation schedule with her, per RN fiber optics supervisor. Barrie can have two immediate family visitors at a time while in the ICU. 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 Per report, Barrie's BP medications will be titrated down today, and his course of treatment will depend on his response to the change of medications. CM will continue to follow. A: 59 year old male admitted to [facility] 06/12/20 for weakness, azotemia, hyperkalemia, hyponatremia with a history of CHF, and Renal failure, Barrie has had several admissions to the hospital since September of this year. P: Barrie was emergently transferred to the ICU yesterday due to low BPs. He is being closely monitored and treated. CM continues to follow. Barrie will be discharged to SNF facility once one is available. CM will continue to send referrals to requested facilities. Transportation to be determined at time of discharge pending disposition. Anticipate Barrie may need to enter [facility] due to lack of placement availability. Barrie was declined at the following SNFs. Once he is able, CM will discuss further options, listed below. [facility]: 06/18/20 declined due to lack of equipment needed to support Barrie. [facility]: 06/18/20 declined due to bed availability and private insurance. [facility]: No bed availability: 06/15/20. [facility]: No bed availability: 06/14/20 [facility]: No bed availability: 06/14/20 [facility]: No beds: 06/14/20 [facility]: No beds: 06/14/20 [facility]-[place] wants to await [place] and [place]'s determinations. [facility]-[place] wants to await [place] and [place]'s determinations. [facility]-Barrie wants to await [place] and [place]'s determinations. [facility]: No bed availability: 06/15/20
--- NOTE | 2020-06-19 16:20 | W.PM.PROGNOT ---
Date of Service Date of service: 06/19/20 Time of Service: 16:21 Assessment and Plan Assessment and plan (1) CKD (chronic kidney disease): Status: Acute Qualifiers: Chronic kidney disease stage: stage 4 (severe) Qualified Code(s): N18.4 - Chronic kidney disease, stage 4 (severe) (2) CHF (congestive heart failure): Status: Chronic (3) Goals of care, counseling/discussion: Status: Acute Assessment and plan: Barrie continues to require norepinephrine and dobutamine drips to maintain adequate BP. With down titrating norepinephrine his MAP decreased below goal of 60. Dr Zavaleta with palliative care discussed goals of care. He had discussed these the previous day with his family. He made the decision to transition to comfort measures only. (4) Nonischemic cardiomyopathy: Status: Chronic Subjective Subjective Patient reports: denies nausea, vomiting and fever Interval history since last seen: He endorses mild improvement in SOA. He continues to be generally tired. Exam Const General: no acute distress and frail appearing Nutritional Appearance: obese Orientation: awake and oriented x3 Resp Effort & Inspection: normal respiratory effort Auscultation: rales Cardio Jugular venous pressure: JVD Other: Irreg Irreg GI Inspection: obesity Palpation: soft and nontender Extrem General: edema Laterality: bilateral (3+) Psych Appearance: grossly normal Affect: blunted Thought Process: normal Objective Last Vital Signs Temp 37 C 06/19/20 12:00 Pulse 80 06/19/20 15:29 Resp 15 06/19/20 15:40 BP 64/53 L 06/19/20 15:29 Pulse Ox 95 06/19/20 12:30 Laboratory Results - last 24 hr 06/19/20 06/19/20 06/19/20 06:30 06:30 06:30 PT Cancelled INR Cancelled Sodium 133 L Potassium 4.3 D Chloride 99 Carbon Dioxide 27.0 Anion Gap 7.0 BUN 70 H Creatinine 1.07 Estimated GFR/1.73 m2 >= 60.00 Glucose 132 H Calcium 8.4 L Magnesium 1.8 06/19/20 07:30 PT Cancelled INR Cancelled Sodium Potassium Chloride Carbon Dioxide Anion Gap BUN Creatinine Estimated GFR/1.73 m2 Glucose Calcium Magnesium
[2020-06-19] MEDS: Gabapentin 600 MG TAB 1200 MG PO (21:39)
[2020-06-19] MEDS: Melatonin 3 MG TAB 9 MG PO (21:39)
[2020-06-19] MEDS: oxyCODONE 5 MG TAB PO (23:03)
[2020-06-19] MEDS: LORazepam 1 MG TAB PO (23:09)
[2020-06-20] MEDS: MORPHine 250 MG in Normal Saline 245 ML IV (00:34)
[2020-06-20] MEDS: Ketoconazole 2% CREAM 15 GM TUBE TP (09:15)
[2020-06-20] MEDS: Normal Saline Flush 10 ML SYR 20 ML IVP (09:15)
[2020-06-20] MEDS: Scopolamine 1 MG/3 DAYS PATCH TD (09:20)
--- NOTE | 2020-06-20 09:39 | W.PM.PROGNOT ---
Date of Service Date of service: 06/20/20 Time of Service: 09:39 Assessment and Plan Assessment and plan (1) Comfort measures only status: Start date: 06/20/20 Start time: 09:46 Status: Acute Assessment and plan: Has decided to go comfort measures after being unable to maintain blood pressures off of dobutimin due to poor EF and HR. He appears comfortable. He is on morphine for comfort. Dr. Diaz met with patient and will continue to follow. Ativan as needed for anxiety and scopolamine for secretions above case discussed with Dr. Avilez who is in agreement. Subjective Subjective Patient reports: no new complaints Interval history since last seen: Responsive to verbal stimuli. No pain at this time. 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 Exam Narrative Exam Narrative: Appears comfortable. Morphine gtt in place. Will continue to manage comfort. Scopalomine patch for secretions. Objective Last Vital Signs Temp 37 C 06/19/20 12:00 Pulse 80 06/19/20 15:29 Resp 15 06/19/20 15:40 BP 64/53 L 06/19/20 15:29 Pulse Ox 95 06/19/20 12:30 Laboratory Results - last 24 hr 06/19/20 06:30 Magnesium 1.8
--- NOTE | 2020-06-20 13:29 | CMPROGNOTE_ITS ---
- If Service Date Differs Date of service: 06/20/20 Time of Service: 13:29 Care Management Progress Note S/O: Barrie was transitioned to DRIVER GUIDE yesterday afternoon, after not responding well to titration of BP medication. He was transferred to [facility] today for end of life care. His family has been visiting in the room with him. He was lying in bed comfortably when CM met with him. CM will continue to follow. A: 59 year old male admitted to [facility] 06/12/20 for weakness, azotemia, hyperkalemia, hyponatremia with a history of CHF, and Renal failure, Barrie has had several admissions to the hospital since September of this year. P: Barrie decided to transition to DRIVER GUIDE yesterday. He will remain at [facility] for end of life care, his family surrounding him. CM will continue to support Barrie and his family at this time.
--- NOTE | 2020-06-21 00:19 | W.PM.DDS ---
Date of service: 06/21/20 Time of Service: 00:21 Discharge Sum: Prov Provider Primary care physician: Laura Martinez Admitting clinician: Hugh Ward Attending physician on admission: Hugh Ward Consults: Palliative Care Discharge Sum: Diag PCOD Cause of : Cardiogenic shock Contributing Factors (1) CHF (congestive heart failure): Contributing factors: Biventricular (2) Acute kidney injury superimposed on CKD: (3) Weakness: Discharge Sum: Summary Date and Time Admission Date: 06/11/2010/17/20 00:00 Date of : 06/20/20 Time of : 22:15 Summary Details: Mr Peacock is a 59 year old male with PMHx of chronic biventricular heart failure (LVEF 35-40%, RVSP of 32 mmHg), as well as h/o CKD, Afib and prior DVT, on coumadin, and chronic venous insufficiency, who was admitted to [facility] hospitalist service on 06/11/2020 with acute on chronic combined CHF with cardiorenal syndrome, KELLY on CKD with hyponatremia, hyperkalemia, and generalized weakness. His diauretics were held and his fluid restriction relaxed. His blood pressures started to become progressively lower, despite holding antihypertensives. On 06/18/2020, he developed cardiogenic shock due to his biventricular failure and was transferred to the ICU for vasopressor and positive inotropic therapy so that the patient could say goodbye to his family. He changed his code status to DNR/DNI. Palliative care was consulted. On 06/19/2020, he made the decision to transition to comfort care only. He peacefully on 06/20/2020 at 22:15 (pronounced at 22:16). We appreciate the opportunity to help take care of the patient in his final days and wish the patient well. Additional Data Confirmation of as documented by pronouncing clinician: no pulse, no respirations, no heart sounds and pupils fixed and dilated Family: contacted Attending/PCP notified?: Yes Attending Physician: Hugh Santizo Was code activated?: No Autopsy requested?: No disability insurance claim examiner notified?: No Advance directives: Yes Hospice patient?: No
--- NOTE | 2020-06-21 16:51 | PT.INDS ---
Date of service: 06/21/20 PT Notes Visit Reasons: WEAKNESS,AZOTEMIA,HYPERKALEMIA,HYPONATREMIA Inpatient Physical Therapy Discharge Summary Date: 06/21/20 Date of service: 06/13/2020 through 06/18/2020 This is a clinical summary of care provided on the duration of dates listed above. No charge was made in the completion of this documentation. Referring Doctor: Wendy Allison, PT Orders: PT CONSULT: Evaluate and Treat Precautions: STandard Patient Profile/Admitting Diagnosis: Orders received for this 59-year-old male with a history of severe obesity. Patient has had an issue with chronic health conditions and hyponatremia and CHF as well as azotemia. Patient has recently had a patient hospitalization at [facility]. Upon discharge 2 days ago he was unable to make it up his stairs required for entry into his home. This led to an assessment at the [facility] emergency department where it was determined that he would not be able to return home in his current state. Orders have been advised for physical therapy evaluate and treatment PMHX: Medical History Acute kidney injury (nontraumatic) Associated with dehydration secondary to overdiuresis for treatment of his CHF Anxiety Atrial fibrillation Cellulitis and abscess of lower extremity Chronic venous insufficiency of lower extremity Coronary artery disease Non-hemodynamic diffuse disease per cardiac catheterization from [facility] October 28, [address] Heladio Harkins Depression Diabetic peripheral neuropathy associated with type 2 diabetes mellitus Goals of care, counseling/discussion Lives alone with help available Morbid obesity with BMI of 50.0-59.9, adult Nonischemic cardiomyopathy LVEF 35% with diffuse hypokinesis and septal wall motion abnormality due to bundle branch block, moderately dilated and moderately reduced RV systolic function, mild mitral regurgitation, mild tricuspid regurgitation, mild dilatation aortic root and moderate dilatation of ascending aorta per transthoracic echocardiogram from [facility] [place] [place] October 22, 2019. Obstructive sleep apnea Wear CPAP mask Orthostatic hypotension Osteoarthritis, knee Palliative care patient Social isolation Venous stasis ulcers of both lower extremities Surgical History H/O cardiac catheterization (10/28/19) Cardiac catheterization per Dr. Heladio Harkins at [facility], 10/28/2019, mild diffuse nonobstructive coronary artery disease with right coronary dominance and elevated left ventricular end-diastolic pressures, less than 25% narrowing of the left main coronary artery, less than 25% stenosis of the LAD, less than 25% stenosis of left circumflex, less than 25% stenosis of RCA. Social History/Home Situation: Patient lived alone in [place] and he has 5 steps in which to enter the home Equipment Owned/DME: None with a walker Subjective: N/A. Patient on 06/20/2020. Objective: N/A. Patient on 06/20/2020. Mental Status:N/A. Patient on 06/20/2020. Pain: N/A. Patient on 06/20/2020. Bed Mobility/Transfers: N/A. Patient on 06/20/2020. Gait: N/A. Patient on 06/20/2020. Balance: N/A. Patient on 06/20/2020. ASSESSMENT: N/A. Patient on 06/20/2020. Goals: N/A. DISCHARGE RECOMMENDATIONS: N/A. Patient on 06/20/2020. TREATMENT CODE/TIME: JELENA Durán PT, DPT, CLT [facility] [place], [place]
== END 2020-06-20 22:15 | disposition expired | DRG 292 ==
LOC: ER 06-12 00:30 → MS 06-12 00:50 → ICU 06-18 13:53 → MS 06-20 22:37
PROVIDERS: Family Medicine; Internal Medicine; Admitting Provider General Practice; Emergency Provider Emergency Medicine; PCP Nurse Practitioner Family; Visit Provider General Practice
DX: I13.0 Hypertensive heart and chronic kidney disease with heart failure and stage 1 through stage 4 chronic kidney disease, or unspecified chronic kidney disease (principal); N17.9 Acute kidney failure, unspecified; E87.1 Hypo-osmolality and hyponatremia; Z68.43 Body mass index [BMI] 50.0-59.9, adult; I50.82 Biventricular heart failure; N18.4 Chronic kidney disease, stage 4 (severe); I42.9 Cardiomyopathy, unspecified; R53.1 Weakness; Z51.5 Encounter for palliative care; E87.5 Hyperkalemia; E86.0 Dehydration; F41.9 Anxiety disorder, unspecified; I48.91 Unspecified atrial fibrillation; I87.2 Venous insufficiency (chronic) (peripheral); Z66 Do not resuscitate; I25.10 Atherosclerotic heart disease of native coronary artery without angina pectoris; F32.9 Major depressive disorder, single episode, unspecified; E11.42 Type 2 diabetes mellitus with diabetic polyneuropathy; E66.01 Morbid (severe) obesity due to excess calories; R57.0 Cardiogenic shock; I45.4 Nonspecific intraventricular block; I08.1 Rheumatic disorders of both mitral and tricuspid valves; I77.810 Thoracic aortic ectasia; G47.33 Obstructive sleep apnea (adult) (pediatric); I95.1 Orthostatic hypotension; M17.9 Osteoarthritis of knee, unspecified; I50.9 Heart failure, unspecified; Z79.01 Long term (current) use of anticoagulants; I89.0 Lymphedema, not elsewhere classified; E11.22 Type 2 diabetes mellitus with diabetic chronic kidney disease; I95.9 Hypotension, unspecified
CPT/HCPCS: 36415; 36573; 36592; 71045; 80048; 80053; 82805; 84145; 87040; 93005; 94640; 97110; 97140; 97162; 97166; 97530; 97535; 99222; 99232; 99233; 99238; 99255; 99285; 99291; U0003; 36600; 81003; 82247; 83036; 83605; 83735; 83880; 84450; 84460; 84484; 85025; 85610; 93010; J0610; J1160; J1940; J2405; J3490